=== PATIENT | female | born 1965 | race Caucasian/White ===

== ENCOUNTER 2020-04-30 01:16 | Outpatient (CLI) | payer SELFPAY ==
[2020-05-01 17:43] LABS: COVID-19 RT-PCR Result NEGATIVE (Negative)
== END 2020-04-30 01:36 ==
PROVIDERS: Visit Provider Family Medicine
DX: Z11.59 Encounter for screening for other viral diseases (principal)
CPT/HCPCS: U0003

== ENCOUNTER 2020-05-28 11:06 | Outpatient (CLI) | payer MEDICAID, SELFPAY ==
[2020-05-31 16:37] LABS: Patient Race White; SARS-CoV-2 RNA Undetected (Undetected); SARS-CoV-2 Specimen Source Nasal
== END 2020-05-28 11:26 ==
PROVIDERS: PCP Student in an Organized Health Care Education/Training Program; Visit Provider Family Medicine
DX: Z20.828 Contact with and (suspected) exposure to other viral communicable diseases (principal)
CPT/HCPCS: U0003

== ENCOUNTER 2020-10-11 16:43 | Outpatient (CLI) | payer MEDICAID, SELFPAY ==
--- NOTE | 2020-10-11 16:30 | RT.EKG_ITS ---
APPROVED REPORT Exam: Resting ECG Patient Location: O HR:65 bpm ECG Measurements Heart Rate 65 AXIS DE 176 P 61 QRSd 78 QRS 59 QT 397 T 49 QTc 397 Conclusion Sinus rhythm...normal P axis, V-rate 60- 99 Atrial premature complexes in couplets...pair SV complexes w/ short R-R
== END 2020-10-11 16:44 | disposition home or self-care (01) ==
LOC: DI.KIM 16:43
PROVIDERS: PCP Student in an Organized Health Care Education/Training Program; Visit Provider Student in an Organized Health Care Education/Training Program
DX: R00.0 Tachycardia, unspecified (principal)
CPT/HCPCS: 93010

== ENCOUNTER 2020-10-19 02:08 | Outpatient (CLI) | payer MEDICAID, SELFPAY ==
[2020-10-19 09:58] LABS: Source Nasal/Nares
[2020-10-19 14:31] LABS: COVID-19 PCR Negative (Negative)
== END 2020-10-19 02:09 | disposition home or self-care (01) ==
LOC: LBO 02:09
PROVIDERS: PCP Student in an Organized Health Care Education/Training Program; Visit Provider Family Medicine
DX: Z20.822 Contact with and (suspected) exposure to COVID-19 (principal); Z01.818 Encounter for other preprocedural examination
CPT/HCPCS: 87635

== ENCOUNTER 2020-10-22 04:43 | Outpatient (CLI) | payer MEDICAID, SELFPAY ==
[2020-10-22] MEDS: Albuterol HFA 18 GM 200 PUFF INH IH (16:41)
[2020-10-22] MEDS: Inhaler, Assist Device 1 EACH MC (16:42)
--- NOTE | 2020-10-24 08:24 | W.PFT ---
Date of service: 10/22/20 Time of Service: 03:07 Pulmonary Function Test Result Interpretation Spirometry: No evidence of obstructive airways disease, no bronchodilator response Lung Volumes: No evidence of restriction Diffusion Capacity: Normal Airway Pressure: Normal Impression Normal pulmonary function study Clinical Correlation therefore is recommended.
== END 2020-10-22 04:44 | disposition home or self-care (01) ==
PROVIDERS: PCP Student in an Organized Health Care Education/Training Program; Visit Provider Student in an Organized Health Care Education/Training Program
DX: R06.2 Wheezing (principal); Z87.891 Personal history of nicotine dependence; J44.9 Chronic obstructive pulmonary disease, unspecified; Z87.01 Personal history of pneumonia (recurrent)
CPT/HCPCS: 94060; 94726; 94729

== ENCOUNTER 2020-11-16 15:21 | Outpatient (CLI) | payer MEDICAID, SELFPAY ==
--- NOTE | 2020-11-16 15:24 | DI.RAD_ITS ---
Exam(s) XR RIBS RT W PA LAT CHEST EXAM: XR RIBS RT W PA LAT CHEST CLINICAL HISTORY: r/o fx, RIB PAIN ON RT SIDE, PLEURODYNIA, R07.81 TECHNIQUE: 2D digital imaging was performed. COMPARISON: No exams were available for comparison FINDINGS: MEDIASTINUM: Normal. HEART: Normal. PULMONARY VASCULATURE: Normal. LUNGS: Clear. PLEURAL SPACE: No pleural effusion or pneumothorax. BONE:Normal. RIGHT RIBS: Normal. OTHER FINDINGS:Normal. IMPRESSION: 1. No acute pulmonary findings. 2. Unremarkable right ribs. DATA REPOSITORY: RADIATION DOSE DELIVERED:
== END 2020-11-16 15:41 ==
PROVIDERS: PCP Student in an Organized Health Care Education/Training Program; Visit Provider Nurse Practitioner Family
DX: R07.81 Pleurodynia (principal)
CPT/HCPCS: 71046; 71100

== ENCOUNTER 2021-07-23 03:20 | Outpatient (CLI) | payer OTHER, MEDICAID, SELFPAY ==
[2021-07-23 10:09] LABS: HCT 43.2 % (36.0-46.0); HGB 13.6 g/dL (11.2-15.7); MCH 29.5 pg (27.0-33.0); MCHC 31.5 % (32.0-36.0); MCV 93.7 fL (80-95); MPV 9.5 fL (8.0-11.0); Platelet Count 303 10^3/uL (130-400); RBC 4.61 10^6/uL (3.93-5.22); RDW 12.7 % (11.7-14.6); RDW-SD 43.6 fL; WBC 7.25 10^3/uL (4.4-10.8)
[2021-07-23 11:44] LABS: ALT 28 U/L (14-59); AST 20 U/L (15-37); Albumin 3.9 g/dL (3.4-5.0); Alkaline Phosphatase 138 U/L (46-116); Anion Gap 9.3 mmol/L (3-11); BUN 12 mg/dL (7-18); Bilirubin, Total 0.3 mg/dL (0.2-1.0); CO2 27.7 mmol/L (21.0-32.0); CREATININE 1.1 mg/dL (0.55-1.02); Calcium 9.4 mg/dL (8.5-10.1); Chloride 106 mmol/L (98-107); Estimated GFR 51.38 (mL/min/1.73m2); Glucose 90 mg/dL (74-106); Sodium 143 mmol/L (136-145); TSH 1.37 uIU/mL (0.36-3.74); Total Protein 7.5 g/dL (6.4-8.2)
[2021-07-23 11:56] LABS: Calculated LDL 154 mg/dL (<100); Cholesterol 240 mg/dL (<200); HDL Cholesterol 56 mg/dL (40-60); Triglyceride 153 mg/dL (<150)
[2021-07-23 18:45] LABS: T3,Free 3.3 pg/mL (2.8-5.3)
== END 2021-07-23 03:21 | disposition home or self-care (01) ==
PROVIDERS: Visit Provider Student in an Organized Health Care Education/Training Program
DX: R53.83 Other fatigue (principal); Z13.220 Encounter for screening for lipoid disorders; E46 Unspecified protein-calorie malnutrition; Z13.1 Encounter for screening for diabetes mellitus; E03.9 Hypothyroidism, unspecified; E06.3 Autoimmune thyroiditis; G47.00 Insomnia, unspecified
CPT/HCPCS: 36415; 80053; 80061; 85027; 84439; 84443; 84481

== ENCOUNTER 2021-08-30 02:03 | Outpatient (CLI) | payer OTHER, MEDICAID, SELFPAY ==
[2021-08-30 10:20] LABS: Source Nasal/Nares
[2021-08-30 13:44] LABS: COVID-19 PCR Negative (Negative)
== END 2021-08-30 02:04 | disposition home or self-care (01) ==
LOC: LBO 02:03
PROVIDERS: PCP Student in an Organized Health Care Education/Training Program; Visit Provider Surgery
DX: Z20.822 Contact with and (suspected) exposure to COVID-19 (principal); Z01.818 Encounter for other preprocedural examination
CPT/HCPCS: 87635

== ENCOUNTER 2021-09-02 06:59 | Day surgery (SDC) | payer OTHER, MEDICAID, SELFPAY ==
--- NOTE | 2021-09-02 06:43 | ENDO_ITS ---
Date of service: 09/02/21 Time of Service: Endoscopy Report DATE OF PROCEDURE: 09/02/21 PRE-OP DIAGNOSIS: Abdominal pain and colon cancer screening POST-OP DIAGNOSIS: other (mild gastritis and duodenitis, mild diverticulosis) PROCEDURE: Colonoscopy SURGEON: Nakia Dias ANESTHESIA TYPE: General:No Airway (Deondre Zhang CRNA) COMPLICATIONS: None DISPOSITION: same day INDICATIONS: Jim is a pleasant 55 year old female who is here today to discuss a colonoscopy. This would be her first colonoscopy. She is having some epigastric pain. She was recently treated for presumptive? Diverticulitis. She has had 2 previous episodes of diverticulitis in the past, when she was in her 20's. She denies any melena or hematochezia. Her bowel habits are inconsistent. They can be normal to loose. She can have 1 to 5 BM's per day. She complains of bloating which can be severe. She denies N/V. She has a family history of colon cancer in her Grandfather and aunt. NO 1st degree relatives with Colon or rectal cancer. PREP: Miralax/Dulcolax PROCEDURE START TIME: PROCEDURE END TIME: :07 FINDINGS: Mild gastritis and duodenitis Mild diverticulosis PROCEDURE DESCRIPTION: After informed consent was obtained the patient was take to the procedure room and placed in a supine position. Monitors were applied and a time out was done. The patients name, date of , procedure type, allergies to medications and metal in their body was reviewed. A bite block was placed and the patient was sedated. Once sedated and comfortable the gastroscope was advanced through the oropharynx which was grossly normal into the esophagus. The proximal and mid- esophagus were normal. In the distal esophagus there was mild inflammation noted. The scope was advanced into the stomach and through the pylorus into the 3rd portion of the duodenum. The duodenum was noted to have some mild inflammation. Biopsies were done. The scope was retracted back into the stomach. There was mild inflammation noted in the antrum and body. Biopsies were done to rule out H. pylori. There were no ulcers. The scope was retro-flexed. The cardia and fundus were noted to be normal. There was no hiatal hernia noted. The scope was retracted back into the esophagus and biopsies were done of the GE junction to rule out Giraldo's. The Z line was regular. The GE junction was at 38 cm. While the patient was still sedated they were placed in a left decubitous position. A rectal exam was done. Internal exam revealed a decreased sphincter tone and no palpable masses. The scope was then introduced and retro-flexed. No internal hemorrhoids, masses or polyps were identified on retroflexion. The scope was then advanced to the cecum without difficulty. The ileocecal valve and appendiceal orifice were identified. The prep was good. The scope was advanced into the terminal ileum which was normal. The scope was then slowly retracted over 16 minutes back into the rectum. Polyps were removed with cold forceps in the terminal ileum. There was mild diverticulosis noted in the sigmoid colon. The scope was removed and the patient was woken up and taken back to Same day surgery in stable condition. The patient tolerated the procedure well and there were no immediate complications. Follow up: Will depend on pathology results
--- NOTE | 2021-09-02 06:45 | W.PM.DSUDISC ---
Discharge Plan Disposition Patient Disposition: HOME Condition: Good Discharge Details Reason For Visit: Colonoscopy/EGD Attending Provider: Nakia Dias Primary Care Provider: Paloma Hyman Home Meds and New Rx's Prescriptions: New omeprazole 40 mg capsule,delayed release(DR/EC) 40 mg PO DAILY Qty: 30 0RF Continued cholecalciferol (vitamin D3) 125 mcg (5,000 unit) tablet 125 mcg PO DAILY 0RF melatonin 10 mg capsule 20 mg PO HS PRN0RF Rx Instructions: sleep zolpidem [Ambien] 10 mg tablet 10 mg PO QHS PRN (Reason: sleep) Qty: 30 1RF Rx Instructions: Re-try (over unisom) phenazopyridine 95 mg tablet See Rx Instructions PO TID PRN (Reason: pain) Qty: 90 2RF Rx Instructions: 200mg PO three times a day PRN; epinephrine [EpiPen] 0.3 mg/0.3 mL auto-injector 0.3 mg IM ONCE Qty: 2 1RF Rx Instructions: as a single dose clobetasol 0.05 % ointment 1 applic topical .weekly PRN (Reason: vaginal dryness) 0RF Rx Instructions: vaginal dryness diazepam 10 mg tablet 10 mg PO QHS PRN (Reason: vaginismus) 0RF Rx Instructions: Not PO - vaginal at HS prn for pelvic pain. levothyroxine [Synthroid] 88 mcg tablet 88 mcg PO DAILY 0RF Rx Instructions: Prescribe brand-name only Premarin 0.625 mg/gram cream 0.625 mg vaginal .twice weekly 0RF Rx Instructions: twice weekly (Lichen Sclerosis). CBD drops PO/SL PRN 0RF Rx Instructions: 500mg sucralfate 1 gram tablet 1 g PO BID Qty: 30 1RF Rx Instructions: Trial for gastritis Probiotic 3 billion cell capsule 3,000 mmu cells PO DAILY 0RF Rx Instructions: administer with a meal sumatriptan succinate 50 mg tablet 50 mg PO PRN 0RF Unisom (doxylamine) 25 mg tablet 25 mg PO QHS PRN0RF ondansetron 4 mg Tablet,Disintegrating 4 mg PO Q6H PRN0RF Discontinued bisacodyl [Dulcolax (bisacodyl)] 5 mg tablet,delayed release (DR/EC) 5 mg PO ONCE Qty: 4 0RF Rx Instructions: Take according to provider's instructions for colonoscopy prep. polyethylene glycol 3350 17 gram/dose powder 17 g PO ONCE Qty: 238 0RF Rx Instructions: To be taken as directed by prescriber's office for colonoscopy prep. Discharge Instructions Instructions: Diet for Stomach Ulcers and Gastritis (ED), Gastritis (DC), Diverticulosis (DC) Additional Instructions: Findings: Mild inflammation of the stomach and small bowel (duodenum) Mild diverticulosis ? of a small polyp Follow up: will depend on the pathology results Please call if you develop: fevers >101.5 Nausea or Vomiting Abdominal pain that is not transient Rectal bleeding that is more then a tbsp A hard abdomen and inability to pass gas DAY SURGERY UNIT POST ENDOSCOPY INSTRUCTIONS Instructions for everyone who is given Anesthesia: For your safety, please do the following for the next 24 Hours: a. Do not drive or operate dangerous equipment b. Do not drink alcohol beverages or use any recreational drugs for the first 24 hours or while taking pain medications. The medications in your body may have a reaction that can be dangerous. c. Do not make any important decisions or sign any important papers 1. Generally there are no restrictions on your activity after a day or so has gone by, but you may feel a bit fatigued for a few days. 2. After you arrive home you may have a light meal and return to a normal diet as you can tolerate it without feeling sick to your stomach. 3. After surgery, you may feel pain or discomfort. This should be only transient, but if it persists please contact your doctor. 4. If there are any questions regarding the findings of your procedure, please feel free to contact your doctor. 6. If you are unable to contact your doctor with a problem, contact the hospital at [phone]. 7. Continue all your regular medications unless directed otherwise. I understand the above instructions and have no questions. Signature of Patient or Responsible Adult Escort Date/Time Name of Responsible Adult Escort Signature of Nurse Date/Time Activity:: Activity as Tolerated Diet:: high fiber Discharge Orders Discharge Orders: Discharge Order (Routine); Ordered 09/02/21 Ordered By: Nakia Dias
[2021-09-02 07:23] VITALS: BP 130/86; PULSE 80; RESP 18; TEMP 36.2; O2SAT 99
[2021-09-02] MEDS: Lactated Ringers 1,000 ML 80 ML IV (07:55)
--- NOTE | 2021-09-02 08:04 | W.ANESPRE ---
General Info Date of Service Date Performed: 09/02/21 Height: 5 ft 5.5 in Weight: 64.3 kg Body Mass Index (BMI): 23.2 Surgical Procedure: Operation Date: 09/02/21 08:20 Proposed Procedure Side Surgeon p Colonoscopy/Gastroscopy Nakia Dias MD Meds Allergies and Home Medications Allergies Allergy/AdvReac Type Severity Reaction Status Date / Time strawberry Allergy Severe mouth/tongue Verified 09/02/21 07:29 swelling venom-honey bee Allergy Severe anaphylaxis Verified 09/02/21 07:29 Sulfa (Sulfonamide Allergy Verified 09/02/21 07:29 Antibiotics) vaccine adjuvant system, AdvReac Mild localized Verified 09/02/21 07:29 AS01B liposomal rash [From Shingrix (PF)] varicella-zoster virus AdvReac Mild localized Verified 09/02/21 07:29 glycoprotein E, recombinant rash [From Shingrix (PF)] pregabalin [From Lyrica] AdvReac Suicidal Verified 09/02/21 07:29 Ideation vaccines AdvReac Mild reacts to Uncoded 09/02/21 07:29 vaccines-fever,aches/pains,malaise,fatigue Home Medication Medication Instructions Recorded doxylamine succinate 25 mg tablet 25 mg PO QHS PRN 05/09/20 (Unisom (doxylamine)) sumatriptan succinate 50 mg tablet 50 mg PO PRN tab 05/09/20 cholecalciferol (vitamin D3) 125 125 mcg PO DAILY 05/18/20 mcg (5,000 unit) tablet melatonin 10 mg capsule 20 mg PO HS PRN cap 05/18/20 epinephrine 0.3 mg/0.3 mL 0.3 mg (0.3 mL) IM ONCE #2 ea 01/04/21 injection, auto-injector (EpiPen) phenazopyridine 95 mg tablet See Rx Instructions PO TID PRN #90 01/04/21 tab zolpidem 10 mg tablet (Ambien) 10 mg PO QHS PRN #30 tab 01/04/21 CBD PO/SL PRN 06/27/21 clobetasol 0.05 % topical ointment 1 applic TOPICAL .weekly PRN g 06/27/21 conjugated estrogens 0.625 mg/gram 0.625 mg VAGINAL .twice weekly g 06/27/21 vaginal cream (Premarin) diazepam 10 mg tablet 10 mg PO QHS PRN tab 06/27/21 levothyroxine 88 mcg tablet 88 mcg PO DAILY 06/27/21 (Synthroid) sucralfate 1 gram tablet 1 g PO BID #30 tab 07/23/21 lactobacillus combination no.4 3 3,000 mmu cells PO DAILY 08/16/21 billion cell capsule (Probiotic) bisacodyl 5 mg tablet,delayed 5 mg PO ONCE #4 tab 08/27/21 release (Dulcolax (bisacodyl)) polyethylene glycol 3350 17 17 g PO ONCE #238 g 08/27/21 gram/dose oral powder ondansetron 4 mg disintegrating 4 mg PO Q6H PRN 08/30/21 tablet Current Visit Medications: Current Medications Generic Name Dose Route Start Last Admin Trade Name Freq PRN Reason Stop Dose Admin Hyoscyamine Sulfate 0.125 mg 09/02/21 06:45 Hyoscyamine 0.125 Mg Sl/Oral/Chew SL DIRECTED PRN Ringer's Solution 1,000 mls @ 80 mls/hr 09/02/21 06:00 09/02/21 07:55 IV 09/16/21 23:59 80 mls/hr INFUSION GAYLE Administration IV Miscellaneous Supplies 1 each 09/02/21 06:00 Iv Access IV 09/16/21 23:59 DIRECTED GAYLE Ondansetron HCl 4 mg 09/02/21 06:45 Ondansetron 4 Mg/2 Ml Vial IVP Q4H PRN PRN Nausea / Vomiting Sodium Chloride 0 ml 09/02/21 06:00 Normal Saline Flush 10 Ml Syr IV 09/16/21 23:59 PRN PRN Sodium Chloride 0 ml 09/02/21 06:00 Normal Saline 10 Ml Vial IJ 09/16/21 23:59 DIRECTED PRN Sterile Water 0 ml 09/02/21 06:00 Water,Injection,Sterile 10 Ml Vial IJ 09/16/21 23:59 DIRECTED PRN PFSH Active Problems Active Problems: Problem Status Onset Code History of trauma Z87.828 Hx of smoking Z87.891 Abdominal pain R10.9 History of diverticulitis Z87.19 GERD (gastroesophageal reflux disease) K21.9 Medical History Medical History Advance directive in chart Atypical and under discussion .. [place] COVID-19 2019 Cystocele, midline Female genital prolapse s/p repair .. 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 Poor tolerance Lunesta (metallic taste). Insomnia Interstitial cystitis Terrible IC flare, 12/2020. Lichen sclerosus of anus Lichen sclerosus of female genitalia Migraine Improved s/p breast reduction Pelvic and perineal pain Sees Dr. Elian Sandy ([place]) for trigger point injections ..vaginal diazepam. Pelvic floor dysfunction Pelvic floor tension Postmenopausal atrophic vaginitis Hx lichen sclerosis .. (s/p tear repair, Dr. Sandy ([place])) Rectocele Stress incontinence Vaginismus Valium (vag); Establising w/ [facility] (Dr. Mitzi Mcknight) & [facility] PT. Wheeze Lingering wheeze (upper rt) Medical History Comments:: freaked out' in the past with anesthesia. 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 Pt. reports having had 30 surgeries in the past. Surgical History Surgical History H/O cystoscopy Vaginal biopsy and Repair of vaginal tears. Dr. Noelle Sandy History of bilateral breast reduction surgery History of colonoscopy History of hysterectomy History of surgery Peer patient hx multiple cystoscopys, total pelvic rebuild, anterior/ posterior repair, surgery for endometriosis, surgical repair for vaginal tears r/t lichen sclerosus. Patient reports a total of 30 past surgical procedures. Tobacco Smoking/Tobacco Use Status: Former Tobacco Use Passive smoking exposure: No Alcohol Alcohol Intake: former Year quit: 2011 Substance Use Substance use: Never Substance use type: does not use Vital Signs and Lab Results Vital Signs Most Recent Vital Signs in EMR: Most Recent Vital Signs Temp Pulse Resp BP Pulse Ox 36.2 C L 80 18 130/86 99 09/02/21 07:23 09/02/21 07:23 09/02/21 07:23 09/02/21 07:23 09/02/21 07:23 Lab Results Blood Type / Crossmatch: No Data to Display Complete Blood Count: No Data to Display Complete Metabolic Panel: No Data to Display Liver Function Panel: No Data to Display Coagulation Panel: No Data to Display Cardiac Panel: No Data to Display Arterial Blood Gas: No Data to Display Venous Blood Gas: No Data to Display Pancreas Panel: No Data to Display Thyroid Panel: No Data to Display Infectious Disease: Coronavirus (COVID-19)(PCR) Negative (Negative) 08/30/21 08:40 08/30/21 Coronavirus 2019 Source Nasal/Nares 08/30/21 08:40 08/30/21 Blood Cultures: No Data to Display Toxicology Panel: No Data to Display Anesthesia Assessment and Plan Anesthesia History Personal History: PONV, Awareness Under Anesthesia and Other Family History: No Family History of Anesthesia Complications Exercise Tolerance Exercise Tolerance: Metabolic Equivalents>4 Pertinent Negatives Pertinent Negatives: No Symptoms of GERD Cardiac & Pulmonary Exam Cardiac Exam: Normal S1/S2 Heart Sounds Pulmonary Exam: Clear Bilateral Breath Sounds Implantable Cardiac Device Does patient have a Pacemaker or an ICD?: No Airway Exam Known Difficult Airway: No Mallampati Class: 2 Mouth Opening: Normal (> 3cm) Thyromental Distance: Greater than 3 cm Neck Range of Motion: Full ROM Neck Circumference: Normal Teeth Condition: Normal Dentition ASA Classification ASA Score: ASA 2 Emergency Case?: No NPO Status NPO Status: NPO Clears >2 hours, Solids >8 hours Anesthesia Plan Resuscitation Status: Full Code Anesthesia Technique: General Anesthesia Airway Planned: Natural Airway Monitors Used: Standard Monitors
[2021-09-02 08:06] VITALS: BMI 23.2
--- NOTE | 2021-09-02 08:35 | STOM_PTH ---
PATIENT: Isela Braun LOC: [facility] U#:[id number] AGE/SX: 55/F ROOM: RE09/02/[address]: Nakia Dias MD : 1965 BED: DIS: 09/02/2021 SPEC #: [id number] RECD: 09/02/21 12:40 STATUS: LILIA RE #: [id number] JED: 09/02/21 08:[address]: Nakia Dias DEPT: Surgical Specimen RECD BY: Janay Valle ENTERED: 09/02/21 12:43 SP TYPE: STOMACH OTHR DR: Paloma Hyman DO Tissues: 1 - BIOPSY BOWEL 2 - STOMACH BIOPSY 3 - STOMACH BIOPSY 4 - ESOPHAGUS BIOPSY 5 - BIOPSY BOWEL Procedures: GROSS AND MICRO LEVEL 4 Comments: [id number]
[2021-09-02] MEDS: Hyoscyamine 0.125 MG SL/ORAL/CHEW SL (09:21)
[2021-09-02 09:31] VITALS: BP 103/98; PULSE 97; RESP 16; TEMP 35.8; O2SAT 97
[2021-09-02 10:00] VITALS: BP 129/78; PULSE 67; RESP 16; TEMP 36.4; O2SAT 99
--- NOTE | 2021-09-02 10:38 | W.ANESPOSTOP ---
Postoperative Evaluation Date, Time and Location Date Performed: 09/02/21 Time Performed: 10:00 Patient Location: Day Surgery Unit Vital Signs Most Recent Imported Vital Signs: Most Recent Vital Signs Temp Pulse Resp BP Pulse Ox 36.4 C L 67 16 129/78 99 09/02/21 10:00 09/02/21 10:00 09/02/21 10:00 09/02/21 10:00 09/02/21 10:00 Pain Score Most Recent Pain Score: Most Recent Pain Score Pain Level 6 09/02/21 10:00 Assessment Mental Status: Awake (Alert & Oriented to Patient Baseline) Airway and Respiratory Function: Patent airway with normal (patient baseline) respiratory exam Cardiovascular Function: Hemodynamically Stable Hydration Status: Adequately Hydrated Nausea & Vomiting: No Nausea or Vomiting Pain: Pain is Moderate or Severe Postoperative Pain Management: Other (Surgeon aware and addressing) Peripheral Nerve Block: Patient did not receive a nerve block
== END 2021-09-02 10:45 | disposition home or self-care (01) ==
LOC: SUR 07:00
PROVIDERS: PCP Student in an Organized Health Care Education/Training Program; Visit Provider Surgery
PROC: (CPT 45380; principal; 2021-09-02 08:15)
DX: Z12.11 Encounter for screening for malignant neoplasm of colon (principal); K21.9 Gastro-esophageal reflux disease without esophagitis; K31.89 Other diseases of stomach and duodenum; D12.3 Benign neoplasm of transverse colon; K29.70 Gastritis, unspecified, without bleeding; K29.80 Duodenitis without bleeding; K63.89 Other specified diseases of intestine; Z80.0 Family history of malignant neoplasm of digestive organs; K57.30 Diverticulosis of large intestine without perforation or abscess without bleeding
CPT/HCPCS: 45380; 43239; 88305; J3490

== ENCOUNTER 2021-09-18 01:58 | Outpatient (CLI) | payer OTHER, MEDICAID, SELFPAY ==
[2021-09-19 20:19] LABS: Baker's Yeast, IgE <0.35 kU/L; Banana, IgE <0.35 kU/L; Barley, IgE <0.35 kU/L; Beef IgE <0.35 kU/L; Black/White Pepper IgE <0.35 kU/L; Broccoli IgE <0.35 kU/L; Cacao/Cocoa, IgE <0.35 kU/L; Cinnamon, IgE <0.35 kU/L; Corn-Food IgE <0.35 kU/L; Milk, IgE <0.35 kU/L; Onion, IgE <0.35 kU/L; Soybean IgE <0.35 kU/L; Strawberry, IgE <0.35 kU/L; White Potato, IgE <0.35 kU/L
[2021-09-19 20:31] LABS: Egg Whole IgE <0.10 kU/L
== END 2021-09-18 01:59 | disposition home or self-care (01) ==
LOC: LBO 01:58
PROVIDERS: PCP Student in an Organized Health Care Education/Training Program; Visit Provider Surgery
DX: K20.0 Eosinophilic esophagitis (principal)
CPT/HCPCS: 36415; 86003

== ENCOUNTER 2022-01-31 01:31 | Outpatient (CLI) | payer OTHER, MEDICAID, SELFPAY ==
--- OUTSIDE RECORDS SUMMARY | 2022-01-31 01:32 | XMS_ITS | Encounter Summary ---
:1965 Author Organization [facility] [place] [address] Care Team Providers Name Role Phone Paloma Hyman Primary Care Provider Reason for Visit Reason Onset Date Comments Reminder Appointment 12/31/2021 Encounter Details Date Type Department Care Team Description 12/31/2021 [place] [facility] [place] [facility] [place] [address] Social History Tobacco Use Types Packs/Day Years Used Date Former Smoker Cigarettes 0.5 10 Quit: 02/18/20 11 Smokeless Tobacco: Never Used Comments: 1 to 2 a day. Alcohol Use Standard Drinks/Week Comments No 0 (1 standard drink = 0.6 oz pure alcoho l) Sex Assigned at Date Recorded Not on file documented as of this encounter Miscellaneous Notes Telephone Encounter - Bhavna Calderon LNA - 12/31/2021 8:45 AM EDT Called patient to review medications and allergies for their upcoming gastroenterology Type of Appointment: Telehealth appointment. 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
--- OUTSIDE RECORDS SUMMARY | 2022-01-31 01:32 | XMS_ITS | Encounter Summary ---
:1965 Author Organization [facility] [place] [address] Care Team Providers Name Role Phone Paloma Hyman DO Primary Care Provider Reason for Visit Consultation (Routine) - Authorized Specialty Diagnoses / Procedures Referred By Contact Refer red To Contact Gastroenterology Diagnoses Eosinophilic esophagitis Eosinophilic esophagitis Paloma Hyman, [facility] DO [address] [phone] Fax: Referral ID Status Reason Start Expiration Visits Visits Date Date Requested Authorized [id number] Authorized Consult, 12/09/2021 12/09/2022 6 6 Test & Treat PCP Updated and/or Approved Encounter Details Date Type Department Care Team Description 12/31/2021 [place] [facility] [place], Dysphagia, unspecified type; (TeleHealth) [facility] Mariel Zhang MD Gastroesophageal reflux disease, unspeci fied whether esophagitis present; [place] [id number] [facility] Functional dyspepsia; [phone] Center Irritable bowel syndrome [place] [address] Social History Tobacco Use Types Packs/Day Years Used Date Former Smoker Cigarettes 0.5 10 Quit: 02/18/20 11 Smokeless Tobacco: Never Used Comments: 1 to 2 a day. Alcohol Use Standard Drinks/Week Comments No 0 (1 standard drink = 0.6 oz pure alcoho l) Sex Assigned at Date Recorded Not on file documented as of this encounter Patient Instructions Patient InstructionsMiller Ibarra MD - 12/31/2021 5:07 PM EDT Functional Bowel Disorders: Information Handout for Patients and Primary Care Providers Miller Ibarra MD, FRCPC + Terrell Haas MD, CALIN Jordin Monreal, SAFETY ADMIN ASSISTANT + Cecilia Molina APRN + Brina Rodriguez APRN + TOD Jones RN + WILLIAM Church, PhD [facility] What are functional bowel disorders? These are the most common type of gastrointestinal disorders in the [facility] The most common functional bowel disorder in the [facility] is irritable bowel syndrome (IBS) Irritable bowel syndrome affects the lower GI tract and can cause bloating, abdominal pain, diarrhea, and constipation Functional dyspepsia (FD) affects the upper GI tract and can cause bloating, burping, heartburn, nausea, fullness and stomach discomfort In functional disorders the gut is structurally/anatomically normal but is not functioning properly due to abnormalities in the enteric (gut) nervous system Two mechanisms cause symptoms - heightened sensitivity of the gut to normal sensations (sensory nerves) and abnormal gut motility (motor nerves) These disorders are caused by a combination of a genetic factors, changes to the gut microbiota (intestinal bacteria) and environmental triggers How common are these disorders and what is the impact? 15-20% of general [place] population has IBS or FD or both IBS is the 2nd most common cause for lost work days (after common cold) in [place] IBS is estimated to cost the [place] economy 30 billion dollars per year These disorders are typically chronic and can have a significant impact on quality of life How is the diagnosis made? The diagnosis of a functional disorder is NOT a ???diagnosis of exclusion?? (common misconception) Investigations may be necessary to look for other disorders (such as celiac disease) that may be contributing to symptoms. Sometimes investigations are required if the diagnosis is unclear Work-up may include history (description of symptoms), physical exam, bloodwork, stool studies, diagnostic imaging, motility tests and endoscopy What is the prognosis? Functional bowel disorders are unfortunately chronic disorders and often have a major impact on patient quality of life, function, and relationships Symptoms may gradually resolve in some patients (highest rate in patients with immediate onset of symptoms after infection); penitentiary symptoms are expected in most patients however Most patients experience a variable course with varying degrees of symptom severity. Intermittent exacerbations (i.e. ???flares?? ) are common and may be caused by stress, infections, antibiotic exposure, and lack of adherence to treatment plans. Often there is no clear precipitant for an exacerbationthough. When should a patient be re-evaluated? Patients with stable symptoms do NOT need episodic re-evaluation Subtle changes in symptoms and symptom flares are common Patients should be re-evaluated if they have progression or dramatic changes in symptoms, severe abdominal pain, swallowing difficulties, unexplained weight loss, anemia (low blood counts), or bleeding If you have concerns be sure to talk to your PRP or GI provider How do I use this information? Set realistic goals! Remember it is unlikely that any one measure will completely eliminate all symptoms ???Start low and go slow?? with all measures to avoid potential side effects Stay on any measure continuously for at least 4-6 weeks prior to assessing whether or not it is helping (improvements are often slow to occur) After an adequate trial ask yourself if the benefit is worth continuing the treatment Most patients will need multiple treatment measures (each giving a partial benefit) - this is calledthe ???layering strategy?? Remember that finding the right combination for you takes time and patience - there is NO ???miraclecure?? for functional disorders Remember there are limited treatment options available. We want to be absolutely sure that a measureis not effective or intolerable before stopping it and considering other options We specifically recommend all patients to do ALL general lifestyle and dietary measures. Patients that do not follow these general measures generally do not have improvement. We also specifically suggest using a fiber supplement (such as Metamucil) and probiotics together - this approach benefits mostpatients OTC (ibsr-jyx-cdvrmrk) medications can be used for ongoing bothersome symptoms as listed below Your doctor (PCP or the orthopedic specialty hospital Gastroenterology provider or Gastroenterology provider) may decide to use prescription medications if you have ongoing symptoms despite using lifestyle and dietary measuresand OTC medications Your doctor will give you advice on treatments but it is your responsibility to work on these measures to improve your symptoms. Lack of following recommendations is a common cause for ongoing symptoms. If symptoms are controlled try easing back on measures - remember the main goal is to improve quality of life (not necessarily eliminate symptoms). Goals of Therapy Complete resolution of all symptoms is not a realistic goal for most patients. Although we hope for you to have decreased symptoms we believe the most important goal is to help you find strategies to cope with and understand your disorder. Ultimately, we hope that you are able toimprove your quality of life and do the things that are important in your life! Non-Pharmacologic General Treatments Lifestyle measures Many lifestyle factors can worsen IBS symptoms However, IBS is not caused by these factors (common misconception) These lifestyle factors include the following: Inadequate sleep Weight gain Inadequate exercise Stress Depression/anxiety - this should be brought up to your Primary Care Provider (if left untreated it is unlikely the functional bowel disorder will improve) Dietary measures Trigger food avoidance - you should re-introduce foods once symptoms settle as overly restrictive diet can be unhealthy and even harmful Fatty foods, spicy foods, alcohol, and caffeine can worsen symptoms Consider a 2 week dairy-free trial for possible lactose-intolerance Your PCP or GI provider can refer you to a dietitian for formal instruction on specialized diets including the low FODMAP diet (but we don't recommend using this without dietitian involvement). Fiber Aim for a goal is 30 g fiber/day - some patients may require more or less Increase fiber by 5 g per week (remember ???start low and go slow?? ) Fiber can be from multiple dietary sources but supplementation may be helpful Fiber intake should include psyllium fiber; this is the type of fiber used in research studies for treatment of IBS Sources of psyllium include All-Bran psyllium buds, Metamucil, bulk psyllium ([employer] andRetAPPs) Specifically we recommend starting Metamucil at a low dosage such as one teaspoon a day for one weekthen gradually increasing by one teaspoon per week until no further benefit with increasing dosage is achieved. Most patients take between 2 and 6 teaspoons per day. Fluid intake goal is 8-10 glasses/day (caffeine and alcohol count as minus one in calculation) Probiotics Promising area but convincing medical evidence is still lacking Ilav-zqz-urqzomc supplements are not typically evaluated by FDA - quality/safety unclear and many products actually do not contain any probiotics at all Live-culture yogurts, kombucha and other dietary sources are an option Shanika, TuZen, and Visbiome are the three probiotics that are supported by medical research to have been shown benefit for IBS (available in most pharmacies, supermarkets or online) Florastor has been shown to benefit some post-infectious patients Psychology/Coping Skills Coping with chronic bothersome symptoms from functional disorders can be very challenging. Additionally it is not uncommon for functional disorders to contribute to feelings of stress, anxiety, and depression, which can actually worsen functional disorders. This can be a vicious cycle! Smartphone apps can be helpful for coping with IBS symptoms, and lessening the impact of stressors on IBS Headspace (anxiety/stress/mindfulness) Calm (anxiety/stress/mindfulness) CBT-I onsite health coach (insomnia/sleep problems) Curable (chronic pain) There is evidence for Cognitive Behavioral Therapy (CBT) for IBS - you can try this at home using a workbook (Controlling IBS the Drug-Free Way: A 10-Step Plan for Symptom Relief by Julian Landaverde, Ph.D.) or work with a GI psychologist A local therapist may also be helpful for managing the impact of IBS and decreasing the likelihood that stressors will cause flares psychologytoday.[employer] ABCT.org ContextualScience.org Gut-directed hypnotherapy for IBS is also supported by research - you may find a provider at [facility] OT Medications for Functional Gut Disorders Diarrhea Loperamide (Imodium) should be considered first for mild and intermittent symptoms - start with small doses and take several hours before needed (or even before bed) (it is generally considered safe for long-term use) Constipation Patients with mild constipation can use laxatives ???as needed?? (in other words, if you feel constipated or haven't had a regular bowel movement). However, patients with more severe constipation generally will need laxatives on a regular schedule (every day or every second day for example). This is called ???maintenance therapy?? . PEG 3350 (Miralax) is a stool softener that is safe for penitentiary usage (no risk of dependency) and the dosage can be adjusted to achieve 1-2 soft bowel movements per day; you can take 17g twice daily if needed Milk of magnesia, magnesium supplements and lactulose are alternate stool softeners that are generally safe for regular use in most patients (you should ask your doctor though) Bisacodyl (Dulcolax) and senna (Senokot) are stimulant laxatives for occasional use only (they may lead to dependency with regular long-term use) Enemas and bowel preparations (e.g. Golytely) can be used to treat severe stool impaction ---- this is called ???rescue therapy?? . Drink 2 litres in 4 hours in the evening then take another 2 litres over 4 hours the next morning. Alternately, you can mix 14 capfuls of Miralax with 64 oz (2 litres) of Gatorade. Drink half over 2 hours in the evening then take the rest over 2 hours the next morning. After rescue therapy immediately begin aggressive ???maintenance therapy?? with the therapies above. Bloating/Pain Ensure constipation is completely treated - ongoing constipation is one of the most common causes for refractory pain and bloating in patients with a history of constipation Heating pad or hot-water bottle, exercise, , warm bath or shower, and warm beverages are all good treatments for painful bloating episodes Simethicone (Gas-X) can be helpful for occasional usage for painful bloating Peppermint oil may also be useful; a capsule form exists (IBgard) Tumeric may help with pain and bloating in some patients Acetominophen (Tylenol) is safest analgesic (pain reliever) on the GI tract NSAIDs (e.g. ibuprofen) can cause gut irritation/inflammation - it's best to use this type of pain reliever in low doses and frequency only While medical cannabis has been used to treat a variety of chronic pain disorders it has not been rigorously studied in functional disorders and may actually worsen symptoms in some patients. At this point we do NOT recommend using medical cannabis to treat functional disorders AVOID narcotics/opioids as they typically make symptoms much worse and there is a risk of addiction and/or dependence Heartburn/Nausea/Vomiting/Dyspepsia Weight loss, elevation of the head of the bed frame, cutting back on nicotine/alcohol/caffeine/fattyfoods, and avoiding eating or drinking prior to bed may help with reflux symptoms OTC antacids can be used for mild and/or infrequent reflux symptoms Acid reducing medications such as proton-pump inhibitors (PPIs) and H2 blockers are effective at relieving reflux if persistent and bothersome symptoms despite dietary and lifestyle measures Yina and vitamin B6 may help with nausea L-carnitine, riboflavin, and coenzyme Q10 supplements have been reported to help some patients with chronic nausea and vomiting Capsaicin, turmeric, and FDgard (combination of peppermint and crow) may help with after-meal bloating, fullness and discomfort If using cannabis (recreational or medical) consider stopping for at least a full month. While cannabis has been reported to help some patients with nausea, it may actually contribute to symptoms in some patients. Disclaimer This information is intended for educational purposes only It is not meant to replace direct patient-doctor care All medications should be used under the supervision of a Gastroenterology provider (the orthopedic specialty hospital or ) [facility] Authors are not liable for misuse/misinterpretation of this information Patient Resources [place] [employer] https://www.gastro.org/practice-guidance/zk-kakhytl-kazkaa/t opic/nlhjftfix-vgizc-eyjvjkhp-ibs Badgut.org https://badgut.org/information-centre/h-w-nvnirropk-topics/ibs/ AboutIBS.org https://www.aboutibs.org/ Uptodate.com https://www.uptodate.com/contents/nkdulafsz-oabrq-ensnluqw-roplwq-pop-bxgfev documented in this encounter Progress Notes Miller Ibarra MD - 12/31/2021 4:00 PM EDT [facility] TELEMEDICINE PROGRAM Chief Complaint: Isela Braun is a 56 y.o. patient referred for consultation by Dr. Hyman forpossible eosinophilic esophagitis (EoE). Referred for second opinion followed at [facility]. History of Present Illness: 56 y.o. female with past medical history of hypothyroidism, Hakeem's,interstitial cystitis, insomnia, lichen sclerosis, migraines, pelvic floor reconstruction, diverticulitis. New onset of dyspepsia over the winter. Symptoms include early satiety, post- prandial fullness, bloating,and upper abdominal discomfort. Prominent bloating is most bothersome symptom. Occasional nauseawith migraines but no vomiting. Increased stress noted recently. History of chronic heartburn - increased symptoms over the winter - Currently controlled with current PPI. History of chronic globus sensation - also started over the winter. No dysphagia. Resolved with PPI therapy. Chronically altered bowel movements -historically predominantly constipation. Variable course over time with no recent dramatic worsening. Overall doing well currently with 2-3 bowel movements per day.Occasional loose BM. Bowel pattern has associated generalized lower abdominal discomfort and bloating. Worse with certain foods and stress. No blood in stools or melena. Appetite reduced but weight stable. Rare NSAIDs. She underwent upper and lower endoscopy September 02, 2021 which showed mild gastritis and duodenitisand diverticulosis. A polyp was removed as well. Biopsies of the duodenum were normal. Biopsies of the stomach showed reactive gastropathy. Biopsies of the GE junction showed an increased number of eosi nophils at 60 eosinophils per high-power field. Current Regimen: Omeprazole 40 mg once a day Zofran prn Past Therapies: Carafate-fatigue and diarrhea Empiric antibiotics for possible H.pylori Review of systems: 14-point review of systems reviewed and negative except as above. Medications: Outpatient Medications Prior to Visit Medication Sig Dispense Refill ??? diazePAM (Valium) 10 mg Tablet TAKE 1 TABLET VAGINAL AT BEDTIME NEEDED FOR VAGINISMUS NOT BY MOUTH - VAGINAL FOR PELVIC PAIN. ??? omeprazole (PriLOSEC) 40 mg Capsule, Delayed Release(E.C.) Take 40 mg by mouth daily. ??? cholecalciferol (Vitamin D3) 1,000 unit Tablet Take 1,000 Units by mouth Daily. ??? ondansetron ODT (Zofran-ODT) 4 mg Tablet, Rapid Dissolve Take 4 mg by mouth Every 8 hours as needed. ??? SUMAtriptan (Imitrex) 50 mg Tablet Take 50 mg by mouth. ??? levothyroxine (SYNTHROID) 100 mcg tablet Take 1 tablet by mouth daily. (Patient taking differently: Take 88 mcg by mouth daily.) 180 tablet 1 ??? zolpidem (AMBIEN) 10 mg tablet TAKE 1 TABLET BY MOUTH AT BEDTIME NEEDED FOR SLEEP (Patient not taking: Reported on 12/31/2021) 90 tablet 1 ??? OXYcodone (ROXICODONE) 5 mg immediate release tablet Take 1 tablet by mouth every 4 hours as needed for Pain. (Patient not taking: Reported on 12/31/2021) 30 tablet 0 ??? pregabalin (LYRICA) 25 mg capsule Take 1 tab po qhs, take with 75 mg cap (Patient not taking: [place] reported) 30 capsule 2 ??? albuterol (PROVENTIL HFA;VENTOLIN HFA) 90 mcg/Actuation inhaler Inhale 2 puffs into the lungs every 4 hours as needed. Use with spacer (Patient not taking: Reported on 12/31/2021) 1 Inhaler 12 ??? DOXYLAMINE SUCCINATE (UNISOM ORAL) Take by mouth nightly as needed. sleep ??? ibuprofen (MOTRIN) 400 mg tablet ??? acetaminophen (TYLENOL) 325 mg tablet No facility-administered medications prior to visit. Allergies: is allergic to hornet sting [hymenoptera allergenic extract], pregabalin, sulfa (sulfonamide antibiotics), and unknown [unclassified drug]. Past Medical History: has a past medical history of Allergy (07/20/1984), Bladder disorder (07/20/1994), Bone disease (1994), Breast disease (07/20/2001), Breathing problem (07/20/2004), Cancer (1991,1994), Chronic pain (1994, 2008), Digestive problems (07/20/1994), Genital disease, female (07/1987), Headache(784.0) (07/20/2009), Hormone disorder (07/20/1994), Interstitial cystitis, Lichen sclerosus, Migraines, and Other ill-defined conditions(799.89) (07/20/1999). Past Surgical History: has a past surgical history that includes joint replacement (07/20/1993); Bladder surgery (1994- 2009); and Breast reduction surgery. Family History: family history includes Alcohol Use Disorder in her father and paternal grandfather;Colorectal Cancer in her maternal aunt and maternal grandmother; Coronary Artery Disease in her father, paternal grandfather, and paternal grandmother; Depression in her mother and paternal grandmother; Osteoporosis in her maternal aunt. denies family history of IBD, or celiac disease in mother father or other family members Social History: reports that she quit smoking about 10 years ago. Her smoking use included cigarettes. She has a 5.00 pack-year smoking history. She has never used smokeless tobacco. She reports that she does not drink alcohol and does not use drugs. 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 Physical exam: Constitutional: well appearing, no apparent distress Eyes: conjunctiva clear without icterus, pallor, or injection ENT: Nose without external redness or drainage. Mouth with normal dentition; moist mucous membranes CV: No lower extremity peripheral edema or signs of cyanosis Respiratory: Breathing comfortably and speaking in full sentences without evident tachypnea or signsof respiratory distress GI: Abdomen non-distended and non-tender to self-palpation Skin: No visible rashes Psych: Appropriate affect. Intact thought and speech Neuro: Alert and oriented. Moving upper extremities appropriately Questionnaire: Q-GI MOTILITY CLINIC BATTERY 12/31/2021 [facility] Healthy Day Score 30 Work Absenteeism Error Work Presenteeism 0.11 Laboratory studies, imaging, and procedures (in summary of my review of prior records): See above Assessment/Plan: Ms. Braun is a 56 y.o. patient with the following issues: 1. History of globus (but no dysphagia) with recent EGD showing esophageal eosinophilia with 60 eosinophils per high-power field at the GE junction. The endoscopy report reports a normal-appearing esophagus with no visual evidence to suggest eosinophilic esophagitis (EoE). Typically biopsies are taken5 cm above the GE junction as well as the mid and proximal esophagus for diagnostic and surveillancepurposes and EoE. The significance of esophageal eosinophilia on GE junction biopsies is unclear butthis is unlikely to represent EoE. The more likely explanation her situation is reflux effect. 2. Chronic heartburn consistent with GERD. Controlled with current therapies. 3. 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 Transient improvement with antibiotics but symptoms worsened again after COVID. Prominent bloating is most bothersome symptom. Possible element of delayed gastric emptying. Increased stress recently may be contributing. 4. Chronic altered bowel pattern with associated abdominal discomfort and bloating consistent with IBS -constipation predominant (IBS-C). Possible element of dyssynergic defecation (DD). Currently stable. 5. Colonic adenoma Recommendations: We discussed GI functional/motility disorders in depth today including pathophysiology, expected course, impact and treatment categories We also discussed realistic goals (with emphasis on improved quality of life) and patient responsibilities. Please see the patient handout for recommendations on general treatment measures including lifestyle, dietary, and non-prescription pharmacologic options. I will arrange a comprehensive evaluation of the structure and function of the patient's GI tract including the following investigations +/- referrals: EGD off PPI for 2-3 weeks with biopsies of esophagus (PPI's can improve eosinophilia due to EoE or GERD); also planing to do biopsies of stomach and duodenum. Will do with MAC given chronic benzo usage. RUQ U/S to rule out gallstones - can be done locally via PCP as per her request. Consider Gastric emptying study Consider hydrogen breath test Can have surveillance colonoscopies locally - recommended repeat in 3 years as per patient I will arrange a follow-up appointment after the above investigations to review the results and consolidate the diagnosis. Please note that generally specific treatment recommendations will not be discussed at that time. An additional follow-up appointment with a motility [employer] MANAGER will be scheduled after this appointment to discuss specific recommendations for management. Patients should continue to work on general measures provided in our handout while awaiting this appointment. We also discussed the consultative nature of the [facility] GI motility program. The patient should continue to work with their PCP +/- local GI as the primary point(s) of contact for urgent issues, medication refills and adjustments as needed for continuity of care purposes in between visits to our center based on the recommendations above. Recommend PCP to refer to local GI if patient does not have a local GI currently. Yearly or bi-yearly visits with a member of the motility team may be available for co-management purposes depending upon the specific circumstances of the patient's medical condition. RTC with me in after testing completed The patient was located in [place] at the time of their visit. Miller Ibarra MD [facility] [place] [address] documented in this encounter Plan of Treatment Scheduled Orders Name Type Priority Associated Diagnoses Order S chedule ENDOSCOPY CASE Procedures Routine Dysphagia, unspecified Ord ered: 12/31/2021 REQUEST: EGD, UPPER type GI ENDOSCOPY Gastroesophageal reflux disease, unspecified whether esophagitis present Functional dyspe psia Irritable bowel syndrome with both constipation and diarrhea Scheduled Procedures Name Priority Associated Diagnoses Date/Time EGD, UPPER GI ENDOSCOPY Dysphagia, unspe cified type Gastroesophageal reflux disease, unspecified whether esophagitis present Functional dyspepsia Irritable bowel syndrome with casey th constipation and diarrhea documented as of this encounter Visit Diagnoses Diagnosis Dysphagia, unspecified type Gastroesophageal reflux disease, unspeci fied whether esophagitis present Functional dyspepsia Dyspepsia and other specified disorders of function of stomach Irritable bowel syndrome with both const ipation and diarrhea documented in this encounter Care Teams Mechanical Designer Relationship Specialty Start Date End Date Paloma Hyman DO PCP - General Family Medicine 12/09/[address] [place] [address] documented as of this encounter
--- OUTSIDE RECORDS SUMMARY | 2022-01-31 01:32 | XMS_ITS | Clinical Summary ---
:1965 Author Organization [facility] [place] [address] Care Team Providers Name Role Phone Paloma Hyman Primary Care Provider Allergies Active Allergy Reactions Severity Noted Date Comments Hymenoptera Allergenic High 06/18/2012 Breat adarsh trouble Extract Pregabalin High 05/09/2013 Other reaction( s): Other (See Comm ents) SUICIDAL THINKI NG Sulfa (Sulfonamide Diarrhea Antibiotics) Unclassified Drug Other (See Comments) Re laxants-reverse affects Medications Medication Sig Dispensed Refills Start Date End Date Status ibuprofen (MOTRIN) 400 0 07/10/2004 Active mg tablet acetaminophen (TYLENOL) 0 07/10/2004 Active 325 mg tablet DOXYLAMINE SUCCINATE Take by mouth 0 Active (UNISOM ORAL) nightly as needed. sleep albuterol (PROVENTIL Inhale 2 puffs 1 Inhaler 12 06/04/2011 Active HFA;VENTOLIN HFA) 90 into the lungs mcg/Actuation every 4 hours as inhalerIndications: needed. Use with Exercise induced spacer bronchospasm Additional Information Patient not taking. Reported on 12/31/2021 levothyroxine (SYNTHROID) 100 Take 1 tablet by 180 tablet 1 Active mcg tabletIndications: mouth daily. Hypothyroidism Additional Information Patient taking differently: 88 mcg Oral DAILY, Reported on 12/31/2021 zolpidem (AMBIEN) 10 mg TAKE 1 TABLET BY MOUTH AT 90 tablet 1 12/27/2012 Active tablet BEDTIME NEEDED FOR SLEEP Additional Information Patient not taking. Reported on 12/31/2021 diazePAM (Valium) 10 mg Tablet TAKE 1 TABLET VAGINAL AT 0 12/24/2021 Active BEDTIME NEEDED FOR VAGINISMUS NOT BY MOUTH - VAGINAL FOR PELVIC PAIN. omeprazole (PriLOSEC) 40 mg Take 40 mg by mouth daily. 0 09/02/2021 Active Capsule, Delayed Release(E.C.) cholecalciferol (Vitamin D3) Take 1,000 Units by mouth 0 Active 1,000 unit Tablet Daily. ondansetron ODT (Zofran-ODT) 4 mg Take 4 mg by mouth Every 8 0 Active Tablet, Rapid Dissolve hours as needed. SUMAtriptan (Imitrex) 50 mg Take 50 mg by mouth. 0 Active Tablet Active Problems Problem Noted Date Fibromyalgia 01/29/2012 Ischial bursitis 09/24/2011 Trochanteric bursitis 09/24/2011 Bilateral hip pain 09/24/2011 Depression 03/05/2011 Anxiety 03/05/2011 Insomnia 03/05/2011 Hypothyroidism 03/04/2011 Interstitial cystitis 03/04/2011 Preventative health care 03/04/2011 Overview: S/p vag hysterectomy- cervical ca Tdap: 05/08/11 Pneumovax: 05/31/09 Mammograms: due Lipids: 05/31 Tsh : on synthroid HA1C: nl Resolved Problems Problem Noted Date Resolved Date Pancreatitis, chronic 03/04/2011 03/05/2011 Irritable bowel syndrome (IBS) 03/04/2011 1 Encounters Date Type Specialty Care Team Description 01/30/2022 Telephone Gastroenterology Edna Lee 12/31/2021 TH Visit Gastroenterology Miller Ibarra Dysphalla a, unspecified type; (TeleHealth) MD Leatha Gastronancy mcclain reflux disease, unspecified whether esophagitis present; Functional dysp epsia; Irritable bowel syndrome with both constipation and diarrhea 12/31/2021 Telephone Gastroenterology Kyle Calderon LNA 12/09/2021 Transcribe Orders Primary Care Rhoda Hyman, DO esophagitis from Last 3 Months Immunizations Name Administration Dates Next Due Hep A/Hep B 01/29/2012 Hepatitis A Vaccine, unspecified formulation 05/08/2011 Hepatitis B Vaccine, unspecified formulation 11/20/2011 Influenza Vaccine w/Preservative, Split 05/08/2011 MMR Vaccine, Live 12/19/2011, 11/20/2011 Meningococcal Conjugate 05/08/2011 Tdap Vaccine 05/08/2011 Family History Medical History Relation Comments Alcohol Use Disorder Father Coronary Artery Disease Father Colorectal Cancer Maternal Aunt Osteoporosis Maternal Aunt Colorectal Cancer Maternal Grandmother Depression Mother Alcohol Use Disorder Paternal Grandfather Coronary Artery Disease Paternal Grandfather Coronary Artery Disease Paternal Grandmother Depression Paternal Grandmother Relation Status Comments Father Maternal Aunt Maternal Grandmother Mother Paternal Grandfather Paternal Grandmother Social History Tobacco Use Types Packs/Day Years Used Date Former Smoker Cigarettes 0.5 10 Quit: 02/18/20 11 Smokeless Tobacco: Never Used Comments: 1 to 2 a day. Alcohol Use Standard Drinks/Week Comments No 0 (1 standard drink = 0.6 oz pure alcoho l) Sex Assigned at Date Recorded Not on file Last Filed Vital Signs Vital Sign Reading Time Taken Comments Blood Pressure 116/64 06/18/2012 2:21 PM EST Pulse 70 06/18/2012 2:21 PM EST Temperature 36.3 ??C (97.3 ??F) 06/18/2012 2:21 PM EST Respiratory Rate 18 06/18/2012 2:21 PM EST Oxygen Saturation 95% 01/29/2012 8:49 AM EDT Inhaled Oxygen Concentration - - Weight 65.3 kg (144 lb) 06/18/2012 2:21 PM EST Height 166.4 cm (5' 5.5) 06/18/2012 2:21 PM EST Body Mass Index 23.6 06/18/2012 2:21 PM EST Plan of Treatment Scheduled Procedures Name Priority Associated Diagnoses Date/Time EGD, UPPER GI ENDOSCOPY Dysphagia, unspe cified type Gastroesophageal reflux disease, unspecified whether esophagitis present Functional dyspepsia Irritable bowel syndrome with casey th constipation and diarrhea Health Maintenance Due Date Last Done Comments Covid-19 Vaccine (#1) 1969 HIV screen 1982 Hepatitis C Screening 1982 HPV test 1994 PAP Smear 1994 Breast Cancer Share Decision Needed 2004 Colonoscopy 2009 Breast Cancer screening 2014 Zoster vaccine (1 of 2) 2014 Advance Directive 09/19/2019 Tetanus vaccine 05/08/2021 05/08/2011 Influenza (Flu) vaccine ( of - Influenza standard 03/20/2022 05/08/2011 series) Tdap adult Completed 05/08/2011 Insurance Payer Benefit Plan / Subscriber ID Effective Dates Phone Addre ss Type Group [employer] [place] [id number] 2020-Presen [phone] [address] [facility] [address] [place] [address] [place] [id number] 2021-Presen [phone] [address] [facility] [address] [facility] [address] Care Teams Choirmaster Relationship Specialty Start Date End Date Paloma Hyman, DO PCP - General Family Medicine 12/09/[address] [place] [address]
--- OUTSIDE RECORDS SUMMARY | 2022-01-31 01:33 | XMS_ITS | Encounter Summary ---
:1965 [place] [address] Care Team Providers Name Role Phone Holli Reyna MD Primary Care Provider Reason for Visit Reason Onset Date Comments Medication Refill 11/25/2011 Encounter Details Date Type Department Care Team Description 11/25/2011 Refill Internal Medicine at Arist[facility] Reyna MD Insomnia (Primary Dx) [address] [place] [address] [place] [address] [phone] (Wo rk) Social History Tobacco Use Types Packs/Day Years Used Date Former Smoker Cigarettes 0.5 10 Quit: 02/18/20 11 Smokeless Tobacco: Never Used Comments: 1 to 2 a day. Alcohol Use Standard Drinks/Week Comments No 0 (1 standard drink = 0.6 oz pure alcoho l) Sex Assigned at Date Recorded Not on file documented as of this encounter Plan of Treatment Scheduled Procedures Name Priority Associated Diagnoses Date/Time EGD, UPPER GI ENDOSCOPY Dysphagia, unspe cified type Gastroesophageal reflux disease, unspecified whether esophagitis present Functional dyspepsia Irritable bowel syndrome with casey constipation and diarrhea documented as of this encounter Visit Diagnoses Diagnosis Insomnia - Primary Insomnia, unspecified documented in this encounter Care Teams Duct Installer Relationship Specialty Start Date End Date Holli Reyna MD PCP - General 03/05/11 03/01/15 documented as of this encounter
--- OUTSIDE RECORDS SUMMARY | 2022-01-31 01:33 | XMS_ITS | Encounter Summary ---
:1965 [place] [address] Care Team Providers Name Role Phone Holli Reyna MD Primary Care Provider Reason for Visit Reason Onset Date Comments Medication Refill 09/29/2011 Encounter Details Date Type Department Care Team Description 09/29/2011 Refill Internal Medicine at Aristides Reyna MD Insomnia (Primary Dx) [address] [place] [address] [place] [address] [phone] (Wo rk) Social History Tobacco Use Types [...] unspecified documented in this encounter Care Teams Franchise Specialist Relationship Specialty Start Date End Date Holli Reyna MD PCP - General 03/05/11 03/01/15 documented as of this encounter
--- OUTSIDE RECORDS SUMMARY | 2022-01-31 01:33 | XMS_ITS | Encounter Summary ---
:1965 [place] [address] Care Team Providers Name Role Phone Holli Reyna MD Primary Care Provider Reason for Visit Reason Onset Date Comments Medication Refill 02/02/2012 Encounter Details Date Type Department Care Team Description 02/02/2012 Refill Internal Medicine at [facility] Holli Reyna MD [address] [address] PSYCHIATRY [phone] [place] [address] (Wo rk) Social History Tobacco Use Types [...] of this encounter Visit Diagnoses Diagnosis Insomnia Insomnia, unspecified documented in this encounter Care Teams Manager Business Information Relationship Specialty Start Date End Date Holli Reyna MD PCP - General 03/05/11 03/01/15 documented as of this encounter
--- OUTSIDE RECORDS SUMMARY | 2022-01-31 01:33 | XMS_ITS | Encounter Summary ---
:1965 [place] [address] Care Team Providers Name Role Phone Holli Reyna MD Primary Care Provider Reason for Visit Reason Onset Date Comments Medication Refill 06/18/2012 Encounter Details Date Type Department Care Team Description 06/18/2012 Refill Internal Medicine at [facility] Shaunna Jennings MD [facility] [address] [facility] [place] [address] [place], [place] [id number] [phone] (Wo rk) Social History Tobacco Use Types [...] on filedocumented in this encounter Care Teams Biomedical Engineering Internship Relationship Specialty Start Date End Date Holli Reyna MD PCP - General 03/05/11 03/01/15 documented as of this encounter
--- OUTSIDE RECORDS SUMMARY | 2022-01-31 01:33 | XMS_ITS | Encounter Summary ---
:1965 Author Organization [place] [address] Care Team Providers Name Role Phone Holli Reyna MD Primary Care Provider Reason for Visit Reason Onset Date Comments Medication Refill 06/22/2012 Encounter Details Date Type Department Care Team Description 06/22/2012 Refill Internal Medicine at [facility] othyroidism (Primary [facility], [employer] OPERATOR [place]x) [place] [address] Social History Tobacco Use Types Packs/Day Years [...] as of this encounter Visit Diagnoses Diagnosis Hypothyroidism - Primary Unspecified hypothyroidism documented in this encounter Care Teams Alumina Refinery Operator Relationship Specialty Start Date End Date Holli Reyna MD PCP - General 03/05/11 03/01/15 documented as of this encounter
--- OUTSIDE RECORDS SUMMARY | 2022-01-31 01:33 | XMS_ITS | Encounter Summary ---
:1965 Author Organization [facility] [place] [address] Care Team Providers Name Role Phone Holli Reyna MD Primary Care Provider Reason for Referral Physical Therapy (Routine) - Complete - Patient Will Schedule External Appt Specialty Diagnoses / Procedures Referred By Contact Refer red To Contact Physical Therapy Diagnoses Bursitis of right shoulder Leonila Redd APRN [facility] [place] [address] Referral ID Status Reason Start Expiration Visits Visits Date Date Requested Authorized [id number] Complete - Evaluate and 12/19/2011 06/16/2012 1 1 Patient Will Treat Schedule External Appt Reason for Visit Reason Comments Shoulder Pain Encounter Details Date Type Department Care Team Description 12/19/2011 Office Visit Internal Medicine at [facility] DR JACI Portillo itis of right shoulder (Primary Dx); [facility] Leonila Redd APRN [facility] [place] [address] Healthcare maintenance; [place] [address] Social History Tobacco Use Types Packs/Day Years Used Date Former Smoker Cigarettes 0.5 10 Quit: 02/18/20 11 Smokeless Tobacco: Never Used Comments: 1 to 2 a day. Alcohol Use Standard Drinks/Week Comments No 0 (1 standard drink = 0.6 oz pure alcoho l) Sex Assigned at Date Recorded Not on file documented as of this encounter Last Filed Vital Signs Vital Sign Reading Time Taken Comments Blood Pressure 121/64 12/19/2011 10:44 AM EDT Pulse 56 12/19/2011 10:44 AM EDT Temperature - - Respiratory Rate - - Oxygen Saturation - - Inhaled Oxygen Concentration - - Weight 64.9 kg (143 lb) 12/19/2011 10:44 AM EDT Height - - Body Mass Index 23.08 11/20/2011 1:25 PM EDT documented in this encounter Patient Instructions Patient InstructionsHeLeonila castro APRN - 12/19/2011 11:08 AM EDT [facility] Shoulder Bursitis: After Your Visit Your Care Instructions Bursitis is inflammation of the bursa. A bursa is a small sac of fluid that cushions a joint and helps it move easily. A bursa sits under the highest point of your shoulder. You can get bursitis by overusing your shoulder, which can happen with activities such as lifting, pitching a ball, or painting. Symptoms of bursitis include pain when you move your arm. Your arm may hurt when you try to lift it, and the pain can reach down the side of your arm. You may have trouble sleeping because of the pain. Bursitis usually gets better if you avoid the activity that caused it. If pain lasts or gets worse despite home treatment, your doctor may draw fluid from the bursa through a needle. This may relieve your pain and help your doctor know if you have an infection. If so, your doctor will prescribe antibiotics. If you have inflammation only, you may get a corticosteroid shot to reduce swelling and pain. Sometimes surgery is needed to drain or remove the bursa. Follow-up care is a bacon part of your treatment and safety. Be sure to make and go to all appointments, and call your doctor if you are having problems. It???s also a good idea to know your test resultsand keep a list of the medicines you take. How can you care for yourself at home? ?? Put ice or a cold pack on your shoulder for 10 to 20 minutes at a time. Put a thin cloth between the ice and your skin. ?? After 3 days of using ice, use heat on your shoulder. You can use a hot water bottle, a heating pad set on low, or a warm, moist towel. Some doctors suggest alternating between hot and cold. ?? Rest your shoulder. Stop any activities that cause pain. Switch to activities that do not stress your shoulder. ?? Take your medicines exactly as prescribed. Call your doctor if you think you are having a problemwith your medicine. ?? If your doctor recommends it, take anti-inflammatory medicines to reduce pain. These include ibuprofen (Advil, Motrin) and naproxen (Aleve). Read and follow all instructions on the label. ?? To prevent stiffness, gently move the shoulder joint through its full range of motion. As the pain gets better, keep doing [id number] exercises. Ask your doctor for exercises that will make themuscles around the shoulder joint stronger. Do these as directed. ?? You can slowly return to the activity that caused the pain, but do it with less effort until you can do it without pain or swelling. Be sure to warm up before and stretch after you do the activity. When should you call for help? Call your doctor now or seek immediate medical care if: ?? You have a fever. ?? You have increased swelling or redness in your shoulder. ?? You cannot use your shoulder, or the pain in your shoulder gets worse. Watch closely for changes in your health, and be sure to contact your doctor if: ?? You have pain for 2 weeks or longer despite home treatment. Where can you learn more? Visit our health information library at [email or web address]. You can also view health information on [employer], your personal patient account. Log in or sign up today. Enter M955 in the search box to learn more about Shoulder Bursitis: After Your Visit. ?? [id number] [employer]. Care instructions adapted under license by [employer]. This care instruction is for use with your licensed healthcare professional. If you have questionsabout a medical condition or this instruction, always ask your healthcare professional. [employer] disclaims any warranty or liability for your use of this information. Content Version: 9.1.930233; Last Revised: August 21, 2010 documented in this encounter Progress Notes Leonila Redd APRN - 12/19/2011 11:17 AM EDT Subjective: Patient ID: Isela Braun is a 46 y.o. female. HPI [place] is here with right shoulder pain for over 3 months. Originally was in October with golfing and felt tenderness that had resolved but the last week was moving boxes, vaccumed and then pulled a kayak out and felt the pain return. Worse with overhead motions or overuse. Has tried Voltaren with some relief. She does feel pain that radiates to the forearm and at times numbness in the last 2 fingers. Pain is 8 of 10 and achy in nature. Review of Systems Musculoskeletal: Positive for arthralgias (right shoulder, posterior with motions and over head). Neurological: Positive for numbness. Negative for weakness. Light-headedness: right hand last 2 fingers. Objective: Physical Exam Vitals reviewed. Constitutional: She appears well-developed and well-nourished. Cardiovascular: Intact distal pulses. Musculoskeletal: Right shoulder: She exhibits tenderness (supraspinatous area) and crepitus. She exhibits no bony tenderness, no swelling, no effusion, normal pulse and normal strength. Decreased range of motion: cannot push off in back or 180 without manual. Empty can is negative. Assessment and Plan: Isela was seen today for shoulder pain. See patient instructions, probably some impingement as well. Would like as conservative management as possible. Diagnoses and associated orders for this visit: Bursitis of right shoulder - *XR generic shoulder; Future - REFERRAL TO PHYSICAL THERAPY documented in this encounter Plan of Treatment Scheduled Procedures Name Priority Associated Diagnoses Date/Time EGD, UPPER GI ENDOSCOPY Dysphagia, unspe cified type Gastroesophageal reflux disease, unspecified whether esophagitis present Functional dyspepsia Irritable bowel syndrome with casey th constipation and diarrhea Scheduled Referrals Name Type Priority Associated Diagnoses Order S chedule REFERRAL TO Outpatient Referral Routine Bursitis of right Ord ered: PHYSICAL THERAPY shoulder 12/19/2011 documented as of this encounter Visit Diagnoses Diagnosis Bursitis of right shoulder - Primary Disorders of bursae and tendons in shoul chandu region, unspecified Healthcare maintenance Routine general medical examination at a health care facility Preventative health care Routine general medical examination at a health care facility documented in this encounter Care Teams Casting Trucker Relationship Specialty Start Date End Date Holli Reyna MD PCP - General 03/05/11 03/01/15 documented as of this encounter
--- OUTSIDE RECORDS SUMMARY | 2022-01-31 01:33 | XMS_ITS | Encounter Summary ---
:1965 Author Organization [facility] Address [facility] [place] [address] Care Team Providers Name Role Phone Holli Reyna MD Primary Care Provider Reason for Visit Reason Comments Follow-up 3 wk follow up for travel Encounter Details Date Type Department Care Team Description 05/08/2011 Follow-Up Internal Medicine at [facility] Reyna MD Preventative health care (Primary Dx); [address]; [facility] PSYCHIATRY Depression [id number] [place] [address] [phone] Social History Tobacco Use Types Packs/Day Years Used Date Passive Smoke Exposure - Never Smoker Cigarettes Comments: 1 to 2 a day. Alcohol Use Standard Drinks/Week Comments Not Asked 0 (1 standard drink = 0.6 oz pure alcoho l) Sex Assigned at Date Recorded Not on file documented as of this encounter Last Filed Vital Signs Vital Sign Reading Time Taken Comments Blood Pressure 125/71 05/08/2011 4:09 PM left arm/sit ting EDT Pulse 65 05/08/2011 4:09 PM EDT Temperature - - Respiratory Rate 15 05/08/2011 4:09 PM EDT Oxygen Saturation - - Inhaled Oxygen Concentration - - Weight 62.4 kg (137 lb 8 oz) 05/08/2011 4:09 PM EDT Height 167.6 cm (5' 6) 05/08/2011 4:09 PM EDT Body Mass Index 22.19 05/08/2011 4:09 PM EDT documented in this encounter Progress Notes Holli Reyna MD - 05/08/2011 4:39 PM EDT Subjective: Patient ID: Isela Braun is a 45 y.o. female here to review vaccine requirements for an upcoming trip to [facility]. LION Fernandez plans to travel to [facility] in the spring to stay with friends. She has numerous medical conditions and it is imperative that she have certain vaccinations and medications, such as an antimalarial medication and an antibiotic for traveler's diarrhea, in order to ensure that she does not become severely ill. We reviewed the recommended vaccines on the [employer] website. It would be romero for her to have a yellow fever vaccine, a polio booster, typhoid vaccine, hepatitis A vaccine, Tdap, and Menactra. She wouldalso benefit from an influenza vaccine. We reviewed the VIS forms and there are no contraindicationsto these vaccines. She will have a typhoid vaccine I a month or so. At that time she will also have the polio booster and the yellow fever vaccine. The other four vaccines will be given today. Malarone is the appropriate selection for an antimalarial in her case since she has a history of mental health problems which eliminates mefloquine as an option. Sun exposure is going to be unavoidableand therefore doxycycline is not a good choice. We will meet again in late winter to determine the number of pills she will need for this trip. We discussed traveler's diarrhea and she will take a prescription for ciprofloxacin with her on this trip should it be necessary. I also mentioned trip evacuation insurance and she will check to see if she needs this since she is staying with the ambassador at the [facility]. Other travel related topics will be discussed at future visits, including food and water safety and insect precautions. Today she also points out redness beneath each eye she has a dry area of skin that is reddish under each lower lash region. She has never had this before and she wonders if it is related to her antidepressant medication since she feels they occurred at the same time. I did not notice the rash at her last visit. . Jim's mood is much better than when she first presented in clinic this summer. She has become well established in her new home and has numerous friends. We will meet again this winter to go over otheraspects of preventative health care and to do a complete physical exam as this has not been done yet. Her eyes have not had discharge tearing or dryness. The skin is not itchy and she has not used any new med any new cosmetics or skin creams. She is tapering off of her Zoloft and is currently at 25 mg per day and hopes to be off of it in the next week or 2. She has rarely used lorazepam and hopes to also be off it in the next few weeks. He is having a few pills on hand should she have a panicky episode. She has not been drinking alcohol or smoking Review of Systems Negative except as described in the HPI Objective: Physical Exam BP 125/71 Pulse 65 Resp 15 Ht 167.6 cm (5' 6) Wt 62.37 kg (137 lb 8 oz) BMI 22.19 kg/m2 Gen: Upbeat, happy, well appearing, in no apparent distress. Eyes: Normal conjunctiva, no tearing, pupils are reactive to light and accommodation, fundi normal, extra ocular movements intact Skin under the eyes is dry and erythematous. Facial muscles : intact and move normally. Neck: Soft normal thyroid, no masses, supple Assessment and Plan: Isela was seen today for follow-up . Preventative health care - Tdap vaccine greater than or equal to 7yo IM -today - Flu vaccine greater than or equal to 3yo split IM -today - Meningococcal conjugate vaccine 4-valent IM -today - Hepatitis A vaccine adult IM - today - Yellow fever vaccine subcutaneous; - in clinic 5 C , in 1-2 months - Poliovirus vaccine IPV subcutaneous/IM; in 5C, in 1-2 months - Typhoid VICPS vaccine im; In 5C, in 1-2 months Rash under the eyes: This looks like atopic dermatitis vs eczema, but she denies any history of this and thinks it is medication related Wean off Sertraline and lorazepam. Hopefully the rash will clear. Will pursue further if it persists. Depression: Wean off sertraline and lorazepam. Doing well. 20 minutes of this 30 minute visit was spent in counseling. Follow up in June. documented in this encounter Plan of Treatment Scheduled Procedures Name Priority Associated Diagnoses Date/Time EGD, UPPER GI ENDOSCOPY Dysphagia, unspe cified type Gastroesophageal reflux disease, unspecified whether esophagitis present Functional dyspepsia Irritable bowel syndrome with casey th constipation and diarrhea documented as of this encounter Visit Diagnoses Diagnosis Preventative health care - Primary Routine general medical examination at a health care facility Rash Rash and other nonspecific skin eruption Depression Depressive disorder, not elsewhere class ified documented in this encounter Care Teams [employer] Consultant Relationship Specialty Start Date End Date Holli Reyna MD PCP - General 03/05/11 03/01/15 documented as of this encounter
--- OUTSIDE RECORDS SUMMARY | 2022-01-31 01:33 | XMS_ITS | Encounter Summary ---
:1965 Author Organization [facility] Address [facility] [place] [address] Care Team Providers Name Role Phone Holli Reyna MD Primary Care Provider Reason for Visit Reason Comments Depression Encounter Details Date Type Department Care Team Description 04/28/2011 Office Visit Internal Medicine at Aristides Reyna MD Anxiety (Primary Dx); [facility] [address] [facility] Depression; [facility] [place] [address] [place], [place] [phone] (Wo rk) [phone] Social History Tobacco Use Types Packs/Day Years [...] Sign Reading Time Taken Comments Blood Pressure 137/77 04/28/2011 4:04 PM EDT left arm/ sitting Pulse 73 04/28/2011 4:04 PM EDT Temperature - - Respiratory Rate 15 04/28/2011 4:04 PM EDT Oxygen Saturation - - Inhaled Oxygen Concentration - - Weight 64 kg (141 lb) 04/28/2011 4:04 PM EDT Height 167.6 cm (5' 6) 04/28/2011 4:04 PM EDT Body Mass Index 22.76 04/28/2011 4:04 PM EDT documented in this encounter Progress Notes Holli Reyna MD - 04/28/2011 4:35 PM EDT Subjective: Patient ID: Isela Braun is a 45 y.o. female. HPI Jim is here to followup on anxiety and depression. She had a prescription for lorazepam but ran out recently and called in for a holdover prescription. The nurses informed her that she needed to be seen before additional medication will be prescribed. In February she was seen in the emergency room forpersistent nausea and vomiting, the day after drinking alcohol to the point of intoxication. The nurses did confirm that she is not mixing alcohol with her lorazepam or her Unisom. Jim has a history of lupus, which flares during stress. She is very sensitive to her body and has numerous concerns today regarding recent fluctuating symptoms. They are listed as follows: Wonders about fluctuating blood glucose C/o night hot flashes and sweats for past week. Typically these last for a week and go away. Headaches x 4 days. Gone now. Awakens with them, associated with hot flashes. Denies recent fever but did have head congestion and myalgias Has had synthroid dose fluctuations and self doses between 75 and 100 mcg qd. Dose has been 100 mcg for last 3 months. She says that she tends to talk and express herself socially when she is doing all right, and that Ishould be concerned if she comes to the office, and has nothing to say. Review of Systems She denies suicidal thoughts or plans, she denies chest pain, shortness of breath, abdominal pain, nausea, vomiting, diarrhea. Denies urinary symptoms. Objective: Physical Exam BP 137/77 Pulse 73 Resp 15 Ht 167.6 cm (5' 6) Wt 63.957 kg (141 lb) BMI 22.76 kg/m2 Well appearing, well dressed, talkative, appropriate, expressive, and articulate. Mood appears stable. No signs of agitation. Assessment and Plan: Jim was seen today for depression and anxiety. She seems to be doing fairly well on Zoloft and plans to stay at 50 mg daily. I will refill her lorazepam today as written below. The hope is that the Zoloft will kick in soon and she will no longer require the lorazepam. She is aware that she should not drink alcohol while taking lorazepam. She is not interested in counseling at this point in time. We reviewed all of the symptoms that she described and I do not feel that any lab testing would be useful. The fluctuations are so brief that I think they are variations due to stress and anxiety, or her immune system reacting, rather than due to thyroid or glucose changes. She will have labs before she has her annual exam, in the winter. She does plan to follow up soon for a pretravel consult to prepare for her trip to [facility]. Anxiety - LORazepam (ATIVAN) 0.5 mg tablet; Take by mouth daily as needed for Anxiety. 1-2 tabs qd as neededfor anxiety documented in this encounter Plan of Treatment Scheduled Procedures Name Priority Associated Diagnoses Date/Time EGD, UPPER GI ENDOSCOPY Dysphagia, unspe cified type Gastroesophageal reflux disease, unspecified whether esophagitis present Functional dyspepsia Irritable bowel syndrome with casey th constipation and diarrhea documented as of this encounter Visit Diagnoses Diagnosis Anxiety - Primary Anxiety state, unspecified Depression Depressive disorder, not elsewhere class ified Insomnia Insomnia, unspecified documented in this encounter Care Teams [employer] Salesperson Relationship Specialty Start Date End Date Holli Reyna MD PCP - General 03/05/11 03/01/15 documented as of this encounter
--- OUTSIDE RECORDS SUMMARY | 2022-01-31 01:33 | XMS_ITS | Encounter Summary ---
:1965 Author Organization [facility] [place] [address] Care Team Providers Name Role Phone Babak Loza MD Primary Care Provider Reason for Referral Physical Therapy (Routine) - Closed Specialty Diagnoses / Procedures Referred By Contact Refer red To Contact Physical Therapy Diagnoses Ischial bursitis Trochanteric bursitis Pollo Waller MD [facility] [place] [address] [place] [address] Phone: Fax: Referral ID Status Reason Start Date Expiration Date Visits V isits Requested Authorized [id number] Closed Evaluate and 09/24/2011 03/22/2012 1 1 Treat Reason for Visit Reason Comments Advice Only Encounter Details Date Type Department Care Team Description 09/24/2011 Office Visit Rheumatology at [facility] Pollo Waller Interstitial cystitis; [facility] MD Cori Ischial bursitis; [facility] Trochanteric bursitis; [place], [place] Connective tissue disease, undifferentia kurt; [id number] RHEUMATOLOG[address] DEPT. Fibromyalgia; [phone] [place], [place] [address] Fatigue; [phone] (Wo rk) Joint pain; Pancreati tis Social History Tobacco Use Types Packs/Day Years [...] Sign Reading Time Taken Comments Blood Pressure 143/97 09/24/2011 10:24 AM EST Pulse 63 09/24/2011 10:24 AM EST Temperature - - Respiratory Rate 18 09/24/2011 10:24 AM EST Oxygen Saturation 97% 09/24/2011 10:24 AM EST Inhaled Oxygen Concentration - - Weight 65.3 kg (144 lb) 09/24/2011 10:24 AM EST Height 166.4 cm (5' 5.5) 09/24/2011 10:24 AM EST Body Mass Index 23.6 09/24/2011 10:24 AM EST documented in this encounter Patient Instructions Patient InstructionsBurnPollo song MD - 09/24/2011 11:35 AM EST Get labs today. Call next week for results. Go to PT. Follow up in 4 months. documented in this encounter Progress Notes Pollo Waller MD - 09/24/2011 7:35 PM EST Rheumatology Clinic: Dr. Waller 09/24/2011 [id number] Juan Miguel Mckeon is a 46 y.o. female patient whom we see in consultation for BABAK LOZA MD in evaluation of the possibility of a connective tissue disease such as lupus. She moved to this area from [facility] in 12/2010. [address] Dr. Loza heard her story, she wanted another opinion about an underlying autoimmune disease. Most of the story comes from her and it is difficult to get the exact sequence of events. The patient has been consistently ELBA negative. Her problems started back in , when she had pain in her pelvic area and hips. This was after the of her second child. She ultimately had a laparoscopy to look for a cause of the pelvic pain and to have her tubes tied. She wasunexpectedly found to be , and that was terminated. She says that the procedure was complicated by a serious infection. She continued to have problems, but eventually was diagnosed with interstitial cystitis at the [facility]. There she also underwent a hysterectomy and she was found to have an early stage of cervical cancer. She was also diagnosed with Hakeem's thyroiditis in 1997. She was also diagnosed with fibromyalgia and chronic fatigue in this time frame. She went on disability in around . Due to ongoing problems with abdominal pain, diarrhea, and weight loss, [id number] her primary at the time put her on pancreatic supplements. That helped a great deal. To make a very long story short, she was able to gradually get back to work, first part-time in 2000and ultimately back to full-time. She has actually has done pretty well since. Of note, she was seenby Dr. Lazar in our clinic here in 2000 and he also felt she had fibromyalgia. However, she is still plagued by what she describes as flareups. These occur about twice a year and last anywhere from just hours up to 2 weeks. The flareups consist of a hoarse voice, difficulty thinking of the right word, joint pain in her hips, knees, and elsewhere, a sensation of squeezing in her chest, as if someone is squeezing her heart,. She also gets what she calls gimpy and tends to drop things. An important feature of this is that she is profoundly fatigued during a flare. Even simple daily tasks like making a bed will be exhausting. She also complains of dry, irritated eyes. She also has chronic Raynaud's. She is generally someone who does not like to take medication. She says she's never been on steroids. What does help with these problems is rest. Getting a good night sleep is very important. She also practices good nutrition. Removing stress as much as possible is helpful. She finds she does better with a high protein diet. She tends to avoid vegetables which aggravate her GI symptoms. She describesirritable bowel-like problems and actually saw Dr. Josias Fox here in the in 2001, who felt she had that condition. He did not find evidence of chronic pancreatitis at the time. She also has to be careful about what she because of her interstitial cystitis. Spicy foods and citrus seem to aggravate that. She says she just had a large flare up last weekend. This consisted of a low- grade fever, weepiness,fatigue, the chest pain. She also had brain fog and trouble recognizing who was on the other end on phone calls. On connective tissue disease review of systems, she does have intermittent oral ulcers, R aynaud's, and dry eyes. Dr. Almaraz recently did a laboratory screen that was negative, including a negative ELBA and Ro and [place] antibodies. The areas that bother her include her hands, and she gestures to the areas of the MCPs and PIPs, thetrapezii, the anterior chest, the low back, the lateral hips and the buttocks, the knees, and the left lateral foot. Probably at the moment, the hip area pain is the worst. It is particularly bad when she is in the car for extended periods, which she has to do for her job. Then she also experiences pain when she has to sit down and write up her reports for work. She describes the pain as localizing to the bottom of her buttocks, in the area of ischial tuberosity. In general heat makes things worse, and cruz at bedtime for, particularly when the temperature gets about 82??. A diuretic will help the situation. A hot tub actually makes her feel much better, but afterwards she's completely washed out. Her sleep is also disturbed. She likes to take a bath at 7:30 p.m. She then takes a Unisom and some chamomile. There are no lights in her bedroom. She has an expensive mattress. She also takes Ambien, and lately has been taking that regularly. She falls asleep about 9:30 or 10. On a good night she sleeps right through until 5:30 or 6 a.m. She has very vivid dreams. If she wakes up in the middle of the night, she has difficulty getting back to sleep and she knows she'll have a bad day the next day. She snores only mildly, what she calls a snuffle. Past Medical History Patient Active Problem List Diagnoses Code ??? Hypothyroidism 244.9AP ??? Interstitial cystitis 595.1T ??? Preventative health care V70.0C ??? Lupus 710.0AL ??? Depression 311L ??? Anxiety 300.00E ??? Insomnia 780.52A ??? Hip pain 719.45F History of intussusception in 04/2011. Bladder hydrodistention and biopsy for interstitial cystitis in 2009. Pelvic sling procedure at the same setting. Status post hysterectomy as described in history of present illness. History of fractured wrist. Medications Current outpatient prescriptions ordered prior to encounter Medication Sig Dispense Refill ??? zolpidem (AMBIEN) 10 mg tablet Take 1 tablet by mouth nightly as needed for Sleep. Fax to Saniya Gonzales 30 tablet 1 ??? ZINC ACETATE, ORAL, ORAL Take by mouth. Takes only when feeling cold coming on ??? Biotin 5 mg Cap Take by mouth. ??? Artificial Tear, Hypromellose, 1 % Drop Place 1 drop into both eyes 3 times daily. ??? albuterol (PROVENTIL HFA;VENTOLIN HFA) 90 mcg/Actuation inhaler Inhale 2 puffs into the lungs every 4 hours as needed. Use with spacer 1 Inhaler 12 ??? levothyroxine (SYNTHROID) 100 mcg tablet Take 100 mcg by mouth daily. ??? DOXYLAMINE SUCCINATE (UNISOM ORAL) Take by mouth nightly as needed. sleep ??? ibuprofen (MOTRIN) 400 mg tablet ??? acetaminophen (TYLENOL) 325 mg tablet ??? ERGOCALCIFEROL, VITAMIN D2, (VITAMIN D ORAL) Take by mouth. Only takes when she feels cold coming on Social History She is . She left her second after his second suicide attempt. 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 This involves traveling in the car a lot and that aggravates her hip area pain. She drinks 3-4 cups of tea a day. She used to smoke. In fact, she hassmoked off and on for the past 20 years, but not recently. She does not drink. She denies a problem with alcohol or drugs. She exercises regularly. She gets 6-7 hours of sleep a night but does not feelrested as noted above. Family History Her father at age 32 from a heart attack. He was also an alcoholic. Her mother is alive at age 72 in excellent health. She has one sibling. She has 2 children, daughters ages 19 and 21, who are inexcellent health. Review of Systems Positive for a mild weight gain in the past 6 months of about 5 pounds, generalized fatigue and weakness, dry eyes and a sensation that something is in her eye, ringing in her ears, sore tongue, sores in her mouth, hoarseness, chest pain, swelling in her feet, nausea, vaginal dryness, easy bruising, tight skin, color changes in her hands and feet and the cold that are painful, memory loss or brain fog, and difficulty staying asleep. Otherwise, the rheumatology, cardiology, pulmonary, GI, , neurology, dermatology, and hematology review of systems is negative or non-contributory. Physical Exam: She actually looks well and healthy. She is quite talkative Blood pressure 143/97, pulse 63, resp. rate 18, height 166.4 cm (5' 5.5), weight 65.318 kg (144 lb), SpO2 97.00%. Skin: Clear. No malar rash. No psoriasis. HEENT: PERRL, EOM+, mild conjunctival inflammation, R>L. No oral ulcers at this time. Good moisture. Neck: Supple. No lymphadenopathy or thyromegaly. Lungs: Clear. Heart: Regular rhythm and rate without murmur, gallop, or rub. Abdomen: Benign. No masses, tenderness, or organomegaly. Extremities: No edema. Good distal pulses. Musculoskeletal: She has no synovitis in her hands. Her wrists, elbows, and shoulders move well. Herhips move well, but she has exquisite trochanteric bursitis and more pertinently, ischial bursitis bilaterally. Her knees move well without swelling or pain. She has some mild crepitance. Ankles are fine. Distal feet show mild DJD without synovitis. She has some mild trigger points of myofascial pain.She does not have costochondritis, and in fact, one cannot reproduce the chest pain that she experiences by palpating the upper chest. Neuro: 5/5 proximal muscle strength in the upper and lower extremities. DTRs 2+ and symmetrical. Toes downgoing. Negative Romberg. Assessment & Plan: I told her that I can't completely exclude lupus, although I think it's extremely unlikely. Seronegative lupus is very rare. She's had her ELBA tested on multiple occasions. We will do some further testing in that regard. But I did tell her the more important question is if she did have lupus, would we treat her any differently. The answer there is easier and it is no. That's especially true in light of her general reluctance to take traditional medications. She does have some fairly well-defined problems at the moment that are causing a lot of her symptoms, and these include trochanteric bursitis and ischial bursitis. I also believe she does have an element of fibromyalgia. She has a lot of risk factors for that, including her sleep disturbance. In fact,she notices that when she sleeps well and exercises that she tends to feel a lot better. Also she has what sounds like irritable bowel syndrome and interstitial cystitis, which can frequently accompanyfibromyalgia. In addition, she describes brain fog, often cited by patients with fibromyalgia. Having said that, the fibromyalgia may be relatively minor component of her problems. She seems to have found a regimen to help deal with these issues. They are particularly bothersome when she has these flares, but she knows that if she rests, she'll get better more quickly. As I notedabove, she's reluctant to go on any traditional medicine to try and prophylax these episodes or treat them when they pop up. She certainly against going on prednisone. We'll send her to physical therapy to work on her trochanteric and ischial bursitis. I asked her to call in a week or two to go over results of today's lab testing. I'll see her in followup in 4 months. 1. Interstitial cystitis (595.1T) 2. Ischial bursitis (726.5X) REFERRAL TO PHYSICAL THERAPY 3. Trochanteric bursitis (726.5S) REFERRAL TO PHYSICAL THERAPY 4. 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 Fibromyalgia (729.1AV) VIT D Total 25 Hydroxy, PTH, Vitamin B12, VIT D Total 25 Hydroxy, PTH, Vitamin B12 6. Fatigue (780.79B) Iron and TIBC, Amylase, High Sensitivity CRP, Sedimentation rate, Iron and TIBC, Amylase, High Sensitivity CRP, Sedimentation rate 7. Joint pain (719.40A) High Sensitivity CRP, Sedimentation rate, High Sensitivity CRP, Sedimentation rate 8. Pancreatitis (577.0T) Amylase, Amylase Results for JUAN MIGUEL MCKEON ( ) as of 09/28/2011 09:45 Ref. Range 09/24/2011 12:21 Sed Rate Latest Range: 0-20 mm/hr 9 Iron Latest Range: 30-150 mcg/dL 86 TIBC Latest Range: 250-450 mcg/dL 371 Iron Saturation Latest Range: 20-50 % 23 Vitamin B-12 Latest Range: 207-974 pg/mL 663 Amylase Latest Range: 28-100 unit/L 35 25-OH Vit D Total Latest Range: 30-100 ng/mL 19 (L) CRP High Sens No range found 0.7 C3 Complement Latest Range: 90-180 mg/dL 128 C4 Complement Latest Range: 10-40 mg/dL 31 Complement Total-[place] Latest Range: 30 - 75 unit/mL 42 LEYDA Ab-[place] No range found Negative PTH Latest Range: 15-65 pg/mL 59 documented in this encounter Plan of Treatment Scheduled Procedures Name Priority Associated Diagnoses Date/Time EGD, UPPER GI ENDOSCOPY Dysphagia, unspe cified type Gastroesophageal reflux disease, unspecified whether esophagitis present Functional dyspepsia Irritable bowel syndrome with casey th constipation and diarrhea Scheduled Referrals Name Type Priority Associated Diagnoses Order S chedule REFERRAL TO Outpatient Referral Routine Ischial burs itis Ordered: PHYSICAL THERAPY Trochanteric 09/24/2011 bursitis documented as of this encounter Procedures Procedure Name Priority Date/Time Associated Diagnosis Comme nts PTH Routine 09/24/2011 12:21 Connective tissue Result s for this PM EST disease, procedure are i n undifferentiated the results Fibromyalgia section. EXTRACTABLE NUCLEAR Routine 09/24/2011 12:21 Connective tissue Results for this ANTIGEN (LEYDA) AB PM EST disease, procedure a re in undifferentiated the results section. IRON AND TIBC Routine 09/24/2011 12:21 Fatigue Results fo r this PM EST procedure are i n the results section. VITAMIN D, 25-HYDROXY Routine 09/24/2011 12:21 Connective tiss ue Results for this PM EST disease, procedure are i n undifferentiated the results Fibromyalgia section. CARDIOLIPIN ANTIBODY Routine 09/24/2011 12:21 Connective tissu e Results for this SCREEN PM EST disease, procedure are i n undifferentiated the results section. SEDIMENTATION RATE Routine 09/24/2011 12:21 Fatigue Results for this PM EST Joint pain procedure are i n the results section. COMPLEMENT, TOTAL Routine 09/24/2011 12:21 Connective tissue R esults for this PM EST disease, procedure are i n undifferentiated the results section. C3 COMPLEMENT Routine 09/24/2011 12:21 Connective tissue Resul ts for this PM EST disease, procedure are i n undifferentiated the results section. C4 COMPLEMENT Routine 09/24/2011 12:21 Connective tissue Resul ts for this PM EST disease, procedure are i n undifferentiated the results section. CRP, CARDIAC RISK (HS Routine 09/24/2011 12:21 Fatigue Results for this CRP) PM EST Joint pain procedure are i n the results section. VITAMIN B12 Routine 09/24/2011 12:21 Connective tissue Result s for this PM EST disease, procedure are i n undifferentiated the results Fibromyalgia section. AMYLASE Routine 09/24/2011 12:21 Fatigue Results for this PM EST Pancreatitis procedure are i n the results section. documented in this encounter Results Sedimentation rate (09/24/2011 12:21 PM EST) P athologist Signature Sed Rate 9 0 - 20 CERNER mm/hr MILLENNIUM Specimen Anatomical Collection Method Collection Time Receive d Time (Source) Location / / Volume Laterality Blood specimen 09/24/2011 12:21 2 (specimen) PM EST 12:27 PM EST Resulting Agency Comment Spec In Lab Pollo Waller MD HEMATOLOGY ORDERABLES Performing Organization Address City/State/[place] [address] CERNER MILLENNIUM High Sensitivity CRP (09/24/2011 12:21 PM EST) P athologist Signature CRP High Sens 0.7 mg/L CERNER MILLENNIUM Comment: Interpretations: 1) For cardiac risk assessment, two valu es (fasting or nonfasting sample acceptable) taken at least 2 weeks apart , should be averaged to provide a more reliable estimate of marker level. ??Thi s laboratory uses the recommendations from the AHA/CDC Scientific Statement fo r interpretations of future risks of cardiovascular events: ? <1.0 mg/L: low risk 1.0 - 3.0 mg/L: moderate risk >3.0 mg/L: high risk groups for future c ardiovascular events 2) The general reference range of appare ntly healthy individuals using this test is <5.0 mg/L (derived from the test package insert) A few words of caution: For cardiac asse ssment, when a value >10 mg/L is encountered, there should be a search fo r an acute inflammatory condition or infection (in patients with acute inflam mation, the concentration can increase to >500 mg/L). ??The >10 mg/L should be discarded if such a situation exists, since the risk for coronary heart diseas e cannot be provided, and a repeat specimen, taken at least two weeks after resolution of the acute inflammatory condition, may allow for appraisal of co ronary risk information. Please note that significantly decreased CRP values may be obtained from samples taken from patients who have bee n treated with carboxypenicillins. References: 1. Jonathan LLAMAS et. al. ??AHA/CDC Scientif ic Statement: Markers of Inflammation and Cardiovascular Disease. ??Circulatio n 2003; 107:499-511 2. Ridker PM. ??Clinical applications of C-reactive protein for cardiovascular disease detection and prevention. ??Circ ulation 2003; 107:363-369 Specimen Anatomical Collection Method Collection Time Receive d Time (Source) Location / / Volume Laterality Blood specimen 09/24/2011 12:21 2 (specimen) PM EST 12:27 PM EST Resulting Agency Comment Spec In Lab Pollo Waller MD CHEMISTRY ORDERABLES Performing Organization Address City/State/[place] [address] CERNER MILLENNIUM Amylase (09/24/2011 12:21 PM EST) P athologist Signature Amylase 35 28 - 100 CERNER unit/L MILLENNIUM Specimen Anatomical Collection Method Collection Time Receive d Time (Source) Location / / Volume Laterality Blood specimen 09/24/2011 12:21 2 (specimen) PM EST 12:27 PM EST Resulting Agency Comment Spec In Lab Pollo Waller MD CHEMISTRY ORDERABLES Performing Organization Address City/State/[place] [address] CERNER MILLENNIUM Iron and TIBC (09/24/2011 12:21 PM EST) athologist Signature Iron 86 30 - 150 CERNER mcg/dL MILLENNIUM TIBC 371 250 - 450 CERNER mcg/dL MILLENNIUM Iron Saturation 23 20 - 50 % CERNER MILLENNIUM Specimen Anatomical Collection Method Collection Time Receive d Time (Source) Location / / Volume Laterality Blood specimen 09/24/2011 12:21 2 (specimen) PM EST 12:27 PM EST Resulting Agency Comment Spec In Lab Pollo Waller MD CHEMISTRY ORDERABLES Performing Organization Address City/[facility]/[place] [address] CERNER MILLENNIUM C4 Complement (09/24/2011 12:21 PM EST) athologist Signature C4 Complement 31 10 - 40 CERNER mg/dL MILLENNIUM Specimen Anatomical Collection Method Collection Time Receive d Time (Source) Location / / Volume Laterality Blood specimen 09/24/2011 12:21 2 (specimen) PM EST 12:27 PM EST Resulting Agency Comment Spec In Lab Pollo Waller MD CHEMISTRY ORDERABLES Performing Organization Address City/[facility]/[place] [address] CERNER MILLENNIUM Vitamin B12 (09/24/2011 12:21 PM EST) athologist Signature Vitamin B-12 603 207 - 974 CERNER pg/mL MILLENNIUM Specimen Anatomical Collection Method Collection Time Receive d Time (Source) Location / / Volume Laterality Blood specimen 09/24/2011 12:21 2 (specimen) PM EST 12:27 PM EST Resulting Agency Comment Spec In Lab Pollo Waller MD CHEMISTRY ORDERABLES Performing Organization Address City/[facility]/[place] [address] CERNER MILLENNIUM PTH (09/24/2011 12:21 PM EST) athologist Signature PTH 59 15 - 65 CERNER pg/mL [facility] Specimen Anatomical Collection Method Collection Time Receive d Time (Source) Location / / Volume Laterality Blood specimen 09/24/2011 12:21 2 (specimen) PM EST 12:27 PM EST Resulting Agency Comment Spec In Lab Pollo Waller MD CHEMISTRY ORDERABLES Performing Organization Address City/[facility]/[place] [address] CERNER MILLENNIUM (ABNORMAL) VIT D Total 25 Hydroxy (09/24/2011 12:21 PM EST) athologist Signature 25-OH Vit D 19 (L) 30 - 100 CERNER Total ng/mL [facility] Comment: Deficient <10 ng/mL Insufficient 10 to 29 ng/mL Sufficient 30 to 100 ng/mL Potential Intoxication >100 ng/mL According to the [place] National Osteoporosi s Foundation, Vitamin D concentrations >30 ng/mL are sufficient to protect bone health. ??The National Kidney Foundation has similarly stated that pat ients with Vitamin D concentrations <30ng/mL should be considered to be insu fficient or deficient. http://www.kidney.org/professionals/KDOQ I/guidelines_bone/Guide7.htm http://www.nof.org/professionals/clinica l-guidelines The [employer] Vitamin D Immunoassay detec ts both 25-OH Vitamin D2 and 25-OH Vitamin D3, but only a total Vitamin D c oncentration is reported. Please note, the performing location for this test has changed. ??As of 08/26/2011 the Vitamin D Total, 25 [place] xy assays are being analyzed by the [facility] Chemistry Laboratory. ??There is NO CHANGE in units. ??Please contact the chemistry laboratory at [phone] with saleem reinoso. Specimen Anatomical Collection Method Collection Time Receive d Time (Source) Location / / Volume Laterality Blood specimen 09/24/2011 12:21 2 (specimen) PM EST 12:27 PM EST Resulting Agency Comment Spec In Lab Pollo Waller MD CHEMISTRY ORDERABLES Performing Organization Address City/[facility]/ZIP Code Phon e Number [place] [id number] BANNERNER [facility] Cardiolipin Antibody Screen (09/24/2011 12:21 PM EST) athologist Signature Cardiolipin IgG <23 <=22 GPL CERNER unit(s) MILLENNIUM Comment: Ranges ? GPL ------- ? ------ Normal ?<23 Low Positive ? 23-35 Moderate Positive ?36 -50 High Positive ? >5 0 Cardiolipin IgM <11 <=10 MPL unit(s) CERNER [facility] Comment: Ranges ?MPL ----- ?----- Normal ?<11 Low Positive ? 11-20 Moderate Positive ?21 -30 High Positive ? >3 0 Specimen Anatomical Collection Method Collection Time Receive d Time (Source) Location / / Volume Laterality Blood specimen 09/24/2011 12:21 2 2:36 (specimen) PM EST PM EST Resulting Agency Comment Spec In Lab Pollo Waller MD IMMUNOLOGY ORDERABLES Performing Organization Address City/State/ZIP Code Phon e Number DM [id number] Short [address] [facility] Complement, Total (09/24/2011 12:21 PM EST) P athologist Signature Complement 42 30 - 75 CERNER Total unit/mL MILLENNIUM Comment: Test Performed by: [facility] [place] [address] Bending Press Operator: Janay Mercedes, Ph. D. Specimen Anatomical Collection Method Collection Time Receive d Time (Source) Location / / Volume Laterality Blood specimen 09/24/2011 12:21 2 2:05 (specimen) PM EST PM EST Resulting Agency Comment Spec In Lab Pollo Waller MD CHEMISTRY ORDERABLES Performing Organization Address [facility]/ZIP [facility] Phon [place] Number [address] CERNER MILLENNIUM C3 Complement (09/24/2011 12:21 PM EST) P athologist Signature C3 Complement 128 90 - 180 CERNER mg/dL MILLENNIUM Specimen Anatomical Collection Method Collection Time Receive d Time (Source) Location / / Volume Laterality Blood specimen 09/24/2011 12:21 2 (specimen) PM EST 12:27 PM EST Resulting Agency Comment Spec In Lab Pollo Waller MD CHEMISTRY ORDERABLES Performing Organization Address City/[facility] Code Phon e Number [address] CERNER MILLENNIUM Extractable Nuclear Antigen (LEYDA) Ab (09/24/2011 12:21 PM EST) [facility] gist Method Time Signature LEYDA Ab CERNER ? HI ? Expected MILLENNIUM Test ? Result ?LO ??Units ??Values Ab to Extractable Nuclear Ag Eval,S ??SS-A/Ro Ab, IgG, S ? <0.2 ?U -- EXPECTED VALUES -- <1.0 (Negative) ??SS-B/La Ab, IgG, S ? <0.2 ?U -- EXPECTED VALUES -- <1.0 (Negative) ??Sm Ab, IgG, S ?<0.2 ?U -- EXPECTED VALUES -- <1.0 (Negative) ??HAND PLATE STACKER Ab, IgG, S ? <0.2 ?U -- EXPECTED VALUES -- <1.0 (Negative) ??Scl 70 Ab, IgG, S ?<0.2 ?U -- EXPECTED VALUES -- <1.0 (Negative) ??[place] 1 Ab, IgG, S ?<0.2 ?U -- EXPECTED VALUES -- <1.0 (Negative) Test Performed by: [place] [address] Bending Press Operator: Janay Mercedes, Ph.D. Specimen Anatomical Collection Method Collection Time Receive d Time (Source) Location / / Volume Laterality Blood specimen 09/24/2011 12:21 2 1:47 (specimen) PM EST PM EST Resulting Agency Comment Spec In Lab Pollo Waller MD IMMUNOLOGY ORDERABLES Performing Organization Address City/State/[place] [address] [facility] documented in this encounter Visit Diagnoses Diagnosis Interstitial cystitis Chronic interstitial cystitis Ischial bursitis Enthesopathy of hip region Trochanteric bursitis Enthesopathy of hip region Connective tissue disease, undifferentia kurt Unspecified diffuse connective tissue di sease Fibromyalgia Mylagia and myositis, unspecified Fatigue Other malaise and fatigue Joint pain Pain in joint, site unspecified Pancreatitis Acute pancreatitis documented in this encounter Care Teams Surgical Supplies Sterilizer Relationship Specialty Start Date End Date Babak Loza MD PCP - General 03/05/11 03/01/15 documented as of this encounter
--- OUTSIDE RECORDS SUMMARY | 2022-01-31 01:33 | XMS_ITS | Encounter Summary ---
:1965 Author Organization [facility] Address [facility] [place] [address] Care Team Providers Name Role Phone Holli Reyna MD Primary Care Provider Reason for Visit Reason Comments Follow-up Encounter Details Date Type Department Care Team Description 11/20/2011 Follow-Up Internal Medicine at Aristides Reyna MD Preventative health [address] (Primary Dx) [facility] [place] [address] [place] [address] [phone] Social History Tobacco Use Types Packs/Day Years [...] Sign Reading Time Taken Comments Blood Pressure 123/65 11/20/2011 1:25 PM right arm/sit ting EDT Pulse 59 11/20/2011 1:25 PM EDT Temperature - - Respiratory Rate 15 11/20/2011 1:25 PM EDT Oxygen Saturation - - Inhaled Oxygen Concentration - - Weight 66.7 kg (147 lb) 11/20/2011 1:25 PM EDT Height 167.6 cm (5' 6) 11/20/2011 1:25 PM EDT Body Mass Index 23.73 11/20/2011 1:25 PM EDT documented in this encounter Progress Notes Holli Reyna MD - 11/20/2011 1:46 PM EDT Subjective: Patient ID: Isela Braun is a 46 y.o. female.- here for pre- college immunization requirements. HPI Plans to go to [employer] and needs Immunization forms. Has no record of MMR and Hep B vaccines. Had Tdap and Meningococcal vaccines. Feels well, happy, motivated. Plans to move to [facility] this summer, live with her mother and help her aging aunt while attending [employer] in [place], [place] (obtaining a Masters degree in [employer]). She will have a 6 month Cobra and plans to see me for Primary Care until that ends. Still needs Travel vax and scripts for planned [facility] trip in Fall. No flairs, since quitting her job. Review of Systems As above Patient Active Problem List Diagnoses Code ??? Hypothyroidism 244.9AP ??? Interstitial cystitis 595.1T ??? Preventative health care V70.0C ??? Lupus 710.0AL ??? Depression 311L ??? Anxiety 300.00E ??? Insomnia 780.52A ??? Hip pain 719.45F ??? Ischial bursitis 726.5X ??? Trochanteric bursitis 726.5S ??? Bilateral hip pain 719.45P Medications and Allergies reviewed in e-DH Objective: Physical Exam BP 123/65 Pulse 59 Resp 15 Ht 167.6 cm (5' 6) Wt 66.679 kg (147 lb) BMI 23.73 kg/m2 Well appearing, no distress MS: Mood positive, good eye contact, articulate Neuro: Normal facial expressions, grossly normal strength, coordination, balance, and gait Assessment and Plan: Isela was seen today for immunization review.. Diagnoses and associated orders for this visit: Preventative health care - MMR vaccine subcutaneous; Standing, now and in a month - Hepatitis B vaccine adult IM; Standing, now, in a month and in 6 months. Had Tdap and meningococcal vaccine this past winter. Follow up in 1 month. documented in this encounter Plan of Treatment [...] facility documented in this encounter Care Teams Caretaker Resort Relationship Specialty Start Date End Date Holli Reyna MD PCP - General 03/05/11 03/01/15 documented as of this encounter
--- OUTSIDE RECORDS SUMMARY | 2022-01-31 01:33 | XMS_ITS | Encounter Summary ---
:1965 Author Organization [facility] [place] [address] Care Team Providers Name Role Phone Holli Loza MD Primary Care Provider Reason for Visit Reason Comments Follow-up 1 month follow up Encounter Details Date Type Department Care Team Description 04/17/2011 Follow-Up Internal Medicine at Aristides Loza MD Insomnia (Primary Dx); [address] PSYCHIATRY [place] [id number] [place] [address] [phone] Social History Tobacco Use Types Packs/Day Years [...] Sign Reading Time Taken Comments Blood Pressure 123/70 04/17/2011 1:07 PM left arm/sitt ing EDT Pulse 67 04/17/2011 1:07 PM EDT Temperature - - Respiratory Rate 16 04/17/2011 1:07 PM EDT Oxygen Saturation - - Inhaled Oxygen Concentration - - Weight 64.2 kg (141 lb 8 oz) 04/17/2011 1:07 PM EDT Height 167.6 cm (5' 6) 04/17/2011 1:07 PM EDT Body Mass Index 22.84 04/17/2011 1:07 PM EDT documented in this encounter Progress Notes Holli Loza MD - 04/17/2011 1:11 PM EDT Subjective: Patient ID: Isela Braun is a 45 y.o. female. LION Fernandez is here to follow up on treatment of depression. After starting zoloft this summer she sent me a note through [facility], explaining that her condo was contaminated due to a gas leak. She felt significantly better after the leak was repaired. She started zoloft at 25 mg daily , starting 03/12/01. She increased the dose on Mar 30 when she felt her mood drop. She feels fabulous , her lupus flair has passed and she is exercising again. Her left hip is a little tender but she is running and swimming. She says she has no complaints. She has a long hx of sleep disturbance and has benefitted from ambien at bedtime. She always awakenswhen she starts to enter deep sleep and this results in fatigue which triggers her lupus. Her insurance company has refused refills recently. Records show she has taken ambien for 11 years for treatment of insomnia. Has tried lunesta but had a metal taste. No relief from Ambien CR. Doesn't use lights or have a TV in her room. Awakens easily from hip and joint pain. Has top of the line mattress. Bathes early in the evening. No caffeine after 4 pm. Improved stress levels. Records at [facility] show sleep disturbance as an issue as far back as 1998. Stress is down to a level of 6 now and she rates her mental health as excellent. No longer lonely. Has not smoked or consumed etoh in over a month and has no urges. Possibly plans to go to [facility] next Spring. Plans to see me in the near future for travel consult and vaccines. She plans to request referral to Urology soon and will arrange to have her former urologist transferrecords. Review of Systems Denies headaches, has mild joint pains. Patient Active Problem List Diagnoses Code ??? Hypothyroidism 244.9AP ??? Interstitial cystitis 595.1T ??? Preventative health care V70.0C ??? Lupus 710.0AL ??? Depression 311L ??? Anxiety 300.00E ??? Insomnia 780.52A Outpatient prescriptions marked as taking for the 04/17/11 encounter (Follow-Up) with HOLLI LOZA Medication Sig Dispense Refill ??? albuterol (PROVENTIL HFA;VENTOLIN HFA) 90 mcg/Actuation inhaler Inhale 2 puffs into the lungs every 4 hours as needed. Use with spacer ??? levothyroxine (SYNTHROID) 100 mcg tablet Take 100 mcg by mouth daily. ??? DOXYLAMINE SUCCINATE (UNISOM ORAL) Take by mouth nightly as needed. sleep ??? zolpidem (AMBIEN) 10 mg tablet Take 1 tablet by mouth nightly as needed for Sleep. 30 tablet 1 ??? LORazepam (ATIVAN) 0.5 mg tablet Take by mouth daily as needed for Anxiety. 1-2 tabs qd as needed for anxiety 12 tablet 0 ??? sertraline (ZOLOFT) 50 mg tablet Take 1 tablet by mouth. Daily X 1 week, then 2 tabs po daily 50tablet 0 ??? ibuprofen (MOTRIN) 400 mg tablet ??? acetaminophen (TYLENOL) 325 mg tablet Allergies Allergen Reactions ??? [place] Nausea And Vomiting Puffy, swelling. ??? Cis Free Text Allergy relaxants. CIS - Reverse Effects ??? Hyoscyamine Fear And Anxiety ??? Sulfa (Sulfonamide Antibiotics) Hives Objective: Physical Exam BP 123/70 Pulse 67 Resp 16 Ht 167.6 cm (5' 6) Wt 64.184 kg (141 lb 8 oz) BMI 22.84 kg/m2 Gen: well dressed, bright affect, well appearing Assessment and Plan: Jim is doing well on Sertraline for depression, which might have been triggered by poor air qualityin her condo. It is impossible to know and I have recommended she stick with the plan to stay on sertraline for a minimum of 6 months, to reduce risk for relapse. We discussed sleep hygiene and she practices all aspects to the best of her ability. I do feel that zolpidem is a beneficial treatment in her case. She has shown no sign of tolerance and no negative side effects. I do not think a sleep study referral would add anything at this point in time. Refills will be written for Zolpidem 10 mg daily. Greater than 15 minutes of this 20 minute visit was spent in counseling, education, medication management, and coordination of care Follow up for Travel Consult with me in 3 weeks, Plan to do AE with me in Spring. documented in this encounter Plan of Treatment Scheduled Procedures Name Priority Associated Diagnoses Date/Time EGD, UPPER GI ENDOSCOPY Dysphagia, unspe cified type Gastroesophageal reflux disease, unspecified whether esophagitis present Functional dyspepsia Irritable bowel syndrome with casey constipation and diarrhea documented as of this encounter Visit Diagnoses Diagnosis Insomnia - Primary Insomnia, unspecified Depression Depressive disorder, not elsewhere class ified documented in this encounter Care Teams Match Up Person Relationship Specialty Start Date End Date Holli Loza MD PCP - General 03/05/11 03/01/15 documented as of this encounter
--- OUTSIDE RECORDS SUMMARY | 2022-01-31 01:33 | XMS_ITS | Encounter Summary ---
:1965 Author Organization [facility] [place] [address] Care Team Providers Name Role Phone Holli Reyna MD Primary Care Provider Reason for Visit Reason Onset Date Comments Medication Refill 08/24/2012 Encounter Details Date Type Department Care Team Description 08/24/2012 [facility] Fib[place] (Primary [facility] [place] [address] Social History Tobacco Use Types Packs/Day [...] as of this encounter Visit Diagnoses Diagnosis Fibromyalgia - Primary Mylagia and myositis, unspecified documented in this encounter Care Teams Bartenders Relationship Specialty Start Date End Date Holli Reyna MD PCP - General 03/05/11 03/01/15 documented as of this encounter
--- OUTSIDE RECORDS SUMMARY | 2022-01-31 01:33 | XMS_ITS | Encounter Summary ---
:1965 Author Organization [facility] [place] [address] Care Team Providers Name Role Phone Paloma Hyman DO Primary Care Provider Reason for Visit Reason Onset Date Comments Medication Refill 09/28/2011 Encounter Details Date Type Department Care Team Description 09/28/2011 Refill Internal Medicine at [facility] Holli Loza MD [address] [address] PSYCHIATRY [phone] [place] [address] (Wo rk) Social History Tobacco Use Types Packs/Day Years Used Date Former Smoker Cigarettes 0.5 10 Quit: 02/18/20 11 Smokeless Tobacco: Never Used Comments: 1 to 2 a day. Alcohol Use Standard Drinks/Week Comments No 0 (1 standard drink = 0.6 oz pure alcoho l) Sex Assigned at Date Recorded Not on file documented as of this encounter Miscellaneous Notes Telephone Encounter - Mecca Omer RN - 09/29/2011 11:25 AM EDT From: MIKEJUAN MIGUEL To: Holli Loza MD Sent: Tina Sep 28, 2011 12:28 PM Subject: Medication Renewal Request Original authorizing provider: MD Juan Miguel STREET would like a refill of the following medications: zolpidem (AMBIEN) 10 mg tablet [HOLLI LOZA MD] Preferred pharmacy: [id number] - [place], [place] - [address] Comment: Hey there, would like a renewal on this script please. thanks Juan Miguel documented in this encounter Plan of Treatment Scheduled Procedures Name Priority Associated Diagnoses Date/Time EGD, UPPER GI ENDOSCOPY Dysphagia, unspe cified type Gastroesophageal reflux disease, unspecified whether esophagitis present Functional dyspepsia Irritable bowel syndrome with casey constipation and diarrhea documented as of this encounter Visit Diagnoses Diagnosis Insomnia Insomnia, unspecified documented in this encounter Care Teams Fiber Picker Relationship Specialty Start Date End Date Paloma Hyman DO PCP - General Family Medicine 12/09/[address] [facility] [place] [address] documented as of this encounter
--- OUTSIDE RECORDS SUMMARY | 2022-01-31 01:33 | XMS_ITS | Encounter Summary ---
:1965 Author Organization [facility] [place] [address] Care Team Providers Name Role Phone Holli Reyna MD Primary Care Provider Encounter Details Date Type Department Care Team Description 09/29/2011 Orders Only Rheumatology at [facility] Lauren Munoz, [facility] [place] [address] Social History Tobacco Use Types Packs/Day [...] on filedocumented in this encounter Care Teams Instructional Systems Design Consultant Relationship Specialty Start Date End Date Holli Reyna MD PCP - General 03/05/11 03/01/15 documented as of this encounter
--- OUTSIDE RECORDS SUMMARY | 2022-01-31 01:33 | XMS_ITS | Encounter Summary ---
:1965 Author Organization [place] [address] Care Team Providers Name Role Phone Holli Reyna MD Primary Care Provider Reason for Visit Reason Onset Date Comments Medication Refill 04/03/2011 Encounter Details Date Type Department Care Team Description 04/03/2011 Refill [place] Medicine [place] [facility] Holli Reyna MD [address] [address] PSYCHIATRY [phone] [place] [address] (Wo rk) Social History Tobacco Use Types [...] on filedocumented in this encounter Care Teams Education Site Manager Relationship Specialty Start Date End Date Holli Reyna MD PCP - General 03/05/11 03/01/15 documented as of this encounter
--- OUTSIDE RECORDS SUMMARY | 2022-01-31 01:33 | XMS_ITS | Encounter Summary ---
:1965 Author Organization [facility] [place] [address] Care Team Providers Name Role Phone Holli Reyna MD Primary Care Provider Encounter Details Date Type Department Care Team Description 07/01/2012 Orders Only Internal Medicine at Aristides Reyna MD Fibromyalgia (Primary [facility] [address] Dx) [place] [address] [place], [place] [phone] (Wo rk) [address] [phone] Social History Tobacco Use Types Packs/Day Years [...] unspecified documented in this encounter Care Teams Galley Stripper Relationship Specialty Start Date End Date Holli Reyna MD PCP - General 03/05/11 03/01/15 documented as of this encounter
--- OUTSIDE RECORDS SUMMARY | 2022-01-31 01:33 | XMS_ITS | Encounter Summary ---
:1965 Author Organization [facility] [place] [address] Care Team Providers Name Role Phone Holli Reyna MD Primary Care Provider Reason for Visit Reason Comments Medication Refill Encounter Details Date Type Department Care Team Description 12/27/2012 Refill Internal Medicine at [facility] Holli Reyna MD [address] [address] PSYCHIATRY [phone] [place] [address] (Wo rk) Social History Tobacco Use Types [...] on filedocumented in this encounter Care Teams Quality Review Trainer Relationship Specialty Start Date End Date Holli Reyna MD PCP - General 03/05/11 03/01/15 documented as of this encounter
--- OUTSIDE RECORDS SUMMARY | 2022-01-31 01:33 | XMS_ITS | Encounter Summary ---
:1965 Author Organization [facility] [place] [address] Care Team Providers Name Role Phone Holli Reyna MD Primary Care Provider Reason for Visit Reason Onset Date Comments Medication Refill 06/18/2012 Encounter Details Date Type Department Care Team Description 06/18/2012 Refill Internal Medicine at [facility] Holli Reyna MD [address] [address] PSYCHIATRY [phone] [place] [address] (Wo rk) Social History Tobacco Use Types [...] on filedocumented in this encounter Care Teams Family Dentist Relationship Specialty Start Date End Date Holli Reyna MD PCP - General 03/05/11 03/01/15 documented as of this encounter
--- OUTSIDE RECORDS SUMMARY | 2022-01-31 01:33 | XMS_ITS | Encounter Summary ---
:1965 Author Organization [facility] [place] [address] Care Team Providers Name Role Phone Holli Reyna MD Primary Care Provider Reason for Visit Reason Onset Date Comments Results 09/29/2011 lab results and med request clarification Encounter Details Date Type Department Care Team Description 09/29/2011 Telephone Rheumatology at [facility] Lauren Munoz Results (lab results [facility] Mariel Haywood [place] [address] clarification) [phone] Social History Tobacco Use Types Packs/Day Years Used Date Former Smoker Cigarettes 0.5 10 Quit: 02/18/20 11 Smokeless Tobacco: Never Used Comments: 1 to 2 a day. Alcohol Use Standard Drinks/Week Comments No 0 (1 standard drink = 0.6 oz pure alcoho l) Sex Assigned at Date Recorded Not on file documented as of this encounter Miscellaneous Notes Telephone Encounter - Lauren Munoz LPN - 09/29/2011 10:56 AM EDT Isela called back with her work # ([phone]) and reqeusted call back. Called Jim back, relayed the info from Dr. Waller. Asked about the Rx request for topical pain relief from Jim Gonzales stated at last visit Dr. Waller mentioned a cream that could be prescribed and that he's call it in, but nothing has been received and no record in patient's file. Sent Dr. Waller a message for him to call usso we can get that straightened out. Telephone Encounter - Lauren Munoz LPN - 09/29/2011 8:53 AM EDT Called Isela (per Dr. Waller) left brief message for her to call. The following is the information Dr. Waller wanted relayed to the patient: Please call. Her labs look okay ,except her Vit D is low. She should go on a 2000 IU [id number] supplement once a day. The other lupus tests were negative. Her iron and B12 are normal. Her amylase (pancreas) is normal. Also received a Rx request from Janet that needs clarification for a topical pain relief cream (no mention in her MAR or last office visit note). documented in this encounter Plan of Treatment Scheduled Procedures Name Priority Associated Diagnoses Date/Time EGD, UPPER GI ENDOSCOPY Dysphagia, unspe cified type Gastroesophageal reflux disease, unspecified whether esophagitis present Functional dyspepsia Irritable bowel syndrome with casey th constipation and diarrhea documented as of this encounter Visit Diagnoses Not on filedocumented in this encounter Care Teams Housekeeper Manager Relationship Specialty Start Date End Date Holli Reyna MD PCP - General 03/05/11 03/01/15 documented as of this encounter
--- OUTSIDE RECORDS SUMMARY | 2022-01-31 01:33 | XMS_ITS | Encounter Summary ---
:1965 Author Organization [facility] Address [facility] [place] [address] Care Team Providers Name Role Phone Holli Reyna MD Primary Care Provider Reason for Visit Reason Onset Date Comments Other 10/02/2012 Suicidal thoughts Encounter Details Date Type Department Care Team Description 10/02/2012 Telephone Internal Medicine at Aristides Reyna MD Other ( Suicidal [facility] [address] thoughts) [facility] [place] [address] [place] [address] [phone] Social History Tobacco Use Types Packs/Day Years Used Date Former Smoker Cigarettes 0.5 10 Quit: 02/18/20 11 Smokeless Tobacco: Never Used Comments: 1 to 2 a day. Alcohol Use Standard Drinks/Week Comments No 0 (1 standard drink = 0.6 oz pure alcoho l) Sex Assigned at Date Recorded Not on file documented as of this encounter Miscellaneous Notes Telephone Encounter - Susan Lynne LPN - 10/02/2012 11:46 AM EDT Pt currently in [place] and feeling down and Suicidal thoughts on lyrica, states I am not currently thinking of doing harm. however the thought enters her mind on and off. Consult with TOD Chu and Dilan Dillard here in clinic today. Pt need to go to the emergency room for emergency treatment. Pt agreed not to do harm and go to closest emergency and not to drive herself. Pt requested a note sent to her PCP ann-marie. documented in this encounter Plan of Treatment Scheduled Procedures Name Priority Associated Diagnoses Date/Time EGD, UPPER GI ENDOSCOPY Dysphagia, unspe cified type Gastroesophageal reflux disease, unspecified whether esophagitis present Functional dyspepsia Irritable bowel syndrome with casey th constipation and diarrhea documented as of this encounter Visit Diagnoses Not on filedocumented in this encounter Care Teams Tractor Technician Relationship Specialty Start Date End Date Holli Reyna MD PCP - General 03/05/11 03/01/15 documented as of this encounter
--- OUTSIDE RECORDS SUMMARY | 2022-01-31 01:33 | XMS_ITS | Encounter Summary ---
:1965 Author Organization [facility] [place] [address] Care Team Providers Name Role Phone Holli Reyna MD Primary Care Provider Reason for Referral Physical Therapy (Routine) - Complete - Patient Will Schedule External Appt Specialty Diagnoses / Procedures Referred By Contact Refer red To Contact Physical Therapy Diagnoses Hip pain Pollo Purvis PA [facility] D R [place] [address] Referral ID Status Reason Start Expiration Visits Visits Date Date Requested Authorized [id number] Complete - Evaluate and 12/07/2011 1 1 Patient Will Treat 1 Schedule External Appt Reason for Visit Reason Comments Bilateral Hip Pain L>R Encounter Details Date Type Department Care Team Description 06/10/2011 Office Visit Orthopaedics at [facility] Pollo Purvis Hip pain (Primary [facility] D[facility]) [place] [address] ORTHOPAEDIC SURGERY [phone] [place], [place] [address] (Wo rk) Social History Tobacco Use Types [...] Sign Reading Time Taken Comments Blood Pressure - - Pulse - - Temperature - - Respiratory Rate - - Oxygen Saturation - - Inhaled Oxygen Concentration - - Weight 63 kg (139 lb) 06/10/2011 1:14 PM EST Height 167.6 cm (5' 6) 06/10/2011 1:14 PM EST Body Mass Index 22.44 06/10/2011 1:14 PM EST documented in this encounter Progress Notes Pollo Purvis PA - 06/10/2011 2:09 PM EST CHIEF COMPLAINT: Left hip pain. HISTORY OF PRESENT ILLNESS: This is a 45-year-old female who presents today for evaluation of her left hip pain. She notes that she has had a long history of discomfort around her hips in the posterior and lateral aspect. However, the last three months she has had increasing pain more toward the upper anterior aspect of her left thigh. There is no injury or change in activities to perceive the pain. The pain is worse with sitting. In addition, there is a sort of catching to the hip joints. On the left side, she has no increased tenderness around the hip. She has been using anti-inflammatories and yoga. She enjoys running which typically is well tolerated, but prolonged sitting is problematic. Aside from the hip her health has been stable. She denies fevers, chills, or signs of infections and no shortness of breath or chest pain. Aside from the right hip, there are no other joint pains. PHYSICAL EXAMINATION: A 45-year-old female ambulatory without antalgia or assistive devices. Standing alignment shows pes planus on the left side only. Squatting is well tolerated causing no increase in discomfort. Heel and toe walk is well tolerated. In the supine position, leg lengths are equal. Calves are soft and nontender without edema. Pedal pulses are intact and equal bilaterally. Sensation is intact throughout the lower extremities to light touch with the exception of the first webspace on the left side where there is decreased sensation compared to the right side. Mild trochanteric tenderness on both sides. Hip range of motion is well tolerated. Flexion to 120 degrees, internal rotation is 40 degrees, and external rotation 50 degrees. There is mild discomfort on the left side only with impingement. No pain with abduction. There is mild tenderness over the lumbar spine, sacroiliac joints on both sides. Deep tendon reflexes are symmetric in the knees and ankles bilaterally. Strength is symmetric throughout the lower extremities. X-RAYS: X-rays taken today reviewed with the patient in the office, AP pelvis as well as two views of both hips showing well-maintained joint space. There is mild femoral head and neck osteophyte on both sides. No evidence of avascular necrosis or dysplasia. Joint space is well maintained. No fracture or dislocation is seen. ASSESSMENT: 1. Left hip pain, acute on chronic. PLAN: We discussed her x-rays as well as her symptoms. My sense is that likely this is soft tissue related to the abductor tendons. Additionally, there may well be some internal derangement in the form of labral tear. We discussed treatment options. I gave her a physical therapy prescription to begin lumbar stabilization as well as core strengthening exercises. We will plan to see her back in four to six weeks to see she has little improvement. documented in this encounter Plan of Treatment Scheduled Procedures Name Priority Associated Diagnoses Date/Time EGD, UPPER GI ENDOSCOPY Dysphagia, unspe cified type Gastroesophageal reflux disease, unspecified whether esophagitis present Functional dyspepsia Irritable bowel syndrome with casey th constipation and diarrhea Scheduled Referrals Name Type Priority Associated Diagnoses Order S chedule REFERRAL TO Outpatient Referral Routine Hip pain Ordered: PHYSICAL THERAPY 06/10/2011 documented as of this encounter Visit Diagnoses Diagnosis Hip pain - Primary Pain in joint, pelvic region and thigh documented in this encounter Care Teams Finish Carpenter Relationship Specialty Start Date End Date Holli Reyna MD PCP - General 03/05/11 03/01/15 documented as of this encounter
--- OUTSIDE RECORDS SUMMARY | 2022-01-31 01:33 | XMS_ITS | Encounter Summary ---
:1965 [place] [address] Care Team Providers Name Role Phone Babak Loza MD Primary Care Provider Reason for Referral Surgical (Routine) - Closed Specialty Diagnoses / Referred By Contact Referred To Contact Procedures Orthopaedic Surgery / Diagnoses Hip pain Babak Loza MD [facility] Orthopaedics 3a Orthopaedics [address] [place] [address] [phone] Fax: Referral ID Status Reason Start Date Expiration Date Visits V isits Requested Authorized [id number] Closed Consult Only 06/04/2011 12/01/2011 1 1 onsultation (Routine) - Closed Specialty Diagnoses / Procedures Referred By Contact Refer red To Contact Rheumatology Diagnoses Arthralgia Babak Loza MD Burns, Christopher M, MD Procedures consult [address] [place] [address] DR PSYCHIATRY [place] [address] Fax: Referral ID Status Reason Start Date Expiration Date Visits V isits Requested Authorized [id number] Closed Consult Only 06/04/2011 12/01/2011 1 1 Reason for Visit Reason Comments Lupus red eyes, Left hip pain, marbella nt pain Chest Pain upon taking a deep breath Encounter Details Date Type Department Care Team Description 06/04/2011 Office Visit Internal Medicine at [facility], Aristides Morton MD Arthralgia; [facility] [address] Exercise induced bronchospasm; [facility] PSYCHIATRY [place] [address] [place], [place] [phone] (Wo rk) [phone] Social History Tobacco Use Types Packs/Day Years [...] Sign Reading Time Taken Comments Blood Pressure 117/68 06/04/2011 2:52 PM EST Pulse 77 06/04/2011 2:52 PM EST Temperature - - Respiratory Rate - - Oxygen Saturation - - Inhaled Oxygen Concentration - - Weight 63.3 kg (139 lb 8 oz) 06/04/2011 2:52 PM EST Height 167.6 cm (5' 6) 06/04/2011 2:52 PM EST Body Mass Index 22.52 06/04/2011 2:52 PM EST documented in this encounter Progress Notes Babak Loza MD - 06/04/2011 3:59 PM EST Subjective: Patient ID: Isela Braun is a 45 y.o. female, here for an acute visit. LION Fernandez has a long history of a lupus like condition where she has flares that she recognizes quite well. Her labs are never been conclusive. She has had red puffiness under each I for the past month or 2and I witnessed this at her last visit. Since then he says that her eyes feel quite gritty and she is worried that she might have Sjogren's syndrome. 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 At base of left buttock, deep. Joints ache, 7/10 intensity, generalized. Hoarseness Oral sores Mild nausea -- Eating non IBS foods. Pain in mid chest with deep inspiration. Feels like the sternum. ( No cp with running, no indigestion. ) Review of Systems No unusual headaches, no dysphagia. No prolonged cough. No dyspnea or chest pain on exertion. No abdominal pain, change in bowel habits, black or bloody stools. No urinary tract symptoms. Hip pain. No fevers, Her feet feel cold, Raynauds is worse. No edema. No diarrhea Outpatient prescriptions marked as taking for the 06/04/11 encounter (Office Visit) with BABAK LOZA Medication Sig Dispense Refill ??? Biotin 5 mg Cap Take by [...] by mouth nightly as needed. sleep ??? DISCONTD: albuterol (PROVENTIL HFA;VENTOLIN HFA) 90 mcg/Actuation inhaler Inhale 2 puffs into the lungs every 4 hours as needed. Use with spacer ??? zolpidem (AMBIEN) 10 mg tablet Take 1 tablet by mouth nightly as needed for Sleep. 30 tablet 1 ??? ibuprofen (MOTRIN) 400 mg tablet ??? acetaminophen (TYLENOL) 325 mg tablet Allergies Allergen Reactions ??? [place] Nausea And Vomiting Puffy, swelling. ??? Hyoscyamine Fear And Anxiety ??? Sulfa (Sulfonamide Antibiotics) Hives ??? Unknown (Unclassified Drug) Other (See Comments) Relaxants-reverse affects Patient Active Problem List Diagnoses ??? Lupus Non specific, ELBA negative, has flairs that involve pain, weakness and foggy thinking ??? Depression ??? Anxiety ??? Insomnia ??? Hypothyroidism ??? Interstitial cystitis ??? Preventative health care S/p vag hysterectomy Tdap: 05/08/11 Pneumovax: 05/31/09 Mammograms: Lipids:total 229, 04/24/10 Tsh : 1.72, jun 2010- on 75 mcg synthroid HA1C: 5.4 (11/07/09) ELBA < 40 (08/09/08) Objective: Physical Exam BP 117/68 Pulse 77 Ht 167.6 cm (5' 6) Wt 63.277 kg (139 lb 8 oz) BMI 22.52 kg/m2 Gen: tired, well developed Mood: positive, engaging Eyes: erythema and puffiness beneath each eye. Anicteric. No conjunctival injection. EOMI. Normal facial expressions. Mouth: moist mucosa. Neck: supple Chest: tender on palpation of the sternum. Lungs expand well. Hips: Full ROM without pain. Pain is at base of left lateral buttock, deep. Ankles: no edema Assessment and Plan: Isela was seen today for concerns about a lupus flair, and hip/ buttock pain. Diagnoses and associated orders for this visit: Arthralgias/ Dry eyes/ skin changes under eyes She has never had convincing labs to back up the dx if Lupus. Will check labs today, to look for autoimmune disease, inflammatory markers, and to check lipids. Check CMP and CBC just in case somethingelse is going on to explain her symptoms. - -CBC (with Diff); Future - ELBA; Future - Cyclic Citrullinated Peptide; Future - Rheumatoid factor, quant; Future - TSH; Future - High Sensitivity CRP; Future - SS-A/Ro Antibody-[place]; Future - SS-B/La Antibody-[place]; Future - REFERRAL TO RHEUMATOLOGY - Exercise induced bronchospasm - albuterol (PROVENTIL HFA;VENTOLIN HFA) 90 mcg/Actuation inhaler; Inhale 2 puffs into the lungs every 4 hours as needed. Use with spacer Hip pain Not particularly convincing for joint disease. Possibly a deep muscle strain. - REFERRAL TO ORTHOPAEDICS - XR pelvis AP and 2 views both hips; Future Preventative Care - HDL/Cholesterol Profile - Comprehensive metabolic panel (non-fasting) Follow up in Jun for Travel Consult if she is well enough. documented in this encounter Plan of Treatment Scheduled Procedures Name Priority Associated Diagnoses Date/Time EGD, UPPER GI ENDOSCOPY Dysphagia, unspe cified type Gastroesophageal reflux disease, unspecified whether esophagitis present Functional dyspepsia Irritable bowel syndrome with casey th constipation and diarrhea Scheduled Referrals Name Type Priority Associated Order Schedule Diagnoses REFERRAL TO Outpatient Referral Routine Arthralgia Ordered: RHEUMATOLOGY 06/04/2011 REFERRAL TO Outpatient Referral Routine Hip pain Ordered: ORTHOPAEDICS 06/04/2011 documented as of this encounter Procedures Procedure Name Priority Date/Time Associated Comments Diagnosis SS-B/LA ANTIBODY Routine 06/04/2011 5:24 PM Arthralgia Resul ts for this EST procedure are i n the results section. SS-A/RO ANTIBODY Routine 06/04/2011 5:24 PM Arthralgia Resul ts for this EST procedure are i n the results section. ANTI-CYCLIC Routine 06/04/2011 5:24 PM Arthralgia Results f or this CITRULLINATED PEPTIDE EST proced ure are in AB the results section. DIFFERENTIAL, Routine 06/04/2011 5:24 PM Results for this AUTOMATED EST procedure are i n the results section. CBC (WITH DIFF) Routine 06/04/2011 5:24 PM Arthralgia Result s for this EST procedure are i n the results section. RHEUMATOID FACTOR, Routine 06/04/2011 5:24 PM Arthralgia Res ults for this QUANT EST procedure are i n the results section. CRP, CARDIAC RISK (HS Routine 06/04/2011 5:24 PM Arthralgia Results for this CRP) EST procedure are i n the results section. ELBA Routine 06/04/2011 5:24 PM Arthralgia Results f or this EST procedure are i n the results section. TSH Routine 06/04/2011 5:24 PM Arthralgia Results f or this EST procedure are i n the results section. HDL/CHOL PROFILE Routine 06/04/2011 5:24 PM Arthralgia Resul ts for this EST procedure are i n the results section. COMPREHENSIVE Routine 06/04/2011 5:24 PM Arthralgia Results for this METABOLIC PANEL EST procedure ar e in (NON-FASTING) the results section. documented in this encounter Results (ABNORMAL) DIFFERENTIAL, AUTOMATED (06/04/2011 5:24 PM EST) [facility] Method Time Signature Neutrophils % 65.6 34.0 - CERNER 71.0 % MILLENNIUM Neutr Abs (ANC) 6.70 (H) 1.50 - CERNER 6.30 MILLENNIUM x10(3)/mc L Lymphocytes % 26.6 19.0 - CERNER 53.0 % MILLENNIUM Lymphocytes Abs 2.7 1.0 - 3.6 CERNER x10(3)/mc MILLENNIUM L Monocytes % 5.1 4.0 - CERNER 13.0 % MILLENNIUM Monocyte Abs 0.5 0.2 - 1.0 CERNER x10(3)/mc MILLENNIUM L Eosinophils % 1.9 0.0 - 7.0 CERNER % MILLENNIUM Eosinophils Abs 0.2 0.0 - 0.5 CERNER x10(3)/mc MILLENNIUM L Basophils % 0.6 0.0 - 2.0 CERNER % MILLENNIUM Basophils Abs 0.1 0.0 - 0.2 CERNER x10(3)/mc MILLENNIUM L Immature Gran % 0.20 0.00 - CERNER 0.66 % MILLENNIUM Comment: Immature granulocytes(IG's)percentage an d absolute count will include metamyelocytes, myelocytes, and promyelo cytes. Blood smears from CBCs yielding IG's will be scanned manually for concor dance. If this scan disagrees with the automated IG or if promyelocytes are not ed, a manual differential will be performed. Roya Gran Abs 0.02 0.00 - 0.05 x10(3)/mcL CER NER MILLENNIUM Specimen Anatomical Collection Method Collection Time Receive d Time (Source) Location / / Volume Laterality Blood specimen 06/04/2011 5:24 PM 011 6:06 (specimen) EST PM EST Babak Loza MD HEMATOLOGY ORDERABLES Performing Organization Address City/State/ZIP Code Phon e Number [place] [phone] CERNER MILLENNIUM SS-B/La Antibody-[place] (06/04/2011 5:24 PM EST) athologist Signature SS-B/La Ab <0.2 <1.0 CERNER (Negative) MILLENNIUM U Comment: Test Performed by: [facility] [address] [address] Vehicle Monitor Technician: Janay Mercedes, Ph. D. Specimen Anatomical Collection Method Collection Time Receive d Time (Source) Location / / Volume Laterality Blood specimen 06/04/2011 5:24 PM 011 8:37 (specimen) EST AM EST Babak Loza MD IMMUNOLOGY ORDERABLES Performing Organization Address City/[facility]/ZIP Code Phon e Number [address] [facility] SS-A/Ro Antibody-[place] (06/04/2011 5:24 PM EST) athologist Signature SS-A/Ro Ab <0.2 <1.0 [facility] (Negative) [facility] U Comment: Test Performed by: [place] [address] Vehicle Monitor Technician: Janay Mercedes, Ph. D. Specimen Anatomical Collection Method Collection Time Receive d Time (Source) Location / / Volume Laterality Blood specimen 06/04/2011 5:24 PM 011 8:37 (specimen) EST AM EST Babak Loza MD IMMUNOLOGY ORDERABLES Performing Organization Address City/[facility] Phon e Number [address] [facility] High Sensitivity CRP (06/04/2011 5:24 PM EST) athologist Signature CRP High Sens 0.6 mg/L [facility] Comment: Interpretations: 1) For cardiac risk assessment, [...] for appraisal of co ronary risk information. References: 1. Jonathan LLAMAS et. al. ??AHA/CDC Scientif ic Statement: Markers of Inflammation and Cardiovascular Disease. ??Circulatio n 2003; 107:499-511 2. Ridker PM. ??Clinical applications of C-reactive protein for cardiovascular disease detection and prevention. ??Circ ulation 2003; 107:363-369 Specimen Anatomical Collection Method Collection Time Receive d Time (Source) Location / / Volume Laterality Blood specimen 06/04/2011 5:24 PM 011 5:31 (specimen) EST PM EST Babak Loza MD CHEMISTRY ORDERABLES Performing Organization Address City/[facility]/[place] [address] CERNER MILLENNIUM (ABNORMAL) TSH (06/04/2011 5:24 PM EST) P athologist Signature TSH 0.26 (L) 0.27 - 4.20 CERNER mcIU/mL MILLENNIUM Specimen Anatomical Collection Method Collection Time Receive d Time (Source) Location / / Volume Laterality Blood specimen 06/04/2011 5:24 PM 011 5:31 (specimen) EST PM EST Babak Loza MD CHEMISTRY ORDERABLES Performing Organization Address City/[facility]/[place] [address] CERNER MILLENNIUM Rheumatoid factor, quant (06/04/2011 5:24 PM EST) P athologist Signature RF 10 <=14 IU/mL CERNER MILLENNIUM Specimen Anatomical Collection Method Collection Time Receive d Time (Source) Location / / Volume Laterality Blood specimen 06/04/2011 5:24 PM 011 6:04 (specimen) EST PM EST Babak Loza MD IMMUNOLOGY ORDERABLES Performing Organization Address City/[facility]/ZIP Code Phon e Number [place] [phone] CERNER MILLENNIUM Cyclic Citrullinated Peptide (06/04/2011 5:24 PM EST) athologist Signature Anti-Cyc Cit <2.0 <=5.0 u/ml CERNER Peptide MILLENNIUM Specimen Anatomical Collection Method Collection Time Receive d Time (Source) Location / / Volume Laterality Blood specimen 06/04/2011 5:24 PM 011 8:07 (specimen) EST AM EST Babak Loza MD CHEMISTRY ORDERABLES Performing Organization Address City/[facility]/ZIP [facility] Phon e Number [address] CERNER MILLENNIUM ELBA (06/04/2011 5:24 PM EST) athologist Signature ELBA Neg Neg [facility] Specimen Anatomical Collection Method Collection Time Receive d Time (Source) Location / / Volume Laterality Blood specimen 06/04/2011 5:24 PM 011 8:13 (specimen) EST AM EST Babak Loza MD IMMUNOLOGY ORDERABLES Performing Organization Address City/[facility] Phon e Number [address] CERNER MILLENNIUM (ABNORMAL) CBC (with Diff) (06/04/2011 5:24 PM EST) athologist [facility] WBC 10.2 (H) 4.0 - 10.0 CERNER x10(3)/mcL MILLENNIUM RBC 4.45 3.93 - CERNER 5.22 MILLENNIUM x10(6)/mcL Hemoglobin 14.0 11.2 - CERNER 15.7 gm/dL MILLENNIUM Hematocrit 41.5 34.0 - CERNER 45.0 % MILLENNIUM MCV 93.3 79.0 - CERNER 94.0 fL MILLENNIUM MCH 31.5 26.6 - CERNER 32.2 pg MILLENNIUM MCHC 33.7 32.0 - CERNER 36.5 gm/dL MILLENNIUM Platelets 319 145 - 370 CERNER x10(3)/mcL MILLENNIUM RDWSD 41.1 35.0 - CERNER 46.0 fL MILLENNIUM RDWCV 12.2 10.9 - CERNER 14.4 % MILLENNIUM MPV 10.0 9.0 - 12.0 CERNER fL MILLENNIUM Specimen Anatomical Collection Method Collection Time Receive d Time (Source) Location / / Volume Laterality Blood specimen 06/04/2011 5:24 PM 011 6:06 (specimen) EST PM EST Babak Loza MD HEMATOLOGY ORDERABLES Performing Organization Address City/State/[place] [address] CERNER MILLENNIUM (ABNORMAL) Comprehensive metabolic panel (non-fasting) (06/04/2011 5:24 PM EST) P athologist Signature Glucose Lvl 96 60 - 199 CERNER mg/dL MILLENNIUM Comment: Diabetes: >=200 mg/dL plus symp toms BUN 19 (H) 8 - 18 mg/dL CERNER MILLENNIUM Creatinine 1.09 0.70 - 1.20 mg/dL CERNER MILL ENNIUM Sodium 142 135 - 145 mmol/L CERNER LUCERO NIUM Potassium 3.4 (L) 3.5 - 5.0 mmol/L CERNER LUCERO NIUM Comment: Please note: ??Patients with WBC >100,00 0 may have falsely elevated Potassium levels. ??For accurate Potassium quantif ication in these patients send serum separator tube (gold top) for subsequent determinations. ??Contact the Clinical Chemistry Laboratory if there are any qu estions. Chloride 105 98 - 107 mmol/L CERNER MILLENN IUM CO2 26 22 - 31 mmol/L CERNER MILLENNI UM Anion Gap 11 5 - 15 mmol/L CERNER MILLENNIU M Calcium 9.8 8.5 - 10.5 mg/dL CERNER LUCERO NIUM Total Protein 7.8 6.4 - 8.3 gm/dL CERNER MIL LENNIUM Albumin 4.4 3.2 - 5.2 gm/dL CERNER MILLENN IUM AST 22 0 - 30 unit/L CERNER MILLENNIU M ALT 24 0 - 30 unit/L CERNER MILLENNIU M Alk Phos 95 40 - 104 unit/L CERNER MILLENN IUM Total Bilirubin 0.2 0.2 - 1.3 mg/dL [facility] M ILLENNIUM Bili, Direct <0.1 0.0 - 0.3 mg/dL CERNER MILL ENNIUM Estimated GFR 54 (L) >=60 CERNER PAUL Persaud Comment: The National Kidney Disease Education Pr ogram (NKDEP) has recommended all laboratories report estimated GFR (eGFR) along with plasma creatinine measurements to assist you with recognit ion of early kidney disease. Caveats: ??Plasma creatinine should be a t steady-state (unchanged within the past week). For patient s multiply eGFR by 1.2.MDRD equation has not been validated for pediatric pat ients and is only valid for patients with age >= 18 years. At present, NKDEP does NOT recommend usi ng the MDRD equation for drug dosing purposes and pharmacists should continue to use their current dosing methods. In addition, numerical eGFR values great er than 60 ml/min/1.73 square meters should be treated as > 60, and not an ex act number due to greater inaccuracies at these higher values. Per NKDEP, they classify normal renal function as any GFR >60ml/min/1.73 square meters; chronic kidney disease wh en GFR <60, and renal failure when GFR <15. ??This calculation may not be valid for patients with atypical muscle mass (very lean or obese), acute renal failur e, and in patients with diabetic kidney disease. References: http://nkdep.nih.gov/resources/NKDEP_Sug gestn4Labs_0606_508.pdf http://www.kidney.org/professionals/kls/ pdf/faq_gfr.pdf Specimen Anatomical Collection Method Collection Time Receive d Time (Source) Location / / Volume Laterality Blood specimen 06/04/2011 5:24 PM 011 5:31 (specimen) EST PM EST Babak Loza MD CHEMISTRY ORDERABLES Performing Organization Address City/State/[place] [address] CERSHAHID RIVERSENNIUM (ABNORMAL) HDL/Cholesterol Profile (06/04/2011 5:24 PM EST) P athologist Signature Chol, Total 250 (H) <=199 CERNER mg/dL [facility] Comment: Recommendations of the NCEP Adult Treatm ent Panel for the following risk cutoff thresholds for the [place] popul[place] n: Desirable: <200 mg/dL Borderline High: 200-239 mg/dL High: > or = 240 mg/dL HDL 61 >=40 mg/dL [facility] Comment: Reference range: ??Low HDL: ?? < 40 mg/dL ??Normal: ?40-60 mg/dL ??Desirable: > 60 mg/dL JW 2001; 285(19):4442-2653 Chol/HDL Ratio 4.1 ratio VIRINER SELENEI UM Comment: A Cholesterol to HDL ratio below 4:1 is desirable. ??Studies suggest that increased CAD risk occurs at ratios abov e 5 for females and above 6 for men. ? [place] [employer] ??(htt p://www.americanheart.org) ? Susan Int Med, 1994; 121:641 ? AM J Med, 1998; 105(1A):48S Specimen Anatomical Collection Method Collection Time Receive d Time (Source) Location / / Volume Laterality Blood specimen 06/04/2011 5:24 PM 011 5:31 (specimen) EST PM EST Babak Loza MD CHEMISTRY ORDERABLES Performing Organization Address City/State/[place] [address] PAWEL [facility] XR pelvis AP and 2 views both hips (06/04/2011 5:11 PM EST) Anatomical Region Laterality Modality Pelvis, Hip N/A Radiographic Imaging Specimen (Source) Anatomical Collection Method Collection Time Re ceived Time Location / / Volume Laterality 06/04/2011 5:11 PM EST Narrative 06/05/2011 2:11 PM EST EXAMINATION: AP PELVIS AND TWO VIEWS OF BOTH HIPS. DATE OF EXAM: 06/04/11. HISTORY: Bilateral hip pain left greater than right; pain at the base of the buttocks. FINDINGS: An AP view of the lower pelvis and AP and lateral views of both hips with no prior exam for comparison. Minimal degenerative change is noted. Th ere is no evidence of fracture or dislocation. Procedure Note Lauren Vargas MD - 06/05/2011Form atting of this note might be different from the original. EXAMINATION: AP PELVIS AND TWO VIEWS OF BOTH HIPS. DATE OF EXAM: 06/04/11. HISTORY: Bilateral hip pain left greater than right; pain at the base of the buttocks. FINDINGS: An AP view of the lower pelvis and AP and lateral views of both hips with no prior exam for comparison. Minimal degenerative change is noted. Th ere is no evidence of fracture or dislocation. Babak Loza MD IMG DX ORDERABLES documented in this encounter Visit Diagnoses Diagnosis Arthralgia Pain in joint, site unspecified Exercise induced bronchospasm Hip pain Pain in joint, pelvic region and thigh Hip pain Pain in joint, pelvic region and thigh documented in this encounter Care Teams Water Reuse Program Manager Relationship Specialty Start Date End Date Babak Loza MD PCP - General 03/05/11 03/01/15 documented as of this encounter
--- OUTSIDE RECORDS SUMMARY | 2022-01-31 01:33 | XMS_ITS | Encounter Summary ---
:1965 Author Organization [facility] [place] [address] Care Team Providers Name Role Phone Holli Reyna MD Primary Care Provider Reason for Visit Reason Comments Lupus Encounter Details Date Type Department Care Team Description 01/29/2012 Follow-Up Rheumatology at [facility] Pollo Waller, Ischial bursitis; [facility] Trochanteric bursitis; [facility] [place] [address] RHEUMATOLOGY DEPT. [phone] [place] [id number] (Wo rk) Social History Tobacco Use Types [...] Sign Reading Time Taken Comments Blood Pressure 126/63 01/29/2012 8:49 AM EDT Pulse 67 01/29/2012 8:49 AM EDT Temperature 36.4 ??C (97.6 ??F) 01/29/2012 8:49 AM EDT Respiratory Rate - - Oxygen Saturation 95% 01/29/2012 8:49 AM EDT Inhaled Oxygen - - Concentration Weight 66.7 kg (147 lb) 01/29/2012 8:49 AM pt reported; didn't EDT want to be weigh ed Height 167.6 cm (5' 6) 01/29/2012 8:49 AM EDT Body Mass Index 23.73 01/29/2012 8:49 AM EDT documented in this encounter Progress Notes Pollo Waller MD - 01/29/2012 9:37 AM EDT Rheumatology Clinic: Dr. Waller 01/29/2012 [id number] Isela Braun is seen in follow-up of her widespread aches and pains, sleep disturbance, and fatigue, with occasional flareups consisting of low-grade fever, mood instability, worsening fatigue, and brain fog. Please see our notes from her first visit on 09/24/2011. She has been ELBA negative on multiple occasions and we do not believe she has a connective tissue disease. We checked a few other studies, including her inflammatory markers, complement levels, and LEYDA on that visit, and they were all negative/normal. She was mildly vitamin D deficient and she's now on regular replacement. We also senther to physical therapy to work on some local soft tissue problems around the hips and that was beneficial. She has since developed some pain in her right shoulder and is going through physical therapyfor that. She tells me that she's had a major change in her life strategy. She gave up her job at the [employer] and is going to begin [employer]ological [employer] at [employer]. She is very excited about this.She has also moved and actually that is how she injured her shoulder. She is requesting a letter regarding some minor accommodations for her school and we will do that for her. She continues on Ambien for her sleep and ibuprofen when necessary for her pain. In general, she's doing well. As we noted onher last visit, she has found a strategy/regimen to deal with her day-to-day issues and also with her occasional flares. She's aware that her flares are often generated by stress and disruption of her sleep cycle. Patient Active Problem List Diagnoses Code ??? Hypothyroidism 244.9AP ??? Interstitial cystitis 595.1T ??? Preventative health care V70.0C ??? Depression 311L ??? Anxiety 300.00E ??? Insomnia 780.52A ??? Hip pain 719.45F ??? Ischial bursitis 726.5X ??? Trochanteric bursitis 726.5S ??? Bilateral hip pain 719.45P Current outpatient prescriptions ordered prior to encounter Medication Sig Dispense Refill ??? zolpidem (AMBIEN) 10 mg tablet Take 1 tablet by mouth nightly as needed for Sleep. Do not dispense prior to 11/28/11 Fax to Saniya Gonzales 30 tablet 1 ??? ERGOCALCIFEROL, VITAMIN D2, (VITAMIN D ORAL) Take by mouth. Only takes when she feels cold coming on ??? albuterol (PROVENTIL HFA;VENTOLIN HFA) 90 mcg/Actuation inhaler Inhale 2 puffs into the lungs every 4 hours as needed. Use with spacer 1 Inhaler 12 ??? levothyroxine (SYNTHROID) 100 mcg tablet Take 100 mcg by mouth daily. ??? DOXYLAMINE SUCCINATE (UNISOM ORAL) Take by mouth nightly as needed. sleep ??? ibuprofen (MOTRIN) 400 mg tablet ??? acetaminophen (TYLENOL) 325 mg tablet ??? DISCONTD: diclofenac (VOLTAREN) 1 % Gel topical gel Apply 2 g topically 4 times daily. 1 Tube 0 ??? ZINC ACETATE, ORAL, ORAL Take by mouth. Takes only when feeling cold coming on ??? DISCONTD: Biotin 5 mg Cap Take by mouth. ??? DISCONTD: Artificial Tear, Hypromellose, 1 % Drop Place 1 drop into both eyes 3 times daily. Physical Exam: She looks well. She is in good spirits. Blood pressure 126/63, pulse 67, temperature 36.4 ??C (97.6 ??F), temperature source Oral, height 167.6 cm (5' 6), weight 66.679 kg (147 lb), SpO2 95.00%. The rest of her exam was deferred today. Assessment: She seems to be doing well. We'll go ahead and write her a letter for Theological Schoolaccommodations. We also agreed to make followup on an as- needed basis. I wished her well. I told herif anything changes in a major way, she should contact us. We also promised to let her know if a new, effective treatment is developed for fibromyalgia. Over 20 minutes of the 25 minute follow-up were spent discussing these problems and their treatment options in [id number] counseling. Visit Diagnoses: 1. Ischial bursitis (726.5X) 2. Trochanteric bursitis (726.5S) 3. Fibromyalgia (729.1AV) documented in this encounter Plan of Treatment Scheduled Procedures Name Priority Associated Diagnoses Date/Time EGD, UPPER GI ENDOSCOPY Dysphagia, unspe cified type Gastroesophageal reflux disease, unspecified whether esophagitis present Functional dyspepsia Irritable bowel syndrome with casey th constipation and diarrhea documented as of this encounter Visit Diagnoses Diagnosis Ischial bursitis Enthesopathy of hip region Trochanteric bursitis Enthesopathy of hip region Fibromyalgia Mylagia and myositis, unspecified documented in this encounter Care Teams Laborer Cutting Tool Relationship Specialty Start Date End Date Holli Reyna MD PCP - General 03/05/11 03/01/15 documented as of this encounter
--- OUTSIDE RECORDS SUMMARY | 2022-01-31 01:33 | XMS_ITS | Encounter Summary ---
:1965 Author Organization [facility] [place] [address] Care Team Providers Name Role Phone Holli Reyna MD Primary Care Provider Reason for Visit Reason Comments Follow-up Encounter Details Date Type Department Care Team Description 01/29/2012 Follow-Up Internal Medicine at Aristides Reyna MD Fibromyalgia (Primary Dx); [address]; [facility] PSYCHIATRY Insomnia; [place] [address] [place], [place] [phone] (Wo rk) [phone] Social History Tobacco Use Types Packs/Day Years [...] Sign Reading Time Taken Comments Blood Pressure 117/66 01/29/2012 10:24 AM EDT Pulse 56 01/29/2012 10:24 AM EDT Temperature 36.9 ??C (98.4 ??F) 01/29/2012 10:24 AM EDT Respiratory Rate - - Oxygen Saturation - - Inhaled Oxygen Concentration - - Weight 66.7 kg (147 lb) 01/29/2012 10:24 AM EDT per pat ient Height - - Body Mass Index 23.73 01/29/2012 8:49 AM EDT documented in this encounter Progress Notes Holli Reyna MD - 01/29/2012 10:49 AM EDT Subjective: Patient ID: Isela Braun is a 46 y.o. female.- follow up for fibromyalgia. HPI Saw Dr Waller this am and accepts her Dx as that of fibromyalgia, rather than Lupus. Wants to move onand deal with it as it is. Gets brain fog at times. Has occasional 6/10 muscular pain. Has occasional sternal aching, lasts 3 days. Not exertional. Denies dyspnea, dizziness or diaphoresis. Jim wants me to provide medical documentation to her program ([employer]) to have special accommodations due to her interstitial cystitis and Fibromyalgia IC affects her abilty to sit for prolonged periods. She has not seen her Urologist in [place] for at least a year. Not on prescription meds for this. Fibromyalgia causes flairs that affect her ability to concentrate. Requesting front row seats in class, extended time for assignments, note takers, seating accommodations. Has seen Mitzi Judd, PT for rt shoulder arthritis. Now also has left shoulder pain, due to compensating for the rt. Swims daily. Taking ibuprofen. Icing it. Takes an over the counter diurectic with effect. Needs Hep A #2 and B. Going to [facility] in winter. Review of Systems As above Patient Active Problem List Diagnoses Code ??? Hypothyroidism 244.9AP ??? Interstitial cystitis 595.1T ??? Preventative health care V70.0C ??? Depression 311L ??? Anxiety 300.00E ??? Insomnia 780.52A ??? Hip pain 719.45F ??? Ischial bursitis 726.5X ??? Trochanteric bursitis 726.5S ??? Bilateral hip pain 719.45P ??? Fibromyalgia 729.1AV Objective: Physical Exam BP 117/66 Pulse 56 Temp(Src) 36.9 ??C (98.4 ??F) (Oral) Wt 66.679 kg (147 lb) Gen: Well appearing, well developed, no distress CV: RRR, no m/r/g; no sternal pain Lungs: CTA Neuro: Normal facial expressions and normal gait MS: positive mood and normal affect, appropriate Assessment and Plan: Jim is doing very well, despite ongoing issues with fibromyalgia and interstitial cystitis. 1) Follow up for AE in a month , before she leaves for school. 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 2) Needs Hep A#2 and B#2 today 3) Shoulder pain: continue care as described above. Improved. documented in this encounter Plan of Treatment Scheduled Procedures Name Priority Associated Diagnoses Date/Time EGD, UPPER GI ENDOSCOPY Dysphagia, unspe cified type Gastroesophageal reflux disease, unspecified whether esophagitis present Functional dyspepsia Irritable bowel syndrome with casey th constipation and diarrhea documented as of this encounter Visit Diagnoses Diagnosis Fibromyalgia - Primary Mylagia and myositis, unspecified Healthcare maintenance Routine general medical examination at a health care facility Insomnia Insomnia, unspecified Hypothyroidism Unspecified hypothyroidism documented in this encounter Care Teams Bin Piler Relationship Specialty Start Date End Date Holli Reyna MD PCP - General 03/05/11 03/01/15 documented as of this encounter
--- OUTSIDE RECORDS SUMMARY | 2022-01-31 01:33 | XMS_ITS | Encounter Summary ---
:1965 Author Organization [facility] [facility] [place] [address] Care Team Providers Name Role Phone Holli Reyna MD Primary Care Provider Reason for Visit Reason Onset Date Comments Medication Refill 03/26/2011 Encounter Details Date Type Department Care Team Description 03/26/2011 Refill Internal Medicine at [facility] Holli Reyna MD [address] [phone] PSYCHIATRY [phone] [place] [address] (Wo rk) Social History Tobacco Use Types [...] on filedocumented in this encounter Care Teams Supervisor Wood Room Relationship Specialty Start Date End Date Holli Reyna MD PCP - General 03/05/11 03/01/15 documented as of this encounter
--- OUTSIDE RECORDS SUMMARY | 2022-01-31 01:33 | XMS_ITS | Encounter Summary ---
:1965 Author Organization [facility] [place] [address] Care Team Providers Name Role Phone Holli Reyna MD Primary Care Provider Encounter Details Date Type Department Care Team Description 09/24/2011 Office Visit Physical Therapy at Alex Fitzgerald, PT Bilateral hip pain [facility] Pollo Waller MD [facility] [place] [address] (Primary Dx) [place] [phone] Social History Tobacco Use Types Packs/Day Years Used Date Former Smoker Cigarettes 0.5 10 Quit: 02/18/20 11 Smokeless Tobacco: Never Used Comments: 1 to 2 a day. Alcohol Use Standard Drinks/Week Comments No 0 (1 standard drink = 0.6 oz pure alcoho l) Sex Assigned at Date Recorded Not on file documented as of this encounter Progress Notes Alex Fitzgerald PT - 09/24/2011 1:17 PM EST PHYSICAL THERAPY INITIAL EXAMINATION Date of Exam/First treatment: 09/24/2011 Date of onset: April 2011 Referring Physician: Pollo Waller Diagnosis: B hip pain, low back pain CURRENT HISTORY: Isela Braun is a 46 y.o. female referred to physical therapy for treatment of bilateral hip pain.She has had pain on/off for the past 12 yrs. In the past she has had a flare up with significant pain in her hips, back, and knees which gradually goes away. She states that if she generally exercises a lot, she has less pain. She states that she has pain every day somewhere. She knows that she will have more pain when her feet hit the ground in the morning, the sensitivity of her feet is a gauge on how much pain she will have that day. She has been worked up for lupus and fibromyalgia. She states that her pain/fatigue regulates her personal schedule. She states that her pain began this past fall. She was running at the time and has not stopped due to hip pain. She runs about 2-3 days/week for about 40 min. She walks on alternate days about 2.5 mi/day. She also swims for ex, which does not cause sx. She does not have a regular ex plan, but states that she needs to get build up her fitness before an event. 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); involves riding in the car, walking stairs and walking on all types of terrain Activities: read, spin wool, movies Prior level of function: less pain with ADLs Functional Limitations: difficulty with extended sitting (in car) and lying on either side CLINICAL FINDINGS: Posture: pes planus B, slight genu valgum Gait: Sharp lateral movement of hips with each step Range of motion and strength: Right Range of motion (deg) Left Strength ( /5) hip flexion WNL WNL abduction WNL WNL adduction WNL WNL ER WNL WNL IR WNL WNL extension 5 5 Strength: Gluteus medius: 4-/5 B Gluteus maxiums: 4-/5 B Neurological: Dermatomes: LE intact Myotomes: LE intact Neural tension: slight (+) slump B (R > L) Reflexes: achilles and quad intact Palpation: Focal tenderness on B trochanteric bursa, focal tenderness on L piriformis, bony prominence on B ischium, generalized tenderness L4-S1 Flexibility: Decreased hip flexors Outcome Measure: Lower Extremity Functional Scale: will assess next visit CLINICAL EVALUATION AND DIAGNOSIS: These findings are consistent with bilateral hip pain. She has weakness in her hip extensors and abductors that contribute to poor hip stability in gait. I suspect that this pattern is exaggerated in her running gait which will be assessed next visit. Expect with skilled physical therapy interventionspatient will be able to return to prior level of function. GOALS: Therapy Short Term Goals (2 wk) Patient will... 1. be indep with home exercise program to begin self management of symptoms. Therapy Longterm Goals ( 6 wk) Patient will... 1. Pt will score > 10 point improvement in her LEFS score to demonstrate improved function 2. Pt will have 4+/5 strength throughout her hips to improve the quality of her gait 3. Pt will have 0-3/10 pain in her hips with ADLs INITIAL TREATMENT INCLUDED: Examination, pt education on pathology, and instruction in a home exercise program , - pt advised to stop hamstring stretch - standing rectus stretch (on HEP) - pt ed PLAN: Frequency and duration: 1-2 x per week x 6 weeks Treatment: Manual Techniques, Soft tissue mobilization, Stretching, Joint mobilization, Therapeutic exercise, Patient/Family education, Body Mechanics, Posture and Home Exercise Program Total Treatment time: 50 minutes Total Timed Code Treatment: 0 minutes The plan has been discussed with the patient and Isela Braun has agreed with the planned treatment. ALEX FITZGERALD PT, DPT documented in this encounter Miscellaneous Notes Miscellaneous - Richard, Enologist - 09/30/2011 10:31 AM EDT documented in this encounter Plan of Treatment Scheduled Procedures Name Priority Associated Diagnoses Date/Time EGD, UPPER GI ENDOSCOPY Dysphagia, unspe cified type Gastroesophageal reflux disease, unspecified whether esophagitis present Functional dyspepsia Irritable bowel syndrome with casey th constipation and diarrhea documented as of this encounter Visit Diagnoses Diagnosis Bilateral hip pain - Primary Pain in joint, pelvic region and thigh documented in this encounter Care Teams Eligibility Analyst Relationship Specialty Start Date End Date Holli Reyna MD PCP - General 03/05/11 03/01/15 documented as of this encounter
--- OUTSIDE RECORDS SUMMARY | 2022-01-31 01:33 | XMS_ITS | Encounter Summary ---
:1965 Author Organization [facility] [address] Care Team Providers Name Role Phone Holli Reyna MD Primary Care Provider Reason for Visit Reason Onset Date Comments Medication Refill 09/23/2012 Encounter Details Date Type Department Care Team Description 09/23/2012 Refill Internal Medicine at [facility] Holli Reyna MD [address] [phone] PSYCHIATRY [phone] [place] [address] (Wo rk) Social History Tobacco Use Types Packs/Day Years Used Date Former Smoker Cigarettes 0.5 10 Quit: 02/18/20 11 Smokeless Tobacco: Never Used Comments: 1 to 2 a day. Alcohol Use Standard Drinks/Week Comments No 0 (1 standard drink = 0.6 oz pure alcoho l) Sex Assigned at Date Recorded Not on file documented as of this encounter Miscellaneous Notes Telephone Encounter - Veronica Chandler RN - 09/23/2012 10:48 AM EST Isela called saying she look a double dose of Lyrica and after has suicidal ideation. She says that the impulses are 5-10- min in duration. She says she does not have a plan to carry out suicide but that the ideation is real. She also reports a metalic tast in her mouth. This was after a double diose of the 75mg she takes in the morning. She is also prescribed 100mg in th pm. She feels the Fibromyalgia is being well managed and she reports she is going well in school in [place]. After speaking toDawHolli smallwood relayed to me that she will call Isela by the end of the day. I called Isela to let her know. documented in this encounter Plan of Treatment Scheduled Procedures Name Priority Associated Diagnoses Date/Time EGD, UPPER GI ENDOSCOPY Dysphagia, unspe cified type Gastroesophageal reflux disease, unspecified whether esophagitis present Functional dyspepsia Irritable bowel syndrome with casey th constipation and diarrhea documented as of this encounter Visit Diagnoses Not on filedocumented in this encounter Care Teams Transfer Driver Relationship Specialty Start Date End Date Holli Reyna MD PCP - General 03/05/11 03/01/15 documented as of this encounter
--- OUTSIDE RECORDS SUMMARY | 2022-01-31 01:33 | XMS_ITS | Encounter Summary ---
:1965 [place] [address] Care Team Providers Name Role Phone Holli Reyna MD Primary Care Provider Encounter Details Date Type Department Care Team Description 03/28/2011 Orders Only Internal Medicine at Aristides Reyna MD Insomnia (Primary Dx) [address] [place] [address] [place], [place] [phone] (Wo rk) [phone] Social History Tobacco Use Types Packs/Day Years Used Date Passive Smoke Exposure - Never Smoker Cigarettes Comments: 1 to 2 a day. Alcohol Use Standard Drinks/Week Comments Not Asked 0 (1 standard drink = 0.6 oz pure alcoho l) Sex Assigned at Date Recorded Not on file documented as of this encounter Progress Notes Holli Reyna MD - 03/28/2011 3:12 PM EDT Script changed in order to fax . documented in this encounter Plan of Treatment Scheduled Procedures Name Priority Associated Diagnoses Date/Time EGD, UPPER GI ENDOSCOPY Dysphagia, unspe cified type Gastroesophageal reflux disease, unspecified whether esophagitis present Functional dyspepsia Irritable bowel syndrome with casey th constipation and diarrhea documented as of this encounter Visit Diagnoses Diagnosis Insomnia - Primary Insomnia, unspecified documented in this encounter Care Teams Water Use Inspector Relationship Specialty Start Date End Date Holli Reyna MD PCP - General 03/05/11 03/01/15 documented as of this encounter
--- OUTSIDE RECORDS SUMMARY | 2022-01-31 01:33 | XMS_ITS | Encounter Summary ---
:1965 Author Organization [place] [address] Care Team Providers Name Role Phone Holli Reyna MD Primary Care Provider Encounter Details Date Type Department Care Team Description 10/17/2011 Follow-Up Physical Therapy at Alex Fitzgerald, Bi lateral hip pain [facility] PT (Primary Dx) [place] [phone] Social History Tobacco Use Types Packs/Day Years Used Date Former Smoker Cigarettes 0.5 10 Quit: 02/18/20 11 Smokeless Tobacco: Never Used Comments: 1 to 2 a day. Alcohol Use Standard Drinks/Week Comments No 0 (1 standard drink = 0.6 oz pure alcoho l) Sex Assigned at Date Recorded Not on file documented as of this encounter Progress Notes Alex Fitzgerald, PT - 10/17/2011 8:48 AM EDT Date of Exam/First treatment: 09/24/2011 Date of onset: April 2011 Referring Physician: Pollo Waller Diagnosis: B hip pain, low back pain Subjective: Pt states that she has been running and completing her HEP. She expresses a strong desire to begin running in a more 'minimalist' fashion and use her 5- fingered shoes. She was encouraged to ease into this slowly and it was recommended that she use a transitional minimalist shoe before using her 5-finge rs. Objective: Running gait:heavy heels strike, slight toe-in on L with hip IR (pt reports slight pain on posteriorhip); increased forward lean - when running with mid-foot/forefoot strike, pt was slightly bent forward at hips and foot strike under trunk Therex: 40 min - discuss progression of HEP - discuss the importance of consistency and slow progression/changes to ex plan - run outside with cuing on engaging trunk musculature more to decreased hip rotation - discuss progression of minimalist running style and shoe recommendation (cushioned minimalist shoes) Assessment: Isela reports continued progress with her ex and reports less pain than at the initial evaluation. She verbalizes a strong desire to increase her level of exercise particularly running. We discussed extensively principles associated with building running and general fitness to minimize risk of injury. GOALS: Therapy Short Term Goals (2 wk) Patient will... 1. be indep with home exercise program to begin self management of symptoms. Therapy Mechanical Planner Goals ( 6 wk) Patient will... 1. Pt will score > 10 point improvement in her LEFS score to demonstrate improved function 2. Pt will have 4+/5 strength throughout her hips to improve the quality of her gait 3. Pt will have 0-3/10 pain in her hips with ADLs PLAN: Pt will follow up with PT in 3-4 weeks. Total Treatment time: 40 minutes Total Timed Code Treatment: 40 minutes ALEX FITZGERALD PT, DPT documented in this encounter Plan of Treatment [...] thigh documented in this encounter Care Teams Pharmacist Relationship Specialty Start Date End Date Holli Reyna MD PCP - General 03/05/11 03/01/15 documented as of this encounter
--- OUTSIDE RECORDS SUMMARY | 2022-01-31 01:33 | XMS_ITS | Encounter Summary ---
:1965 Author Organization [facility] [place] [address] Care Team Providers Name Role Phone Holli Reyna MD Primary Care Provider Reason for Visit Reason Comments Fatigue Confusion, body aches,pain i s worse in the morning, Encounter Details Date Type Department Care Team Description 11/07/2011 Follow-Up Internal Medicine at Taina Okeefe MD Work-related stress [facility] (Primary Dx) [facility] [place] [address] MEDICINE [phone] [place] [id number] (Wo rk) Social History Tobacco Use Types [...] Sign Reading Time Taken Comments Blood Pressure 129/90 11/07/2011 10:38 AM EDT right ar m Pulse 58 11/07/2011 10:38 AM EDT Temperature 36.4 ??C (97.6 ??F) 11/07/2011 10:38 AM EDT Respiratory Rate 16 11/07/2011 10:38 AM EDT Oxygen Saturation - - Inhaled Oxygen Concentration - - Weight 66.7 kg (147 lb) 11/07/2011 10:38 AM EDT Height 167.6 cm (5' 6) 11/07/2011 10:38 AM EDT Body Mass Index 23.73 11/07/2011 10:38 AM EDT documented in this encounter Progress Notes Tra Okeefe MD - 11/07/2011 11:24 AM EDT Subjective: Patient ID: Isela Braun is a 46 y.o. of age female Chief Complaint Patient presents with ??? Fatigue Confusion, body aches,pain is worse in the morning, HPI Stress at job: night pride trouble sleeping, ringing in the ear, stiffness in necks difficulty concentrating, getting harassed at work impacted her significantly to do her job, does not want to get sick. Does deep breathing and meditation, tense at work. Listens to dewayne aponte while driving. Went flying with friend. 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 Has good friend [place]. Toxic work environment. Body reacting. Started cancelling PT appointments for hip and dental appointments, agency going through transition. Expectation to increase the amount of inspections and paper work reporting within a week. Total meltdown yesterday. Started work in December of last year, recruited to company, worked at [employer], current supervisorwanted him to work with [employer]. 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 First month of work was in training a lot. Wanted to set some boundaries wanted to live at home while training was at different places. In Fall scheduling issues, schedular was making travel arrangements early AM driving 7-8 hours, was getting exhausted, tried to bring it forth, was shut down in staff meeting and by coffee supervisor. Disparaged by name calling by them, things calmed down for few months, feels the coffee supervisor would bully wax and wan, isolation form other team members. Decided to leave job, applying for grad school. Work does not know. 2-3 weeks ago expense form issuewith boss, e-mailed back for HR meeting. Day before yesterday, an hour long phone conversation with nit picking at work. HR communications happened, meeting scheduled 17 November 2011. 05/[address] Reyna. Jim has a long history of a lupus [...] No cp with running, no indigestion. ) Patient Active Problem List Diagnoses Code ??? Hypothyroidism 244.9AP ??? Interstitial cystitis 595.1T ??? Preventative health care V70.0C ??? Lupus 710.0AL ??? Depression 311L ??? Anxiety 300.00E ??? Insomnia 780.52A ??? Hip pain 719.45F ??? Ischial bursitis 726.5X ??? Trochanteric bursitis 726.5S ??? Bilateral hip pain 719.45P Past Medical History Diagnosis Date ??? Allergy 1985 bees, strawberries, sulfa ??? Bone disease 1979's 1994 broken bones, lupus ??? Breast disease 2001 fybercycstic breasts ??? Breathing problem 2004 exercise endused asthma ??? 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 Chronic pain 1994, 2009 hips, neck and chest ??? Digestive problems 1994 IBS ??? Genital disease, female 1988 other ??? Headache 2009 frequent headaches that last for several days ??? Bladder disorder 1994 IC ??? Hormone disorder 1994 hashimotos thyroiditus ??? Other ill-defined conditions 1999 insuficient pancrease syndrome? Past Surgical History Procedure Date ??? Joint replacement 1993 ganglion cycst rt ??? Bladder surgery 1994- 2009 hydrodistentions, biopsy unknown History Social History ??? Marital Status: Single Spouse Name: N/A Number of Children: N/A ??? Years of Education: N/A Occupational History ??? Not on file. Social History Main Topics ??? Smoking status: Former Smoker -- 0.5 packs/day for 10 years Types: Cigarettes Quit date: 02/17/2011 ??? Smokeless tobacco: Never Used Comment: 1 to 2 a day. ??? Alcohol Use: No ??? Drug Use: No ??? Sexually Active: Not on file Other Topics Concern ??? Regular Exercise Is At Least 30 Minutes Of Moderate Physical Activity 5 Days A Week. This Would Be Walking Fast, Playing Tennis, Mowing The Lawn. Regular Exercise Is Also At Least 20 Minutes Of Vigorous Physical Activity 3 Days A Week. This Would Be Jogging, Swimming, Playing Basketball. Do You Get Regular Exercise? Yes as often as I can ??? Are You Or Have You Been Threatened Or Hurt Physically, Emotionally, Or Sexually By A Partner/spouse/family Member? No Social History Narrative ??? No narrative on file Family History Problem Relation Age of Onset ??? Alcohol Abuse Father ??? Alcohol Abuse Paternal Grandfather ??? Coronary Art Dis Father ??? Coronary Art Dis Paternal Grandmother ??? Coronary Art Dis Paternal Grandfather ??? Depression Paternal Grandmother ??? Depression Mother ??? Osteoporosis Maternal Aunt Immunization History Administered Date(s) Administered ??? Hepatitis A 05/08/2011 ??? Influenza Split 05/08/2011 ??? Meningococcal Conjugate 05/08/2011 ??? Tdap 05/08/2011 Current outpatient prescriptions ordered prior to encounter Medication Sig Dispense Refill ??? zolpidem (AMBIEN) 10 mg tablet Take 1 tablet by mouth nightly as needed for Sleep. Fax to [facility] Gonzales 30 tablet 1 ??? ERGOCALCIFEROL, VITAMIN D2, (VITAMIN D ORAL) Take by mouth. Only takes when she feels cold coming on ??? ZINC ACETATE, ORAL, ORAL Take by mouth. Takes only when feeling cold coming on ??? albuterol (PROVENTIL HFA;VENTOLIN [...] ??? acetaminophen (TYLENOL) 325 mg tablet ??? diclofenac (VOLTAREN) 1 % Gel topical gel Apply 2 g topically 4 times daily. 1 Tube 0 ??? Biotin 5 mg Cap Take by mouth. ??? Artificial Tear, Hypromellose, 1 % Drop Place 1 drop into both eyes 3 times daily. Objective: Physical Exam: BP 129/90 Pulse 58 Temp(Src) 36.4 ??C (97.6 ??F) (Oral) Resp 16 Ht 167.6 cm (5' 6) Wt 66.679 kg (147 lb) BMI 23.73 kg/m2 Physical Exam Psychiatric: Her mood appears anxious. Her affect is not labile and not inappropriate. She is not agitated. She does not express impulsivity. She does not exhibit a depressed mood. She expresses no homicidal plans. She exhibits ordered thought content and normal new learning ability. Stressed about work environment and the social isolation at work. Worried about getting fired. anxious LABS: Revieiwed Assessment and Plan: Isela was seen today for fatigue. Diagnoses and associated orders for this visit: Work-related stress Toxic work environment, patient suffering social isolation at work due to patient reported harassment by the boss and the schedular. Has flare in her symptoms of fatigue, fibromyalgia. Will give her a week off to gather herself and re engage with her current support system, will find out about EAP at work (in [place], so also given list of Community resources for CBT to handle the anxiety and stress at work) and follow up with Dr Reyna in 2 weeks for 40 min. Spent 25 min >50% discussing the diagnosis and DD, medications and plan for follow up documented in this encounter Plan of Treatment Scheduled Procedures Name Priority Associated Diagnoses Date/Time EGD, UPPER GI ENDOSCOPY Dysphagia, unspe cified type Gastroesophageal reflux disease, unspecified whether esophagitis present Functional dyspepsia Irritable bowel syndrome with casey th constipation and diarrhea documented as of this encounter Visit Diagnoses Diagnosis Work-related stress - Primary Adverse effects of work environment documented in this encounter Care Teams Manpower Development Specialist Relationship Specialty Start Date End Date Holli Reyna MD PCP - General 03/05/11 03/01/15 documented as of this encounter
--- OUTSIDE RECORDS SUMMARY | 2022-01-31 01:33 | XMS_ITS | Encounter Summary ---
:1965 Author Organization [facility] [place] [address] Care Team Providers Name Role Phone Holli Reyna MD Primary Care Provider Encounter Details Date Type Department Care Team Description 07/10/2012 Orders Only Internal Medicine at Aristides Reyna MD Fibromyalgia (Primary [facility] [address] Dx) [facility] [place] [address] [place], [place] [phone] (Wo rk) [phone] Social History Tobacco Use Types Packs/Day Years Used Date Former Smoker Cigarettes 0.5 10 Quit: 02/18/20 11 Smokeless Tobacco: Never Used Comments: 1 to 2 a day. Alcohol Use Standard Drinks/Week Comments No 0 (1 standard drink = 0.6 oz pure alcoho l) Sex Assigned at Date Recorded Not on file documented as of this encounter Progress Notes Holli Reyna MD - 07/10/2012 9:34 AM EST I phoned pharmacy and Jim will need a prior auth after 07/13 in order to get refills at this new dose. She did not tolerate 150 mg BID and requested this particular dose reduction. (see phone call notes with Argentina Concepcion RN) She is going to try 75 mg q am and 100 mg qhs (75 mg BID with added 25 at hs) documented in this encounter Plan of Treatment Scheduled Procedures Name Priority Associated Diagnoses Date/Time EGD, UPPER GI ENDOSCOPY Dysphagia, unspe cified type Gastroesophageal reflux disease, unspecified whether esophagitis present Functional dyspepsia Irritable bowel syndrome with casey th constipation and diarrhea documented as of this encounter Visit Diagnoses Diagnosis Fibromyalgia - Primary Mylagia and myositis, unspecified documented in this encounter Care Teams Meeting/Event Planner Relationship Specialty Start Date End Date Holli Reyna MD PCP - General 03/05/11 03/01/15 documented as of this encounter
--- OUTSIDE RECORDS SUMMARY | 2022-01-31 01:33 | XMS_ITS | Encounter Summary ---
:1965 Author Organization [facility] [place] [address] Care Team Providers Name Role Phone Holli Reyna MD Primary Care Provider Reason for Visit Reason Onset Date Comments Medication Refill 07/09/2012 Encounter Details Date Type Department Care Team Description 07/09/2012 Refill Internal Medicine at Aristides Reyna MD Fibromyalgia (Primary [facility] [address] Dx) [facility] [place] [address] [place] [address] [phone] Social History Tobacco Use Types Packs/Day Years [...] unspecified documented in this encounter Care Teams Senior Clinical Study Manager Relationship Specialty Start Date End Date Holli Reyna MD PCP - General 03/05/11 03/01/15 documented as of this encounter
--- OUTSIDE RECORDS SUMMARY | 2022-01-31 01:33 | XMS_ITS | Encounter Summary ---
:1965 Author Organization [facility] [place] [address] Care Team Providers Name Role Phone Holli Reyna MD Primary Care Provider Encounter Details Date Type Department Care Team Description 06/16/2012 Orders Only [place] Medicine [place] [facility] [place] Holli Reyna MD [address] [phone] PSYCHIATRY [phone] [place] [address] (Wo rk) Social History Tobacco Use Types [...] on filedocumented in this encounter Care Teams Chisel Trimmer Relationship Specialty Start Date End Date Holli Reyna MD PCP - General 03/05/11 03/01/15 documented as of this encounter
--- OUTSIDE RECORDS SUMMARY | 2022-01-31 01:33 | XMS_ITS | Encounter Summary ---
:1965 Author Organization [facility] [place] [address] Care Team Providers Name Role Phone Holli Reyna MD Primary Care Provider Encounter Details Date Type Department Care Team Description 10/10/2011 Follow-Up Physical Therapy at Alex Fitzgerald, Bi lateral hip pain [facility] (Primary Dx) [place] [address] Social History Tobacco Use Types Packs/Day Years Used Date Former Smoker Cigarettes 0.5 10 Quit: 02/18/20 11 Smokeless Tobacco: Never Used Comments: 1 to 2 a day. Alcohol Use Standard Drinks/Week Comments No 0 (1 standard drink = 0.6 oz pure alcoho l) Sex Assigned at Date Recorded Not on file documented as of this encounter Progress Notes Alex Fitzgerald, PT - 10/10/2011 1:31 PM EDT Date of Exam/First treatment: 09/24/2011 Date of onset: April 2011 Referring Physician: Pollo Waller Diagnosis: B hip pain, low back pain Subjective: Pt states that she is hips are feeling better. She states that her energy level is also better. However, she did not get a chance to do her HEP since she was in a conference all day yesterday. She states that she ordered a tush cush for her car and office. Pt states that she has 5-fingered shoes for running (minimalist) and is wondering if she should use them. Pain level: 2/10 yesterday Objective: Running gait:heavy heels strike, slight toe-in on L with hip IR (pt reports slight pain on posteriorhip); increased forward lean Therex: 40 min - piriformis stretch, on L LE (on HEP) - discuss running form and building mileage with and without minimalist footwear - bridge with hip abd, yellow, hold 3 sec, 2 x 10 (on HEP) - single leg stance (unsteady, on HEP) - bird dogs, 2 x 10 (on HEP) - HEP update Assessment: Pt reports a significant reduction in pain over the past week. She verbalizes a strong desire to increase her level of exercise particularly running. We discussed extensively principles associated withbuilding running and general fitness to minimize risk of injury. GOALS: Therapy Short Term Goals (2 wk) Patient will... 1. be indep with home exercise program to begin self management of symptoms. Therapy Assistant Facility Manager Goals ( 6 wk) Patient will... 1. Pt will score > 10 point improvement in her LEFS score to demonstrate improved function 2. Pt will have 4+/5 strength throughout her hips to improve the quality of her gait 3. Pt will have 0-3/10 pain in her hips with ADLs PLAN: Continue with PT as indicated. Total Treatment time: 40 minutes Total Timed [...] thigh documented in this encounter Care Teams Pool Table Operator Relationship Specialty Start Date End Date Holli Reyna MD PCP - General 03/05/11 03/01/15 documented as of this encounter
--- OUTSIDE RECORDS SUMMARY | 2022-01-31 01:33 | XMS_ITS | Encounter Summary ---
:1965 Author Organization [facility] [place] [address] Care Team Providers Name Role Phone Holli Reyna MD Primary Care Provider Reason for Visit Reason Onset Date Comments Medication Refill 09/27/2012 Encounter Details Date Type Department Care Team Description 09/27/2012 Refill Internal Medicine at [facility] Kelly Luciano RN Fibromyalgia (Primary Dx) [place] [address] Social History Tobacco Use Types Packs/Day [...] unspecified documented in this encounter Care Teams Horticultural Agent Relationship Specialty Start Date End Date Holli Reyna MD PCP - General 03/05/11 03/01/15 documented as of this encounter
--- OUTSIDE RECORDS SUMMARY | 2022-01-31 01:33 | XMS_ITS | Encounter Summary ---
:1965 Author Organization [facility] [place] [address] Care Team Providers Name Role Phone Holli Reyna MD Primary Care Provider Reason for Visit Reason Onset Date Comments Other 07/23/2011 Encounter Details Date Type Department Care Team Description 07/23/2011 Telephone Internal Medicine at [facility] Patricia Stevenson, [place] [address] Social History Tobacco Use Types Packs/Day Years Used Date Former Smoker Cigarettes 0.5 10 Quit: 02/18/20 11 Smokeless Tobacco: Never Used Comments: 1 to 2 a day. Alcohol Use Standard Drinks/Week Comments No 0 (1 standard drink = 0.6 oz pure alcoho l) Sex Assigned at Date Recorded Not on file documented as of this encounter Miscellaneous Notes Telephone Encounter - Holli Reyna MD - 07/23/2011 4:24 PM EST Reviewed my notes. 10 mg zolpidem qhs, disp 90, 3 refills ok . thanks Telephone Encounter - Holli Reyna MD - 07/23/2011 4:20 PM EST Yes. Thanks. -holli Telephone Encounter - Patricia Stevenson RN - 07/23/2011 3:45 PM EST Patient left message on triage line requesting refill of ambien (this is no longer on active med list). I will forward to Dr. Reyna for review. documented in this encounter Plan of Treatment Scheduled Procedures Name Priority Associated Diagnoses Date/Time EGD, UPPER GI ENDOSCOPY Dysphagia, unspe cified type Gastroesophageal reflux disease, unspecified whether esophagitis present Functional dyspepsia Irritable bowel syndrome with casey th constipation and diarrhea documented as of this encounter Visit Diagnoses Not on filedocumented in this encounter Care Teams [address] Freight Relationship Specialty Start Date End Date Holli Reyna MD PCP - General 03/05/11 03/01/15 documented as of this encounter
--- OUTSIDE RECORDS SUMMARY | 2022-01-31 01:33 | XMS_ITS | Encounter Summary ---
:1965 Author Organization [facility] Address [place] [address] Care Team Providers Name Role Phone Holli Reyna MD Primary Care Provider Encounter Details Date Type Department Care Team Description 06/04/2011 Hospital Encounter XRay at [facility] [place] [address] [place] [address] [place] [address] Social History Tobacco Use Types Packs/Day Years Used Date Passive Smoke Exposure - Never Smoker Cigarettes Comments: 1 to 2 a day. Alcohol Use Standard Drinks/Week Comments Not Asked 0 (1 standard drink = 0.6 oz pure alcoho l) Sex Assigned at Date Recorded Not on file documented as of this encounter Medications at Time of Discharge Medication Sig Dispensed Refills Start Date End Date albuterol (PROVENTIL Inhale 2 puffs into 1 Inhaler 12 2010 HFA;VENTOLIN HFA) 90 the lungs every 4 mcg/Actuation hours as needed. inhalerIndications: Use with spacer Exercise induced bronchospasm DOXYLAMINE SUCCINATE Take by mouth 0 (UNISOM ORAL) nightly as needed. sleep ibuprofen (MOTRIN) 400 mg 0 07/10/2004 tablet acetaminophen (TYLENOL) 0 07/10/2004 325 mg tablet Biotin 5 mg Cap Take by mouth. 0 01/28 Artificial Tear, Place 1 drop into 0 0 01/29/2012 Hypromellose, 1 % Drop both eyes 3 times daily. LORazepam (ATIVAN) 0.5 mg Take by mouth daily 20 tablet 0 1 06/10/2011 tabletIndications: Anxiety as needed for Anxiety. 1-2 tabs qd as needed for anxiety levothyroxine (SYNTHROID) Take 100 mcg by 0 01/31/2012 100 mcg tablet mouth daily. sertraline (ZOLOFT) 50 mg Take 1 tablet by 30 tablet 6 03/2106/10/2011 tabletIndications: mouth daily. Depression zolpidem (AMBIEN) 10 mg Take 1 tablet by 30 tablet 1 201006/10/2011 tabletIndications: mouth nightly as Insomnia needed for Sleep. documented as of this encounter Plan of Treatment Scheduled Procedures Name Priority Associated Diagnoses Date/Time EGD, UPPER GI ENDOSCOPY Dysphagia, unspe cified type Gastroesophageal reflux disease, unspecified whether esophagitis present Functional dyspepsia Irritable bowel syndrome with casey th constipation and diarrhea documented as of this encounter Procedures Procedure Name Priority Date/Time Associated Diagnosis Comme nts XR PELVIS AP AND 2 Routine 06/04/2011 5:11 PM Hip pain Res ults for this VIEWS BOTH HIPS EST procedure ar e in the results section. documented in this encounter Results XR pelvis AP and 2 views both [...] is no evidence of fracture or dislocation. Holli Reyna MD IMG DX ORDERABLES documented in this encounter Visit Diagnoses Diagnosis Hip pain Pain in joint, pelvic region and thigh documented in this encounter Care Teams Side Piece Coverer Relationship Specialty Start Date End Date Holli Reyna MD PCP - General 03/05/11 03/01/15 documented as of this encounter
--- OUTSIDE RECORDS SUMMARY | 2022-01-31 01:33 | XMS_ITS | Encounter Summary ---
:1965 Author Organization [facility] [place] [address] Care Team Providers Name Role Phone Holli Reyna MD Primary Care Provider Reason for Visit Reason Onset Date Comments Medication Refill 02/02/2012 Encounter Details Date Type Department Care Team Description 02/02/2012 Refill Internal Medicine [place] [facility] [place], Ins[place] (Primary Dx) [facility] [place] [address] Social History Tobacco Use Types Packs/Day [...] unspecified documented in this encounter Care Teams Jewelry Sales Relationship Specialty Start Date End Date Holli Reyna MD PCP - General 03/05/11 03/01/15 documented as of this encounter
--- OUTSIDE RECORDS SUMMARY | 2022-01-31 01:33 | XMS_ITS | Encounter Summary ---
:1965 Author Organization [facility] [place] [address] Care Team Providers Name Role Phone Holli Reyna MD Primary Care Provider Encounter Details Date Type Department Care Team Description 12/19/2011 Hospital Encounter XRay at [facility], DR BEATTY Bursitis of [address] Shaunna Merritt MD [facility] [address] DAHL[address] [place] [address] [place] [address] Social History Tobacco Use Types Packs/Day Years [...] lungs every 4 mcg/Actuation hours as needed. Use inhalerIndications: with spacer Exercise induced bronchospasm DOXYLAMINE SUCCINATE Take by mouth 0 (UNISOM ORAL) nightly as needed. sleep ibuprofen (MOTRIN) 400 mg 0 07/10/2004 tablet acetaminophen (TYLENOL) 0 07/10/2004 325 mg tablet zolpidem (AMBIEN) 10 mg Take 1 tablet by mouth nightly as ne eded for Sleep. 30 tablet 1 11/25/2011 02/02/2012 tabletIndications: Do not dispense prior to 11/28/11 Insomnia Fax to [facility] Gonzales diclofenac (VOLTAREN) 1 % Apply 2 g topically 1 Tube 0 0 09/29/2011 01/29/2012 Gel topical gel 4 times daily. ERGOCALCIFEROL, VITAMIN Take by mouth. Only 0 06/18/2012 D2, (VITAMIN D ORAL) takes when she feels cold coming on ZINC ACETATE, ORAL, ORAL Take by mouth. Takes 0 06/18/2012 only when feeling cold coming on Biotin 5 mg Cap Take by mouth. 0 01/28 Artificial Tear, Place 1 drop into 0 0 01/29/2012 Hypromellose, 1 % Drop both eyes 3 times daily. levothyroxine (SYNTHROID) Take 100 mcg by 0 01/31/2012 100 mcg tablet mouth daily. documented as of this encounter Plan of Treatment Scheduled Procedures Name Priority Associated Diagnoses Date/Time EGD, UPPER GI ENDOSCOPY Dysphagia, unspe cified type Gastroesophageal reflux disease, unspecified whether esophagitis present Functional dyspepsia Irritable bowel syndrome with casey th constipation and diarrhea documented as of this encounter Procedures Procedure Name Priority Date/Time Associated Diagnosis Comme nts XR SHOULDER Routine 12/19/2011 12:02 PM Disorders of bursae R esults for this EDT and tendons in procedure are in shoulder region, the results unspecified section. documented in this encounter Results XR SHOULDER (12/19/2011 12:02 PM EDT) Anatomical Region Laterality Modality Shoulder N/A Radiographic Imaging Specimen (Source) Anatomical Collection Method Collection Time Re ceived Time Location / / Volume Laterality 12/19/2011 12:02 PM EDT Narrative 12/19/2011 1:32 PM EDT Examination SHOULDER COMPLETE/RIGHT Clinical History Reason for exam and clinical history: ri ght shoulder pain with over use; Comparison None. Technique Findings 4 views right shoulder reveal mild to mo derate arthropathy of the acromioclavicular joint, no periarticula r calcifications, and the glenoid humeral joint is within normal limits. ? ?No sign of subluxation or dislocation. ?? No fractures noted. Impression Mild to moderate AC arthropathy, otherwi se normal right shoulder. Procedure Note Pj Patel MD - 12/19/2011Formatt ing of this note might be different from the original. Examination SHOULDER COMPLETE/RIGHT Clinical History Reason for exam and clinical history: ri ght shoulder pain with over use; Comparison None. Technique Findings 4 views right shoulder reveal mild to mo derate arthropathy of the acromioclavicular joint, no periarticula r calcifications, and the glenoid humeral joint is within normal limits. N o sign of subluxation or dislocation. No fractures noted. Impression Mild to moderate AC arthropathy, otherwi se normal right shoulder. Shaunna Flores MD IMG DX ORDERABLES documented in this encounter Visit Diagnoses Diagnosis Bursitis of right shoulder Disorders of bursae and tendons in shoul chandu region, unspecified documented in this encounter Care Teams Laboratory Clerk Relationship Specialty Start Date End Date Holli Reyna MD PCP - General 03/05/11 03/01/15 documented as of this encounter
--- OUTSIDE RECORDS SUMMARY | 2022-01-31 01:33 | XMS_ITS | Encounter Summary ---
:1965 Author Organization [facility] [place] [address] Care Team Providers Name Role Phone Holli Reyna MD Primary Care Provider Reason for Visit Reason Onset Date Comments Medication Refill 03/27/2011 Encounter Details Date Type Department Care Team Description 03/27/2011 Refill Internal Medicine at [facility] Holli Reyna MD [address] [phone] PSYCHIATRY [phone] [place] [address] (Wo rk) Social History Tobacco Use Types [...] on filedocumented in this encounter Care Teams Antisubmarine Weapons Officer Relationship Specialty Start Date End Date Hloli Reyna MD PCP - General 03/05/11 03/01/15 documented as of this encounter
--- OUTSIDE RECORDS SUMMARY | 2022-01-31 01:34 | XMS_ITS | Encounter Summary ---
:1965 Author Organization [facility] Address [address] [address] Care Team Providers Name Role Phone Holli Reyna MD Primary Care Provider Reason for Visit Reason Comments Anxiety Follow up from ED. Encounter Details Date Type Department Care Team Description 03/05/2011 Office Visit Internal Medicine at Holli Reyna, Anx iety; [facility] Depression; [facility] [address] Insomnia; Drive PSYCHIATRY Hypothyroidism; [place] [address] Lupus; [id number] Interstitial cystitis; Preventative health care Social History Tobacco Use Types Packs/Day Years [...] Sign Reading Time Taken Comments Blood Pressure 139/78 03/05/2011 12:48 PM EDT right ar m Pulse 73 03/05/2011 12:48 PM EDT Temperature 36.9 ??C (98.5 ??F) 03/05/2011 12:48 PM EDT Respiratory Rate 14 03/05/2011 12:48 PM EDT Oxygen Saturation 100% 03/05/2011 12:48 PM EDT Inhaled Oxygen Concentration - - Weight 64.4 kg (142 lb) 03/05/2011 12:48 PM EDT Height 165.1 cm (5' 5) 03/05/2011 12:48 PM EDT Body Mass Index 23.63 03/05/2011 12:48 PM EDT documented in this encounter Patient Instructions Patient InstructionsHolli Reyna MD - 03/05/2011 12:52 PM EDT Welcome to [facility], your secure online access to your electronic medical record at [facility]. Using [employer] you will be able to send messages to your providers, view your test results, renew prescriptions, schedule appointments, and much more. Follow these instructions to enter your personal [employer]UPPTV account for the first time: 1. Start your internet browser. Go to [email or web address] and click on the YUPPTV link. 2. Click SIGN UP NOW to go to the NEW MEMBER SIGN UP page. 3. Enter your YUPPTV Access Code exactly as it appears below. (You will not need this access code after you have completed the sign-up process.) ?? Your YUPPTV Access Code: [email or web address] ?? Expires: 04/19/11 12:52 PM ?? IMPORTANT: This Access Code will on the above mentioned date. If you do not sign up beforethis date, you will need to request a new Access Code number. 4. Enter your Date of (mm/dd/yyyy) and zip code click SUBMIT to go to the next page. 5. Create a YUPPTV identification (ID). This will be your Y[employer]PPTV login ID and cannot be changed, so think of one that is secure and easy to remember. 6. Create a password which you can change at any time. Your password must contain six (6) letters and two (2) numbers. 7. Enter your Password Reset Question and Answer. This will be used if you forget your password. 8. Enter your e-mail address. This is used to let you know when new information is available in YUPPTV. 9. Click SIGN UP to complete the process. You can now view your electronic medical record. If you have any questions about [employer]TV or your Access Code, please call for [place], for [place] or for [place]. If you need technical support, please e-mail [email or web address]. Remember, myD-H is NOT for urgent needs! Always dial 911 for medical emergencies. Instructions: 1) Take ambien 10 mg at bedtime. 2) Avoid alcohol. 3) Referral to Psychiatry in [facility] 4) Get a light box for light therapy at home 5) Follow up with me in 2 weeks. Considering anti-depressants. 6) Take ativan as directed for relief of stress if needed. documented in this encounter Progress Notes Holli Reyna MD - 03/05/2011 3:15 PM EDT Isela is here for assistance with anxiety, insomnia and depression. She also needs to establish care with a new PCP, having recently moved to the area from [place], [place]. She wants to focus on her mood concerns today and will follow up for an annual exam in the winter. She went to the ED in [place] yesterday with suicidal thoughts, after drinking 2 tequila drinks the previous night. They treated her with an anti- emetic and discharged her with ativan for use prn anxiety. The anxiety is blunted by the ativan but she still feels very tearful and anxious. Isela describes a long history of painful experiences, but at the same time describes numerous things she has done to help herself get through them. The last 2 years have been particularly hard as she her second after his second suicide attempt. She soon met a boyfriend and they were doing well until he was diagnosed with ALS. She lived with him for a year and offered to stay on and help him, but he decided to relocate to [place] this spring. He invited her to join him but she decided that was his dream, not hers, and she has since found a new job and relocated to [facility]. She lives in a [facility] in [place] and says she gets home from work each day and immediately feels her mood drop. She has no pets (not allowed, one recently , bf took the others), her kids (ages 18 and 21) are out of the house, and it has been hard to make new friends despite joining a yarsanism, the homeowners association, etc. She has lost interest or satisfaction in things that used to interest her (spinning, writing). She cries easily. She is having trouble sleeping. She has thoughts of driving off the rode or jumping froma ledge but quickly dismisses these and does not develop a plan. She smokes a few cigarettes when stressed (has done this since high school in 6 week spurts) and thinks it is a form of self punishment.She drank alcohol more with the recent boyfriend, and cut back after the first year. She does not drink regularly and says drinking the tequilla on Thursday night She was self medicating for a deep sadness that came on suddenly after spending a fun weekend out of town with friends. Coming home to her home alone overwhelmed her. She desperately wants help but is hoping she will be able to do it without an antidepressant. Isela has numerous medical issues including Lupus flairs (ELBA neg), Interstitial cystitis, hypothyroidism, and a remote hx of presumed chronic pancreatitis and possibly IBS. She was seen at [facility] byEndocrine, Urology and I years ago but her last decade of records are primarily with Dr Miller Coppola, her urologist, and her former PCP Dr Jules Harden in [place], [place]. She will obtain records for lancedmitri. She used to take pancreatic enzymes but doesn't need them any more. She has taken amitriptyline fr the IC but is not on meds now. She prefers to avoid meds and live a healthy life, in order to garcia of flairs of lupus and/or IC. She only tolerates name brand synthroid. Her last TSH was fine around 3 months ago. She has иван using Unysom for sleep but she did have an Ambien 10 mg script in the spring that worked beautifully. Patient Active Problem List Diagnoses Code ??? Hypothyroidism 244.9AP ??? Interstitial cystitis 595.1T ??? Preventative health care V70.0C ??? Lupus 710.0AL ??? Depression 311L ??? Anxiety 300.00E ??? Insomnia 780.52A Meds: Synthroid 100 mcg daily Unysom 1 tab qhs for sleep Advil or tyl prn Allergies Allergen Reactions ??? [place] Nausea And Vomiting Puffy, swelling. ??? Cis Free Text Allergy relaxants. CIS - Reverse Effects ??? Hyoscyamine Fear And Anxiety ??? 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 Etoh: episodic. Has had long periods of abstenence, other periods of higher drinking. No other drugs Lives in a condo in [place], [place] Typically exercises, eats well, laughs ofte, enjoys friends, is social Family Hx: Not obtained Exam: Filed Vitals: 03/05/11 1248 BP: 139/78 Pulse: 73 Temp: 36.9 ??C (98.5 ??F) Resp: 14 General: Well appearing, well developed. Cries easily, very appropriate and articulate, mood sad, non agitated, good eye contact Exam otherwise deferred Assessment and Plan: Anxiety/Depression/ Insomnia: Isela was seen today for anxiety and depressed mood related to a number of life changes and circumstances. After a long conversation it was clear that sleep is a high priority. If she can resume a normal sleep cycle she might be able to recover without additional medication such as an SSRI. We diddiscuss options in the SSRI family, and potential side effects, and thought that Zoloft might be a good choice for her. We also discussed getting a light box to see if light therapy at home will help. zolpidem (AMBIEN) 10 mg tablet; Take 1 tablet by mouth nightly as needed for Sleep. Refer to Dr Margie BAZZI for a psych consult. No safety concerns today. She is aware that she should call and seek help if she does have persistent SI, especially if she is developing suicidal plans. Hypothyroidism - levothyroxine (SYNTHROID) 100 mcg tablet; Take 1 tablet by mouth daily for 30 days. Must be name brand synthroid Lupus - Not currently flairing. Obtain old records from her PCP for future reference. Interstitial cystitis - Also under control at this point. Obtain old records from her urologist in [place]. Preventative health care - Plans to travel to [place] this May and will follow up with me for necessary travel vaccines. - Follow up for physical exam and to discuss broad range of preventive health topics. Pt Instructions: 1) Take ambien 10 mg at bedtime. 2) Avoid alcohol. 3) Referral to Psychiatry in GI 4) Get a light box for light therapy at home 5) Follow up with me in 2 weeks. Considering anti-depressants. 6) Take ativan as directed for relief of stress if needed. > 50 % of this 60 minute visit was spent in discussion of medication management, counseling and additional therapies for treatment of anxiety, insomnia and depression. Subjective: Patient IDHPI Review of Systems Objective: Physical Exam Assessment and Plan: documented in this encounter Plan of Treatment Scheduled Procedures Name Priority Associated Diagnoses Date/Time EGD, UPPER GI ENDOSCOPY Dysphagia, unspe cified type Gastroesophageal reflux disease, unspecified whether esophagitis present Functional dyspepsia Irritable bowel syndrome with casey th constipation and diarrhea documented as of this encounter Visit Diagnoses Diagnosis Anxiety Anxiety state, unspecified Depression Depressive disorder, not elsewhere class ified Insomnia Insomnia, unspecified Hypothyroidism Unspecified hypothyroidism Lupus Systemic lupus erythematosus Interstitial cystitis Chronic interstitial cystitis Preventative health care Routine general medical examination at a health care facility documented in this encounter Care Teams Senior Electrical Estimator Relationship Specialty Start Date End Date Holli Reyna MD PCP - General 03/05/11 03/01/15 documented as of this encounter
--- OUTSIDE RECORDS SUMMARY | 2022-01-31 01:35 | XMS_ITS | Encounter Summary ---
:1965 Author Organization [facility] Address [address] [place] [address] Care Team Providers Name Role Phone Unavailable Primary Care Provider Unavailable Encounter Details Date Type Department Care Team Description 09/02/2021 Lab Requisition [facility] Evin Dias for Pathology & MD Luis screening for Laboratory Medicine [address] malignant neoplasm - [place], [place] of colon [address] [facility] [address] [place], [place] [id number] Social History Tobacco Use Types Packs/Day Years Used Date Former Smoker Quit: 02/06/20 10 Alcohol Use Standard Drinks/Week Comments Not Asked 0 (1 standard drink = 0.6 oz pure alcoho l) Sex Assigned at Date Recorded Not on file documented as of this encounter Plan of Treatment Not on filedocumented as of this encounter Procedures Procedure Name Priority Date/Time Associated Diagnosis Comme nts SURGICAL PATHOLOGY Today 09/02/2021 8:35 EST Encounter for R esults for this screening for procedure are in malignant neoplasm the resul ts of colon section. documented in this encounter Results SURGICAL PATHOLOGY (09/02/2021 8:35 EST) Note to Patient The following [facility] pathology results have CENTER been interpreted by LABORATORY your pathologist and SERVICES may be available to you before your health provider has had the opportunity to review them. Please allow time for your provider to receive these results and explore management options, if applicable. Final Diagnosis A. DUODENUM, BIOPSY: [facility] - Duodenal mucosa with no significant diagnostic abnor malities. CENTER LABORATORY B. STOMACH, ANTRUM, BIOPSY: SERVICES - Antral mucosa with reactive (chemical) gastropathy. - Negative for Helicobacter pylori on H&E stained sect ions. C. STOMACH, BODY, BIOPSY: - Gastric fundic mucosa with no significant diagnostic abnormalities. - Negative for Helicobacter pylori on H&E stained sect ions. D. GASTROESOPHAGEAL JUNCTION, BIOPSY: - Squamous mucosa with react kaitlin changes, lamina propria fibrosis and increased intraepithelial eosinophils (Up to 60 eos./HPF). - See comment. E. COLON, TRANSVERSE, POLYP, BIOPSY: - Sessile serrated adenoma. Diagnosis Comment D) The esophageal [facility] biopsy has met the CENTER histologic portion of LABORATORY the clinicopathologic SERVICES consensus criteria for eosinophilic esophagitis. Clinical correlation is essential. Attestation By the signature below, [facility] Elec tronically the attending physician CENTER sign ed by Krista Leggett, certifies that they LABORATORY Itzel Ceron MD on have 1) personally SERVICES 09/04/2021 at 1244 conducted a gross and/or microscopic examination of the described specimen(s), and/or personally interpreted the results of laboratory testing of the described specimen(s), and 2) personally rendered or confirmed the above diagnosis. Clinical History Abdominal pain, GERD, [facility] colorectal screening CENTER LABORATORY SERVICES Gross Description A. [facility] Received in formalin celia d with proper patient identification (initials J, A) and duodenal biopsy x1 are two pale soto-white tissues (0.4 x 0.3 x 0.2 cm and 0.3 x 0.2 by less than 0.1 cm). Entirely submitted in A1. CENTER LABORATORY B. SERVICES Received in formalin celia d with proper patient identification (initials J, A) and antrum x1 is a white-soto tissue (0.4 x 0.3 x 0.2 cm). Submitted intact in B1. C. Received in formalin celia d with proper patient identification (initials J, A) and body x1 is a pale soto tissue (0.5 x 0.3 x 0.2 cm). Submitted intact in C1. D. Received in formalin celia d with proper patient identification (initials J, A) and GE junction x1 is a white focally brown speckled tissue (0.5 x 0.4 x 0.3 cm). Submitted intact in D1. E. Received in formalin celia d with proper patient identification (initials J, A) and transverse colon polyp are two kvoo-boy-zdoyv tissues (0.3 x 0.3 x 0.2 cm and 0.3 x 0.3 x 0.1 cm). Entirely submitted in E1. Alcides Oliva 09/03/2021 9:55 Performing Lab [facility] LAB [facility] Scanned Images [facility] Specimen Tissue - Entire transverse colon (body s tructure) Tissue specimen (specimen) - Entire stom ach (body structure) Tissue specimen (specimen) - Entire stom ach (body structure) Tissue specimen (specimen) - Entire esop hago-gastric mucosal junction (body structure) Tissue specimen (specimen) - Entire mendoza sverse colon (body structure) Performing Organization Address City/State/ZIP Code Phon e Number [facility] [address] [place] [address] SERVICES documented in this encounter Visit Diagnoses Diagnosis Encounter for screening for malignant ne oplasm of colon Special screening for malignant neoplasm s, colon documented in this encounter
--- OUTSIDE RECORDS SUMMARY | 2022-01-31 01:35 | XMS_ITS | Encounter Summary ---
:1965 Author Organization [facility] Address [address] [place] [address] Care Team Providers Name Role Phone KaylanLisha MD Primary Care Provider Encounter Details Date Type Department Care Team Description 07/23/[address] [facility] Outr Resulting Lab, Pathology & Laboratory Provider [facility] [address] [id number] Social History Tobacco Use Types Packs/Day Years Used Date Former Smoker Quit: 02/06/20 10 Alcohol Use Standard Drinks/Week Comments Not Asked 0 (1 standard drink = 0.6 oz pure alcoho l) Sex Assigned at Date Recorded Not on file documented as of this encounter Plan of Treatment Not on filedocumented as of this encounter Procedures Procedure Name Priority Date/Time Associated Diagnosis Comme nts T3 FREE Routine 07/23/2021 9:54 EST Results for this procedure are i n the results section . documented in this encounter Results T3 FREE (07/23/2021 9:54 EST) Pathologist Sig nature T3, Free 3.3 2.8 - 5.3 pg/mL [facility] Specimen Blood - Venous blood (substance) Performing Organization Address City/State/ZIP Code Phon e Number [facility] [address] [place] [address] SERVICES documented in this encounter Visit Diagnoses Not on filedocumented in this encounter Care Teams Retail Sales Associate Seasonal Relationship Specialty Start Date End Date KaylanLisha MD PCP - General Family Medicine - Primary 01/23/21 Care documented as of this encounter
--- OUTSIDE RECORDS SUMMARY | 2022-01-31 01:35 | XMS_ITS | Encounter Summary ---
:1965 Author Organization [facility] Address [address] [place] [address] Care Team Providers Name Role Phone Unknown, Provider Primary Care Provider Encounter Details Date Type Department Care Team Description 06/18/2015 Hospital Encounter [facility] - S Client, Jv Barksdale MD [address] [place], [place] [id number] Social History Tobacco Use Types Packs/Day Years Used Date Former Smoker Quit: 02/06/20 10 Alcohol Use Standard Drinks/Week Comments Not Asked 0 (1 standard drink = 0.6 oz pure alcoho l) Sex Assigned at Date Recorded Not on file documented as of this encounter Medications at Time of Discharge Medication Sig Dispensed Refills Start Date End Date ACETAMINOPHEN (TYLENOL Take by mouth as needed. X 2 daily 0 ARTHRITIS ORAL) ALBUTEROL INHL Inhale as directed 0 as needed. buffered aspirin 325 mg Take 650 mg by 0 tablet mouth daily. DIPHENHYDRAMINE HCL Take by mouth at 0 (UNISOM SLEEPGELS ORAL) bedtime. ibuprofen (MOTRIN) 600 mg Take 600 mg by 0 tablet mouth as needed for Pain. levothyroxine (SYNTHROID) Take 100 mcg by 0 100 mcg tablet mouth daily. omeprazole (PRILOSEC) 40 Take 1 Cap by mouth 30 Cap 3 mg capsuleIndications: daily. 30 minutes Nausea alone, Dyspepsia before meals and other specified disorders of function of stomach PHENAZOPYRIDINE HCL (AZO Take 2 Tabs by 0 ORAL) mouth as needed. Methylcellulose, Laxative, Take by mouth. 0 07/10/2020 (CITRUCEL) 500 mg Tab pentosan polysulfate Take 100 mg by 0 07/10/2020 (ELMIRON) 100 mg capsule mouth 3 times daily before meals. zolpidem (AMBIEN) 10 mg Take 10 mg by mouth 0 07/10/2020 tablet at bedtime as needed for Sleep. documented as of this encounter Discharge Disposition Disposition Code Departure Means Destination Home or Self Correction documented in this encounter Plan of Treatment Not on filedocumented as of this encounter Visit Diagnoses Not on filedocumented in this encounter Care Teams Metal Container Maker Relationship Specialty Start Date End Date Unknown, Provider, PCP - General 05/17/15 07/08/20 documented as of this encounter
--- OUTSIDE RECORDS SUMMARY | 2022-01-31 01:35 | XMS_ITS | Encounter Summary ---
:1965 Author Organization [facility] Address [address] [place] [address] Care Team Providers Name Role Phone Unknown, Provider Primary Care Provider Encounter Details Date Type Department Care Team Description 07/04/2009 Orders Only [facility] Shakira White MD Laboratory Services - [address] [place] [address] [place] [address] [phone] Social History Tobacco Use Types Packs/Day Years Used Date Never Assessed Sex Assigned at Date Recorded Not on file documented as of this encounter Plan of Treatment Not on filedocumented as of this encounter Procedures Procedure Name Priority Date/Time Associated Comments Diagnosis HPV DETECTION, HIGH Routine 07/04/2009 19:41 Resu lts for this RISK TYPES EST procedure are i n the results section. CYTOPATHOLOGY Routine 07/04/2009 0:00 Results for this EST procedure are i n the results section. documented in this encounter Results HUMAN PAPILLOMA VIRUS DNA TEST (07/04/2009 19:41 EST) Specimen Description Cervix, ThinPrep [facility] vial Result Negative for HPV [facility] types 16, 18, 31, 33, 35, 39, 45, 51, 52, 56, 58, 59, and 68. Report Status Final [facility] 07/17/2009 Specimen Performing Organization Address City/State/ZIP Code Phon e Number [facility] [address] [place] [address] SERVICES [facility] [address] [place] [address] CYTOPATHOLOGY (07/04/2009 0:00 EST) Pathology Report: CYTOPATHOLOGY REPORT ? [facility] ? LAB Reports generated via [employer] interface contain original data; ? however they are lacking the format of the original report. ? Caution should be taken when reading/interpreting unformatted reports. ? Name: ? JUMP, JUAN MIGUEL ? Accession #: ? [id number] ? : ? 1965 (Age: 43) ??F ?Collect Date: ? 07/04/2009 ? Location: ? [facility] ? Receive Date: ? 07/06/2009 ? Provider: ?SHAKIRA MICHELLE LI MD ? Copy to: ? Specimen/Source: ? Pap Test, Cervix/Endocervix, ThinPrep Imaging System ? with manual evaluation ? Last Menstrual Period: ? 1995 or 1996 ? Previous Gynecologic Patholo gy: ? Yes: Abn pap 1995 or 1996 ? Other: ? HPVDX - HPV testing requeste d regardless of diagnosis on current ThinPrep Pap ?? test. ? SPECIMEN ADEQUACY ? Satisfactory for Eval uation ? - transformation zone compon ent absent ? GENERAL CATEGORIZATION ? Negative for Intraepi thelial Lesion or Malignancy ? Document reviewed and electr onically signed by: ? Juani Tebbetts, CT( CP) ? Report Date: ??12/ 2008 11:26 ? End of Report ? Specimen Performing Organization Address City/State/ZIP Code Phon e Number [facility] [address] [place] [address] SERVICES [facility] [address] [place] [address] documented in this encounter Visit Diagnoses Not on filedocumented in this encounter Care Teams Chef Passenger Vessel Relationship Specialty Start Date End Date Unknown, Provider, PCP - General 07/06/09 02/04/10 documented as of this encounter
--- OUTSIDE RECORDS SUMMARY | 2022-01-31 01:35 | XMS_ITS | Clinical Summary ---
:1965 Author Organization [facility] Address [address] [place] [address] Care Team Providers Name Role Phone Unavailable Primary Care Provider Unavailable Allergies Active Allergy Reactions Severity Noted Date Comments Bee Venom Protein (Honey Bee) 07/09/2020 Fentanyl 06/18/2020 Pregabalin 06/18/2020 Brush Unknown Reaction 01/31/2010 Sulfa (Sulfonamide Antibiotics) Unknown Reaction 01/31 Medications Medication Sig Dispensed Refills Start Date End Date Status levothyroxine Take 100 mcg by 0 Active (SYNTHROID) 100 mcg mouth daily. tablet DIPHENHYDRAMINE HCL Take by mouth at 0 Active (UNISOM SLEEPGELS ORAL) bedtime. ibuprofen (MOTRIN) 600 Take 600 mg by 0 Active mg tablet mouth as needed for Pain. ACETAMINOPHEN (TYLENOL Take by mouth as needed. X 2 daily 0 Active ARTHRITIS ORAL) PHENAZOPYRIDINE HCL Take 2 Tabs by 0 Active (AZO ORAL) mouth as needed. ALBUTEROL INHL Inhale as 0 Activ e directed as needed. omeprazole (PRILOSEC) Take 1 Cap by 30 Cap 3 07/10/2010 Active 40 mg mouth daily. 30 capsuleIndications: minutes before Nausea alone, Dyspepsia meals and other specified disorders of function of stomach buffered aspirin 325 mg Take 650 mg by 0 Active tablet mouth daily. sumatriptan (IMITREX) Take 50 mg by 0 Active 50 mg tablet mouth as needed for Migraine. fluticasone propionate Inhale 110 mcg as 0 Active (FLOVENT) 110 directed 2 times mcg/actuation inhaler daily. ondansetron Take 4 mg by 0 Activ e (ZOFRAN-ODT) 4 mg mouth every 8 disintegrating tablet hours as needed for Nausea. diazePAM (VALIUM) 5 mg Take 2 Tabs by 0 07/10/2020 Active tablet mouth at bedtime as needed for Anxiety (per vagina). Prn pelvic pain Daily Max: 10 mg clobetasoL (TEMOVATE) Apply topically 0 Active 0.05 % ointment daily as needed. For vaginal dryness per pt. cholecalciferol, Take 5,000 Units 0 Active Vitamin D3, 1,000 unit by mouth daily. tablet diphenhydramine HCl Take by mouth. 0 Active (UNISOM, DIPHENHYDRAMINE, ORAL) EPINEPHrine (EPIPEN) by other route. 0 Active 0.3 mg/0.3 mL injection MELATONIN ORAL Take by mouth. 0 Active atenoloL (TENORMIN) 50 Take 1 Tablet by 0 Active mg tablet mouth. pravastatin sodium Take by mouth. 0 Active (PRAVASTATIN ORAL) ASHOK'S WORT ORAL Take by mouth. 0 Active zolpidem (AMBIEN) 10 mg Take 1 Tablet by 0 Active tablet mouth. 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 Resolved Problems Problem Noted Date Resolved Date Lupus ([facility]) 11/02/2009 07/10/2020 Immunizations Name Administration Dates Next Due Influenza (split) 05/31/2009 Pneumococcal Polysaccharide (PPSV23) Vaccine 05/31/2009 (PNEUMOVAX-23) =>2YO SQ/IM Surgical History Surgery Date Site/Laterality Comments HYSTERECTOMY, VAGINAL 1997 BREAST BIOPSY 2000 Right axilla, ec topic breast tissue BLADDER SURGERY 2003, 2005 Hydrodistention Medical History Medical History Date Comments Interstitial cystitis 1993 Pain, upper back Neck pain Shoulder pain, bilateral With grooves Family History Medical History Relation Name Comments Coronary Artery Disease Father Diabetes Father Breast Cancer Maternal Aunt Breast Cancer Maternal Grandmother Breast Cancer Cousin Relation Name Status Comments Father Maternal Aunt Maternal Grandmother Cousin Social History Tobacco Use Types Packs/Day Years Used Date Former Smoker Quit: 02/06/20 10 Alcohol Use Standard Drinks/Week Comments Not Asked 0 (1 standard drink = 0.6 oz pure alcoho l) Sex Assigned at Date Recorded Not on file Last Filed Vital Signs Vital Sign Reading Time Taken Comments Blood Pressure 128/83 07/09/2020 1110 EST Pulse 78 07/09/2020 1110 EST Temperature - - Respiratory Rate - - Oxygen Saturation - - Inhaled Oxygen Concentration - - Weight 64.9 kg (143 lb) 08/15/2010 0915 EST Height 166.4 cm (5' 5.5) 08/15/2010 0915 EST Body Mass Index 23.43 08/15/2010 0915 EST Plan of Treatment Health Maintenance Due Date Last Done Comments Hepatitis C Screen 1965 COVID-19 Vaccine (1) 1969 Insurance Payer Benefit Plan Subscriber ID Effective Phone Address Typ e / Group Dates MEDICAID ACO MEDICAID ACO [id number] 2021-Pres [phone] [address] [place] [address], [place] [address] Kade,Isela Personal/Family Self 1965 [address] (Home) [place] [address] Advance Directives For more information, please contact: [phone] Documents on File Type Date Recorded Patient Tutoring Assistant Explanati on Advance Directives and Living Will
--- OUTSIDE RECORDS SUMMARY | 2022-01-31 01:35 | XMS_ITS | Encounter Summary ---
:1965 Author Organization [facility] Address [address] [place] [address] Care Team Providers Name Role Phone Unknown, Provider Primary Care Provider Encounter Details Date Type Department Care Team Description 01/31/2010 Abstract [facility] Plastic, Unkn own, Provider, Reconstructive & Cosmetic [phone] (Work) Surgery - [facility] [address] [place] [address] Social History Tobacco Use Types Packs/Day Years Used Date Never Assessed Sex Assigned at Date Recorded Not on file documented as of this encounter Plan of Treatment Not on filedocumented as of this encounter Visit Diagnoses Not on filedocumented in this encounter Care Teams Mud Jack Nozzleman Relationship Specialty Start Date End Date Unknown, Provider, PCP - General 07/06/09 02/04/10 documented as of this encounter
--- OUTSIDE RECORDS SUMMARY | 2022-01-31 01:35 | XMS_ITS | Encounter Summary ---
:1965 Author Organization [facility] Address [address] [place] [address] Care Team Providers Name Role Phone Unknown, Provider Primary Care Provider Reason for Visit Reason Comments New Patient Visit zoom video Encounter Details Date Type Department Care Team Description 06/18/2020 Telemedicine [facility] DIFFERENTIAL SPECIALIST Юлия Freeman Pel jason floor dysfunction (Primary Dx); Pelvic Medicine and MD Natalie Pelvic pain Reconstructive Surgery - [address] [place] [address] Medical [place] [address] Medical [address] [place] [address] [address] [place] [address] Social History Tobacco Use Types Packs/Day Years Used Date Former Smoker Quit: 02/06/20 10 Alcohol Use Standard Drinks/Week Comments Not Asked 0 (1 standard drink = 0.6 oz pure alcoho l) Sex Assigned at Date Recorded Not on file documented as of this encounter Progress Notes Юлия Freeman MD - 06/18/2020 0845 EST Today's visit was provided through telemedicine audio-visual conferencing: Consent: The concept of telemedicine?? has been described to the patient. Patient has been informed of the anticipated benefits and possible risks. Patient understands the information provided regarding telemedicine, has had the opportunity to ask questions about this information, and all questions have been answered to patient's satisfaction. Patient consents for the use of telemedicine in his/her medical care and authorizes the transmission of any relevant medical information to providers and their staffinvolved in patient's medical or mental health care. The location of the patient : Home The location of the provider: home office The following people (and their respective roles) participated in today's encounter: Isela Braun, patient Юлия Freeman MD, provider The audio-video application used to conduct the visit was zoom. I spent a total of 45 minutes with Isela Braun today and 45 minutes of that time was spent in counseling and coordination of care as described in the progress note. I met with Jim today for a new pt visit. She has a long hx which I will summarize now. She had her first baby at age 24. She was 9lbs 3oz and gave her a 4th degree tear. Her 2nd baby at 26 was the same wt. On bed rest with this preg because of a separation of the placenta with clot formation. Hip pain started after these pregnancies. Then began having pelvic pain, dyspareunia, and weight loss. She reports a prepreg wt of 115 lbs. These led to her having a laparoscopy with a BTL and TOP. One year later she was dx'd with cervical cancer and underwent a TVH. She was dx'd with IC at this time. She was also dx'd with fibromyalgia, atypical systemic lupus and hashimotos. She has been having a bladder hydrodistension about every 1.5 to 2 years to relieve her of the IC pain. They also had her do bladder instillations with DMSO and elmiron that made her sick. Shortly there after she began having mixed incontinence and then a prolapsed bladder. Her urologist dx'd a cystocele. She underwent a A+P repair. She reports previously having a TVT. After that her IC sx mostly resolved. She still tries to follow the IC diet and has uristat to take prn. She was dx'd with pelvic myofascial pain rather than fibromyalgia and has been doing PFPT and getting pelvic floor injections. She is also currently on vaginal valium 10 mg daily. She is hoping to weanherself off of this. She has been getting the injections about q 3 months. The last one was in February and didn't help much which she attributes to moving right after the shots so being more physical than usual. She reports getting trigger point muscle spasms other places on her body as well. She wants her teamof medical providers to work together. She trying to set up her team of providers in in [place]. Social hx: She is a alcoholic, sober for 9 yrs. She lives with her partner. She went back to school when her children went to college, in [place]. Got her Masters of Divinity. 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 They live in [place], having recently moved back to [place]. I have notes from her Dr. Burak Sandy, in [place], from her last visit there in February. She reportedly had short tight pelvic floor muscles L>R. She had pudendal nv injections and trigger point injections of greater than 3 muscles. Each side pudendal nv was injected with 10 cc (1 cc bicarb, 4 cc 2% lidocaine, 5 cc 0.5% marcaine). Trigger point injection solution is not documented. A: pt with muscle pain including pelvic floor pain and dysfunction. She is interested in resuming PFPT and getting another round of pelvic floor injections. Hx of IC- currently stable. P: rec an exam to assess her pelvic floor muscles at this time and possibly proceed with pudendal nvblock and trigger point injections. She prefers to have this done in the office. She will have someone drive her. So she will schedule when ready to proceed. documented in this encounter Plan of Treatment Not on filedocumented as of this encounter Visit Diagnoses Diagnosis Pelvic floor dysfunction - Primary Pelvic muscle wasting Pelvic pain documented in this encounter Care Teams Refrigeration Plant Operator Relationship Specialty Start Date End Date Unknown, Provider, PCP - General 05/17/15 07/08/20 documented as of this encounter
--- OUTSIDE RECORDS SUMMARY | 2022-01-31 01:35 | XMS_ITS | Encounter Summary ---
:1965 Author Organization [facility] Address [address] [place] [address] Care Team Providers Name Role Phone KaylanLisha MD Primary Care Provider Encounter Details Date Type Department Care Team Description 04/17/2021 Results Only [facility] KaylanLisha MD [phone] [address] [facility] [address] [place], [place] [address] (Wo rk) Social History Tobacco Use Types [...] Procedure Name Priority Date/Time Associated Comments Diagnosis FREE T3 POC - CV Routine 04/17/2021 13:34 Resul ts for this EDT procedure are i n the results section. COMPREHENSIVE Routine 04/17/2021 13:34 Results fo r this METABOLIC POC - [facility] [place] procedu re are in the results section. FREE T4 POC - CV Routine 04/17/2021 13:34 Resul ts for this EDT procedure are i n the results section. THYROID STIM HORMONE Routine 04/17/2021 13:34 Res ults for this POC - [facility] [place] procedure are i n the results section. documented in this encounter Results THYROID STIM HORMONE POC - [facility] (04/17/2021 13:34 EDT) Pathologist Sig nature THYROID STIM HORMONE 0.72 0.45 - 5.33 [facility] Specimen Narrative [facility] - 13:35 EDT CHRONIC RENAL IMPAIRMENT IS DEFINED GFR <60 MULTIPLY RESULT BY 1.210 FOR KJ RICAN PATIENTS EGFR CALCULATED USING THE IDMS-TRACEABLE MDRD STUDY Performing Organization Address City/[facility]/ZIP Code Phon e Number [facility] [address] [place] [address] FREE T4 POC - CV (04/17/2021 13:34 EDT) Pathologist [facility] FREE T4 - [facility] 1.09Comment: THE 0.58 - 1.64 [facility] RESULTS OF THIS NG/DL [facility] ASSAY CAN BE FALSELY ELEVATED DUE TO THE CONSUMPTION OF BIOTIN Specimen Narrative [facility] - 13:35 EDT CHRONIC RENAL IMPAIRMENT IS DEFINED GFR <60 MULTIPLY RESULT BY 1.210 FOR KJ RICAN PATIENTS EGFR CALCULATED USING THE IDMS-TRACEABLE MDRD STUDY Performing Organization Address [facility] Phon e Number [facility] [address] [place] [address] FREE T3 POC - [facility] (04/17/2021 13:34 EDT) Pathologist [facility] T3,[facility] 3.07Comment: THE 2.40 - 4.00 [facility] RESULTS OF THIS PG/ML [facility] ASSAY CAN BE FALSELY ELEVATED DUE TO THE CONSUMPTION OF BIOTIN Specimen Narrative [facility] - 13:35 EDT CHRONIC RENAL IMPAIRMENT IS DEFINED GFR <60 MULTIPLY RESULT BY 1.210 FOR KJ RICAN PATIENTS EGFR CALCULATED USING THE IDMS-TRACEABLE MDRD STUDY Performing Organization Address City/[facility]/ZIP [facility] Phon e Number [facility] [address] [place] [address] (ABNORMAL) COMPREHENSIVE METABOLIC POC - [facility] (04/17/2021 13:34 EDT) Pathologist [facility] [place] ALBUMIN - [facility] 4.6 3.50 - 5.00 [facility] G/DL CENTER LAB ALKALINE PHOSPHATASE - 133 (H) 38.00 - 126.00 [facility] U/L CENTER LAB BILIRUBIN TOTAL 0.4 0.20 - 1.30 [facility] MG/DL [facility]ENTER LAB BUN - [facility] 15 7.00 - 20.00 [facility] MG/DL [place] CALCIUM - [facility] 10.0 8.50 - 10.50 [facility] MG/DL [facility] Chloride 105 98.00 - 107.00 [facility] MMOL/L [facility] CO2 Total 28 22.00 - 30.00 [facility] MMOL/L [facility] CREATININE 0.9 0.70 - 1.50 [facility] MG/DL [facility] Anion Gap 7 7 - 17 [facility] GLUCOSE - [facility] 94 70.00 - 100.00 [facility] MG/DL [place] Potassium 3.9 3.50 - 5.10 [facility] MMOL/L [facility] Sodium 140 137.00 - 145.00 [facility] MMOL/L [facility] TOTAL PROTEIN - [facility] 7.4 6.30 - 8.20 [facility] G/DL [place] SGOT/AST - [facility] 31 15.00 - 46.00 [facility] U/L [place] SGPT/ALT - [facility] 28 0.00 - 35.00 [facility] U/L [place] Specimen Narrative [facility] - 021 13:35 EDT CHRONIC RENAL IMPAIRMENT IS DEFINED GFR <60 MULTIPLY RESULT BY 1.210 FOR KJ RICAN PATIENTS EGFR CALCULATED USING THE IDMS-TRACEABLE MDRD STUDY Performing Organization Address City/State/ZIP Code Phon e Number [facility] [address] [place] [address] documented in this encounter Visit Diagnoses Not on filedocumented in this encounter Care Teams Senior Net Architect Relationship Specialty Start Date End Date Lisha Kimbrough MD PCP - General Family Medicine - Primary 01/23/21 Care documented as of this encounter
--- OUTSIDE RECORDS SUMMARY | 2022-01-31 01:35 | XMS_ITS | Encounter Summary ---
:1965 Author Organization [facility] Address [address] [place] [address] Care Team Providers Name Role Phone Unknown, Provider Primary Care Provider Paloma Hyman DO Primary Care Provider [phone] KaylanLisha MD Primary Care Provider Encounter Details Date Type Department Care Team Description 04/30/2020 Lab Requisition [facility] Outr Resulting Lab, Pathology & Laboratory Provider [facility] [address], [place] [id number] Social History Tobacco Use Types Packs/Day Years Used Date Never Assessed Sex Assigned at Date Recorded Not on file documented as of this encounter Plan of Treatment Not on filedocumented as of this encounter Procedures Procedure Name Priority Date/Time Associated Comments Diagnosis DO NOT ORDER Today 04/30/2020 9:02 EDT Results for this STANDALONE - [facility] procedure are in COVID TEST the results section. COVID-19 TESTING Routine 04/30/2020 9:02 EDT Resu lts for this procedure are i n the results section. documented in this encounter Results DO NOT ORDER STANDALONE - [facility] COVID TEST (04/30/2020 9:02 EDT) COVID-19 rt-PCR NEGATIVE Negative [facility] Result Comment: LABORATORY 2019-novel Coronavirus (2019 -nCoV) not detected by the qRT-PCR assay. Consider testing for other respiratory viruses or re-collecting for 2019-nCoV testing. Note: Optimum timing for peak viral levels du ring infections caused by 20 -nCoV have not been determined. Collection of multiple specimens from the same patient may be necessary to detect the virus. Limitations Positive results are indicat kaitlin of active infection with SARS-CoV-2 but do not rule out bacterial infection or co-infection with other viruses. The agent detected may not be the definite cause of diseas e. In addition, detection of viral RNA may not indicate the presence of infectious virus or that SARS-CoV-2 is the causative agent for clinical symptoms. Negative results do not prec lude SARS-CoV-2 infection and should not be used as the sole basis for patient management decisions. Negative results must be combined with clinical observations, patient his tory, and epidemiological in formation. False negative results may also occur if amplification inhibitors are present in the specimen or if inadequate numbers of organisms are present in the specimen. Op timum specimen types and yannick ing for peak viral levels during infections caused by SARS-CoV-2 have not been fully determined. Collection of multiple specimens (types and time points) from the same patient may be necessary to detect the virus. The test was validated for u se with upper respiratory specimens obtained via nasopharyngeal or oropharyngeal swabs in VTM, UTM, M4, M5, M6, saline, and MTM media. The performance of this test has not be en established for other spe cimens. Specimens collected using other FDA recommended Specimen Collection Materials listed in the FDA COVID-19 [employer] communication (October 13, 2019) are pr ocessed with the caveat that they were not all validated for use with this test and the result must be interpreted in this context. Furthermore, a false negative results may occur if a specimen is improperly collected, transported or handled. If the virus mutates in the RT-PCR target region, SARS-CoV-2 may not be detected or may be detected less predictably. Inhibitors or other types of interference may produce a false negative result. An interference study evaluating the effect of common cold medications was not performed. This test is not FDA-cleared but its performance characteristics were established by our CLIA-certified, CAP-accredited, high complexity laboratory in accordance with CLIA regulations, [employer] (CAP) guidel marquita (Oct 06, 2019), and FDA guidance (Sep 17, 2019). This test is only for use un chandu the Food and Drug Administration's Emergency Use Authorization. Specimen Swab - Entire nasopharynx (body structur e) Performing Organization Address City/State/ZIP Code Phon e Number [facility] [place] [place], [place] COVID-19 TESTING (04/30/2020 9:02 EDT) COVID-19 rt-PCR NEGATIVE Negative [facility] Result Comment: LABORATORY 2019-novel Coronavirus (2019 -nCoV) not detected by the qRT-PCR assay. Consider testing for other respiratory viruses or re-collecting for 2019-nCoV testing. Note: Optimum timing for peak viral levels du ring infections caused by 20 -nCoV have not been determined. Collection of multiple specimens from the same patient may be necessary to detect the virus. Limitations Positive results are indicat kaitlni of active infection with SARS-CoV-2 but do not rule out bacterial infection or co-infection with other viruses. The agent detected may not be the definite cause of diseas e. In addition, detection of viral RNA may not indicate the presence of infectious virus or that SARS-CoV-2 is the causative agent for clinical symptoms. Negative results do not prec lude SARS-CoV-2 infection and should not be used as the sole basis for patient management decisions. Negative results must be combined with clinical observations, patient his tory, and epidemiological in formation. False negative results may also occur if amplification inhibitors are present in the specimen or if inadequate numbers of organisms are present in the specimen. Op timum specimen types and yannick ing for peak viral levels during infections caused by SARS-CoV-2 have not been fully determined. Collection of multiple specimens (types and time points) from the same patient may be necessary to detect the virus. The test was validated for u with upper respiratory specimens obtained via nasopharyngeal or oropharyngeal swabs in VTM, UTM, M4, M5, M6, saline, and MTM media. The performance of this test has not be en established for other spe cimens. Specimens collected using other FDA recommended Specimen Collection Materials listed in the FDA COVID-19 [employer] communication (October 13, 2019) are pr ocessed with the caveat that they were not all validated for use with this test and the result must be interpreted in this context. Furthermore, a false negative results may occur if a specimen is improperly collected, transported or handled. If the virus mutates in the RT-PCR target region, SARS-CoV-2 may not be detected or may be detected less predictably. Inhibitors or other types of interference may produce a false negative result. An interference study evaluating the effect of common cold medications was not performed. This test is not FDA-cleared but its performance characteristics were established by our CLIA-certified, CAP-accredited, high complexity laboratory in accordance with CLIA regulations, [employer] Pathologists (CAP) guidel marquita (Oct 06, 2019), and FDA guidance (Sep 17, 2019). This test is only for use un chandu the Food and Drug Administration's Emergency Use Authorization. Performing Lab [facility] LABORATORY SERVICES Specimen Swab Performing Organization Address City/State/[facility] Code Phon e Number [facility] [address] [place] [address] SERVICES [facility] [place], [place] documented in this encounter Visit Diagnoses Not on filedocumented in this encounter Care Teams Wafer Mounter Relationship Specialty Start Date End Date Unknown, MD Starr PCP - General 05/17/15 07/08/20 Paloma Hyman PCP - General 07/09/20 01/22/21 DO Vanesa [address] [place] [id number] KaylanLisha MD PCP - General Family Medicine - Primary 01/23/21 Care documented as of this encounter
--- OUTSIDE RECORDS SUMMARY | 2022-01-31 01:35 | XMS_ITS | Encounter Summary ---
:1965 Author Organization [facility] Address [address] [place] [address] Care Team Providers Name Role Phone Jules Harden MD Primary Care Provider Reason for Visit Reason Comments Thyroid Problem NPV Encounter Details Date Type Department Care Team Description 08/15/[address] [facility] Jackie Lopez Chronic lymphocytic thyroiditis; Endocrinology - Haroon Gill MD PhD Hypokalemia; [address] [facility] [place], [place] [address] [address] [place] [address] Social History Tobacco Use Types Packs/Day Years Used Date Former Smoker Quit: 02/06/20 10 Alcohol Use Standard Drinks/Week Comments Not Asked 0 (1 standard drink = 0.6 oz pure alcoho l) Sex Assigned at Date Recorded Not on file documented as of this encounter Last Filed Vital Signs Vital Sign Reading Time Taken Comments Blood Pressure 112/72 08/15/2010 0915 EST Pulse 64 08/15/2010 0915 EST Temperature - - Respiratory Rate - - Oxygen Saturation - - Inhaled Oxygen Concentration - - Weight 64.9 kg (143 lb) 08/15/2010 0915 EST Height 166.4 cm (5' 5.5) 08/15/2010 0915 EST Body Mass Index 23.43 08/15/2010 0915 EST documented in this encounter Progress Notes Jackie Lopez MD - 08/15/2010 1002 EST This 44 year old woman with a hx of chronic thyroiditis diagnosed in 1995 or 1996 comes to the Endocrine clinic for thyroid hormone replacement and evaluation as she had trouble with replacement. She recently felt unwell and changed from generic to brand only Synthroid and is feeling better. Symptoms:In Mar had odd dizziness (not spinning, feels odd and panicky)--almost syncopal--almost dissociative state, nausea looking at the food or preparing the food, severe pelvic pain occurred (diagnosed with intususseption), headaches and chest pain--which resolved with Pepcid. Headaches can be bilat, sides of head, no visual complaints, hoarseness at times. No diarrhea or constip. No vaginal bleeding, had hysterectomy with ovaries left intact, joint pain--hips and knees, has Reynaud's. Had a hx of pancreatic insufficiency for which she took enzymes, but stopped in 1999. Tests done elsewhere showed a TSH of 1.74 in June. Had a hx of wt loss (1998- lbs), past 4 yrs about 135-145. GM-Hyperthyroidism, Father with DM, at 32-EtOH and DM, Paternal side--many DM2,Mother's family thyroid disease. 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 Quit cigs. ETOH-1-2/wk. Hx bronchitisin youth, but not as an adult except for 2007. Significant other has ALS. BP 112/72 Pulse 64 Ht 166.4 cm (65.5) Wt 64.864 kg (143 lb) BP 140/80 standing. Eyes: PERRL, no retinop. Neck: No thyromegaly or nodules. Lungs are clear. Heartis regular without murmur. No striae. Abd is soft, no HSM. No edema, str +5/+5, no pigment changes. A: This pt had chronic lymphocytic thyroiditis and as of Jun, her replacement looks OK. No sign of under-replacement. Cristo's disease is not likely as her standing BP is > 120 systolic, and she has no pigment changes. She did have a higher than normal A!c at 6%--but has a strong family hx of DM--this was in 2007 and repeat was normal at 5.4%. She has had low K at times, which makes we wonder if she has an aldosterone problem. Nonetheless, she is faced with a very stressful couple of years as her partner has been diagnosed with ALS. P:1) Recheck TSH in 3-4 months to ensure stability after change from generic to brand 2) Doubt Cristo's--pt had a test before she believes that was negative--but further no sign of pigment changes and BP > 120 standing 3) TTG for sprue GI symptoms and thyroid autoimmune disease 4) Episodes of weakness-blood tests show spontaneous low K without use of diuretic, will check troy--might have Sumaya's or other defect affecting muscle rather than hyperaldosteronism per se. Office Visit on 08/15/2010 Component Date Value Range Status ??? Sodium (mEq/L) 08/15/2010 140 136-145 Final ??? Potassium (mEq/L) 08/15/2010 4.3 3.5-5.0 Final ??? Chloride (mEq/L) 08/15/2010 101 96-110 Final ??? CO2 (mEq/L) 08/15/2010 29 24-32 Final ??? BUN (mg/dl) 08/15/2010 17 10-26 Final ??? Creatinine (mg/dl) 08/15/2010 0.91 0.7-1.5 Final ? ? GFR, Calculated (ml/min/1.73m2) 08/15/2010 >60 Final ??? Calcium (mg/dl) 08/15/2010 9.8 8.5-10.5 Final ??? Calculated Calcium (mg/dl) 08/15/2010 9.8 8.5-10.5 Final ??? Glucose, Serum (mg/dl) 08/15/2010 83 70-100 Final ??? Fasting? 08/15/2010 No Final ??? Renin Activity, Plasma 08/15/2010 Final Value:2.5Unit: ng/mL/h -- REFERENCE VALUE -- (Peripheral vein specimen) Na-deplete, upright: Mean: 5.9 Range: 2.9-10.8 Na-replete, upright: Mean: 1.0 Range: <= 0.6-3.0 Performed or Referred by: [facility] Dpt of Lab Med and Path, [address] [place] [address], Lab Dir: Hugo Cyr III, MD ??? Aldosterone, Serum 08/15/2010 Final Value:5.0Reference range: <=21 Unit: ng/dL Reference range based on upright A.M. collection from subjects on ad madhu sodium uptake. Performed or Referred by: [facility] Dpt of Lab Med and Path, [address] [place] [address], Lab Dir: Hugo Cyr III, MD ??? Endomysial Antibodies 08/15/2010 Final Value:Negative Reference range: Negative Analyte Specific Reagent This test was developed and its performance characteristics determined by Laboratory Medicine and Pathology, [facility]. This test has not been cleared or approved by the U.S. Food and Drug Administration. Performed or Referred by: [facility] Dpt of Lab Med and Path, [address] [place] [address], Lab Dir: Hugo Cyr III, MD ? ? Tissue Transglutaminase Ab (U/ml) 08/15/2010 3.06 <15.01 Final No sign of sprue or hyperaldosteronism. Recommend that in diet, balance proteins with carbs, eat mostly complex carbs to avoid feelings of postprandial glucose and electrolyte changes. documented in this encounter Miscellaneous Notes Scanned Note-Null - Inpatient, MD Diego - 08/22/2010 1516 ESTAssociated Order(s): RADIOLOGY - SCANNED documented in this encounter Plan of Treatment Not on filedocumented as of this encounter Procedures Procedure Name Priority Date/Time Associated Comments Diagnosis RADIOLOGY - SCANNED 08/22/2010 15:16 Resu lts for this EST procedure are i n the results section. ENDOMYSIAL ANTIBODY, Routine 08/15/2010 10:27 Chronic lymphocy tic Results for this SERUM EST thyroiditis procedure are in Fatigue the results section. TISSUE TRANSGLUTAMINASE Routine 08/15/2010 10:27 Fatigue Results for this ANTIBODY EST Chronic lymphocytic procedur e are in thyroiditis the results section. ALDOSTERONE, SERUM Routine 08/15/2010 10:27 Hypokalemia Results for this EST Fatigue procedure are i n the results section. RENIN ACTIVITY, PLASMA Routine 08/15/2010 10:27 Hypokale belén Results for this EST Fatigue procedure are i n the results section. BASIC METABOLIC PANEL Routine 08/15/2010 10:27 Hypokalem ia Results for this (BMP) EST Fatigue procedure are i n the results section. ENDOCRINE CLINIC US Routine 08/15/2010 Chronic lymphocytic R esults for this THYROID thyroiditis procedure are in Fatigue the results section. documented in this encounter Results RADIOLOGY - SCANNED (08/22/2010 15:16 EST) Specimen Narrative This result has an attachment that is no t available. Procedure Note Inpatient, Physician, - 08/22/2010 15 :16 EST TISSUE TRANSGLUTAMINASE ANTIBODY (08/15/2010 10:27 EST) Pathologist Sig nature Tissue Transglutaminase Ab 3.06 <15.01 U/ml [facility] Specimen Blood specimen (specimen) Performing Organization Address City/State/ZIP Code Phon e Number [facility] [address] [place] [address] SERVICES [facility] [address] [place] [address] ENDOMYSIAL ANTIBODY, SERUM (08/15/2010 10:27 EST) Endomysial Negative [facility] Antibodies Reference range: Negative LAB Analyte Specific Reagent ? This test was developed and its performance characteristics ? determined by Laboratory Med [facility] Pathology, [place] [facility]. This test has not be en cleared or ? approved by the U.S. Food an d Drug Administration. ? Performed or Referred by: [facility] Dpt of Lab Med and Path, [address] ? [facility], [place] [address], Lab Dir: Hugo Cyr III, ? MD ? Specimen Blood specimen (specimen) Performing Organization Address [facility] Phon e Number [facility] [address] [place] [address] SERVICES [facility] [address] [place] [address] ALDOSTERONE, SERUM (08/15/2010 10:27 EST) Pathologist [facility] [place] Aldosterone, Serum 5.0Reference range: <=21 [facility] Unit: ng/dL Reference range based on upr ight A.M. collection from subjects ? on ad madhu sodium uptake. ? Performed or Referred by: [facility] Dpt of Lab Med and Path, [address] ? [place] [address], Lab Dir: Hugo Cyr III, ? MD ? Specimen Blood specimen (specimen) Performing Organization Address [facility] Phon e Number [facility] [address] [place] [address] SERVICES [facility] [address] [place] [address] RENIN ACTIVITY, PLASMA (08/15/2010 10:27 EST) Pathologist [facility] [place] Renin Activity, 2.5Unit: ng/mL/h [facility] Plasma -- REFERENCE VALUE -- ? (Peripheral vein specimen) ? Na-deplete, upright: ?Mean: 5.9 ?Range: 2.9-10.8 ? Na-replete, upright: ?Mean: 1.0 ?Range: <= 0.6-3.0 ? Performed or Referred by: [facility] Dpt of Lab Med and Path, [address] ? [facility], [place] [address], Lab Dir: Hugo Cyr III, ? MD ? Specimen Blood specimen (specimen) Performing Organization Address City/[facility]/ZIP [facility] Phon e Number [facility] [address] [place] [address] SERVICES [facility] [address] [place] [address] BASIC METABOLIC PANEL (08/15/2010 10:27 EST) Pathologist Sig nature Sodium 140 136 - 145 mEq/L [facility] Potassium 4.3 3.5 - 5.0 mEq/L [facility] Chloride 101 96 - 110 mEq/L [facility] CO2 29 24 - 32 mEq/L [facility] BUN 17 10 - 26 mg/dl [facility] Creatinine 0.91 0.7 - 1.5 mg/dl [facility] GFR, Calculated >60 ml/min/1.73m2 [facility] Calcium 9.8 8.5 - 10.5 mg/dl [facility] Calculated Calcium 9.8 8.5 - 10.5 mg/dl [facility] Glucose, Serum 83 70 - 100 mg/dl [facility] Fasting? No [facility] Specimen Blood specimen (specimen) Performing Organization Address City/[facility]/ZIP Code Phon e Number [facility] [address] [place] [address] SERVICES [facility] [address] [place] [address] ENDOCRINE CLINIC US THYROID (08/15/2010) Anatomical Region Laterality Modality Other Narrative POINT OF CARE - 08/15/2010 Utilizing a Sonosite System, a biplanar B-mode ultrasound was performed of the thyroid and neck struct ures. ??The right lobe of the thyroid measures 0.69x1.3x3.06 centi meters. ??The left lobe of the thyroid measures 1.11x0.87x2.94 cent imeters. ??The isthmus of the gland measures 0.31 centimeters. ??T he echotexture of the gland is heterogeous. ??There are no nod ules in the gland. ??There is no lymphadenopathy identified. Impression: ??Gland atrophy likely from use of LT4 or atrophic form of thyroiditis. Performing Organization Address City/State/ZIP Code Phon e Number [facility] POINT OF CARE POINT OF CARE documented in this encounter Visit Diagnoses Diagnosis Chronic lymphocytic thyroiditis Hypokalemia Hypopotassemia Fatigue Other malaise and fatigue documented in this encounter Historical Medications This list may reflect changes made after this encounter. Medication Sig Dispensed Refills Start Date End Date buffered aspirin 325 mg Take 650 mg by mouth 0 tablet daily. Methylcellulose, Take by mouth. 0 06/20 Laxative, (CITRUCEL) 500 mg Tab added in this encounter Care Teams Roof Bolter Operator Relationship Specialty Start Date End Date Jules Harden MD PCP - General 02/05/10 05/16/[address] [place] [id number] documented as of this encounter
--- OUTSIDE RECORDS SUMMARY | 2022-01-31 01:35 | XMS_ITS | Encounter Summary ---
:1965 Author Organization [facility] Address [address] [place] [address] Care Team Providers Name Role Phone Unknown, Provider Primary Care Provider Encounter Details Date Type Department Care Team Description 05/17/2015 Phlebotomy Only [facility] [address] [facility] [place] tuberculosis [address] (Primary Dx) [phone] Social History Tobacco Use Types Packs/Day Years Used Date Former Smoker Quit: 02/06/20 10 Alcohol Use Standard Drinks/Week Comments Not Asked 0 (1 standard drink = 0.6 oz pure alcoho l) Sex Assigned at Date Recorded Not on file documented as of this encounter Plan of Treatment Not on filedocumented as of this encounter Procedures Procedure Name Priority Date/Time Associated Diagnosis Comme nts QUANTIFERON TB GOLD Routine 05/17/2015 10:13 Screening examina tion Results for this PLUS EDT for pulmonary procedure are in tuberculosis the results section. documented in this encounter Results TB BY QUANTIFERON, B (05/17/2015 10:13 EDT) TB Interpretation NegativeComment: [facility] Reference Range: LABORATORY Negative SERVICES TB Antigen Value 0.00 IU/mL [facility] Comment: LABORATORY This is a qualitative test. ??The TB antigen IU/ mL value is required for SERVICES documentation on certain government reporting forms (e .g., Form I-693), but the magnitude of this value cannot be correlated to st age or degree of infection, level of immune responsiveness, or likeliho od for progression to active disease. ?? Diagnosing or excluding tuberculosis dis ease, and assessing the probability of LTBI, requires a combination of epidemiological, hist orical, medical, and diagnostic findings that should be taken into account when interpreting QuantiFERON-TB results. Specimen Blood specimen (specimen) - Blood Performing Organization Address City/State/ZIP Code Phon e Number [facility] [address] [place] [address] SERVICES documented in this encounter Visit Diagnoses Diagnosis Screening examination for pulmonary tube rculosis - Primary documented in this encounter Care Teams Senior Tech Manufacturing Engineering Relationship Specialty Start Date End Date Unknown, Provider, PCP - General 05/17/15 07/08/20 documented as of this encounter
--- OUTSIDE RECORDS SUMMARY | 2022-01-31 01:35 | XMS_ITS | Encounter Summary ---
:1965 Author Organization [facility] Address [address] [place] [address] Care Team Providers Name Role Phone Kaylan, Lisha Persaud MD Primary Care Provider Encounter Details Date Type Department Care Team Description 01/23/2021 Results Only Imaging [facility] - Unknown, [facility] Cardiology Clin ic Provider, MD [address] [phone] [place] [address] (Work) [phone] Social History Tobacco Use Types Packs/Day Years Used Date Former Smoker Quit: 02/06/20 10 Alcohol Use Standard Drinks/Week Comments Not Asked 0 (1 standard drink = 0.6 oz pure alcoho l) Sex Assigned at Date Recorded Not on file documented as of this encounter Plan of Treatment Not on filedocumented as of this encounter Procedures Procedure Name Priority Date/Time Associated Diagnosis Comme nts EKG 12-LEAD 01/23/2021 9:28 EDT Results for this procedure are i n the results section . documented in this encounter Results EKG 12-LEAD (01/23/2021 9:28 EDT) Specimen Narrative [facility] - 9:28 EDT ? [facility] [place] ? Test Date: ?2021-01-23 09:28:04 Pat Name: ? JUAN MIGUEL JUMP ? Department: ?Room: ? Gender: ? F ?Tube Inspector: ?? TIB : ?1965 ? Requested By: Order Number: ?Reading MD: ?? Sergio Villasenor, MD ? Measurements Intervals ?Scott ? Rate: ? 59 ? P: ?80 RI: ? 174 ?QRS: ?68 QRSD: ? 78 ? T: ?59 QT: ? 396 ? QTc: ?392 ? Interpretive Statements Sinus bradycardia Otherwise normal ECG No previous ECG available for comparison Electronically Signed On 01-23-2021 21:53: 04 EDT by Sergio Villasenor MD [email or web address] [place] [email or web address] Procedure Note Sergio Villasenor MD - 01/23/2021 [facility] [place] Test Date: 2021-01-23 09:28:04 Pat Name: JUAN MIGUEL MCKEON Department: Room: Gender: F Tube Inspector: RAND : 1965 Requested By: Order Number: Reading MD: Sergio jay MD Measurements Intervals Scott Rate: 59 P: 80 RI: 174 QRS: 68 QRSD: 78 T: 59 QT: 396 QTc: 392 Interpretive Statements Sinus bradycardia Otherwise normal ECG No previous ECG available for comparison Electronically Signed On 01-23-2021 21:53: 04 EDT by Sergio Villasenor MD [email or web address] [place] [email or web address] Performing Organization Address City/State/ZIP Code Phon e Number [facility] [address] [place] [address] documented in this encounter Visit Diagnoses Not on filedocumented in this encounter Care Teams Manager System Relationship Specialty Start Date End Date Lisha Kimbrough MD PCP - General Family Medicine - Primary 01/23/21 Care documented as of this encounter
--- OUTSIDE RECORDS SUMMARY | 2022-01-31 01:35 | XMS_ITS | Encounter Summary ---
:1965 Author Organization [facility] Address [address] [place] [address] Care Team Providers Name Role Phone Jules Harden MD Primary Care Provider Encounter Details Date Type Department Care Team Description 12/13/2013 Orders Only [facility] Karishma Juarez ibody response Employee Health - D, RN examination (Primary Main [place] [facility] Dx) 1 [facility] [address] [place] [address] [place], [place] [phone] Social History Tobacco Use Types Packs/Day Years Used Date Former Smoker Quit: 02/06/20 10 Alcohol Use Standard Drinks/Week Comments Not Asked 0 (1 standard drink = 0.6 oz pure alcoho l) Sex Assigned at Date Recorded Not on file documented as of this encounter Plan of Treatment Not on filedocumented as of this encounter Visit Diagnoses Diagnosis Antibody response examination - Primary documented in this encounter Care Teams Statistical Consultant Relationship Specialty Start Date End Date Jules Harden MD PCP - General 02/05/10 05/16/15 [address] [place] [phone] documented as of this encounter
--- OUTSIDE RECORDS SUMMARY | 2022-01-31 01:35 | XMS_ITS | Encounter Summary ---
:1965 Author Organization [facility] Address [address] [place] [address] Care Team Providers Name Role Phone Jules Harden MD Primary Care Provider Encounter Details Date Type Department Care Team Description 03/01/2010 Abstract [facility] Plastic, Jules Kiser MD Reconstructive & Cosmetic [address] Surgery [place] [facility] [place] [id number] [place] [address] [address] [place] [address] Social History Tobacco Use Types Packs/Day Years [...] on filedocumented in this encounter Care Teams Manual Lathe Machinist Relationship Specialty Start Date End Date Jules Harden MD PCP - General 02/05/10 05/16/15 [address] [place] [phone] documented as of this encounter
--- OUTSIDE RECORDS SUMMARY | 2022-01-31 01:35 | XMS_ITS | Encounter Summary ---
:1965 Author Organization [facility] Address [address] [place] [address] Care Team Providers Name Role Phone Jules Harden MD Primary Care Provider Encounter Details Date Type Department Care Team Description 05/11/2015 Orders Only [facility] Leonila Jung Scree ning examination Employee Health - Main RN for [facility] tuberculosis (Primary 1 [facility] Dx) [place] [address] Social History Tobacco Use Types Packs/Day Years Used Date Former Smoker Quit: 02/06/20 10 Alcohol Use Standard Drinks/Week Comments Not Asked 0 (1 standard drink = 0.6 oz pure alcoho l) Sex Assigned at Date Recorded Not on file documented as of this encounter Plan of Treatment Not on filedocumented as of this encounter Results TB BY QUANTIFERON, B (05/17/2015 10:13 EDT) TB Interpretation NegativeComment: [facility] Reference Range: LABORATORY Negative SERVICES TB Antigen Value 0.00 IU/mL [facility] Comment: LABORATORY This is a qualitative test. [...] Organization Address City/State/ZIP Code Phon e Number [facility] [address] [place] [address] SERVICES documented in this encounter Visit Diagnoses Diagnosis Screening examination for pulmonary tube rculosis - Primary documented in this encounter Care Teams Cash Applications Analyst Relationship Specialty Start Date End Date Jules Harden MD PCP - General 02/05/10 05/16/[address] [place] [phone] documented as of this encounter
--- OUTSIDE RECORDS SUMMARY | 2022-01-31 01:35 | XMS_ITS | Encounter Summary ---
:1965 Author Organization [facility] Address [address] [place] [address] Care Team Providers Name Role Phone Boogie Paloma Vanesa Primary Care Provider [phone] Reason for Visit Reason Onset Date Comments Update 07/10/2020 Encounter Details Date Type Department Care Team Description 07/10/2020 Telephone [facility] Pelvic Britni Hinds , WILLIAM Update Medicine and Reconstructive Surgery - Medical Office [place] [address] [address] [place] [address] Social History Tobacco Use Types Packs/Day Years Used Date Former Smoker Quit: 02/06/20 10 Alcohol Use Standard Drinks/Week Comments Not Asked 0 (1 standard drink = 0.6 oz pure alcoho l) Sex Assigned at Date Recorded Not on file documented as of this encounter Miscellaneous Notes Telephone Encounter - Юлия Freeman MD - 07/10/2020 1347 EST I just updated the chart as able today. She should find it better now and let me know if anything else specific she sees that is wrong. thx elephone Encounter - Britni Hinds, WILLIAM - 07/10/2020 1325 EST Pt calling to request that Dr. Freeman review the records that have been sent from [place]. She is stating that her problem list is not accurate. Pt was in yesterday and discussed with Dr. Freeman at thattime. Advised that Triage cannot remove Dx from Problem List. Pt reporting that her current medical record in [facility] is out dated. Advised that she further discuss with MD at next OV. documented in this encounter Plan of Treatment Not on filedocumented as of this encounter Visit Diagnoses Not on filedocumented in this encounter Care Teams Structural Steel Worker Apprentice Relationship Specialty Start Date End Date Paloma Hyman DO PCP - General 07/09/20 01/22/[address] [place] [address] documented as of this encounter
--- OUTSIDE RECORDS SUMMARY | 2022-01-31 01:35 | XMS_ITS | Encounter Summary ---
:1965 Author Organization [facility] Address [address] [place] [address] Care Team Providers Name Role Phone KaylanLisha MD Primary Care Provider Encounter Details Date Type Department Care Team Description 02/19/2021 Results Only [facility] [place] [facility] KaylanLisha MD [phone] [address] [facility] [address] [place], [place] [address] (Wo rk) Social History [...] Name Priority Date/Time Associated Diagnosis Comme nts INFLUENZA, RSV, Routine 02/19/2021 14:08 Results for this COVID PCR [facility] EDT procedur e are in the results section. documented in this encounter Results INFLUENZA, RSV, COVID PCR [facility] (02/19/2021 14:08 EDT) SARS-CoV-2 RT-PCR Not NEGATIVE [facility] DetectedComment: [facility] THIS TEST HAS BEEN AUTHORIZED BY FDA UNDER AN EUA FOR USE BY AUTHORIZED LABORATORIES. INFLUENZA A PCR - Negative NEGATIVE [facility] INFLUENZA B PCR - Negative NEGATIVE [facility] RSV PCR - [facility] Negative NEGATIVE [facility] Specimen Narrative [facility] - 08/03/2 021 14:09 EDT NEGATIVE RESULTS DO NOT PRECLUDE SARS-COV-2 INFECTION AND SHOULD NOT BE USED THE SOLE BASIS FOR TREATMENT OR OTHER PATIENT MAN AGEMENT DECISION. NEGATIVE RESULTS MUST BE COMBINED WITH CLINICAL OBSERVATIONS, PATIENT HIST ORY AND EPIDEMIOLOGICAL INFORMATION. Performing Organization Address City/State/ZIP Code Phon e Number [facility] [address] [place] [address] documented in this encounter Visit Diagnoses Not on filedocumented in this encounter Care Teams Cisco Certified Network Associate Relationship Specialty Start Date End Date Lisha Kimbrough MD PCP - General Family Medicine - Primary 01/23/21 Care documented as of this encounter
--- OUTSIDE RECORDS SUMMARY | 2022-01-31 01:35 | XMS_ITS | Encounter Summary ---
:1965 Author Organization [facility] Address [address] [place] [address] Care Team Providers Name Role Phone Kaylan, Lisha Persaud MD Primary Care Provider Encounter Details Date Type Department Care Team Description 04/06/2021 Results Only Imaging [facility] Finn PA-C [facility] Radiology Resul [address] [facility] [address] [place] [phone] (Wo rk) Social History Tobacco Use Types [...] Name Priority Date/Time Associated Diagnosis Comme nts MR HEAD W WO 04/06/2021 13:14 Results for this CONTRAST EDT procedure are i n the results section. documented in this encounter Results MR HEAD W WO CONTRAST (04/06/2021 13:14 EDT) Specimen Narrative [facility] - 04/06/2021 13:14 EDT ? EXAM: MAGNETIC RESONANCE IMAGING/BRAIN W/ EX. D/ (1150) ? CLINICAL INFORMATION: ? recurrent transient episodes of d ebilitating vertigo x 1 week ? PROCEDURE INFORMATION: ? Exam: MR Head Without and With Co ntrast ? Exam date and time: 04/06/2021 10: 03 AM ? Age: 55 years old ? Clinical indication: Dizziness; A dditional info: Recurrent ? transient episodes of debilitatin g vertigo x 1 week, rule out ? mass vs CVA ? TECHNIQUE: ? Imaging protocol: MR of the head without and with intravenous ? contrast. ? Contrast material: GADAVIST; Cont rast volume: 6 ml; Contrast ? route: INTRAVENOUS (IV); ? COMPARISON: ? No relevant prior studies availab le. ? FINDINGS: ? Brain: There are 3 total there is white matter disease in ? frontal subcortical region consis tent mild microvascular change. ? Diffusion images are normal. No e vidence of acute infarction. No ? evidence of acute intracranial he morrhage. No extra-axial fluid ? collections. Ventricles and cereb rospinal fluid spaces are ? normal in size and configuration for the patient's age. There is ? no evidence of mass-effect or mid line shift. Flow voids of the ? southern ute [place] and major cerebr al vascular structures appear ? intact. Craniocervical junction a ppears unremarkable, with ? normal position of cerebellar ton sils and no evidence of Chiari ? I malformation. There is no abnor mal leptomeningeal or ? parenchymal contrast enhancement. ? Cerebral ventricles: Normal. No v entriculomegaly. ? Bones/joints: Unremarkable as vis ualized. ? Paranasal sinuses: Normal as visu alized. No acute sinusitis. ? Mastoid air cells: No significant mastoid effusion. ? Orbital cavity: Unremarkable. ? Soft tissues: Unremarkable as vis ualized. ? IMPRESSION: ? Minimal white matter changes like ly microvascular disease. No ? evidence of intracranial mass, ac isrrael infarct, or hemorrhage. ? REPORT SIGNED IN OTHER VENDOR SYSTEM 04/06/2021 ?Reported B y: Leonila Lozada MD ? CC: ? Transcribed Date/Time: 04/06/2021 (1314) ? Machine Finisher: [email or web address] ? Printed Date/Time: 04/06/2021 (13 14) ? PAGE 1 ? Nica d Report ? Procedure Note Leonila Lozada MD - 04/06/2021 EXAM: MAGNETIC RESONANCE IMAGING/BRAIN W/ EX. D/ (1150) CLINICAL INFORMATION: recurrent transient episodes of debilit ating vertigo x 1 week PROCEDURE INFORMATION: Exam: MR Head Without and With Contrast Exam date and time: 04/06/2021 10:03 AM Age: 55 years old Clinical indication: Dizziness; Additio nal info: Recurrent transient episodes of debilitating vert igo x 1 week, rule out mass vs CVA TECHNIQUE: Imaging protocol: MR of the head withou t and with intravenous contrast. Contrast material: GADAVIST; Contrast v olume: 6 ml; Contrast route: INTRAVENOUS (IV); COMPARISON: No relevant prior studies available. FINDINGS: Brain: There are 3 total there is white matter disease in frontal subcortical region consistent m ild microvascular change. Diffusion images are normal. No evidenc e of acute infarction. No evidence of acute intracranial hemorrha ge. No extra-axial fluid collections. Ventricles and cerebrospin al fluid spaces are normal in size and configuration for th e patient's age. There is no evidence of mass-effect or midline s hift. Flow voids of the southern ute [place] and major cerebral vas cular structures appear intact. Craniocervical junction appears unremarkable, with normal position of cerebellar tonsils a nd no evidence of Chiari I malformation. There is no abnormal le ptomeningeal or parenchymal contrast enhancement. Cerebral ventricles: Normal. No ventric ulomegaly. Bones/joints: Unremarkable as visualize d. Paranasal sinuses: Normal as visualized . No acute sinusitis. Mastoid air cells: No significant masto id effusion. Orbital cavity: Unremarkable. Soft tissues: Unremarkable as visualize d. IMPRESSION: Minimal white matter changes likely stew rovascular disease. No evidence of intracranial mass, acute in farct, or hemorrhage. REPORT SIGNED IN OTHER VENDOR SYSTEM 04/06/2021 Reported By: Leonila Lozada MD CC: Transcribed Date/Time: 04/06/2021 (3877 ) Machine Finisher: Printed Date/Time: 04/06/2021 (0609) PAGE 1 Signed Report Performing Organization Address City/State/ZIP Code Phon e Number [facility] documented in this encounter Visit Diagnoses Not on filedocumented in this encounter Care Teams Carton Catcher Relationship Specialty Start Date End Date KaylanLisha MD PCP - General Family Medicine - Primary 01/23/21 Care documented as of this encounter
--- OUTSIDE RECORDS SUMMARY | 2022-01-31 01:35 | XMS_ITS | Encounter Summary ---
:1965 Author Organization [facility] Address [address] [place] [address] Care Team Providers Name Role Phone Unknown, Provider Primary Care Provider Reason for Visit Reason Onset Date Comments Appointment Related 06/18/2020 Encounter Details Date Type Department Care Team Description 06/18/2020 Telephone [facility] Pelvic Юлия Freeman Appointment Related Medicine and MD Natalie Reconstructive Surgery - [address] [place] [address] Medical [place] [address] Medical [address] [place] [address] [address] [place] [address] Social History Tobacco Use Types Packs/Day Years Used Date Former Smoker Quit: 02/06/20 10 Alcohol Use Standard Drinks/Week Comments Not Asked 0 (1 standard drink = 0.6 oz pure alcoho l) Sex Assigned at Date Recorded Not on file documented as of this encounter Miscellaneous Notes Telephone Encounter - Miller Trejo - 06/18/[address] Sandy's office called. Stated if Dr. Freeman, had any questions to please call Dr. Burak Sandy, at [phone] signed by Miller Trejo at 06/18/2020 12:22 ESTdocumented in this encounter Plan of Treatment Not on filedocumented as of this encounter Visit Diagnoses Not on filedocumented in this encounter Care Teams Manager Protein Relationship Specialty Start Date End Date Unknown, Provider, PCP - General 05/17/15 07/08/20 documented as of this encounter
--- OUTSIDE RECORDS SUMMARY | 2022-01-31 01:35 | XMS_ITS | Encounter Summary ---
:1965 Author Organization [facility] Address [address] [place] [address] Care Team Providers Name Role Phone Unknown, Provider Primary Care Provider Encounter Details Date Type Department Care Team Description 06/18/2015 Phlebotomy Only [facility] Milk TreaterGarret response - [facility] Outpatient examination (Primary [address] [facility] Dx) [place], [place] [phone] Social History Tobacco Use Types Packs/Day Years Used Date Former Smoker Quit: 02/06/20 10 Alcohol Use Standard Drinks/Week Comments Not Asked 0 (1 standard drink = 0.6 oz pure alcoho l) Sex Assigned at Date Recorded Not on file documented as of this encounter Plan of Treatment Not on filedocumented as of this encounter Procedures Procedure Name Priority Date/Time Associated Diagnosis Comme nts HEPATITIS B SURFACE Routine 06/18/2015 9:25 EST Antibody respo nse Results for this ANTIBODY examination procedure are i n the results section. documented in this encounter Results HEPATITIS B SURFACE ANTIBODY (06/18/2015 9:25 EST) Hepatitis B Positive [facility] Surface Ab Comment: LABORATORY SERVICES Reference Range: Unvaccinated: ??Negative Vaccinated: ??Positive HBs Antibody, >1000.0 mIU/mL [facility] Quant Comment: LABORATORY SERVICES Patient is presumed to be immune to infection with HBV. Reference Range: Positive: >=12.0 mIU/mL Indeterminate: >=5.0 to <12.0 mIU/mL Negative: <5.0 mIU/mL Specimen Blood specimen (specimen) - Blood Performing Organization Address City/State/ZIP Code Phon e Number [facility] [address] [place] [address] SERVICES documented in this encounter Visit Diagnoses Diagnosis Antibody response examination - Primary documented in this encounter Care Teams Fur Sewer Relationship Specialty Start Date End Date Unknown, Provider, PCP - General 05/17/15 07/08/20 documented as of this encounter
--- OUTSIDE RECORDS SUMMARY | 2022-01-31 01:35 | XMS_ITS | Encounter Summary ---
:1965 Author Organization [facility] Address [address] [place] [address] Care Team Providers Name Role Phone Unknown, Provider Primary Care Provider Encounter Details Date Type Department Care Team Description 05/17/2015 Orders Only [facility] [place], Antibody response Employee [facility] WILLIAM Krueger exam ination (Primary [place] Dx) [address] [place] [address] Social History Tobacco Use Types Packs/Day Years Used Date Former Smoker Quit: 02/06/20 10 Alcohol Use Standard Drinks/Week Comments Not Asked 0 (1 standard drink = 0.6 oz pure alcoho l) Sex Assigned at Date Recorded Not on file documented as of this encounter Plan of Treatment Not on filedocumented as of this encounter Results HEPATITIS B SURFACE ANTIBODY (06/18/2015 9:25 EST) Hepatitis B Positive [facility] Surface Ab Comment: LABORATORY SERVICES Reference Range: Unvaccinated: ??Negative Vaccinated: ??Positive HBs Antibody, >1000.0 mIU/mL [facility] Quant Comment: LABORATORY SERVICES Patient is presumed to be immune to infection with HBV. Reference Range: Positive: >=12.0 mIU/mL Indeterminate: >=5.0 to <12.0 mIU/mL Negative: <5.0 mIU/mL Specimen Blood specimen (specimen) - Blood Performing Organization Address City/State/ZIP Code Phon e Number [facility] [address] [place] [address] SERVICES documented in this encounter Visit Diagnoses Diagnosis Antibody response examination - Primary documented in this encounter Care Teams Tobacco Farmworker Relationship Specialty Start Date End Date Unknown, Provider, PCP - General 05/17/15 07/08/20 documented as of this encounter
--- OUTSIDE RECORDS SUMMARY | 2022-01-31 01:35 | XMS_ITS | Encounter Summary ---
:1965 Author Organization [facility] Address [address] [place] [address] Care Team Providers Name Role Phone Jules Harden MD Primary Care Provider Encounter Details Date Type Department Care Team Description 12/09/2013 Orders Only [facility] Sariah Galvez Antib wolf response Employee Health - Main RN examination (Primary [place] [address] Dx) [address] [place] [address] [phone] Social History Tobacco Use Types Packs/Day Years [...] Primary documented in this encounter Care Teams Fish Cake Maker Relationship Specialty Start Date End Date Jules Harden MD PCP - General 02/05/10 05/16/15 [address] [place] [address] documented as of this encounter
[2022-01-31 15:53] LABS: TSH (W/Ref FT4) 0.31 uIU/mL (0.36-3.74)
[2022-01-31 16:13] LABS: FREE T4 1.19 ng/dL (0.76-1.46)
[2022-02-03 13:42] LABS: IgA 192 mg/dL (85-499); Interpretation (See Note); Tissue Transglutaminase IgA <1.2 U/mL (<4.0)
== END 2022-01-31 01:32 | disposition home or self-care (01) ==
LOC: LBO 01:31
PROVIDERS: PCP Student in an Organized Health Care Education/Training Program; Referring Provider Student in an Organized Health Care Education/Training Program; Visit Provider Student in an Organized Health Care Education/Training Program
DX: E06.3 Autoimmune thyroiditis (principal); R10.9 Unspecified abdominal pain; R14.0 Abdominal distension (gaseous)
CPT/HCPCS: 36415; 82784; 83516; 84439; 84443

== ENCOUNTER 2022-02-11 11:29 | Outpatient (REF) | payer OTHER, MEDICAID, SELFPAY ==
[2022-02-11 12:16] LABS: Abs Immature Grans 0.02 10^3/uL (0.0-0.06); Absolute Basophil Count 0.09 10^3/uL (0.0-0.2); Absolute Eosinophil Count 0.45 10^3/uL (0.0-0.7); Absolute Lymphocyte Count 2.68 10^3/uL (1.2-3.4); Absolute Monocyte Count 0.59 10^3/uL (0.1-0.8); Absolute Neutrophil Count 5.87 10^3/uL (1.2-6.7); Basophils % 0.9; Eosinophils % 4.6; HCT 42.4 % (36.0-46.0); HGB 13.6 g/dL (11.2-15.7); Immature Grans % 0.2; Lymphocytes % 27.6; MCH 29.8 pg (27.0-33.0); MCHC 32.1 % (32.0-36.0); MCV 93 fL (80-95); MPV 9.9 fL (8.0-11.0); Monocytes % 6.1; Neutrophils % 60.6; Platelet Count 287 10^3/uL (130-400); RBC 4.56 10^6/uL (3.93-5.22); RDW 12.4 % (11.7-14.6); RDW-SD 42.9 fL
[2022-02-11 12:27] LABS: ALT 49 U/L (14-59); AST 30 U/L (15-37); Alkaline Phosphatase 141 U/L (46-116); Anion Gap 10.5 mmol/L (3-11); BUN 12 mg/dL (7-18); Bilirubin, Total 0.2 mg/dL (0.2-1.0); CO2 27.5 mmol/L (21.0-32.0); CREATININE 1.1 mg/dL (0.55-1.02); Calcium 9.7 mg/dL (8.5-10.1); Chloride 103 mmol/L (98-107); Glucose 98 mg/dL (74-106); Lipase 106 U/L (73-393); Potassium 3.9 mmol/L (3.5-5.1); Sodium 141 mmol/L (136-145); Total Protein 7.7 g/dL (6.4-8.2)
[2022-02-12 09:01] LABS: IgE 10 IU/mL (<158)
[2022-02-12 09:08] LABS: IgA 177 mg/dL (85-499); IgG 1193 mg/dL (610-1,616); IgM 130 mg/dL (35-242)
== END 2022-02-11 11:30 | disposition home or self-care (01) ==
LOC: LBN 11:29
PROVIDERS: PCP Student in an Organized Health Care Education/Training Program; Visit Provider Student in an Organized Health Care Education/Training Program
DX: U09.9 Post COVID-19 condition, unspecified (principal); J45.909 Unspecified asthma, uncomplicated; R10.9 Unspecified abdominal pain; R79.89 Other specified abnormal findings of blood chemistry
CPT/HCPCS: 80053; 82784; 83690; 82785; 82787; 85025

== ENCOUNTER 2022-04-11 00:58 | Outpatient (CLI) | payer OTHER, MEDICAID, SELFPAY ==
--- OUTSIDE RECORDS SUMMARY | 2022-04-11 01:32 | XMS_ITS | Encounter Summary ---
:1965 Author Organization [facility] [place] [address] Care Team Providers Name Role Phone Paloma Hyman DO Primary Care Provider Encounter Details Date Type Department Care Team Description 01/30/2022 Telephone Gastroenterology at [facility] [place] [phone] Social History Tobacco Use Types Packs/Day [...] on filedocumented in this encounter Care Teams Fishing Vessel Mate Relationship Specialty Start Date End Date Paloma Hyman DO PCP - General Family Medicine 12/09/[address] [place] [address] documented as of this encounter
--- OUTSIDE RECORDS SUMMARY | 2022-04-11 01:32 | XMS_ITS | Encounter Summary ---
:1965 Author Organization [place] [address] Care Team Providers Name Role Phone Holli Reyna MD Primary Care Provider Reason for Visit Reason Onset Date Comments Medication Refill 09/23/2012 Encounter Details Date Type Department Care Team Description 09/23/2012 Refill Internal Medicine at [facility] Holli Reyna MD [address] [phone] PSYCHIATRY [phone] [place] [address] (Wo rk) Social History Tobacco Use Types [...] she is going well in school in [place]. After speaking toDawHolli smallwood relayed to me [...] on filedocumented in this encounter Care Teams Ship Construction Teacher Relationship Specialty Start Date End Date Holli Reyna MD PCP - General 03/05/11 03/01/15 documented as of this encounter
--- OUTSIDE RECORDS SUMMARY | 2022-04-11 01:32 | XMS_ITS | Encounter Summary ---
:1965 Author Organization [facility] [place] [address] Care Team Providers Name Role Phone Holli Reyna MD Primary Care Provider Reason for Visit Reason Onset Date Comments Medication Refill 08/24/2012 Encounter Details Date Type Department Care Team Description 08/24/2012 [place] Fib[place]algia (Primary [facility] Dx) [place] [address] Social History Tobacco Use Types Packs/Day [...] unspecified documented in this encounter Care Teams Grounds/Maintenance Specialist Relationship Specialty Start Date End Date Holli Reyna MD PCP - General 03/05/11 03/01/15 documented as of this encounter
--- OUTSIDE RECORDS SUMMARY | 2022-04-11 01:32 | XMS_ITS | Encounter Summary ---
:1965 Author Organization [facility] Address [address] [place] [address] Care Team Providers Name Role Phone Holli Reyna MD Primary Care Provider Reason for Visit Reason Onset Date Comments Other 10/02/2012 Suicidal thoughts Encounter Details Date Type Department Care Team Description 10/02/2012 Telephone Internal Medicine at Aristides Reyna MD Other ( Suicidal [facility] [address] thoughts) [facility] [place] [address] [place] [address] [phone] Social History Tobacco Use Types Packs/Day Years [...] 10/02/2012 11:46 AM EDT Pt currently in [place] and feeling down and Suicidal thoughts on [...] on filedocumented in this encounter Care Teams Lockstitch Shoulder Joiner Relationship Specialty Start Date End Date Holli Reyna MD PCP - General 03/05/11 03/01/15 documented as of this encounter
--- OUTSIDE RECORDS SUMMARY | 2022-04-11 01:32 | XMS_ITS | Encounter Summary ---
:1965 Author Organization [facility] [place] [address] Care Team Providers Name Role Phone Holli Reyna MD Primary Care Provider Reason for Visit Reason Onset Date Comments Other 07/09/2012 Encounter Details Date Type Department Care Team Description 07/09/2012 Telephone Internal Medicine at [facility] [place] [address] Social History Tobacco Use Types Packs/Day Years Used Date Former Smoker Cigarettes 0.5 10 Quit: 02/18/20 11 Smokeless Tobacco: Never Used Comments: 1 to 2 a day. Alcohol Use Standard Drinks/Week Comments No 0 (1 standard drink = 0.6 oz pure alcoho l) Sex Assigned at Date Recorded Not on file documented as of this encounter Miscellaneous Notes Telephone Encounter - [place] Concepcion RN - 07/09/2012 2:45 PM EST Pt calling to report that taking Lyrica 150 mg BID is just to much. She feels drunk when she wakes in the morning. She would like a Rx for 25 mg tabs and 75 mg so she can take a small dose in the morning and a larger dose at nite but not to large. Will a new Rx for 25 mg and 75 mg tabs sent to [facility] documented in this encounter Plan of Treatment Scheduled Procedures Name Priority Associated Diagnoses Date/Time EGD, UPPER GI ENDOSCOPY Dysphagia, unspe cified type Gastroesophageal reflux disease, unspecified whether esophagitis present Functional dyspepsia Irritable bowel syndrome with casey constipation and diarrhea documented as of this encounter Visit Diagnoses Not on filedocumented in this encounter Care Teams Manager Payment Relationship Specialty Start Date End Date Holli Reyna MD PCP - General 03/05/11 03/01/15 documented as of this encounter
--- OUTSIDE RECORDS SUMMARY | 2022-04-11 01:32 | XMS_ITS | Encounter Summary ---
:1965 Author Organization [facility] [place] [address] Care Team Providers Name Role Phone Holli Reyna MD Primary Care Provider Reason for Visit Reason Comments Medication Refill Encounter Details Date Type Department Care Team Description 12/27/2012 Refill Internal Medicine at [facility] Holli Reyna MD [address] [address] PSYCHIATRY [phone] [place] [address] (Wo rk) Social History Tobacco Use Types [...] on filedocumented in this encounter Care Teams Beef Ribber Relationship Specialty Start Date End Date Holli Reyna MD PCP - General 03/05/11 03/01/15 documented as of this encounter
--- OUTSIDE RECORDS SUMMARY | 2022-04-11 01:32 | XMS_ITS | Encounter Summary ---
:1965 Author Organization [place] [address] Care Team Providers Name Role Phone [place] Hyman DO Primary Care Provider Reason for Referral Consultation (Routine) - Authorized Specialty Diagnoses / Procedures Referred By Contact Refer red To Contact Gastroenterology Diagnoses Eosinophilic esophagitis Eosinophilic esophagitis [place] Hyman, [facility] 4[facility] DO [address] [phone] Fax: Referral ID Status Reason Start Expiration Visits Visits Date Date Requested Authorized [id number] Authorized Consult, 12/09/2021 12/09/2022 6 6 Test & Treat PCP Updated and/or Approved Encounter Details Date Type Department Care Team Description 12/09/2021 Transcribe Orders eDH Incoming Rhoda Hyman ic Referrals [place] Chau DO esophagitis [phone] [place] [phone] Social History Tobacco Use Types Packs/Day Years [...] Name Type Priority Associated Order Schedule Diagnoses Referral to Outpatient Routine Eosinophilic Ordered: Gastroenterology Referral esophagitis 12/09/2021 documented as of this encounter Visit Diagnoses Diagnosis Eosinophilic esophagitis documented in this encounter Care Teams Core Fitter Relationship Specialty Start Date End Date [place] Hyman DO PCP - General Family Medicine 12/09/[address] [place] [address] documented as of this encounter
--- OUTSIDE RECORDS SUMMARY | 2022-04-11 01:32 | XMS_ITS | Encounter Summary ---
:1965 Author Organization [facility] [address] Care Team Providers Name Role Phone Holli Reyna MD Primary Care Provider Reason for Visit Reason Onset Date Comments Other 07/05/2012 Encounter Details Date Type Department Care Team Description 07/05/2012 Telephone Internal Medicine at [facility] [place] [address] Social History Tobacco Use Types Packs/Day [...] Telephone Encounter - Argentina Concepcion RN - 07/05/2012 2:54 PM EST Pt calling to report that she is now taking Lyrica 150 mg AM and PM. After we spoke she is going to decrease the morning dose to 75 mg and keep the amarilis dose at 150 mg. documented in this encounter Plan of Treatment Scheduled Procedures Name Priority Associated Diagnoses Date/Time EGD, UPPER GI ENDOSCOPY Dysphagia, unspe cified type Gastroesophageal reflux disease, unspecified whether esophagitis present Functional dyspepsia Irritable bowel syndrome with casey th constipation and diarrhea documented as of this encounter Visit Diagnoses Not on filedocumented in this encounter Care Teams Art Display Maker Relationship Specialty Start Date End Date Holli Reyna MD PCP - General 03/05/11 03/01/15 documented as of this encounter
--- OUTSIDE RECORDS SUMMARY | 2022-04-11 01:32 | XMS_ITS | Encounter Summary ---
:1965 Author Organization [facility] [place] [address] Care Team Providers Name Role Phone [place] Hyman DO Primary Care Provider Reason for Visit Consultation (Routine) - Authorized Specialty Diagnoses / Procedures Referred By Contact Refer red To Contact Gastroenterology Diagnoses Eosinophilic esophagitis Eosinophilic esophagitis [place] Hyman, [facility] G[facility] 4l DO [address] [phone] Fax: Referral ID Status Reason Start Expiration Visits Visits Date Date Requested Authorized [id number] Authorized Consult, 12/09/2021 12/09/2022 6 6 Test & Treat PCP Updated and/or Approved Encounter Details Date Type Department Care Team Description 12/31/2021 TH Visit Gastroenterology at [facility] Fred, Dysphagia, unspecified type; (TeleHealth) [facility] Mariel Zhang MD Gastroesophageal reflux disease, unspeci fied whether esophagitis present; [place] [address] [facility] Functional dyspepsia; [phone] Center Irritable bowel syndrome with both [place] [address] Social History Tobacco Use Types Packs/Day Years [...] + Terrell Haas MD, CALIN Jordin Monreal, WILDLIFE VETERINARIAN + Cecilia Molina APRN + Brina Rodriguez APRN + TOD Jones RN + WILLIAM Church, PhD [facility] Gastrointestinal Motility [facility] What are functional bowel disorders? These are the most common type of gastrointestinal disorders in the [facility] The most common functional bowel disorder in the [facility] is irritable bowel syndrome (IBS) Irritable bowel [...] what is the impact? 15-20% of general [place] population has IBS or FD or both IBS is the 2nd most common cause for lost work days (after common cold) in [place] IBS is estimated to cost the [place] economy 30 billion dollars per year These [...] with immediate onset of symptoms after infection); snf symptoms are expected in most patients however [...] together - this approach benefits mostpatients OTC (hlop-zar-mkcilvi) medications can be used for ongoing bothersome symptoms as listed below Your doctor (PCP or [place] [facility] Gastroenterology provider or Gastroenterology provider) may decide [...] include All-Bran psyllium buds, Metamucil, bulk psyllium (WhereInFair andGraphSQL) Specifically we recommend starting Metamucil at a [...] but convincing medical evidence is still lacking Cndq-wwa-mriglwr supplements are not typically evaluated by FDA [...] on IBS Headspace (anxiety/stress/mindfulness) Calm (anxiety/stress/mindfulness) CBT-I recovery coach (insomnia/sleep problems) Curable (chronic pain) There [...] the likelihood that stressors will cause flares psychologytoday.Sweetspot Intelligence ABCT.org ContextualScience.org Gut-directed hypnotherapy for IBS is also supported by research - you may find a provider at [employer] OT Medications for Functional Gut Disorders Diarrhea [...] a stool softener that is safe for snf usage (no risk of dependency) and the [...] under the supervision of a Gastroenterology provider ([place] [facility] or ) [facility] Provider Authors are not liable for misuse/misinterpretation of this information Patient Resources [place] [employer] Association https://www.gastro.org/practice-guidance/an-xtdapzy-hupcki/t opic/caunvfcve-ktzln-ggchgzbv-ibs Badgut.org https://badgut.org/information-centre/y-z-mkzvbfqbn-topics/ibs/ AboutIBS.org https://www.aboutibs.org/ Uptodate.com https://www.uptodate.com/contents/fkgsonryy-yevoq-puhgzpze-ohxclm-wsx-uxyhvi documented in this encounter Progress Notes Miller Ibarra MD - 12/31/2021 4:00 PM EDT GI MOTILITY CENTER TELEMEDICINE PROGRAM Chief Complaint: Isela Braun is a 56 y.o. patient referred for consultation by Dr. Hyman forpossible eosinophilic esophagitis (EoE). Referred for second opinion followed at [facility]. History of Present Illness: 56 y.o. [...] not use drugs. 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 Physical exam: Constitutional: well appearing, no apparent [...] appropriately Questionnaire: Q-GI MOTILITY CLINIC BATTERY 12/31/2021 [facility] Healthy Day Score 30 Work Absenteeism Error [...] An additional follow-up appointment with a motility COMMUNITY HEALTH NURSE SUPERVISOR will be scheduled after this appointment to discuss specific recommendations for management. Patients should continue to work on general measures provided in our handout while awaiting this appointment. We also discussed the consultative nature of the [facility] GI motility program. The patient should [...] testing completed The patient was located in [place] at the time of their visit. Miller Ibarra MD [facility] [place] [phone] documented in this encounter Plan of Treatment [...] diarrhea documented in this encounter Care Teams Telephone Plant Power Operator Relationship Specialty Start Date End Date [place] Hyman DO PCP - General Family Medicine 12/09/[address] [place] [address] documented as of this encounter
--- OUTSIDE RECORDS SUMMARY | 2022-04-11 01:32 | XMS_ITS | Encounter Summary ---
:1965 Author Organization [facility] [place] [address] Care Team Providers Name Role Phone Holli Reyna MD Primary Care Provider Reason for Visit Reason Onset Date Comments Medication Refill 07/09/2012 Encounter Details Date Type Department Care Team Description 07/09/2012 Refill Internal Medicine at Aristides Reyna MD Fibromyalgia (Primary [facility] [address] Dx) [facility] [place] [address] [place] [address] [phone] Social History Tobacco Use Types Packs/Day Years [...] unspecified documented in this encounter Care Teams Outdoor Pursuits Instructor Relationship Specialty Start Date End Date Holli Reyna MD PCP - General 03/05/11 03/01/15 documented as of this encounter
--- OUTSIDE RECORDS SUMMARY | 2022-04-11 01:32 | XMS_ITS | Encounter Summary ---
:1965 [place] [address] Care Team Providers Name Role Phone DanitaPaloma jiménez Primary Care Provider Encounter Details Date Type Department Care Team Description 01/31/2022 Ancillary [facility] [place] [address] [place] [address] [phone] (Wo rk) Social History Tobacco Use Types [...] Procedure Name Priority Date/Time Associated Comments Diagnosis FILM LIBRARY STORAGE Routine 01/31/2022 12:00 AM Results for this ONLY ULTRASOUND EDT procedure presley stevens in STUDY the results section. documented in this encounter Results Film Library- Storage Only Ultrasound Study (01/31/2022 12:00 AM EDT) Specimen (Source) Anatomical Location Collection Method / Collectio n Time Received Time / Laterality Volume Narrative RAD - 02/03/2022 9:29 PM EDT This exam is auto-finalizing. It's purpo se is for storage only. Miller Ibarra MD IMG FILM LIBRARY ORDERABLES Performing Organization Address City/State/ZIP Code Phon e Number RAD [place], [place] documented in this encounter Visit Diagnoses Not on filedocumented in this encounter Care Teams Lens Matcher Relationship Specialty Start Date End Date Paloma Hyman DO PCP - General Family Medicine 12/09/[address] [place] [address] documented as of this encounter
--- OUTSIDE RECORDS SUMMARY | 2022-04-11 01:32 | XMS_ITS | Encounter Summary ---
:1965 Author Organization [facility] [place] [address] Care Team Providers Name Role Phone Paloma Hyman Primary Care Provider Reason for Visit Reason Onset Date Comments Reminder Appointment 12/31/2021 Encounter Details Date Type Department Care Team Description 12/31/2021 Telephone Gastroenterology at [facility] Kyle Calderon Appointment [facility] [place] [address] Social History Tobacco Use Types Packs/Day [...] on filedocumented in this encounter Care Teams Web Marketing Assistant Relationship Specialty Start Date End Date Paloma Hyman DO PCP - General Family Medicine 12/09/[address] [place] [address] documented as of this encounter
--- OUTSIDE RECORDS SUMMARY | 2022-04-11 01:32 | XMS_ITS | Encounter Summary ---
:1965 Author Organization [facility] [place] [address] Care Team Providers Name Role Phone Holli Reyna MD Primary Care Provider Reason for Visit Reason Onset Date Comments Medication Refill 09/27/2012 Encounter Details Date Type Department Care Team Description 09/27/2012 Refill Internal Medicine at [facility] Kelly Luciano RN Fibromyalgia (Primary Dx) [place] [address] Social History Tobacco Use Types Packs/Day [...] unspecified documented in this encounter Care Teams Corduroy Cutter Operator Relationship Specialty Start Date End Date Holli Reyna MD PCP - General 03/05/11 03/01/15 documented as of this encounter
--- OUTSIDE RECORDS SUMMARY | 2022-04-11 01:32 | XMS_ITS | Clinical Summary ---
:1965 Author Organization [facility] [place] [address] Care Team Providers Name Role Phone Paloma [...] Encounters Date Type Specialty Care Team Description 02/13/2022 Telephone Gastroenterology Josette Howell 01/31/2022 Ancillary Procedure Radiology Miller Ibarra MD 01/30/2022 Telephone Gastroenterology Edna Lee from Last 3 Months Immunizations Name Administration [...] Tetanus vaccine 05/08/2021 05/08/2011 Influenza (Flu) vaccine (1 of 1 - Influenza standard 03/20/2022 05/08/2011 series) Tdap adult Completed 05/08/2011 Procedures Procedure Name Priority Date/Time Associated Comments Diagnosis FILM LIBRARY STORAGE Routine 01/31/2022 12:00 AM Results for this ONLY ULTRASOUND EDT procedure ar e in STUDY the results section. ULTRASOUND SCAN 01/31/2022 12:00 AM Resul ts for this (SCAN) EDT procedure are i n the results section. ULTRASOUND SCAN 01/31/2022 12:00 AM Resul ts for this (SCAN) EDT procedure are i n the results section. from Last 3 Months Results SCAN DOC: ULTRASOUND (01/31/2022 12:00 AM EDT)Only the most recent of2 results within the time period is included. Narrative This result has an attachment that is no t available. Unknown MEDIA MGR SCAN EXT ORDR/RSLT Film Library- Storage Only Ultrasound Study (01/31/2022 12:00 AM EDT) Specimen (Source) Anatomical Location Collection Method / Collectio n Time Received Time / Laterality Volume Narrative RAD - 02/03/2022 9:29 PM EDT This exam is auto-finalizing. It's purpo se is for storage only. Miller Ibarra MD IMG FILM LIBRARY ORDERABLES Performing Organization Address City/State/ZIP Code Phon e Number [place], [place] from Last 3 Months Insurance Payer Benefit Plan / Subscriber ID Effective Dates Phone Addre ss Type Group [employer] [place] [id number] 2020-Presen [phone] [place] [address] [place] [id number] 2021-Presen [phone] [address] [facility] [address] [facility] [address] Care Teams Sole Filler Relationship Specialty Start Date End Date Paloma Hyman DO PCP - General Family Medicine 12/09/[address] [place] [address]
--- OUTSIDE RECORDS SUMMARY | 2022-04-11 01:32 | XMS_ITS | Encounter Summary ---
:1965 Author Organization [facility] [place] [address] Care Team Providers Name Role Phone Holli Reyna MD Primary Care Provider Encounter Details Date Type Department Care Team Description 07/10/2012 Orders Only Internal Medicine at Aristides Reyna MD Fibromyalgia (Primary [facility] [address] Dx) [facility] [place] [address] [place], [place] [phone] (Wo rk) [phone] Social History Tobacco Use Types Packs/Day Years [...] unspecified documented in this encounter Care Teams Attendant [facility] Relationship Specialty Start Date End Date Holli Reyna MD PCP - General 03/05/11 03/01/15 documented as of this encounter
--- OUTSIDE RECORDS SUMMARY | 2022-04-11 01:33 | XMS_ITS | Encounter Summary ---
:1965 [place] [address] Care Team Providers Name Role Phone Holli Reyna MD Primary Care Provider Reason for Visit Reason Onset Date Comments Medication Refill 02/02/2012 Encounter Details Date Type Department Care Team Description 02/02/2012 Refill Internal Medicine at [facility] Holli Reyna MD [address] [address] PSYCHIATRY [phone] [place] [address] (Wo rk) Social History Tobacco Use Types [...] unspecified documented in this encounter Care Teams Nuclear Engineer Relationship Specialty Start Date End Date Holli Reyna MD PCP - General 03/05/11 03/01/15 documented as of this encounter
--- OUTSIDE RECORDS SUMMARY | 2022-04-11 01:33 | XMS_ITS | Encounter Summary ---
:1965 [place] [address] Care Team Providers Name Role Phone Holli Reyna MD Primary Care Provider Reason for Visit Reason Onset Date Comments Medication Refill 11/25/2011 Encounter Details Date Type Department Care Team Description 11/25/2011 Refill Internal Medicine at Aristides Reyna MD Insomnia (Primary Dx) [address] [place] [address] [place] [address] [phone] (Wo rk) Social History Tobacco Use Types [...] unspecified documented in this encounter Care Teams Pot Reliner Relationship Specialty Start Date End Date Holli Reyna MD PCP - General 03/05/11 03/01/15 documented as of this encounter
--- OUTSIDE RECORDS SUMMARY | 2022-04-11 01:33 | XMS_ITS | Encounter Summary ---
:1965 Author Organization [facility] Address [facility] [place] [address] Care Team Providers Name Role Phone Holli Reyna MD Primary Care Provider Reason for Visit Reason Comments Anxiety Follow up from ED. Encounter Details Date Type Department Care Team Description 03/05/2011 Office Visit Internal Medicine at Holli Reyna, Anx iety; [facility] Depression; [facility] [address] Insomnia; Drive PSYCHIATRY Hypothyroidism; [place] [address] Lupus; [id number] Interstitial cystitis; Preventative health care [...] - 03/05/2011 12:52 PM EDT Welcome to [employer], your secure online access to your electronic medical record at [facility]. Using Legal[employer]cil you will be able to send messages to your providers, view your test results, renew prescriptions, schedule appointments, and much more. Follow these instructions to enter your personal LegalF[employer]cil account for the first time: 1. Start your internet browser. Go to [email or web address] and click on the Legal[employer] link. 2. Click SIGN UP NOW to go to the NEW MEMBER SIGN UP page. 3. Enter your Legal[employer]cil Access Code exactly as it appears below. (You will not need this access code after you have completed the sign-up process.) ?? Your LegalF[employer]cil Access Code: [email or web address] ?? Expires: 04/19/11 12:52 PM ?? IMPORTANT: This Access Code will on the above mentioned date. If you do not sign up beforethis date, you will need to request a new Access Code number. 4. Enter your Date of (mm/dd/yyyy) and zip code click SUBMIT to go to the next page. 5. Create a LegalF[employer]cil identification (ID). This will be your LegalF[employer]cil login ID and cannot be changed, so [...] know when new information is available in LegalF[employer]cil. 9. Click SIGN UP to complete the process. You can now view your electronic medical record. If you have any questions about [employer] or your Access Code, please call for [place], for [place] or for [place]. If you need technical support, please e-mail [email or web address]. Remember, myD-H is NOT for urgent needs! Always dial 911 for medical emergencies. Instructions: 1) Take ambien 10 mg at bedtime. 2) Avoid alcohol. 3) Referral to Psychiatry in [facility] 4) Get a light box for light [...] having recently moved to the area from [place], [place]. She wants to focus on her mood concerns today and will follow up for an annual exam in the winter. She went to the ED in [place] yesterday with suicidal thoughts, after drinking 2 [...] him, but he decided to relocate to [place] this spring. He invited her to join him but she decided that was his dream, not hers, and she has since found a new job and relocated to the [facility]. She lives in a [facility] in [place] and says she gets home from work each day and immediately feels her mood drop. She has no pets (not allowed, one recently , bf took the others), her kids (ages 18 and 21) are out of the house, and it has been hard to make new friends despite joining a pentecostal, the homeowners association, etc. She has lost [...] and possibly IBS. She was seen at [facility] byEndocrine, Urology and I years ago but her last decade of records are primarily with Dr Miller Coppola, her urologist, and her former PCP Dr Jules Harden in [place], [place]. She will obtain records for lancedmitri. [...] or tyl prn Allergies Allergen Reactions ??? [place] Nausea And Vomiting Puffy, swelling. ??? Cis Free Text Allergy relaxants. CIS - Reverse Effects ??? Hyoscyamine Fear And Anxiety ??? 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 Etoh: episodic. Has had long periods of abstenence, other periods of higher drinking. No other drugs Lives in a condo in [place], [place] Typically exercises, eats well, laughs ofte, [...] Obtain old records from her urologist in [place]. Preventative health care - Plans to travel to [facility] this May and will follow up with [...] facility documented in this encounter Care Teams Special Agent Secret Service Relationship Specialty Start Date End Date Holli Reyna MD PCP - General 03/05/11 03/01/15 documented as of this encounter
--- OUTSIDE RECORDS SUMMARY | 2022-04-11 01:33 | XMS_ITS | Encounter Summary ---
:1965 Author Organization [facility] [place] [address] Care Team Providers Name Role Phone Holli Reyna MD Primary Care Provider Reason for Visit Reason Onset Date Comments Medication Refill 04/25/2011 Encounter Details Date Type Department Care Team Description 04/25/2011 Refill Internal Medicine at Aristides Reyna MD Anxiety (Primary Dx); [address] [place] [address] [place] [address] [phone] Social History Tobacco Use Types Packs/Day Years [...] ified documented in this encounter Care Teams Pipe Fittings Molder Relationship Specialty Start Date End Date Holli Reyna MD PCP - General 03/05/11 03/01/15 documented as of this encounter
--- OUTSIDE RECORDS SUMMARY | 2022-04-11 01:33 | XMS_ITS | Encounter Summary ---
:1965 [place] [address] Care Team Providers Name Role Phone Babak Loza MD Primary Care Provider Reason for Referral Surgical (Routine) - Closed Specialty Diagnoses / Referred By Contact Referred To Contact Procedures Orthopaedic Surgery / Diagnoses Hip pain Babak Loza MD [facility] [address] Orthopaedics [address] [place] [address] [address] Fax: Referral ID Status Reason Start Date Expiration Date Visits V isits Requested Authorized [id number] Closed Consult Only 06/04/2011 12/01/2011 1 1 onsultation (Routine) - Closed Specialty Diagnoses / Procedures Referred By Contact Refer red To Contact Rheumatology Diagnoses Arthralgia Babak Loza MD Burns, Christopher M, MD Procedures consult [address] [place] [address] DR PSYCHIATRY [place]AT[place] [address] Fax: Referral ID Status Reason Start Date Expiration Date Visits V isits Requested Authorized [id number] Closed Consult Only 06/04/2011 12/01/2011 1 1 Reason for Visit Reason Comments Lupus red eyes, Left hip pain, marbella nt pain Chest Pain upon taking a deep breath Encounter Details Date Type Department Care Team Description 06/04/2011 Office Visit Internal Medicine at [facility], Aristides Morton MD Arthralgia; [facility] [address] Exercise induced bronchospasm; [facility] PSYCHIATRY [place] [address] [place], [place] [phone] (Wo rk) [id number] [phone] Social History Tobacco Use Types Packs/Day Years [...] 325 mg tablet Allergies Allergen Reactions ??? Telephone Nausea And Vomiting Puffy, swelling. ??? Hyoscyamine [...] - High Sensitivity CRP; Future - SS-A/Ro Antibody-[place]; Future - SS-B/La Antibody-[place]; Future - REFERRAL TO RHEUMATOLOGY - Exercise [...] (ABNORMAL) DIFFERENTIAL, AUTOMATED (06/04/2011 5:24 PM EST) [facility] Method Time Signature Neutrophils % 65.6 34.0 [...] Organization Address City/State/ZIP Code Phon e Number [place] [id number] CERNER MILLENNIUM SS-B/La Antibody-[place] (06/04/2011 5:24 PM EST) athologist Signature SS-B/La Ab <0.2 <1.0 CERNER (Negative) MILLENNIUM U Comment: Test Performed by: [employer] [address] [address] Glass Unloading Equipment Tender: Janay Mercedes, Ph. D. Specimen Anatomical Collection Method Collection Time Receive d Time (Source) Location / / Volume Laterality Blood specimen 06/04/2011 5:24 PM 011 8:37 (specimen) EST AM EST Babak Loza MD IMMUNOLOGY ORDERABLES Performing Organization Address City/[facility]/ZIP Code Phon e Number [address] [facility] SS-A/Ro Antibody-[place] (06/04/2011 5:24 PM EST) athologist Signature SS-A/Ro Ab <0.2 <1.0 [facility] (Negative) [facility] U Comment: Test Performed by: [place] [address] Glass Unloading Equipment Tender: Janay Mercedes, Ph. D. Specimen Anatomical Collection Method Collection Time Receive d Time (Source) Location / / Volume Laterality Blood specimen 06/04/2011 5:24 PM 011 8:37 (specimen) EST AM EST Babak Loza MD IMMUNOLOGY ORDERABLES Performing Organization Address City/[facility] Phon e Number [address] [facility] High Sensitivity CRP (06/04/2011 5:24 PM EST) athologist Signature CRP High Sens 0.6 mg/L [facility] Comment: Interpretations: 1) For cardiac risk assessment, [...] Loza MD CHEMISTRY ORDERABLES Performing Organization Address City/[facility]/[place] [address] CERNER MILLENNIUM (ABNORMAL) TSH (06/04/2011 5:24 PM EST) P athologist Signature TSH 0.26 (L) 0.27 - 4.20 CERNER mcIU/mL MILLENNIUM Specimen Anatomical Collection Method Collection Time Receive d Time (Source) Location / / Volume Laterality Blood specimen 06/04/2011 5:24 PM 011 5:31 (specimen) EST PM EST Babak Loza MD CHEMISTRY ORDERABLES Performing Organization Address City/[facility]/[place] [address] CERNER MILLENNIUM Rheumatoid factor, quant (06/04/2011 5:24 PM EST) P athologist Signature RF 10 <=14 IU/mL CERNER MILLENNIUM Specimen Anatomical Collection Method Collection Time Receive d Time (Source) Location / / Volume Laterality Blood specimen 06/04/2011 5:24 PM 011 6:04 (specimen) EST PM EST Babak Loza MD IMMUNOLOGY ORDERABLES Performing Organization Address City/[facility]/ZIP Code Phon e Number [place] [phone] CERNER MILLENNIUM Cyclic Citrullinated Peptide (06/04/2011 5:24 PM EST) athologist Signature Anti-Cyc Cit <2.0 <=5.0 u/ml CERNER Peptide MILLENNIUM Specimen Anatomical Collection Method Collection Time Receive d Time (Source) Location / / Volume Laterality Blood specimen 06/04/2011 5:24 PM 011 8:07 (specimen) EST AM EST Babak Loza MD CHEMISTRY ORDERABLES Performing Organization Address City/[facility]/ZIP [facility] Phon e Number [address] CERNER MILLENNIUM [place] (06/04/2011 5:24 PM EST) athologist Signature [place] Neg Neg [facility] Specimen Anatomical Collection Method Collection Time Receive d Time (Source) Location / / Volume Laterality Blood specimen 06/04/2011 5:24 PM 011 8:13 (specimen) EST AM EST Babak Loza MD IMMUNOLOGY ORDERABLES Performing Organization Address City/[facility] Phon e Number [address] CERNER MILLENNIUM (ABNORMAL) CBC (with Diff) (06/04/2011 5:24 PM EST) athologist [facility] WBC 10.2 (H) 4.0 - 10.0 CERNER [...] Organization Address City/State/[place] [address] CERNER MILLENNIUM (ABNORMAL) Comprehensive [...] Total Bilirubin 0.2 0.2 - 1.3 mg/dL [facility] M ILLENNIUM Bili, Direct <0.1 0.0 - [...] Organization Address City/State/[place] [address] CERSHAHID RIVERSENNIUM (ABNORMAL) HDL/Cholesterol Profile (06/04/2011 5:24 PM EST) P athologist Signature Chol, Total 250 (H) <=199 CERNER mg/dL [facility] Comment: Recommendations of the NCEP Adult Treatm ent Panel for the following risk cutoff thresholds for the [place] popul[place] n: Desirable: <200 mg/dL Borderline High: 200-239 mg/dL High: > or = 240 mg/dL HDL 61 >=40 mg/dL [facility] Comment: Reference range: ??Low HDL: ?? < 40 mg/dL ??Normal: ?40-60 mg/dL ??Desirable: > 60 mg/dL JW 2001; 285(19):1796-3245 Chol/HDL Ratio 4.1 ratio VIRINER SELENEI UM Comment: A Cholesterol to HDL ratio below 4:1 is desirable. ??Studies suggest that increased CAD risk occurs at ratios abov e 5 for females and above 6 for men. ? [place] Heart Association ??(htt p://www.americanheart.org) ? Susan Int Med, 1994; 121:641 ? AM J Med, 1998; 105(1A):48S Specimen Anatomical Collection Method Collection Time Receive d Time (Source) Location / / Volume Laterality Blood specimen 06/04/2011 5:24 PM 011 5:31 (specimen) EST PM EST Babak Loza MD CHEMISTRY ORDERABLES Performing Organization Address City/State/[place] [address] [facility] pelvis AP and 2 views both [...] thigh documented in this encounter Care Teams Nuclear Worker Technician Relationship Specialty Start Date End Date Babak Loza MD PCP - General 03/05/11 03/01/15 documented as of this encounter
--- OUTSIDE RECORDS SUMMARY | 2022-04-11 01:33 | XMS_ITS | Encounter Summary ---
:1965 Author Organization [facility] Address [facility] [place] [address] Care Team Providers Name Role Phone Holli Reyna MD Primary Care Provider Encounter Details Date Type Department Care Team Description 06/18/2012 Orders Only Internal Medicine at Aristides Reyna MD Hot flashes (Primary [facility] [address] Dx) [facility] [place] [address] [place], [place] [phone] (Wo rk) [phone] Social History Tobacco Use Types Packs/Day Years [...] and diarrhea documented as of this encounter Results Luteinizing Hormone (06/18/2012 10:55 AM EST) P athologist Signature LH 36.9 mlU/ML CERNER MILLENNIUM Comment: Reference ranges: ?? Females ?? Follicular: ? 2.4-12.6 mIU /mL ?? Ovulation: ?14.0-95.6 m IU/mL ?? Luteal: ? 1.0-11.4 m IU/mL ?? Postmenopausal: ? 7.7-58.5 mIU/m L Specimen Anatomical Collection Method Collection Time Receive d Time (Source) Location / / Volume Laterality Blood specimen 06/18/2012 10:55 2 (specimen) AM EST 11:04 AM EST Resulting Agency Comment Spec In Lab Holli Reyna MD CHEMISTRY ORDERABLES Performing Organization Address City/[facility] Phon e Number [address] CERNER MILLENNIUM Follicle Stimulating Hormone (06/18/2012 10:55 AM EST) P athologist Signature FSH 53.6 mlU/ML CERNER MILLENNIUM Comment: Reference Ranges: Females: Follicular: ? 3.5-12.5 mIU/mL Ovulation: ?4.7-21.5 mIU/mL Luteal: ? 1.7-7.7 mIU/mL Postmenopausal: 25.8-134.8 mIU/mL Specimen Anatomical Collection Method Collection Time Receive d Time (Source) Location / / Volume Laterality Blood specimen 06/18/2012 10:55 2 (specimen) AM EST 11:04 AM EST Resulting Agency Comment Spec In Lab Holli Reyna MD CHEMISTRY ORDERABLES Performing Organization Address City/[facility] Phon e Number [address] CERNER MILLENNIUM documented in this encounter Visit Diagnoses Diagnosis Hot flashes - Primary Symptomatic menopausal or female climact alissa states documented in this encounter Care Teams Group Billing Coordinator Relationship Specialty Start Date End Date Holli Reyna MD PCP - General 03/05/11 03/01/15 documented as of this encounter
--- OUTSIDE RECORDS SUMMARY | 2022-04-11 01:33 | XMS_ITS | Encounter Summary ---
:1965 Author Organization [facility] [place] [address] Care Team Providers Name Role Phone Holli Reyna MD Primary Care Provider Reason for Visit Reason Comments Fatigue Confusion, body aches,pain i s worse in the morning, Encounter Details Date Type Department Care Team Description 11/07/2011 Follow-Up Internal Medicine at Taina Okeefe MD Work-related stress [facility] (Primary Dx) [facility] [place] [address] MEDICINE [phone] [place] [id number] (Wo rk) Social History Tobacco Use Types [...] friend. 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 Has good friend [place]. Toxic work environment. Body reacting. Started cancelling PT appointments for hip and dental appointments, agency going through transition. Expectation to increase the amount of inspections and paper work reporting within a week. Total meltdown yesterday. Started work in December of last year, recruited to company, worked at [employer], current supervisorwanted him to work with [employer]. 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 Disparaged by name calling by them, things calmed down for few months, feels the open pit quarry supervisor would bully wax and wan, isolation [...] environment documented in this encounter Care Teams Telephone Directory Distributor Driver Relationship Specialty Start Date End Date Holli Reyna MD PCP - General 03/05/11 03/01/15 documented as of this encounter
--- OUTSIDE RECORDS SUMMARY | 2022-04-11 01:33 | XMS_ITS | Encounter Summary ---
:1965 Author Organization [facility] Address [address] [place] [address] Care Team Providers Name Role Phone Babak Loza MD Primary Care Provider Reason for Visit Reason Comments Annual Exam Encounter Details Date Type Department Care Team Description 06/18/2012 Office Visit Internal Medicine at Babak Loza, [facility] (Primary Dx); [facility] Fibromyalgia; [facility] [address] Depression; [facility] PSYCHIATRY Insomnia; [place] [address] Hypothyroidism; [id number] Hyperlipidemia; Hot flashes Social History Tobacco Use Types Packs/Day Years [...] 18 06/18/2012 2:21 PM EST Oxygen Saturation - - Inhaled Oxygen Concentration - - Weight 65.3 kg (144 lb) 06/18/2012 2:21 PM EST Height 166.4 cm (5' 5.5) 06/18/2012 2:21 PM EST Body Mass Index 23.6 06/18/2012 2:21 PM EST documented in this encounter Progress Notes Babak Loza MD - 06/18/2012 2:53 PM EST Subjective: Patient ID: Isela Braun is a 46 y.o. female. 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 Emotionally depleted. Fatigued and phenomenal headaches. Trigger point pains are 7-8/10, sharp, achy. Has had burning electrical sensation down both legs. Has not taken Cymbalta. Oxycodone has helped pelvic ice pain in the past. Depression: Has had suicidal ideation but no plan. She tends to have the thought, then analyzes it and discards it. She said her fibro has been flairing and her brain has been too foggy to attend class. Had hearing test, tried hearing aids without relief. Tinnitus has worsened. Taking daily tylenol formula migraine medication with relief (OTC) S/p hyst. Has hot flashes and wonders if post menopausal yet. Labs today - Reviewed. Lipids within reason, normal TSH and CMP, FSH and LH indicate post menopausal. (s/p hyst) HM: S/p vag hysterectomy- cervical ca Tdap: 05/08/11 Pneumovax: 05/31/09 Mammograms: due Lipids: 05/31 Tsh : on synthroid HA1C: nl Review of Systems Review of Systems -Female 50 to 75 06/15/2012 Constitutional Weight gain... Ear / nose / throat / mouth Hearing difficulty... Eyes None of the above Respiratory None of the above Cardiovascular None of the above Gastrointestinal Nausea, vomiting... Skin, hair Dry skin... Musculoskeletal Joint stiffness... Neurological Balance difficulty, dizziness... Hematologic / Lymphatic Don't know Psychiatric Memory loss, forgetfulness, confusion... Other Health Symptoms a couple of IC flare ups but not too back Outpatient prescriptions marked as taking for the 06/18/12 encounter (Office Visit) with BABAK LOZA Medication Sig Dispense Refill ??? levothyroxine (SYNTHROID) 100 mcg tablet Take 1 tablet by mouth daily. 90 tablet 3 ??? zolpidem (AMBIEN) 10 mg tablet Take 1 tablet by mouth nightly as needed for Sleep. 90 tablet 5 ??? albuterol (PROVENTIL HFA;VENTOLIN HFA) 90 mcg/Actuation inhaler Inhale 2 puffs into the lungs every 4 hours as needed. Use with spacer 1 Inhaler 12 ??? DOXYLAMINE SUCCINATE (UNISOM ORAL) Take by mouth nightly as needed. sleep ??? ibuprofen (MOTRIN) 400 mg tablet ??? acetaminophen (TYLENOL) 325 mg tablet Allergies Allergen Reactions ??? [place] Nausea And Vomiting Puffy, swelling. ??? Hornet Sting (Hymenoptera Allergenic Extract) Breathing trouble ??? Hyoscyamine Fear And Anxiety ??? Sulfa (Sulfonamide Antibiotics) Hives ??? Unknown (Unclassified Drug) Other (See Comments) Relaxants-reverse affects Family, Soc Hx reviewed. Objective: Physical Exam BP 116/64 Pulse 70 Temp(Src) 36.3 ??C (97.3 ??F) (Oral) Resp 18 Ht 166.4 cm (5' 5.5) Wt 65.318 kg (144 lb) BMI 23.60 kg/m2 Gen: Well appearing, well developed, no distress Eyes: anicteric, normal conjunctiva and sclera Neck: Supple, no lymphadenopathy or masses, trigger point pains with pressure in back of neck, ant chest, upper back, lat epicondyles, hips, and medial knees. CV: RRR, no murmurs or extra sounds Lungs: CTA, no wheezes or rales Ext: no ankle edema Neuro: Normal facial expressions and normal gait MS: engaging, positive mood and normal affect, appropriate Recent Results (from the past 72 hour(s)) LIPID PANEL (FASTING) Component Value Range ? ? Chol, Total 227 (*) <=199 (mg/dL) ? ? Triglycerides 81 <=149 (mg/dL) ? ? HDL 69 >=40 (mg/dL) ? ? LDL Cholesterol 142 (*) <=99 (mg/dL) ??? Chol/HDL Ratio 3.3 (ratio) TSH Component Value Range ??? TSH 1.48 0.27 - 4.20 (mcIU/mL) CMP W/FASTING GLUCOSE Component Value Range ??? Glucose Fasting 93 65 - 99 (mg/dL) ??? BUN 18 8 - 18 (mg/dL) ??? Creatinine 0.89 0.70 - 1.20 (mg/dL) ??? Sodium 139 135 - 145 (mmol/L) ??? Potassium 3.8 3.5 - 5.0 (mmol/L) ??? Chloride 103 98 - 107 (mmol/L) ??? CO2 25 22 - 31 (mmol/L) ??? Anion Gap 11 5 - 15 (mmol/L) ??? Calcium 9.6 8.5 - 10.5 (mg/dL) ??? Total Protein 7.9 6.4 - 8.3 (gm/dL) ??? Albumin 4.6 3.2 - 5.2 (gm/dL) ??? AST 28 0 - 30 (unit/L) ??? ALT 20 0 - 30 (unit/L) ??? Alk Phos 78 40 - 104 (unit/L) ??? Total Bilirubin 0.4 0.2 - 1.3 (mg/dL) ??? Bili, Direct 0.1 0.0 - 0.3 (mg/dL) ? ? Estimated GFR >60 >=60 FOLLICLE STIMULATING HORMONE Component Value Range ??? FSH 53.6 (mlU/ML) LUTEINIZING HORMONE Component Value Range ??? LH 36.9 (mlU/ML) Assessment and Plan: Isela was seen today for annual exam. Diagnoses and associated orders for this visit: Hyperlipidemia - Lipid panel (fasting) - fairly acceptable based on low cardiac risks (as a non smoker, no HTN, no DM, no hx of CAD, age under 55, no fam Hx. ) LDL of 130 preferable. Mentioned this. - CMP w/fasting Glucose - normal labs. (Renal function improved). Hypothyroidism - TSH - normal on synthroid 100 - levothyroxine (SYNTHROID) 100 mcg tablet; Take 1 tablet by mouth daily.-continue Hot flashes - Follicle Stimulating Hormone and leuteinizing Hormone indicate post menopausal state. Discussed estrogen and declined. Tolerates hot flashes. Her brain clears up in between fibromyalgia flairs so doubts it is due to menopause. Fibromyalgia - Start pregabalin (LYRICA) 75 mg capsule; Take 1 capsule by mouth 2 times daily. Reviewed potentialse's - Prescribed OXYcodone (ROXICODONE) 5 mg immediate release tablet; Take 1 tablet by mouth every 4 hours as needed for Pain. #30, no RF She will use these only when fibro pain is severe, during flairs. Aware to not use them for headaches or other pains. Discussed Cymblalta. Will wait to see if it is needed. Depression: Discussed possibly starting Cymbalta, or an SSRI. Will hold for now and aim Rx toward pain, since pain seems to be the trigger for drop in mood. She has had SI but no plan or intent to ct. She is aware to seek help prn. Insomnia - zolpidem (AMBIEN) 10 mg tablet; Take 1 tablet by mouth nightly as needed for Sleep. - continue Continue Unisom. Prev Care: Recommended mammogram Immunizations up to date S/p hyst- might need vag pap at some point- states her Urologist has done this in past. Follow up as needed. She lives in [place] now and will wait to schedule. documented in this encounter Plan of Treatment Scheduled Procedures Name Priority Associated Diagnoses Date/Time EGD, UPPER GI ENDOSCOPY Dysphagia, unspe cified type Gastroesophageal reflux disease, unspecified whether esophagitis present Functional dyspepsia Irritable bowel syndrome with casey th constipation and diarrhea documented as of this encounter Procedures Procedure Name Priority Date/Time Associated Diagnosis Comme nts CMP W/FASTING Routine 06/18/2012 10:55 Hyperlipidemia Results for this GLUCOSE AM EST procedure are i n the results section. TSH Routine 06/18/2012 10:55 Hypothyroidism Results f or this AM EST procedure are i n the results section. LUTEINIZING HORMONE Routine 06/18/2012 10:55 Hot flashes Resu lts for this AM EST procedure are i n the results section. FOLLICLE STIMULATING Routine 06/18/2012 10:55 Hot flashes Res ults for this HORMONE AM EST procedure are i n the results section. LIPID PANEL (REFLEX Routine 06/18/2012 10:55 Hyperlipidemia Re sults for this DIRECT LDL) AM EST procedure are i n the results section. documented in this encounter Results Luteinizing Hormone (06/18/2012 10:55 AM EST) P athologist Signature LH 36.9 mlU/ML [facility] Comment: Reference ranges: ?? Females ?? Follicular: ? 2.4-12.6 mIU /mL ?? Ovulation: ?14.0-95.6 m IU/mL ?? Luteal: ? 1.0-11.4 m IU/mL ?? Postmenopausal: ? 7.7-58.5 mIU/m L Specimen Anatomical Collection Method Collection Time Receive d Time (Source) Location / / Volume Laterality Blood specimen 06/18/2012 10:55 2 (specimen) AM EST 11:04 AM EST Resulting Agency Comment Spec In Lab Babak Loza MD CHEMISTRY ORDERABLES Performing Organization Address City/[facility]/ZIP Code Phon e Number [address] [facility] Follicle Stimulating Hormone (06/18/2012 10:55 AM EST) athologist Signature FSH 53.6 mlU/ML CERNER [facility] Comment: Reference Ranges: Females: Follicular: ? 3.5-12.5 mIU/mL Ovulation: ?4.7-21.5 mIU/mL Luteal: ? 1.7-7.7 mIU/mL Postmenopausal: 25.8-134.8 mIU/mL Specimen Anatomical Collection Method Collection Time Receive d Time (Source) Location / / Volume Laterality Blood specimen 06/18/2012 10:55 2 (specimen) AM EST 11:04 AM EST Resulting Agency Comment Spec In Lab Babak Loza MD CHEMISTRY ORDERABLES Performing Organization Address City/[facility]/ZIP Code Phon e Number [address] [facility] CMP w/fasting Glucose (06/18/2012 10:55 AM EST) athologist Signature Glucose 93 65 - 99 CERNER Fasting mg/dL [facility] Comment: ?Fasting* Glucose Interpretive C riteria Normal ?65-99 mg/dL Impaired Fasting glucose ?100-125 mg/dL Consistent with Diabetes Mellitus ? >or= 126 mg/dL *Fasting is defined as no caloric intake for at least 8 hours In the absence of unequivocal hypergly cemia a plasma glucose value of >or= 126 mg/dL should be repeated on a subseq uent day. Diagnosis and Classification of Diabetes Mellitus, Position Statement from the [place] Diabetes Association. ??Diabete s Care, Volume 33, Supplement 1, Jul 2009 BUN 18 8 - 18 mg/dL CERNER MILLENNIUM Creatinine 0.89 0.70 - 1.20 mg/dL CERNER MILL ENNIUM Comment: Please note that the pediatric reference intervals supplied above were not validated at [facility]. Results from pediatri c patients should be interpreted in conjunction to the patient's age, height and muscle mass. Sodium 139 135 - 145 mmol/L CERNER LUCERO NIUM Potassium 3.8 3.5 - 5.0 mmol/L CERNER LUCERO NIUM Comment: Please note: ??Patients with WBC >100,00 0 may have falsely elevated Potassium levels. ??For accurate Potassium quantif ication in these patients send serum separator tube (gold top) for subsequent determinations. ??Contact the Clinical Chemistry Laboratory if there are any qu estions. Chloride 103 98 - 107 mmol/L CERNER MILLENN IUM CO2 25 22 - 31 mmol/L CERNER MILLENNI UM Anion Gap 11 5 - 15 mmol/L CERNER MILLENNIU M Calcium 9.6 8.5 - 10.5 mg/dL CERNER LUCERO NIUM Total Protein 7.9 6.4 - 8.3 gm/dL CERNER MIL LENNIUM Albumin 4.6 3.2 - 5.2 gm/dL CERNER MILLENN IUM AST 28 0 - 30 unit/L CERNER MILLENNIU M ALT 20 0 - 30 unit/L CERNER MILLENNIU M Alk Phos 78 40 - 104 unit/L CERNER MILLENN IUM Total Bilirubin 0.4 0.2 - 1.3 mg/dL CERNER M ILLENNIUM Bili, Direct 0.1 0.0 - 0.3 mg/dL PAWEL RIVERS ENNIUM Estimated GFR >60 >=60 PAWEL Persaud Comment: The National Kidney Disease Education Pr ogram (NKDEP) has recommended all laboratories report estimated GFR (eGFR) along with plasma creatinine measurements to assist you with recognit ion of early kidney disease. Caveats: ??Plasma creatinine should be a t steady-state (unchanged within the past week). For patient s multiply eGFR by 1.2. The MDRD equation was developed using patients be tween the ages of 18 and 70 years. ?? The MDRD equation has not been validated for patients < 18 years of age and should not be used to assess renal function in the pediatric population. ??The MDRD eGFR equation will also overestimate the true GFR of patients above the age of 70. ??This overestimation is variable bu t increases with age. At present, NKDEP does NOT recommend usi [...] kidney disease. References: http://nkdep.nih.gov/resources/NKDEP_Sug gestn4Labs_0606_508.pdf http://www.kidney.org/professionals/kls/ pdf/faq_gfr.pdf Mohsen K, Lauren NA, Hailey AK, Dennys TS, Srinivasa AD, Dillon PARKER. Relative performance of the MDRD and CKD-EPI equa tions for estimating glomerular filtration rate among patients with vari ed clinical presentations. Clin J Am Soc Nephrol;6:1963-72. Specimen Anatomical Collection Method Collection Time Receive d Time (Source) Location / / Volume Laterality Blood specimen 06/18/2012 10:55 2 (specimen) AM EST 11:04 AM EST Resulting Agency Comment Spec In Lab Babak Loza MD CHEMISTRY ORDERABLES Performing Organization Address City/State/ZIP Code Phon e Dhruv [address] CERNER MILLENNIUM TSH (06/18/2012 10:55 AM EST) athologist Signature TSH 1.48 0.27 - 4.20 CERNER mcIU/mL MILLENNIUM Specimen Anatomical Collection Method Collection Time Receive d Time (Source) Location / / Volume Laterality Blood specimen 06/18/2012 10:55 2 (specimen) AM EST 11:04 AM EST Resulting Agency Comment Spec In Lab Babak Loza MD CHEMISTRY ORDERABLES Performing Organization Address City/[facility]/ZIP Code Phon e Number [address] CERNER MILLENNIUM (ABNORMAL) Lipid panel (fasting) (06/18/2012 10:55 AM EST) athologist Signature Chol, Total 227 (H) <=199 CERNER mg/dL MILLENNIUM Comment: Recommendations of the NCEP Adult Treatm ent Panel for the following risk cutoff thresholds for the [place] populatio n: Desirable: <200 mg/dL Borderline High: 200-239 mg/dL High: > or = 240 mg/dL Triglycerides 81 <=149 mg/dL CERNER MILLENN IUM Comment: Reference Range: Normal triglycerides: ??<150 mg/dL Borderline high: ??150-199 mg/dL High: ??200-499 mg/dL Very high: ??>ra=219 mg/dL JW 2001; 285(19):7413-4936 HDL 69 >=40 mg/dL CERNER MILLENNIUM Comment: Reference range: ??Low HDL: ?? < 40 mg/dL ??Normal: ?40-60 mg/dL ??Desirable: > 60 mg/dL JW 2001; 285(19):4071-7284 LDL Cholesterol 142 (H) <=99 mg/dL CERNER LUCERO NIUM Comment: Reference range: ?? Optimal: ?<100 mg/dL ?? Near Optimal/Above Optimal: ?? 100-1 29 mg/dL ?? Borderline high: ?130-159 mg/dL ?? High: ? 160-189 mg/dL ?? Very high: ?>jy=404 mg/dL JW 2001: 285(19):8065-9128 Chol/HDL Ratio 3.3 ratio CERNER MILLENNI UM Comment: A Cholesterol to HDL ratio below 4:1 is desirable. ??Studies suggest that increased CAD risk occurs at ratios abov e 5 for females and above 6 for men. ? [place] Heart Association ??(htt p://www.americanheart.org) ? Susan Int Med, 1994; 121:641 ? AM J Med, 1998; 105(1A):48S Specimen Anatomical Collection Method Collection Time Receive d Time (Source) Location / / Volume Laterality Blood specimen 06/18/2012 10:55 2 (specimen) AM EST 11:04 AM EST Resulting Agency Comment Spec In Lab Babak Loza MD CHEMISTRY ORDERABLES Performing Organization Address City/State/ZIP Code Phon e Number [place] [id number] PAWEL ENCISO documented in this encounter Visit Diagnoses Diagnosis Preventative health care - Primary Routine general medical examination at a health care facility Fibromyalgia Mylagia and myositis, unspecified Depression Depressive disorder, not elsewhere class ified Insomnia Insomnia, unspecified Hypothyroidism Unspecified hypothyroidism Hyperlipidemia Other and unspecified hyperlipidemia Hot flashes Symptomatic menopausal or female climact alissa states documented in this encounter Care Teams Occupational Rehabilitation Aide Relationship Specialty Start Date End Date Babak Loza MD PCP - General 03/05/11 03/01/15 documented as of this encounter
--- OUTSIDE RECORDS SUMMARY | 2022-04-11 01:33 | XMS_ITS | Encounter Summary ---
:1965 Author Organization [facility] [place] [address] Care Team Providers Name Role Phone Holli Reyna MD Primary Care Provider Encounter Details Date Type Department Care Team Description 05/10/2012 Orders Only Internal Medicine at Aristides Reyna MD Preventative health care; [address] Hypothyroidism; [facility] PSYCHIATRY Hyperlipidemia; [place] [address] Renal insufficiency, mild [place], [place] [phone] (Wo rk) [phone] Social History Tobacco Use Types Packs/Day Years [...] diarrhea documented as of this encounter Results CMP w/fasting Glucose (06/18/2012 10:55 AM EST) P athologist Signature Glucose 93 65 - 99 CERNER Fasting mg/dL MILLENNIUM Comment: ?Fasting* Glucose Interpretive C riteria Normal [...] of Diabetes Mellitus, Position Statement from the [place] Diabetes Association. ??Diabete s Care, Volume 33, Supplement 1, Jul 2009 BUN 18 8 - 18 mg/dL CERNER MILLENNIUM Creatinine 0.89 0.70 - 1.20 mg/dL CERNER MILL ENNIUM Comment: Please note that the pediatric reference intervals supplied above were not validated at [facility]. Results from pediatri c patients should be [...] Bili, Direct 0.1 0.0 - 0.3 mg/dL CERNER MILL ENNIUM Estimated GFR >60 >=60 PAWEL SILVESTREYANELISYANA Persaud Comment: The National Kidney Disease Education [...] Reyna MD CHEMISTRY ORDERABLES Performing Organization Address City/State/ZIP Code Phon e Number [address] CERNER MILLENNIUM TSH (06/18/2012 10:55 AM EST) athologist Signature TSH 1.48 0.27 - 4.20 CERNER mcIU/mL [facility] Specimen Anatomical Collection Method Collection Time Receive d Time (Source) Location / / Volume Laterality Blood specimen 06/18/2012 10:55 2 (specimen) AM EST 11:04 AM EST Resulting Agency Comment Spec In Lab Holli Reyna MD CHEMISTRY ORDERABLES Performing Organization Address City/[facility]/ZIP Code Phon e Number [address] CERNER MILLENNIUM (ABNORMAL) Lipid panel (fasting) (06/18/2012 10:55 AM EST) athologist Signature Chol, Total 227 (H) <=199 CERNER mg/dL [facility] Comment: Recommendations of the NCEP Adult Treatm ent Panel for the following risk cutoff thresholds for the [place] popul[place] n: Desirable: <200 mg/dL Borderline High: 200-239 mg/dL High: > or = 240 mg/dL Triglycerides 81 <=149 mg/dL [facility] Comment: Reference Range: Normal triglycerides: ??<150 mg/dL Borderline high: ??150-199 mg/dL High: ??200-499 mg/dL Very high: ??>eh=154 mg/dL JW 2001; 285(19):3319-4212 HDL 69 >=40 mg/dL CERNER MILLENNIUM Comment: Reference range: ??Low HDL: ?? < 40 mg/dL ??Normal: ?40-60 mg/dL ??Desirable: > 60 mg/dL JW 2001; 285(19):0510-8261 LDL Cholesterol 142 (H) <=99 mg/dL [facility] LUCERO NIUM Comment: Reference range: ?? Optimal: ?<100 mg/dL ?? Near Optimal/Above Optimal: ?? 100-1 29 mg/dL ?? Borderline high: ?130-159 mg/dL ?? High: ? 160-189 mg/dL ?? Very high: ?>pq=856 mg/dL JW 2001: 285(19):7230-5674 Chol/HDL Ratio 3.3 ratio CERNER MILLENNI UM Comment: A Cholesterol to HDL ratio below 4:1 is desirable. ??Studies suggest that increased CAD risk occurs at ratios abov e 5 for females and above 6 for men. ? [place] Heart Association ??(htt p://www.americanheart.org) ? Susan Int Med, 1994; 121:641 ? AM J Med, 1998; 105(1A):48S Specimen Anatomical Collection Method Collection Time Receive d Time (Source) Location / / Volume Laterality Blood specimen 06/18/2012 10:55 2 (specimen) AM EST 11:04 AM EST Resulting Agency Comment Spec In Lab Holli Reyna MD CHEMISTRY ORDERABLES Performing Organization Address City/State/[place] [address] [facility] SILVESTREKAIS[facility] documented in this encounter Visit Diagnoses Diagnosis Preventative health care Routine general medical examination at a health care facility Hypothyroidism Unspecified hypothyroidism Hyperlipidemia Other and unspecified hyperlipidemia Renal insufficiency, mild Unspecified disorder of kidney and urete r documented in this encounter Care Teams Health Insurance Assessor Relationship Specialty Start Date End Date Holli Reyna MD PCP - General 03/05/11 03/01/15 documented as of this encounter
--- OUTSIDE RECORDS SUMMARY | 2022-04-11 01:33 | XMS_ITS | Encounter Summary ---
:1965 Author Organization [facility] [place] [address] Care Team Providers Name Role Phone Holli Loza MD Primary Care Provider Reason for Visit Reason Comments Follow-up Encounter Details Date Type Department Care Team Description 03/17/2011 Follow-Up [place] Medicine [place] [facility] [place] Loza MD Depression; [address] [address] PSYCHIATRY Lupus [phone] [place] [phone] (Wo rk) Social History Tobacco Use Types [...] Sign Reading Time Taken Comments Blood Pressure 128/74 03/17/2011 9:56 AM EDT Pulse 63 03/17/2011 9:56 AM EDT Temperature - - Respiratory Rate - - Oxygen Saturation - - Inhaled Oxygen Concentration - - Weight 64.4 kg (142 lb) 03/17/2011 9:56 AM EDT Height 165.1 cm (5' 5) 03/17/2011 9:56 AM EDT reported Body Mass Index 23.63 03/17/2011 9:56 AM EDT documented in this encounter Patient Instructions Patient InstructionsHolli Loza MD - 03/17/2011 10:36 AM EDT Continue sertraline at 25 mg daily. Increase to 50 mg if and when a higher dose feels necessary. Ambien at bedtime if needed Avoid alcohol Lorazepam 0.5-1 mg if needed for acute anxiety documented in this encounter Progress Notes Holli Loza MD - 03/17/2011 12:54 PM EDT Subjective: Patient ID: Isela Braun is a 45 y.o. female. LION Fernandez is here to follow up on treatment for anxiety and depression. She has Lupus and experienced a flare recently while in the midst of a relationship change and relocation to this area. She saw me forher initial visit on 03/05/11, a day after going to [place] [facility] for help with nausea and vomiting due to alcohol intoxication. She typically has healthy methods for self care and is back to managing her health in a healthy manner. She contacted me a week ago to request starting zoloft. We had discussed this at the first visit but she was not ready at that point. Since starting it at 25 mg daily she has felt optimistic about things. She also takes 0.5 mg of lorazepam on occasion, primarily for anxiety and fear. She takes ambien 10 mg qhs and Unysom and finds it works beautifully. She is smoking anddrinking less and is involved with meditation and exercise. She is aware to not combine lorazepam with ambien as this was too sedating when she did so recently. She denies any side effects but is concerned about potential weight gain. She has regained interest in grocery shopping and picking out nice produce and meats. She is considering moving to a smaller apartment to save money, and hopes the movewill help her mood. She dislikes her condo now due to it's dark interior, but even more so because it is stretching her financially. She mentions her 21 yr old daughter is dealing with depression afterrape. This is a huge stress for Jim as she tries to help but is not always welcome. Review of Systems Denies headaches, foggy thinking, nausea, vomiting, diarrhea, constipation Admits to hip pains recently, improving with time Patient Active Problem List Diagnoses ??? Lupus Non specific, ELBA negative, has flairs that involve pain, weakness and foggy thinking ??? Depression ??? Anxiety ??? Insomnia ??? Hypothyroidism ??? Interstitial cystitis ??? Preventative health care Allergies Allergen Reactions ??? [place] Nausea And Vomiting Puffy, swelling. ??? Cis Free Text Allergy relaxants. CIS - Reverse Effects ??? Hyoscyamine Fear And Anxiety ??? Sulfa (Sulfonamide Antibiotics) Hives Outpatient prescriptions marked as taking for the 03/17/11 encounter (Follow-Up) with HOLLI LOZA Medication Sig Dispense Refill ??? sertraline (ZOLOFT) 50 mg tablet Take 1 tablet by mouth. Daily X 1 week, then 2 tabs po daily 50tablet 0 ??? zolpidem (AMBIEN) 10 mg tablet Take 1 tablet by mouth nightly as needed for Sleep. 21 tablet 0 ??? levothyroxine (SYNTHROID) 100 mcg tablet Take 1 tablet by mouth daily for 30 days. Must be name brand synthroid 30 tablet 0 ??? ibuprofen (MOTRIN) 400 mg tablet ??? acetaminophen (TYLENOL) 325 mg tablet Objective: Physical Exam Filed Vitals: 03/17/11 0956 BP: 128/74 Pulse: 63 General: Well appearing, no distress Articulate, mood stable, no tearfulness, engaging Thoughts and judgement are appropriate Assessment and Plan: Isela was seen today for follow-up . Depression/ Anxiety Continue Sertraline 25 mg daily , then increase to 50 mg daily if desired this week. - LORazepam (ATIVAN) 0.5 mg tablet; Take by mouth daily as needed for Anxiety. 1-2 tabs qd as neededfor anxiety. Do not take with ambien and unysom. Refill Ambien and do pre-authorization so that her insurance will allow a 30 day supply. Recommended not drinking alcohol at all. Also not smoking. Meditation and mindfulness therapies as planned Cancel Psych appointment. I think she can be managed in [place] at this point. She will be referred to Psych if she has any concerning symptoms. More than 15 minutes of this 20 minute visit was spent in counseling Follow up with me in 1 month documented in this encounter Plan of Treatment Scheduled Procedures Name Priority Associated Diagnoses Date/Time EGD, UPPER GI ENDOSCOPY Dysphagia, unspe cified type Gastroesophageal reflux disease, unspecified whether esophagitis present Functional dyspepsia Irritable bowel syndrome with casey th constipation and diarrhea documented as of this encounter Visit Diagnoses Diagnosis Depression Depressive disorder, not elsewhere class ified Anxiety Anxiety state, unspecified Lupus Systemic lupus erythematosus documented in this encounter Care Teams Analyst Relationship Specialty Start Date End Date Holli Loza MD PCP - General 03/05/11 03/01/15 documented as of this encounter
--- OUTSIDE RECORDS SUMMARY | 2022-04-11 01:33 | XMS_ITS | Encounter Summary ---
:1965 [place] [address] Care Team Providers Name Role Phone Holli Reyna MD Primary Care Provider Reason for Visit Reason Onset Date Comments Medication Refill 09/29/2011 Encounter Details Date Type Department Care Team Description 09/29/2011 Refill Internal Medicine at [facility] Reyna MD Insomnia (Primary Dx) [address] [place] [address] [place] [address] [phone] (Wo rk) Social History Tobacco Use Types [...] unspecified documented in this encounter Care Teams Golf Caddy Relationship Specialty Start Date End Date Holli Reyna MD PCP - General 03/05/11 03/01/15 documented as of this encounter
--- OUTSIDE RECORDS SUMMARY | 2022-04-11 01:33 | XMS_ITS | Encounter Summary ---
:1965 [place] [address] Care Team Providers Name Role Phone Holli Reyna MD Primary Care Provider Reason for Visit Reason Onset Date Comments Medication Refill 06/18/2012 Encounter Details Date Type Department Care Team Description 06/18/2012 Refill Internal Medicine at [facility] Shaunna Jennings MD [facility] [address] [facility] [place] [address] [place], [place] [id number] [phone] (Wo rk) Social History Tobacco Use Types [...] on filedocumented in this encounter Care Teams Paradichlorobenzene Machine Operator Relationship Specialty Start Date End Date Holli Reyna MD PCP - General 03/05/11 03/01/15 documented as of this encounter
--- OUTSIDE RECORDS SUMMARY | 2022-04-11 01:33 | XMS_ITS | Encounter Summary ---
:1965 Author Organization [facility] [address] Care Team Providers Name Role Phone Holli Reyna MD Primary Care Provider Encounter Details Date Type Department Care Team Description 10/17/2011 Follow-Up Physical Therapy at Alex Fitzgerald, Bi lateral hip pain [facility] (Primary [place]x) [place] [address] Social History Tobacco Use Types Packs/Day [...] to begin self management of symptoms. Therapy Lpn Goals ( 6 wk) Patient will... 1. [...] thigh documented in this encounter Care Teams Construction Trench Digger Relationship Specialty Start Date End Date Holli Reyna MD PCP - General 03/05/11 03/01/15 documented as of this encounter
--- OUTSIDE RECORDS SUMMARY | 2022-04-11 01:33 | XMS_ITS | Encounter Summary ---
:1965 Author Organization [facility] [place] [address] Care Team Providers Name Role Phone Holli Reyna MD Primary Care Provider Encounter Details Date Type Department Care Team Description 12/19/2011 Hospital Encounter XRay at [facility], DR BEATTY Bursitis of [address] Shaunna Merritt MD [facility] DR [address] [facility] [address] [place] [address] Social History Tobacco Use Types [...] documented in this encounter Care Teams Senior Structural Engineer Relationship Specialty Start Date End Date Holli Reyna MD PCP - General 03/05/11 03/01/15 documented as of this encounter
--- OUTSIDE RECORDS SUMMARY | 2022-04-11 01:33 | XMS_ITS | Encounter Summary ---
:1965 Author Organization [facility] [place] [address] Care Team Providers Name Role Phone Holli Reyna MD Primary Care Provider Encounter Details Date Type Department Care Team Description 06/16/2012 Orders Only Internal Medicine at [facility] Holli Reyna MD [address] [address] PSYCHIATRY [phone] [place] [address] (Wo rk) Social History Tobacco Use Types [...] on filedocumented in this encounter Care Teams Director Internal Control Relationship Specialty Start Date End Date Holli Reyna MD PCP - General 03/05/11 03/01/15 documented as of this encounter
--- OUTSIDE RECORDS SUMMARY | 2022-04-11 01:33 | XMS_ITS | Encounter Summary ---
:1965 Author Organization [facility] [place] [address] Care Team Providers Name Role Phone Holli Loza MD Primary Care Provider Reason for Visit Reason Comments Follow-up 1 month follow up Encounter Details Date Type Department Care Team Description 04/17/2011 Follow-Up Internal Medicine at [facility] Loza MD Insomnia (Primary Dx); [address] PSYCHIATRY [place] [id number] [place] [address] [phone] Social History Tobacco Use Types Packs/Day Years [...] summer she sent me a note through [facility], explaining that her condo was contaminated due [...] 4 pm. Improved stress levels. [place] at [facility] show sleep disturbance as an issue as far back as 1998. Stress is down to a level of 6 now and she rates her mental health as excellent. No longer lonely. Has not smoked or consumed etoh in over a month and has no urges. Possibly plans to go to [facility] next Spring. Plans to see me in [...] 325 mg tablet Allergies Allergen Reactions ??? [place] Nausea And Vomiting Puffy, swelling. ??? Cis [...] ified documented in this encounter Care Teams Manager Combination Relationship Specialty Start Date End Date Holli Loza MD PCP - General 03/05/11 03/01/15 documented as of this encounter
--- OUTSIDE RECORDS SUMMARY | 2022-04-11 01:33 | XMS_ITS | Encounter Summary ---
:1965 Author Organization [facility] [place] [address] Care Team Providers Name Role Phone Holli Reyna MD Primary Care Provider Reason for Visit Reason Onset Date Comments Medication Refill 09/29/2011 Encounter Details Date Type Department Care Team Description 09/29/2011 Refill Rheumatology at [facility] Pollo Waller MD [facility] [place] [address] RHEUMATOLOGY DEPT. [phone] [place], [place] [address] (Wo rk) Social History Tobacco [...] on filedocumented in this encounter Care Teams Detonator Maker Relationship Specialty Start Date End Date Holli Reyna MD PCP - General 03/05/11 03/01/15 documented as of this encounter
--- OUTSIDE RECORDS SUMMARY | 2022-04-11 01:33 | XMS_ITS | Encounter Summary ---
:1965 Author Organization [facility] [place] [place] [address] Care Team Providers Name Role Phone Holli Reyna MD Primary Care Provider Reason for Visit Reason Onset Date Comments Medication Refill 04/03/2011 Encounter Details Date Type Department Care Team Description 04/03/2011 Refill Internal Medicine at [facility] Holli Reyna MD [address] [address] PSYCHIATRY [phone] [place] [address] (Wo rk) Social History Tobacco Use Types [...] on filedocumented in this encounter Care Teams Dice Maker Relationship Specialty Start Date End Date Holli Reyna MD PCP - General 03/05/11 03/01/15 documented as of this encounter
--- OUTSIDE RECORDS SUMMARY | 2022-04-11 01:33 | XMS_ITS | Encounter Summary ---
:1965 [place] [address] Care Team Providers Name Role Phone Holli Reyna MD Primary Care Provider Encounter Details Date Type Department Care Team Description 03/28/2011 Orders Only Internal Medicine at [facility] Reyna MD Insomnia (Primary Dx) [address] [place] [address] [place], [place] [phone] (Wo rk) [address] [phone] Social History Tobacco Use Types Packs/Day Years Used Date Passive Smoke Exposure - Never Smoker Cigarettes Comments: 1 to 2 a day. Alcohol Use Standard Drinks/Week Comments Not Asked 0 (1 standard drink = 0.6 oz pure alcoho l) Sex Assigned at Date Recorded Not on file documented as of this encounter Progress Notes Holli Renya MD - 03/28/2011 3:06 PM EDT Needs small hold over script while waiting for insurance pre-auth on zolpidem. documented in this encounter Plan of Treatment Scheduled Procedures Name Priority Associated Diagnoses Date/Time EGD, UPPER GI ENDOSCOPY Dysphagia, unspe cified type Gastroesophageal reflux disease, unspecified whether esophagitis present Functional dyspepsia Irritable bowel syndrome with casey constipation and diarrhea documented as of this encounter Visit Diagnoses Diagnosis Insomnia - Primary Insomnia, unspecified documented in this encounter Care Teams Lunchroom Mother Relationship Specialty Start Date End Date Holli Reyna MD PCP - General 03/05/11 03/01/15 documented as of this encounter
--- OUTSIDE RECORDS SUMMARY | 2022-04-11 01:33 | XMS_ITS | Encounter Summary ---
:1965 [place] [address] Care Team Providers Name Role Phone Holli Reyna MD Primary Care Provider Reason for Visit Reason Onset Date Comments Medication Refill 07/30/2011 Encounter Details Date Type Department Care Team Description 07/30/2011 Refill Internal Medicine at [facility] Reyna MD Insomnia (Primary Dx) [address] [place] [address] [place] [address] [phone] (Wo rk) Social History Tobacco Use Types [...] unspecified documented in this encounter Care Teams Neon Sign Installer Relationship Specialty Start Date End Date Holli Reyna MD PCP - General 03/05/11 03/01/15 documented as of this encounter
--- OUTSIDE RECORDS SUMMARY | 2022-04-11 01:33 | XMS_ITS | Encounter Summary ---
:1965 Author Organization [facility] Address [facility] [address] [address] Care Team Providers Name Role Phone Holli Reyna MD Primary Care Provider Reason for Visit Reason Comments Depression Encounter Details Date Type Department Care Team Description 04/28/2011 Office Visit Internal Medicine at [facility] Reyna MD Anxiety (Primary Dx); [facility]; [facility] [place] [address] [place], [place] [phone] (Wo rk) [address] [phone] Social History Tobacco Use Types Packs/Day Years [...] consult to prepare for her trip to [facility]. Anxiety - LORazepam (ATIVAN) 0.5 mg [...] unspecified documented in this encounter Care Teams Transcription Coordinator Relationship Specialty Start Date End Date Holli Reyna MD PCP - General 03/05/11 03/01/15 documented as of this encounter
--- OUTSIDE RECORDS SUMMARY | 2022-04-11 01:33 | XMS_ITS | Encounter Summary ---
:1965 Author Organization [facility] [place] [address] Care Team Providers Name Role Phone Holli Reyna MD Primary Care Provider Reason for Visit Reason Comments Follow-up Encounter Details Date Type Department Care Team Description 01/29/2012 Follow-Up Internal Medicine at [facility] Reyna MD Fibromyalgia (Primary Dx); [address]; [facility] PSYCHIATRY Insomnia; [place] [address] [place], [place] [phone] (Wo rk) [phone] Social History Tobacco Use Types Packs/Day Years [...] to provide medical documentation to her program ([employer]) to have special accommodations due to her interstitial cystitis and Fibromyalgia IC affects her abilty to sit for prolonged periods. She has not seen her Urologist in [place] for at least a year. Not on [...] Hep A #2 and B. Going to [facility] in winter. Review of Systems As above [...] will write a letter to her program's learning center coordinator (at [facility])to document her need for accommodations. 2) Needs [...] hypothyroidism documented in this encounter Care Teams Reed Fixer Relationship Specialty Start Date End Date Holli Reyna MD PCP - General 03/05/11 03/01/15 documented as of this encounter
--- OUTSIDE RECORDS SUMMARY | 2022-04-11 01:33 | XMS_ITS | Encounter Summary ---
:1965 Author Organization [facility] [place] [address] Care Team Providers Name Role Phone Holli Reyna MD Primary Care Provider Reason for Referral Physical Therapy (Routine) - Complete - Patient Will Schedule External Appt Specialty Diagnoses / Procedures Referred By Contact Refer red To Contact Physical Therapy Diagnoses Bursitis of right shoulder Leonila Redd APRN [facility] Mariel R GENERAL [place] [address] Referral ID Status Reason Start Expiration Visits Visits Date Date Requested Authorized [id number] Complete - Evaluate and 12/19/2011 06/16/2012 1 1 Patient Will Treat Schedule External Appt Reason for Visit Reason Comments Shoulder Pain Encounter Details Date Type Department Care Team Description 12/19/2011 Office Visit Internal Medicine at [facility]IN[facility], DR JACI Portillo itis of right shoulder (Primary Dx); [facility] Leonila Redd APRN [facility] GENERAL [place] [address] Healthcare maintenance; [place] [address] Social History Tobacco Use Types Packs/Day Years [...] castro APRN - 12/19/2011 11:08 AM EDT [facility] Shoulder Bursitis: After Your Visit Your [...] As the pain gets better, keep doing [id number] exercises. Ask your doctor for exercises that [...] more? Visit our health information library at [email or web address]. You can also view health information on [employer], your personal patient account. Log in or sign up today. Enter M955 in the search box to learn more about Shoulder Bursitis: After Your Visit. ?? [id number] [employer]. Care instructions adapted under license by [employer]. This care instruction is for use with your licensed healthcare professional. If you have questionsabout a medical condition or this instruction, always ask your healthcare professional. [employer] disclaims any warranty or liability for your use of this information. Content Version: 9.1.688109; Last Revised: August 21, 2010 documented in this encounter Progress Notes Leonila Redd APRN - 12/19/2011 11:17 AM EDT Subjective: Patient ID: Isela Braun is a 46 y.o. female. HPI Isela is here with right shoulder pain for [...] facility documented in this encounter Care Teams Health Services Director Relationship Specialty Start Date End Date Holli Reyna MD PCP - General 03/05/11 03/01/15 documented as of this encounter
--- OUTSIDE RECORDS SUMMARY | 2022-04-11 01:33 | XMS_ITS | Encounter Summary ---
:1965 Author Organization [place] [address] Care Team Providers Name Role Phone Holli Reyna MD Primary Care Provider Reason for Visit Reason Onset Date Comments Medication Refill 03/26/2011 Encounter Details Date Type Department Care Team Description 03/26/2011 Refill Internal Medicine [place] [facility] Holli Reyna MD [address] [address] PSYCHIATRY [phone] [place] [address] (Wo rk) Social History Tobacco Use Types [...] on filedocumented in this encounter Care Teams Stock Selector Relationship Specialty Start Date End Date Holli Reyna MD PCP - General 03/05/11 03/01/15 documented as of this encounter
--- OUTSIDE RECORDS SUMMARY | 2022-04-11 01:33 | XMS_ITS | Encounter Summary ---
:1965 Author Organization [facility] [place] [address] Care Team Providers Name Role Phone Holli Reyna MD Primary Care Provider Reason for Referral Physical Therapy (Routine) - Complete - Patient Will Schedule External Appt Specialty Diagnoses / Procedures Referred By Contact Refer red To Contact Physical Therapy Diagnoses Hip pain Pollo Purvis PA [facility] D R [place] [address] Referral ID Status Reason Start Expiration Visits Visits Date Date Requested Authorized [id number] Complete - Evaluate and 12/07/2011 1 1 Patient Will Treat 1 Schedule External Appt Reason for Visit Reason Comments Bilateral Hip Pain L>R Encounter Details Date Type Department Care Team Description 06/10/2011 Office Visit Orthopaedics at [facility] Pollo Purvis Hip pain (Primary [facility] [place] Dx) [place] [address] ORTHOPAEDIC SURGERY [phone] [place], [place] [address] (Wo rk) Social History Tobacco [...] thigh documented in this encounter Care Teams Acid Remover Relationship Specialty Start Date End Date Holli Reyna MD PCP - General 03/05/11 03/01/15 documented as of this encounter
--- OUTSIDE RECORDS SUMMARY | 2022-04-11 01:33 | XMS_ITS | Encounter Summary ---
:1965 [place] [address] Care Team Providers Name Role Phone Holli Reyna MD Primary Care Provider Encounter Details Date Type Department Care Team Description 03/28/2011 Orders Only Internal Medicine at [facility] Reyna MD Insomnia (Primary Dx) [address] [place] [address] [place], [place] [phone] (Wo rk) [phone] Social History Tobacco Use Types Packs/Day Years [...] unspecified documented in this encounter Care Teams Gift Officer Relationship Specialty Start Date End Date Holli Reyna MD PCP - General 03/05/11 03/01/15 documented as of this encounter
--- OUTSIDE RECORDS SUMMARY | 2022-04-11 01:33 | XMS_ITS | Encounter Summary ---
:1965 Author Organization [place] [address] Care Team Providers Name Role Phone Holli Reyna MD Primary Care Provider Reason for Visit Reason Onset Date Comments Other 07/23/2011 Encounter Details Date Type Department Care Team Description 07/23/2011 Telephone Internal Medicine at [facility] Patricia [place], [place] [address] Social History Tobacco Use Types Packs/Day [...] med list). I will forward to Dr. Ryena for review. documented in this encounter Plan of Treatment Scheduled Procedures Name Priority Associated Diagnoses Date/Time EGD, UPPER GI ENDOSCOPY Dysphagia, unspe cified type Gastroesophageal reflux disease, unspecified whether esophagitis present Functional dyspepsia Irritable bowel syndrome with casey th constipation and diarrhea documented as of this encounter Visit Diagnoses Not on filedocumented in this encounter Care Teams Core Oven Tender Relationship Specialty Start Date End Date Holli Reyna MD PCP - General 03/05/11 03/01/15 documented as of this encounter
--- OUTSIDE RECORDS SUMMARY | 2022-04-11 01:33 | XMS_ITS | Encounter Summary ---
:1965 Author Organization [place] [address] Care Team Providers Name Role Phone Babak Loza MD Primary Care Provider Reason for Referral Physical Therapy (Routine) - Closed Specialty Diagnoses / Procedures Referred By Contact Refer red To Contact Physical Therapy Diagnoses Ischial bursitis Trochanteric bursitis Pollo Waller MD [facility] Pt Rehab [facility] [place] [address] [place] [address] Phone: Fax: Referral ID Status Reason Start Date Expiration Date Visits V isits Requested Authorized [id number] Closed Evaluate and 09/24/2011 03/22/2012 1 1 Treat Reason for Visit Reason Comments Advice Only Encounter Details Date Type Department Care Team Description 09/24/2011 Office Visit Rheumatology at [facility] Pollo Waller Interstitial cystitis; [facility] MD Cori Ischial bursitis; [facility] Trochanteric bursitis; [place], [place] Connective tissue disease, undifferentia kurt; [phone] RHEUM[address] DEPT. Fibromyalgia; [phone] [place], [place] [address] Fatigue; [phone] (Wo rk) Joint pain; Pancreati tis Social [...] PM EST Rheumatology Clinic: Dr. Waller 09/24/2011 [id number] Juan Miguel Mckeon is a 46 y.o. female patient whom we see in consultation for BABAK LOZA MD in evaluation of the possibility of a connective tissue disease such as lupus. She moved to this area from [facility] in 12/[address]. [address] Dr. Loza heard [...] was diagnosed with interstitial cystitis at the [facility]. There she also underwent a hysterectomy and she was found to have an early stage of cervical cancer. She was also diagnosed with Hakeem's thyroiditis in 1997. She was also diagnosed with fibromyalgia and chronic fatigue in this time frame. She went on disability in around . Due to ongoing problems with abdominal pain, diarrhea, and weight loss, [id number] her primary at the time put her [...] suicide attempt. 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 This involves [...] Complement Latest Range: 10-40 mg/dL 31 Complement Total-Shacklefords Latest Range: 30 - 75 unit/mL 42 LEYDA Ab-Shacklefords No range found Negative PTH Latest Range: [...] Organization Address City/State/[place] [address] CERNER MILLENNIUM High Sensitivity [...] Organization Address City/State/[place] [address] CERNER MILLENNIUM Amylase (09/24/2011 [...] Organization Address City/State/[place] [address] CERNER MILLENNIUM Iron and [...] Waller MD CHEMISTRY ORDERABLES Performing Organization Address City/[facility]/ZIP [place] [address] CERNER MILLENNIUM C4 Complement (09/24/2011 12:21 PM EST) athologist Signature C4 Complement 31 10 - 40 CERNER mg/dL MILLENNIUM Specimen Anatomical Collection Method Collection Time Receive d Time (Source) Location / / Volume Laterality Blood specimen 09/24/2011 12:21 2 (specimen) PM EST 12:27 PM EST Resulting Agency Comment Spec In Lab Pollo Waller MD CHEMISTRY ORDERABLES Performing Organization Address City/[facility]/ZIP [place] [address] CERNER MILLENNIUM Vitamin B12 (09/24/2011 12:21 PM EST) athologist Signature Vitamin B-12 533 207 - 974 CERNER pg/mL MILLENNIUM Specimen Anatomical Collection Method Collection Time Receive d Time (Source) Location / / Volume Laterality Blood specimen 09/24/2011 12:21 2 (specimen) PM EST 12:27 PM EST Resulting Agency Comment Spec In Lab Pollo Waller MD CHEMISTRY ORDERABLES Performing Organization Address City/[facility]/ZIP [place] [address] CERNER MILLENNIUM PTH (09/24/2011 12:21 PM EST) athologist Signature PTH 59 15 - 65 CERNER pg/mL [facility]IUM Specimen Anatomical Collection Method Collection Time Receive d Time (Source) Location / / Volume Laterality Blood specimen 09/24/2011 12:21 2 (specimen) PM EST 12:27 PM EST Resulting Agency Comment Spec In Lab Pollo Waller MD CHEMISTRY ORDERABLES Performing Organization Address City/[facility]/[place] [address] CERNER MILLENNIUM (ABNORMAL) VIT D Total 25 Hydroxy (09/24/2011 12:21 PM EST) athologist Signature 25-OH Vit D 19 (L) 30 - 100 CERNER Total ng/mL [facility] Comment: Deficient <10 ng/mL Insufficient 10 to [...] of 08/26/2011 the Vitamin D Total, 25 [place] xy assays are being analyzed by the [facility] Chemistry Laboratory. ??There is NO CHANGE in units. ??Please contact the chemistry laboratory at [phone] with saleem reinoso. Specimen Anatomical Collection Method Collection Time Receive d Time (Source) Location / / Volume Laterality Blood specimen 09/24/2011 12:21 2 (specimen) PM EST 12:27 PM EST Resulting Agency Comment Spec In Lab Pollo Waller MD CHEMISTRY ORDERABLES Performing Organization Address City/[facility]/ZIP Code Phon e Number DM [id number] [facility] Cardiolipin Antibody Screen (09/24/2011 12:21 PM EST) athologist Signature Cardiolipin IgG <23 <=22 GPL CERNER unit(s) MILLENNIUM Comment: Ranges ? GPL ------- ? ------ Normal ?<23 Low Positive ? 23-35 Moderate Positive ?36 -50 High Positive ? >5 0 Cardiolipin IgM <11 <=10 MPL unit(s) CERNER [facility] Comment: Ranges ?MPL ----- ?----- Normal ?<11 [...] Address City/State/ZIP Code Phon e Number DM [address] [facility] Complement, Total (09/24/2011 12:21 PM EST) P athologist Signature Complement 42 30 - 75 CERNER Total unit/mL MILLENNIUM Comment: Test Performed by: [facility] [place] [address] Manager Port: Janay Mercedes, Ph. D. Specimen Anatomical Collection Method Collection Time Receive d Time (Source) Location / / Volume Laterality Blood specimen 09/24/2011 12:21 2 2:05 (specimen) PM EST PM EST Resulting Agency Comment Spec In Lab Pollo Waller MD CHEMISTRY ORDERABLES Performing Organization Address [facility]/ZIP [facility] Phon e Number [address] CERNER MILLENNIUM C3 Complement (09/24/2011 12:21 PM EST) P athologist Signature C3 Complement 128 90 - 180 CERNER mg/dL MILLENNIUM Specimen Anatomical Collection Method Collection Time Receive d Time (Source) Location / / Volume Laterality Blood specimen 09/24/2011 12:21 2 (specimen) PM EST 12:27 PM EST Resulting Agency Comment Spec In Lab Pollo Waller MD CHEMISTRY ORDERABLES Performing Organization Address City/[facility] Code Phon e Number [address] CERNER MILLENNIUM Extractable Nuclear Antigen (LEYDA) Ab (09/24/2011 12:21 PM EST) [facility] gist Method Time Signature LEYDA Ab CERNER ? HI ? Expected MILLENNIUM Test ? Result ?LO ??Units ??Values Ab to Extractable Nuclear Ag Eval,S ??SS-A/Ro Ab, IgG, S ? <0.2 ?U -- EXPECTED VALUES -- <1.0 (Negative) ??SS-B/La Ab, IgG, S ? <0.2 ?U -- EXPECTED VALUES -- <1.0 (Negative) ??Sm Ab, IgG, S ?<0.2 ?U -- EXPECTED VALUES -- <1.0 (Negative) ??ASTROPHYSICS PROFESSOR Ab, IgG, S ? <0.2 ?U -- EXPECTED VALUES -- <1.0 (Negative) ??Scl 70 Ab, IgG, S ?<0.2 ?U -- EXPECTED VALUES -- <1.0 (Negative) ??[place]atha 1 Ab, IgG, S ?<0.2 ?U -- EXPECTED VALUES -- <1.0 (Negative) Test Performed by: [place] [address] Manager Port: Janay Mercedes, Ph.D. Specimen Anatomical Collection Method Collection Time Receive d Time (Source) Location / / Volume Laterality Blood specimen 09/24/2011 12:21 2 1:47 (specimen) PM EST PM EST Resulting Agency Comment Spec In Lab Pollo Waller MD IMMUNOLOGY ORDERABLES Performing Organization Address City/State/ZIP [place] [address] [facility] documented in this encounter Visit Diagnoses Diagnosis Interstitial cystitis Chronic interstitial cystitis Ischial bursitis Enthesopathy of hip region Trochanteric bursitis Enthesopathy of hip region Connective tissue disease, undifferentia kurt Unspecified diffuse connective tissue di sease Fibromyalgia Mylagia and myositis, unspecified Fatigue Other malaise and fatigue Joint pain Pain in joint, site unspecified Pancreatitis Acute pancreatitis documented in this encounter Care Teams Diesel Roller Operator Relationship Specialty Start Date End Date Babak Loza MD PCP - General 03/05/11 03/01/15 documented as of this encounter
--- OUTSIDE RECORDS SUMMARY | 2022-04-11 01:33 | XMS_ITS | Encounter Summary ---
:1965 Author Organization [facility] [place] [address] Care Team Providers Name Role Phone Holli Reyna MD Primary Care Provider Encounter Details Date Type Department Care Team Description 09/24/2011 Office Visit Physical Therapy at [facility], PT Bilateral hip pain [facility] Pollo Waller MD [facility] 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 Therapy Skilled Nursing Goals ( 6 wk) Patient will... 1. [...] this encounter Miscellaneous Notes Miscellaneous - Richard, City Collector - 09/30/2011 10:31 AM EDT documented in [...] thigh documented in this encounter Care Teams Youth Care Specialist Relationship Specialty Start Date End Date Holli Reyna MD PCP - General 03/05/11 03/01/15 documented as of this encounter
--- OUTSIDE RECORDS SUMMARY | 2022-04-11 01:33 | XMS_ITS | Encounter Summary ---
:1965 Author Organization [facility] Address [facility] [place] [address] Care Team Providers Name Role Phone Holli Reyna MD Primary Care Provider Reason for Visit Reason Onset Date Comments No Show 11/11/2011 I spoke with Anna juarez on the phone. She apologized for missing her appointment. She stated that things are really complicated right now. She will call to schedule a follow up when she is able. Encounter Details Date Type Department Care Team Description 11/11/2011 Telephone Physical Therapy at [facility], No Show (I spoke with [facility] PT Isela on the phone. [facility] She lulú gized [place] [address] appointment. She stated [phone] that things ar e really complicated rig ht now. She will call t o schedule a foll ow up when she is abl e.) Social History Tobacco Use Types Packs/Day Years [...] on filedocumented in this encounter Care Teams Registered Dental Assistant Relationship Specialty Start Date End Date Holli Reyna MD PCP - General 03/05/11 03/01/15 documented as of this encounter
--- OUTSIDE RECORDS SUMMARY | 2022-04-11 01:33 | XMS_ITS | Encounter Summary ---
:1965 Author Organization [facility] [place] [address] Care Team Providers Name Role Phone Holli Reyna MD Primary Care Provider Encounter Details Date Type Department Care Team Description 10/10/2011 Follow-Up Physical Therapy at [facility], Bi lateral hip pain [facility] PT (Primary Dx) [place] [address] Social History Tobacco Use Types Packs/Day [...] to begin self management of symptoms. Therapy Ecology Professor Goals ( 6 wk) Patient will... 1. [...] thigh documented in this encounter Care Teams Apartment Hotel Manager Relationship Specialty Start Date End Date Holli Reyna MD PCP - General 03/05/11 03/01/15 documented as of this encounter
--- OUTSIDE RECORDS SUMMARY | 2022-04-11 01:33 | XMS_ITS | Encounter Summary ---
:1965 Author Organization [facility] [place] [address] Care Team Providers Name Role Phone Holli Reyna MD Primary Care Provider Reason for Visit Reason Onset Date Comments Results 09/29/2011 lab results and med request clarification Encounter Details Date Type Department Care Team Description 09/29/2011 Telephone Rheumatology at [facility] Lauren Munoz Results (lab results [facility] Mariel Haywood [place] [address] clarification) [phone] Social History Tobacco Use Types Packs/Day Years [...] Isela called back with her work # ([phone]) and reqeusted call back. Called Jim back, [...] She should go on a 2000 IU gpim-met-cutudof supplement once a day. The other lupus [...] on filedocumented in this encounter Care Teams Commercial Representative Relationship Specialty Start Date End Date Holli Renya MD PCP - General 03/05/11 03/01/15 documented as of this encounter
--- OUTSIDE RECORDS SUMMARY | 2022-04-11 01:33 | XMS_ITS | Encounter Summary ---
:1965 Author Organization [facility] Address [facility] [place] [address] Care Team Providers Name Role Phone Holli Reyna MD Primary Care Provider Encounter Details Date Type Department Care Team Description 06/04/2011 Hospital Encounter XRay at [facility] Hip pain [address] [place] [address] [place] [address] Social History Tobacco Use Types Packs/Day [...] thigh documented in this encounter Care Teams Urban Planning Teacher Relationship Specialty Start Date End Date Holli Reyna MD PCP - General 03/05/11 03/01/15 documented as of this encounter
--- OUTSIDE RECORDS SUMMARY | 2022-04-11 01:33 | XMS_ITS | Encounter Summary ---
:1965 Author Organization [facility] [place] [address] Care Team Providers Name Role Phone Holli Reyna MD Primary Care Provider Reason for Visit Reason Onset Date Comments Medication Refill 06/22/2012 Encounter Details Date Type Department Care Team Description 06/22/2012 Refill Internal Medicine at [facility] Flor othyroidism (Primary [facility], SUPERVISOR WET POUR Dx) [place] [address] Social History Tobacco Use Types Packs/Day Years [...] hypothyroidism documented in this encounter Care Teams Software Deployment Engineer Relationship Specialty Start Date End Date Holli Reyna MD PCP - General 03/05/11 03/01/15 documented as of this encounter
--- OUTSIDE RECORDS SUMMARY | 2022-04-11 01:33 | XMS_ITS | Encounter Summary ---
:1965 Author Organization [facility] Address [facility] [place] [address] Care Team Providers Name Role Phone Holli Reyna MD Primary Care Provider Reason for Visit Reason Comments Follow-up 3 wk follow up for travel Encounter Details Date Type Department Care Team Description 05/08/2011 Follow-Up Internal Medicine at Aristides Reyna MD Preventative health care (Primary Dx); [address]; [facility] PSYCHIATRY Depression [place] [id number] [place] [address] [phone] Social History Tobacco Use Types Packs/Day Years [...] vaccine requirements for an upcoming trip to [place]. LION Fernandez plans to travel to [place] in the spring to stay with friends. She has numerous medical conditions and it is imperative that she have certain vaccinations and medications, such as an antimalarial medication and an antibiotic for traveler's diarrhea, in order to ensure that she does not become severely ill. We reviewed the recommended vaccines on the [employer] website. It would be romero for her [...] is staying with the ambassador at the [facility]. Other travel related topics will be discussed [...] ified documented in this encounter Care Teams Chief Clinical Officer Relationship Specialty Start Date End Date Holli Reyna MD PCP - General 03/05/11 03/01/15 documented as of this encounter
--- OUTSIDE RECORDS SUMMARY | 2022-04-11 01:33 | XMS_ITS | Encounter Summary ---
:1965 Author Organization [facility] [place] [address] Care Team Providers Name Role Phone Holli Reyna MD Primary Care Provider Reason for Visit Reason Onset Date Comments Medication Refill 06/18/2012 Encounter Details Date Type Department Care Team Description 06/18/2012 Refill Internal Medicine at [facility] Holli Reyna MD [address] [address] PSYCHIATRY [phone] [place] [address] (Wo rk) Social History Tobacco Use Types [...] on filedocumented in this encounter Care Teams Jewel Blocker And Sawyer Relationship Specialty Start Date End Date Holli Reyna MD PCP - General 03/05/11 03/01/15 documented as of this encounter
--- OUTSIDE RECORDS SUMMARY | 2022-04-11 01:33 | XMS_ITS | Encounter Summary ---
:1965 Author Organization [facility] [place] [address] Care Team Providers Name Role Phone Holli Reyna MD Primary Care Provider Encounter Details Date Type Department Care Team Description 09/29/2011 Orders Only Rheumatology at [facility] [place] Lauren Munoz, [facility] [place] [address] Social History Tobacco Use Types Packs/Day [...] on filedocumented in this encounter Care Teams Cylinder Batcher Relationship Specialty Start Date End Date Holli Reyna MD PCP - General 03/05/11 03/01/15 documented as of this encounter
--- OUTSIDE RECORDS SUMMARY | 2022-04-11 01:33 | XMS_ITS | Encounter Summary ---
:1965 Author Organization [facility] [place] [address] Care Team Providers Name Role Phone Paloma Hyman DO Primary Care Provider Reason for Visit Reason Onset Date Comments Medication Refill 09/28/2011 Encounter Details Date Type Department Care Team Description 09/28/2011 Refill Internal Medicine at [facility] Holli Loza MD [address] [address] PSYCHIATRY [phone] [place] [address] (Wo rk) Social History Tobacco Use Types [...] Original authorizing provider: MD Juan Miguel STREET Mike would like a refill of the following medications: zolpidem (AMBIEN) 10 mg tablet [HOLLI LOZA MD] Preferred pharmacy: [id number] - [place], [place] - [address] Comment: Hey there, [...] unspecified documented in this encounter Care Teams Magnetic Prospecting Supervisor Relationship Specialty Start Date End Date Paloma Hyman DO PCP - General Family Medicine 12/09/[address] [place], [place] [address] [address] documented as of this encounter
--- OUTSIDE RECORDS SUMMARY | 2022-04-11 01:33 | XMS_ITS | Encounter Summary ---
:1965 Author Organization [facility] [place] [address] Care Team Providers Name Role Phone Holli Reyna MD Primary Care Provider Reason for Visit Reason Comments Lupus Encounter Details Date Type Department Care Team Description 01/29/2012 Follow-Up Rheumatology at [facility] Pollo Waller, Ischial bursitis; [facility] Trochanteric bursitis; [facility] [place] [address] RHEUMATOLOGY DEPT. [phone] [place] [id number] (Wo rk) Social History Tobacco Use Types [...] AM EDT Rheumatology Clinic: Dr. 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 She is very excited about this.She has [...] these problems and their treatment options in [id number] counseling. Visit Diagnoses: 1. Ischial bursitis (726.5X) [...] unspecified documented in this encounter Care Teams Multimedia Production Assistant Relationship Specialty Start Date End Date Holli Reyna MD PCP - General 03/05/11 03/01/15 documented as of this encounter
--- OUTSIDE RECORDS SUMMARY | 2022-04-11 01:33 | XMS_ITS | Encounter Summary ---
:1965 Author Organization [facility] [place] [address] Care Team Providers Name Role Phone Holli Reyna MD Primary Care Provider Reason for Visit Reason Onset Date Comments Medication Refill 02/02/2012 Encounter Details Date Type Department Care Team Description 02/02/2012 Refill Internal Medicine at [facility] [place], Insomnia (Primary Dx) [facility] [place] [address] Social History Tobacco Use Types Packs/Day [...] unspecified documented in this encounter Care Teams Patient Access Associate Relationship Specialty Start Date End Date Holli Reyna MD PCP - General 03/05/11 03/01/15 documented as of this encounter
--- OUTSIDE RECORDS SUMMARY | 2022-04-11 01:33 | XMS_ITS | Encounter Summary ---
:1965 Author Organization [place] [address] Care Team Providers Name Role Phone Holli Reyna MD Primary Care Provider Reason for Visit Reason Onset Date Comments Medication Refill 03/27/2011 Encounter Details Date Type Department Care Team Description 03/27/2011 Refill Internal Medicine at [facility] Holli Reyna MD [address] [address] PSYCHIATRY [phone] [place] [address] (Wo rk) Social History Tobacco Use Types [...] filedocumented in this encounter Care Teams Supervisor Policy Change Clerks Relationship Specialty Start Date End Date Holli Reyna MD PCP - General 03/05/11 03/01/15 documented as of this encounter
--- OUTSIDE RECORDS SUMMARY | 2022-04-11 01:35 | XMS_ITS | Encounter Summary ---
:1965 Author Organization [facility] Address [address] [place] [address] Care Team Providers Name Role Phone Jules Harden MD Primary Care Provider Reason for Visit Reason Comments Thyroid Problem NPV Encounter Details Date Type Department Care Team Description 08/15/2010 Office Visit [facility] Jackie Lopez Chronic lymphocytic thyroiditis; Endocrinology - Haroon Gill MD PhD Hypokalemia; [address] [facility] Fatigue [place], [place] [address] [address] [place] [address] Social History Tobacco Use Types [...] thyroid disease. 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 Quit cigs. ETOH-1-2/wk. Hx bronchitisin youth, but [...] Range: <= 0.6-3.0 Performed or Referred by: [facility] Dpt of Lab Med and Path, [address] [place] [address], Lab Dir: Hugo Cyr III, MD ??? Aldosterone, Serum 08/15/2010 Final Value:5.0Reference range: <=21 Unit: ng/dL Reference range based on upright A.M. collection from subjects on ad madhu sodium uptake. Performed or Referred by: [facility] Dpt of Lab Med and Path, [address] [place] [address], Lab Dir: Hugo Cyr III, MD ??? Endomysial Antibodies 08/15/2010 Final Value:Negative Reference range: Negative Analyte Specific Reagent This test was developed and its performance characteristics determined by Laboratory Medicine and Pathology, [facility]. This test has not been cleared or approved by the U.S. Food and Drug Administration. Performed or Referred by: [facility] Dpt of Lab Med and Path, [address] [place] [address], Lab Dir: Hugo Cyr III, MD ? [...] Organization Address City/State/ZIP Code Phon e Number [facility] [address] [place] [address] SERVICES [facility] [address] [place] [address] ENDOMYSIAL ANTIBODY, SERUM (08/15/2010 10:27 EST) Endomysial Negative [facility] Antibodies Reference range: Negative LAB Analyte Specific Reagent ? This test was developed and its performance characteristics ? determined by Laboratory Med [facility] and Pathology, [facility]. This test has not be en cleared or ? approved by the U.S. Food an d Drug Administration. ? Performed or Referred by: [facility] Dpt of Lab Med and Path, [address] ? [facility], [place] [address], Lab Dir: Hugo Cyr III, ? MD ? Specimen Blood specimen (specimen) Performing Organization Address [facility] Phon e Number [facility] [address] [place] [address] SERVICES [facility] [address] [place] [address] ALDOSTERONE, SERUM (08/15/2010 10:27 EST) Pathologist [facility] Aldosterone, Serum 5.0Reference range: <=21 JU[facility] MANUEL BORJ[facility] Unit: ng/dL Reference range based on upr ight A.M. collection from subjects ? on ad mdahu sodium uptake. ? Performed or Referred by: [facility] Dpt of Lab Med and Path, [address] ? [place] [address], Lab Dir: Hugo Cyr III, ? MD ? Specimen Blood specimen (specimen) Performing Organization Address [facility] Phon e Number [facility] [address] [place] [address] SERVICES [facility] [address] [place] [address] RENIN ACTIVITY, PLASMA (08/15/2010 10:27 EST) Pathologist [facility] Renin Activity, 2.5Unit: ng/mL/h [facility] MAN[facility] BOR[facility] Plasma -- REFERENCE VALUE -- ? (Peripheral vein specimen) ? Na-deplete, upright: ?Mean: 5.9 ?Range: 2.9-10.8 ? Na-replete, upright: ?Mean: 1.0 ?Range: <= 0.6-3.0 ? Performed or Referred by: [facility] Dpt of Lab Med and Path, [address] ? [facility], [place] [address], Lab Dir: Hugo Cyr III, ? MD ? Specimen Blood specimen (specimen) Performing Organization Address City/[facility]/ZIP [facility] Phon e Number [facility] [address] [place] [address] SERVICES [facility] [address] [place] [address] BASIC METABOLIC PANEL (08/15/2010 10:27 EST) Pathologist Sig nature Sodium 140 136 - 145 mEq/L [facility] Potassium 4.3 3.5 - 5.0 mEq/L [...] Specimen Blood specimen (specimen) Performing Organization Address City/[facility]/ZIP Code Phon e Number [facility] [address] [place] [address] SERVICES [facility] [address] [place] [address] ENDOCRINE CLINIC US THYROID (08/15/2010) Anatomical Region [...] Tab added in this encounter Care Teams Enforcement Officer Relationship Specialty Start Date End Date Jules Harden MD PCP - General 02/05/10 05/16/15 [address] [place] [address] documented as of this encounter
--- OUTSIDE RECORDS SUMMARY | 2022-04-11 01:35 | XMS_ITS | Encounter Summary ---
:1965 Author Organization [facility] Address [address] [place] [address] Care Team Providers Name Role Phone Jules Harden MD Primary Care Provider Reason for Referral Consult (Routine) - Closed Specialty Diagnoses / Procedures Referred By Contact Refer red To Contact Diagnoses Hypertrophy of breast Rolando Dunn Jr., MD [address] [place] [address] Dr [address] [place] [address] Referral ID Status Reason Start Date Expiration Date Visits V isits Requested Authorized [id number] Closed Specialty 02/05/2010 1 1 Services Required Question Answer Reason for Request: prior auth for breast reduct ion Comments Needs conservative treatment Reason for Visit Reason Comments Breast Problem hypertrophy Encounter Details Date Type Department Care Team Description 02/05/[address] [facility] Rolando Dunn Hypertr ophy of Plastic, Reconstructive MD Edson breast (Primary Dx) & Cosmetic Surgery - [address] [facility] [facility] [address] [facility], [address] [place], [place] [phone] Social History Tobacco Use Types Packs/Day Years Used Date Never Assessed Sex Assigned at Date Recorded Not on file documented as of this encounter Last Filed Vital Signs Vital Sign Reading Time Taken Comments Blood Pressure - - Pulse - - Temperature - - Respiratory Rate - - Oxygen Saturation - - Inhaled Oxygen Concentration - - Weight 63.4 kg (139 lb 12 oz) 02/05/2010 0952 EDT Height 167 cm (5' 5.75) 02/05/2010 0952 EDT Body Mass Index 22.73 02/05/2010 0952 EDT documented in this encounter Progress Notes Rolando Dunn MD - 02/05/2010 1141 EDT Please see the documentation dictated for the date: 02/05/2010 ROLANDO DUNN MD t Ramya Hull RN - 02/05/2010 0903 EDT Breast Reduction Intake Form There were no vitals taken for this visit. Bra Size: 36dd Last Mammo Date and Place: 11/13/09 [facility] Mammo w/in normal limits: Yes Family Hx of Brst Ca?: Yes Smoking: ended year 2008 Prev Breast Surgery?: No Symptoms: Mid back pain (724.5), Shoulder grooves (695.89), Intertrigo (695.89) and Shoulder pain (719.41) Other: Physical Therapy? No Results: Chiropractic? No Results: Other? Results: Left Right SN - Nipple (cm) 27 27 IMF - Areola (cm) 21 21 Base Diameter (cm) 12 12 Skin: Density: Mass: Yes Right axilla Skin dimpling No Edward Pattern: Yes Vertical: No Breast Reduction Risks Discussed: A/P Breast Reduction CPT Code 95181-13 Resect: g Left g Right Pre-Surgical Requirements: conservative therapy ie: physical therapy Ramya Leonard RN 02/05/2010 9:02 AM documented in this encounter Consult Notes Rolando Dunn MD - 02/08/2010 1019 EDT DIVISION OF PLASTIC AND RECONSTRUCTIVE SURGERY CONSULTATION - 02/05/2010 Jules Harden MD [address] [facility], [address] [place] [address] Harden: Thank you very much for sending Isela Braun to me in consultation. As you know, she is a 44-year-old woman who presents with a erci-fkom-pshaicg of upper back, neck and shoulder pain due to the sizeof her breasts. The patient reports that she has had trouble with large breasts throughout her entire adult life. She has difficulty performing athletic activities. She has to wear several bras and theshoulder straps of these cause grooving in the shoulders. She also has seasonal inframammary intertrigo. She has not had any conservative treatment of her back pain at this point. She does have a past medical history remarkable for lupus, Hakeem's thyroiditis, interstitial cystitis and chronic joint pain and fatigue. 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 Past surgical history is also remarkable for bladder hydrodistention in 2003 and 2005. She had a hysterectomy in 1997. Her only current medication is Elmiron. She is a former smoker having quit a year ago. She has a family history remarkable for breast cancer in a maternal grandmother, maternal aunt and acousin. Family history of diabetes and coronary disease in her father. Review of systems is positive for asthma, lupus, pancreatic insufficiency syndrome, urinary tract infections and basal cell carcinoma. Other systems reviewed are negative. On examination, she is a well-appearing, pleasant, cooperative 44-year-old woman who is in no acute distress. Her height is 5 feet 3/4 inches and her weight is 139-3/4 pounds for a body mass index of 29. Her breasts are symmetric and show grade 3 ptosis. They do have some irregular densities with a ropiness, but no dominant masses. Suprasternal notch to nipple distance is 27 cm bilaterally. Suprasternal notch to inframammary fold distance is 21 cm bilaterally and the inframammary fold to nipple distance is 12 cm bilaterally. There is no axillary lymphadenopathy; however, in her right axilla there is a 3 cm mass, which is somewhat soft that she points to as the site of ectopic breast tissue. She does have shoulder grooving on her bilaterally in her supraclavicular area. IMPRESSION: A 44-year-old woman with a history of lupus who presents now with musculoskeletal back, neck and shoulder pain as well as skin rashes due to the size of her breasts. I think she is a good candidate for breast reduction surgery; however, it would be reasonable to try conservative physical therapy to see if she has any improvement in her back pain prior to proceeding with surgery. I wrote her a referral to physical therapy. Where we to proceed with surgery, I think I would remove in the neighborhood of 450 grams of tissue per side with a standard Edward pattern reduction. I did show her before and after photographs of breast reduction surgery. All questions were answered to her satisfaction. I spent 30 minutes with this patient, the majority of which time was spent in counseling and coordination of care. I want to thank you for sending me this patient in consultation. If there are any further questions,please do not hesitate to contact me. Sincerely, Electronically Signed by Rolando Dunn MD, FACS 02/08/2010 10:19 Rolando Dunn MD, FACS - Rolando Dunn MD, FACS - DM[facility] Job ID: SM Doc ID: [id number] Ext Doc ID: [id number] cc: Jules Harden MD documented in this encounter Plan of Treatment Scheduled Referrals Name Type Priority Associated Order Schedule Diagnoses AMB CONSULT PROCEDURE Outpatient Referral Routine Hypertrophy of Ordered: PRIOR AUTHORIZATION breast 02/06/20 10 REQUEST documented as of this encounter Visit Diagnoses Diagnosis Hypertrophy of breast - Primary documented in this encounter Historical Medications This list may reflect changes made after this encounter. Medication Sig Dispensed Refills Start Date End Date ALBUTEROL INHL Inhale as directed 0 as needed. PHENAZOPYRIDINE HCL (AZO Take 2 Tabs by 0 ORAL) mouth as needed. ACETAMINOPHEN (TYLENOL Take by mouth as needed. X 2 daily 0 ARTHRITIS ORAL) ibuprofen (MOTRIN) 600 mg Take 600 mg by 0 tablet mouth as needed for Pain. DIPHENHYDRAMINE HCL Take by mouth at 0 (UNISOM SLEEPGELS ORAL) bedtime. levothyroxine (SYNTHROID) Take 100 mcg by 0 100 mcg tablet mouth daily. pentosan polysulfate Take 100 mg by 0 07/10/2020 (ELMIRON) 100 mg capsule mouth 3 times daily before meals. zolpidem (AMBIEN) 10 mg Take 10 mg by mouth 0 07/10/2020 tablet at bedtime as needed for Sleep. added in this encounter Care Teams Field Professional Relationship Specialty Start Date End Date Jules Harden MD PCP - General 02/05/10 05/16/15 [address] [place] [phone] documented as of this encounter
--- OUTSIDE RECORDS SUMMARY | 2022-04-11 01:35 | XMS_ITS | Encounter Summary ---
:1965 Author Organization [facility] Address [address] [place] [address] Care Team Providers Name Role Phone Jules Harden MD Primary Care Provider Encounter Details Date Type Department Care Team Description 05/11/2015 Orders Only [facility] Leonila Jung Scree ning examination Employee Health - Main RN for [facility] tuberculosis (Primary [facility] Dx) [place] [address] Social History Tobacco Use Types [...] B (05/17/2015 10:13 EDT) TB Interpretation NegativeComment: [facility] Reference Range: LABORATORY Negative SERVICES TB Antigen Value 0.00 IU/mL [facility] Comment: LABORATORY This is a qualitative test. [...] Organization Address City/State/ZIP Code Phon e Number [facility] [address] [place] [address] SERVICES documented in this encounter Visit Diagnoses Diagnosis Screening examination for pulmonary tube rculosis - Primary documented in this encounter Care Teams Manager Golf Relationship Specialty Start Date End Date Jules Harden MD PCP - General 02/05/10 05/16/15 [address] [place] [id number] documented as of this encounter
--- OUTSIDE RECORDS SUMMARY | 2022-04-11 01:35 | XMS_ITS | Encounter Summary ---
:1965 Author Organization [facility] Address [address] [place] [address] Care Team Providers Name Role Phone KaylanLisha MD Primary Care Provider Encounter Details Date Type Department Care Team Description 04/17/2021 Results Only [facility] KaylanLisha MD [phone] [address] [place] [address] (Wo rk) Social History Tobacco Use Types [...] Results fo r this METABOLIC POC - [facility] [place] procedu re are in the results section. FREE T4 POC - CV Routine 04/17/2021 13:34 Resul ts for this EDT procedure are i n the results section. THYROID STIM HORMONE Routine 04/17/2021 13:34 Res ults for this POC - [facility] [place] procedure are i n the results section. documented in this encounter Results THYROID STIM HORMONE POC - [facility] (04/17/2021 13:34 EDT) Pathologist Sig nature THYROID STIM HORMONE 0.72 0.45 - 5.33 [facility] UIU/ML CENTER LAB Specimen Narrative [facility] - 13:35 EDT CHRONIC RENAL IMPAIRMENT IS DEFINED GFR <60 MULTIPLY RESULT BY 1.210 FOR KJ RICAN PATIENTS EGFR CALCULATED USING THE IDMS-TRACEABLE MDRD STUDY Performing Organization Address City/[facility]/ZIP Code Phon e Number [facility] [address] [place] [address] FREE T4 POC - CV (04/17/2021 13:34 EDT) Pathologist [facility] FREE T4 - [facility] 1.09Comment: THE 0.58 - 1.64 [facility] RESULTS OF THIS NG/DL [facility] ASSAY CAN BE FALSELY ELEVATED DUE TO THE CONSUMPTION OF BIOTIN Specimen Narrative [facility] - 13:35 EDT CHRONIC RENAL IMPAIRMENT IS DEFINED GFR <60 MULTIPLY RESULT BY 1.210 FOR KJ RICAN PATIENTS EGFR CALCULATED USING THE IDMS-TRACEABLE MDRD STUDY Performing Organization Address [facility] Phon e Number [facility] [address] [place] [address] FREE T3 POC - [facility] (04/17/2021 13:34 EDT) Pathologist [facility] T3,[facility] 3.07Comment: THE 2.40 - 4.00 [facility] RESULTS OF THIS PG/ML [facility] LAB ASSAY CAN BE FALSELY ELEVATED DUE TO THE CONSUMPTION OF BIOTIN Specimen Narrative [facility] - 13:35 EDT CHRONIC RENAL IMPAIRMENT IS DEFINED GFR <60 MULTIPLY RESULT BY 1.210 FOR KJ RICAN PATIENTS EGFR CALCULATED USING THE IDMS-TRACEABLE MDRD STUDY Performing Organization Address City/[facility]/ZIP [facility] Phon e Number [facility] [address] [place] [address] (ABNORMAL) COMPREHENSIVE METABOLIC POC - [facility] (04/17/2021 13:34 EDT) Pathologist [facility] nature ALBUMIN - [facility] 4.6 3.50 - 5.00 [facility] G/DL CENTER LAB ALKALINE PHOSPHATASE - 133 (H) 38.00 - 126.00 [facility] U/L CENTER LAB BILIRUBIN TOTAL 0.4 0.20 - [address].30 [facility] MG/DL CENTER LAB BUN - [facility] 15 7.00 - 20.00 [facility] MG/DL ACTON LAB CALCIUM - [facility] 10.0 8.50 - 10.50 [facility] MG/DL ACTON LAB Chloride 105 98.00 - 107.00 [facility] MMOL/L ACTON LAB CO2 Total 28 22.00 - 30.00 [facility] MMOL/L ACTON LAB CREATININE 0.9 0.70 - 1.50 [facility] MG/DL ACTON LAB Anion Gap 7 7 - 17 [facility] GLUCOSE - [facility] 94 70.00 - 100.00 [facility] MG/DL ACTON LAB Potassium 3.9 3.50 - 5.10 [facility] MMOL/L ACTON LAB Sodium 140 137.00 - 145.00 [facility] MMOL/L ACTON LAB TOTAL PROTEIN - [facility] 7.4 6.30 - 8.20 [facility] G/DL ACTON LAB SGOT/AST - [facility] 31 15.00 - 46.00 [facility] U/L ACTON LAB SGPT/ALT - [facility] 28 0.00 - 35.00 [facility] U/L ACTON LAB Specimen Narrative [facility] - 021 13:35 EDT CHRONIC RENAL IMPAIRMENT IS DEFINED GFR <60 MULTIPLY RESULT BY 1.210 FOR KJ RICAN PATIENTS EGFR CALCULATED USING THE IDMS-TRACEABLE MDRD STUDY Performing Organization Address City/State/ZIP Code Phon e Number [facility] [address] [place] [address] documented in this encounter Visit Diagnoses Not on filedocumented in this encounter Care Teams Chemical Laboratory Chief Relationship Specialty Start Date End Date Lisha Kimbrough MD PCP - General Family Medicine - Primary 01/23/21 Care documented as of this encounter
--- OUTSIDE RECORDS SUMMARY | 2022-04-11 01:35 | XMS_ITS | Encounter Summary ---
:[address] [facility] Address [address] [place] [address] Care Team Providers Name Role Phone Unknown, Provider Primary Care Provider Encounter Details Date Type Department Care Team Description 05/17/2015 Phlebotomy Only [facility] for [address] [facility] pulmonary [place] tuberculosis [id number] (Primary Dx) [phone] Social History Tobacco Use Types Packs/Day Years [...] B (05/17/2015 10:13 EDT) TB Interpretation NegativeComment: [facility] Reference Range: LABORATORY Negative SERVICES TB Antigen Value 0.00 IU/mL [facility] Comment: LABORATORY This is a [...] Organization Address City/State/ZIP Code Phon e Number [facility] [address] [place] [address] SERVICES documented in this encounter Visit Diagnoses Diagnosis Screening examination for pulmonary tube rculosis - Primary documented in this encounter Care Teams Fibre Composite Technician Relationship Specialty Start Date End Date Unknown, Provider, PCP - General 05/17/15 07/08/20 documented as of this encounter
--- OUTSIDE RECORDS SUMMARY | 2022-04-11 01:35 | XMS_ITS | Clinical Summary ---
:1965 Author Organization [facility] Address [address] [place] [address] Care Team Providers Name Role Phone Unavailable Primary Care Provider Unavailable Allergies Active Allergy Reactions Severity Noted Date Comments Bee Venom Protein (Honey Bee) 07/09/2020 Fentanyl 06/18/2020 Pregabalin 06/18/2020 [place] Unknown Reaction 01/31/2010 Sulfa (Sulfonamide Antibiotics) Unknown [...] Problems Problem Noted Date Resolved Date Lupus ([facility]) 11/02/2009 07/10/2020 Encounters Date Type Specialty Care Team Description 02/11/2022 Lab Requisition Clinical Laboratory Outr Resulting Lab , Provider 01/31/2022 Lab Requisition Clinical Laboratory Outr Resulting Lab , Provider from Last 3 Months Immunizations Name Administration Dates Next Due Influenza (split) 05/31/2009 Pneumococcal Polysaccharide (PPSV23) Vaccine 05/31/2009 (PNEUMOVAX-23) =>2YO SQ/IM Surgical History Surgery Date Site/Laterality Comments HYSTERECTOMY, VAGINAL 1997 BREAST BIOPSY 2000 Right axilla, ec topic breast tissue BLADDER SURGERY 2003, 2005 Hydrodistention Medical History Medical History Date Comments Interstitial cystitis 1992 Pain, upper back Neck pain Shoulder pain, [...] Comments Hepatitis C Screen 1965 COVID-19 Vaccine (#1) 03/21/1965 Procedures Procedure Name Priority Date/Time Associated Comments Diagnosis IGE Routine 02/11/2022 10:45 Results for this EDT procedure are i n the results section. IMMUNOGLOBULINS Routine 02/11/2022 10:45 Results for this EDT procedure are i n the results section. CELIAC DISEASE PANEL Routine 01/31/2022 15:19 Res ults for this EDT procedure are i n the results section. from Last 3 Months Results IMMUNOGLOBULINS (02/11/2022 10:45 EDT) Pathologist Sig nature IgG 1,193 610-1,616 mg/dL [facility] TORY SERVICES IgA 177 85 - 499 mg/dL [facility] ORY SERVICES IgM 130 35 - 242 mg/dL [facility] ORY SERVICES Specimen Blood - Venous blood (substance) Performing Organization Address [facility]/ZIP Code Phon e Number [facility] [address] [place] [address] SERVICES IGE (02/11/2022 10:45 EDT) Pathologist Sig nature IgE 10 <158 IU/mL [facility]ATOR Y SERVICES Specimen Blood - Venous blood (substance) Performing Organization Address City/[facility]/ZIP Code Phon e Number [facility] [address] [place] [address] SERVICES CELIAC DISEASE PANEL (01/31/2022 15:19 EDT) Tissue <1.2 <4.0 U/mL [facility] Transglutaminase Comment: CENTER Antibody IGA A negative result may be due to IgA deficiency and does not rule out celiac disease. LABORATORY SERVICES ? Negative: ??<4.0 U/mL ? Weak Positive: ??4.0 - 10.0 U/mL ? Positive: ??>10.0 U/mL Results were obtained with matilde LARSEN [employer] Lite R h-tTG IgA HOLLIS assay on the [employer]wik[employer] DSX. IgA 192 85 - 499 [facility] mg/dL [facility]ENTER LABORATORY SERVICES Celiac Disease Negative Serology. [facility] MEDICAL Interpretation Celiac disease CENTER unlikely. LABORATORY Approximately 10% of SERVICES patients with celiac disease are seronegative. Patients who are already adhering to a gluten-free diet may also be seronegative. If celiac disease is highly clinically suspected, referral to gastroenterology for additional evaluation is recommended. Specimen Blood - Venous blood (substance) Performing Organization Address City/State/ZIP Code Phon e Number [facility] [address] [place] [address] SERVICES from Last 3 Months Insurance Payer Benefit Plan Subscriber ID Effective Phone Address Typ e / Group Dates MEDICAID ACO MEDICAID ACO [id number] 2021-Pres [phone] [address] Medicaid [place] ent [address] [facility] [id number] Kade,Isela Personal/Family Self 1965 [address]Home) [place] [address] Kade,Isela Personal/Family Self 1965 [address]) [place] [address] Kade,Isela Personal/Family Self 1965 [address]) [place] [address] Kade,Isela Personal/Family Self 1965 [address]) [place] [address] Kade,Isela Personal/Family Self 1965 [address]) [place] [address] Kade,Isela Personal/Family Self 1965 [address]Home) [place] [address] Isela Braun Personal/Family Self 1965 [address] (Home) [place] [address] Advance Directives For more information, please contact: [phone] Documents on File Type Date Recorded Patient Pallet Assembler Explanati on Advance Directives and Living Will
--- OUTSIDE RECORDS SUMMARY | 2022-04-11 01:35 | XMS_ITS | Encounter Summary ---
:1965 Author Organization [facility] Address [address] [place] [address] Care Team Providers Name Role Phone KaylanLisha MD Primary Care Provider Encounter Details Date Type Department Care Team Description 07/23/2021 Lab Requisition [facility] Outr Resulting Lab, Pathology & Laboratory Provider [facility] [address] [place], [place] [address] Social History Tobacco Use Types Packs/Day Years [...] T3, Free 3.3 2.8 - 5.3 pg/mL [facility] LABORA TORY SERVICES Specimen Blood - Venous blood (substance) Performing Organization Address City/State/ZIP Code Phon e Number [facility] [address] [place] [address] SERVICES documented in this encounter Visit Diagnoses Not on filedocumented in this encounter Care Teams Enrollment Consultant Relationship Specialty Start Date End Date KaylanLisha MD PCP - General Family Medicine - Primary 01/23/21 Care documented as of this encounter
--- OUTSIDE RECORDS SUMMARY | 2022-04-11 01:35 | XMS_ITS | Encounter Summary ---
:1965 Author Organization [facility] Address [address] [place] [address] Care Team Providers Name Role Phone Unknown, Provider Primary Care Provider Reason for Visit Reason Comments New Patient Visit zoom video Encounter Details Date Type Department Care Team Description 06/18/2020 Telemedicine [facility] KEYBOARDING CLERK Юлия Freeman Pel jason floor dysfunction (Primary Dx); Pelvic Medicine and MD Natalie Pelvic pain Reconstructive Surgery - [address] [place] [address] Medical [place] [address] Medical [address] [place] [address] [address] [place] [address] Social History Tobacco Use Types [...] up her team of providers in in [place]. Social hx: She is a alcoholic, sober for 9 yrs. She lives with her partner. She went back to school when her children went to college, in [place]. Got her Masters of Divinity. 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 They live in [place], having recently moved back to [place]. I have notes from her Dr. Burak Sandy, in [place], from her last visit there in February. [...] pain documented in this encounter Care Teams Bell Neck Hammerer Relationship Specialty Start Date End Date Unknown, Provider, PCP - General 05/17/15 07/08/20 documented as of this encounter
--- OUTSIDE RECORDS SUMMARY | 2022-04-11 01:35 | XMS_ITS | Encounter Summary ---
:1965 Author Organization [facility] Address [address] [place] [address] Care Team Providers Name Role Phone Unknown, Provider Primary Care Provider Encounter Details Date Type Department Care Team Description 05/17/2015 Hospital Encounter [facility] - S Client, Jv Barksdale MD [address] [place], [place] [address] Social History Tobacco Use Types Packs/Day Years [...] Code Departure Means Destination Home or Self Assisted documented in this encounter Plan of Treatment Not on filedocumented as of this encounter Visit Diagnoses Not on filedocumented in this encounter Care Teams Electronics Computer Mechanic Relationship Specialty Start Date End Date Unknown, Provider, PCP - General 05/17/15 07/08/20 documented as of this encounter
--- OUTSIDE RECORDS SUMMARY | 2022-04-11 01:35 | XMS_ITS | Encounter Summary ---
:1965 Author Organization [facility] Address [address] [place] [address] Care Team Providers Name Role Phone Jules Harden MD Primary Care Provider Reason for Visit Reason Comments Follow-up symptoms are different Headache Nausea Encounter Details Date Type Department Care Team Description 07/10/2010 Office Visit [facility] Unknown, Prov MD franco Nausea alone; Gastroenterology - [facility] DavidTerrell MD [address] [facility], [address] [place] [address] Dyspepsia and other specified disorders of function of stomach [facility]pie [address] [place], [place] [id number] Social History Tobacco Use Types Packs/Day Years Used Date Former Smoker Quit: 02/06/20 10 Alcohol Use Standard Drinks/Week Comments Not Asked 0 (1 standard drink = 0.6 oz pure alcoho l) Sex Assigned at Date Recorded Not on file documented as of this encounter Last Filed Vital Signs Vital Sign Reading Time Taken Comments Blood Pressure 136/84 07/10/2010 0938 EST Pulse 89 07/10/2010 0938 EST Temperature - - Respiratory Rate - - Oxygen Saturation - - Inhaled Oxygen Concentration - - Weight 65.8 kg (145 lb) 07/10/2010 0938 EST Height 165.1 cm (5' 5) 07/10/2010 0938 EST Body Mass Index 24.13 07/10/2010 0938 EST documented in this encounter Ordered Prescriptions Prescription Sig Dispensed Refills Start Date End Date omeprazole (PRILOSEC) 40 Take 1 Cap by mouth 30 Cap 3 mg capsuleIndications: daily. 30 minutes Nausea alone, Dyspepsia before meals and other specified disorders of function of stomach documented in this encounter Progress Notes Terrell Hernandez MD - 07/10/2010 0954 EST Subjective: Patient ID: Isela Braun is an 44 y.o. female. Chief Complaint Patient presents with ??? Follow-up symptoms are different ??? Headache ??? Nausea HPI Comments: Isela returns to the GI clinic. She was initially seen for an intuscessption seen on CT scan after having some abdominal discomfort. She is having nausea and headaches. Seems to get better with PPI. No weight loss, fevers or sweats. Bowels are better than in past. Some concern about thyroid which is being looked at. Lots of stress at home: Partner has ALS and she is having stress atwork. Recently . [place] [facility] [place] -- nothing really seen. Nausea Associated symptoms include headaches. Review of Systems Gastrointestinal: Positive for nausea. Neurological: Positive for headaches. - See HPI Objective: BP 136/84 Pulse 89 Ht 165.1 cm (65) Wt 65.772 kg (145 lb) Physical Exam Alert and oriented, no distress Sclera anicteric, mucous membranes moist Heart regular rate and rhythm Lungs clear to auscultation bilaterally Abdomen soft and non-tender, no masses, hepatomegally Extremities without rash or edema Assessment: Nausea -- perhaps related to gastritis, dyspepsia or stress. Would like to see how she does on a PPIfor 2-3 months Plan: Trial of PPI for 2-3 months. Continue to follow-up with Endocrine. If headaches continue, consider neurology referral for this problem. documented in this encounter Plan of Treatment Not on filedocumented as of this encounter Visit Diagnoses Diagnosis Nausea alone Dyspepsia and other specified disorders of function of stomach documented in this encounter Discontinued Medications Medication Sig Discontinue Reason Start Date End Date ranitidine (ZANTAC) 75 mg Take 75 mg by mouth 07/10/2010 tabletIndications: Nausea 2 times daily. alone, Dyspepsia and other specified disorders of function of stomach documented as of this encounter Historical Medications This list may reflect changes made after this encounter. Medication Sig Dispensed Refills Start Date End Date ranitidine (ZANTAC) 75 mg Take 75 mg by mouth 0 07/10/2010 tabletIndications: Nausea 2 times daily. alone, Dyspepsia and other specified disorders of function of stomach added in this encounter Care Teams Shoe Treer Relationship Specialty Start Date End Date Jules Harden MD PCP - General 02/05/10 05/16/15 [address] [place] [id number] documented as of this encounter
--- OUTSIDE RECORDS SUMMARY | 2022-04-11 01:35 | XMS_ITS | Encounter Summary ---
:1965 Author Organization [facility] Address [address] [place] [address] Care Team Providers Name Role Phone Unknown, Provider Primary Care Provider Encounter Details Date Type Department Care Team Description 06/18/2015 Hospital Encounter [facility] - S Client, Jv Barksdale MD [address] [place], [place] [id number] Social History Tobacco Use Types Packs/Day Years [...] on filedocumented in this encounter Care Teams Financial Services Agent Relationship Specialty Start Date End Date Unknown, Provider, PCP - General 05/17/15 07/08/20 documented as of this encounter
--- OUTSIDE RECORDS SUMMARY | 2022-04-11 01:35 | XMS_ITS | Encounter Summary ---
:1965 Author Organization [facility] Address [address] [place] [address] Care Team Providers Name Role Phone Unknown, Provider Primary Care Provider Paloma Hyman DO Primary Care Provider [phone] KaylanLisha MD Primary Care Provider Encounter Details Date Type Department Care Team Description 04/30/2020 Lab Requisition [facility] Outr Resulting Lab, Pathology & Laboratory Provider [facility] [address] [place], [place] [id number] Social History Tobacco Use Types Packs/Day Years [...] Organization Address City/State/ZIP Code Phon e Number [facility] [place], [place] COVID-19 TESTING (04/30/2020 9:02 EDT) COVID-19 rt-PCR NEGATIVE Negative [facility] Result Comment: LABORATORY 2019-novel Coronavirus (2019 -nCoV) [...] Administration's Emergency Use Authorization. Performing Lab [facility] LABORATORY SERVICES Specimen Swab Performing Organization Address City/State/[facility] Code Phon e Number [facility] [address] [place] [address] SERVICES [facility] [place], [place] documented in this encounter Visit Diagnoses Not on filedocumented in this encounter Care Teams Vegetable Harvest Worker Relationship Specialty Start Date End Date Unknown, MD Starr PCP - General 05/17/15 07/08/20 Paloma Hyman PCP - General 07/09/20 01/22/21 DO Vanesa [address] [place] [address] KaylanLisha MD PCP - General Family Medicine - Primary 01/23/21 Care documented as of this encounter
--- OUTSIDE RECORDS SUMMARY | 2022-04-11 01:35 | XMS_ITS | Encounter Summary ---
:1965 Author Organization [facility] Address [address] [place] [address] Care Team Providers Name Role Phone Unknown, Provider Primary Care Provider Reason for Visit Reason Onset Date Comments Appointment Related 06/18/2020 Encounter Details Date Type Department Care Team Description 06/18/2020 Telephone [facility] Pelvic Юлия Freeman Appointment Related Medicine and MD Natalie Reconstructive Surgery - [address] [place] [address] Medical [place] [address] Medical Office [address] [place] [address] [address] [place] [address] Social History Tobacco Use Types [...] to please call Dr. Burak Sandy, at [phone] signed by Miller Trejo at 06/18/2020 12:22 ESTdocumented in this encounter Plan of Treatment Not on filedocumented as of this encounter Visit Diagnoses Not on filedocumented in this encounter Care Teams Tools Developer Relationship Specialty Start Date End Date Unknown, Provider, PCP - General 05/17/15 07/08/20 documented as of this encounter
--- OUTSIDE RECORDS SUMMARY | 2022-04-11 01:35 | XMS_ITS | Encounter Summary ---
:1965 Author Organization [facility] Address [address] [place] [address] Care Team Providers Name Role Phone Unavailable Primary Care Provider Unavailable Encounter Details Date Type Department Care Team Description 09/02/[address] [facility] Evin Dias for Pathology & MD Luis screening for Laboratory Medicine [address] malignant neoplasm - [place], [place] of colon [address] [facility] [address] [place], [place] [address] Social History Tobacco Use Types Packs/Day Years [...] 8:35 EST) Note to Patient The following [facility] pathology results have CENTER been interpreted by LABORATORY your pathologist and SERVICES may be available to you before your health provider has had the opportunity to review them. Please allow time for your provider to receive these results and explore management options, if applicable. Final Diagnosis A. DUODENUM, BIOPSY: [facility] - Duodenal mucosa with no significant [...] serrated adenoma. Diagnosis Comment D) The esophageal [facility] biopsy has met the CENTER histologic portion of LABORATORY the clinicopathologic SERVICES consensus criteria for eosinophilic esophagitis. Clinical correlation is essential. Attestation By the signature below, [facility] Elec tronically the attending physician CENTER sign ed by Krista Leggett, certifies that they LABORATORY Itzel Ceron MD on have 1) personally SERVICES 09/04/2021 at 1244 conducted a gross and/or microscopic examination of the described specimen(s), and/or personally interpreted the results of laboratory testing of the described specimen(s), and 2) personally rendered or confirmed the above diagnosis. Clinical History Abdominal pain, GERD, [facility] colorectal screening [facility]ENTER LABORATORY SERVICES Gross Description A. [facility] Received in formalin celia d with [...] A) and transverse colon polyp are two [id number] tissues (0.3 x 0.3 x 0.2 cm and 0.3 x 0.3 x 0.1 cm). Entirely submitted in E1. Alcides Oliva 09/03/2021 9:55 Performing Lab [facility] Scanned Images [facility] SERVICES Specimen Tissue - Entire transverse colon (body s tructure) Tissue specimen (specimen) - Entire stom ach (body structure) Tissue specimen (specimen) - Entire stom ach (body structure) Tissue specimen (specimen) - Entire esop hago-gastric mucosal junction (body structure) Tissue specimen (specimen) - Entire mendoza sverse colon (body structure) Performing Organization Address City/State/ZIP Code Phon e Number [facility] [address] [place] [address] SERVICES documented in this encounter Visit Diagnoses Diagnosis Encounter for screening for malignant ne oplasm of colon Special screening for malignant neoplasm s, colon documented in this encounter
--- OUTSIDE RECORDS SUMMARY | 2022-04-11 01:35 | XMS_ITS | Encounter Summary ---
:1965 Author Organization [facility] Address [address] [place] [address] Care Team Providers Name Role Phone KaylanLisha MD Primary Care Provider Encounter Details Date Type Department Care Team Description 02/19/2021 Results Only [facility] KaylanLisha MD [phone] [address] [place] [address] (Wo rk) Social History Tobacco [...] 02/19/2021 14:08 Results for this COVID PCR [facility] EDT procedur e are in the results section. documented in this encounter Results INFLUENZA, RSV, COVID PCR [facility] (02/19/2021 14:08 EDT) SARS-CoV-2 RT-PCR Not NEGATIVE [facility] DetectedComment: [facility] THIS TEST HAS BEEN AUTHORIZED BY FDA UNDER AN EUA FOR USE BY AUTHORIZED LABORATORIES. INFLUENZA A PCR - Negative NEGATIVE [facility] INFLUENZA B PCR - Negative NEGATIVE [facility] RSV PCR - [facility] Negative NEGATIVE [facility] Specimen Narrative [facility] - 08/03/2 021 14:09 EDT NEGATIVE RESULTS DO NOT PRECLUDE SARS-COV-2 INFECTION AND SHOULD NOT BE USED THE SOLE BASIS FOR TREATMENT OR OTHER PATIENT MAN AGEMENT DECISION. NEGATIVE RESULTS MUST BE COMBINED WITH CLINICAL OBSERVATIONS, PATIENT HIST ORY AND EPIDEMIOLOGICAL INFORMATION. Performing Organization Address City/State/ZIP Code Phon e Number [facility] [address] [place] [address] documented in this encounter Visit Diagnoses Not on filedocumented in this encounter Care Teams Corporate Legal Assistant Relationship Specialty Start Date End Date Lisha Kimbrough MD PCP - General Family Medicine - Primary 01/23/21 Care documented as of this encounter
--- OUTSIDE RECORDS SUMMARY | 2022-04-11 01:35 | XMS_ITS | Encounter Summary ---
:1965 Author Organization [facility] Address [address] [place] [address] Care Team Providers Name Role Phone Kaylan, Lsiha Persaud MD Primary Care Provider Encounter Details Date Type Department Care Team Description 01/23/2021 Results Only Imaging [facility] - Unknown, [facility] Cardiology Clin ic Provider, MD [address] [phone] [place] [address] (Work) [phone] Social History Tobacco Use Types Packs/Day Years [...] MEDICAL CENTER LAB - 9:28 EDT ? [facility] ? Test Date: ?2021-01-23 09:28:04 Pat Name: ? JUAN MIGUEL JUMP ? Department: ?Room: ? Gender: ? F ?Environmental Services Supervisor: ?? TIB : ?1965 ? Requested By: Order Number: ?Reading MD: ?? Sergio Villasenor, MD ? Measurements Intervals ?[place] ? Rate: ? 59 ? P: ?80 DE: ? 174 ?QRS: ?68 QRSD: ? 78 ? T: ?59 QT: ? 396 ? QTc: ?392 ? Interpretive Statements Sinus bradycardia Otherwise normal ECG No previous ECG available for comparison Electronically Signed On 01-23-2021 21:53: 04 EDT by Sergio Villasenor MD [email or web address] [email or web address] Procedure Note Sergio Villasenor MD - 01/23/2021 [facility] Test Date: 2021-01-23 09:28:04 Pat Name: JUAN MIGUEL MCKEON Department: Room: Gender: F Environmental Services Supervisor: RAND : 1965 Requested By: Order Number: Reading MD: Sergio jay MD Measurements Intervals Bieber Rate: 59 P: 80 DE: 174 QRS: 68 QRSD: 78 T: 59 QT: 396 QTc: 392 Interpretive Statements Sinus bradycardia Otherwise normal ECG No previous ECG available for comparison Electronically Signed On 01-23-2021 21:53: 04 EDT by Sergio Villasenor MD [email or web address] [email or web address] Performing Organization Address City/State/ZIP Code Phon e Number [facility] [address] [place] [address] documented in this encounter Visit Diagnoses Not on filedocumented in this encounter Care Teams Elastic Cutter Relationship Specialty Start Date End Date Lisha Kimbrough MD PCP - General Family Medicine - Primary 01/23/21 Care documented as of this encounter
--- OUTSIDE RECORDS SUMMARY | 2022-04-11 01:35 | XMS_ITS | Encounter Summary ---
:1965 Author Organization [facility] Address [address] [place] [address] Care Team Providers Name Role Phone Paloma Hyman Primary Care Provider [phone] Reason for Visit Reason Comments Other Pelvic Floor pain Encounter Details Date Type Department Care Team Description 07/09/2020 Office Visit [facility] PANEL SEWER Юлия Freeman Pel jason floor dysfunction (Primary Dx); Pelvic Medicine and MD Natalie Bladder pain Reconstructive Surgery - [address] [place] [address] Medical [place] [address] Medical Office [address] [place] [address] [facility] [phone] [place] [phone] Social History Tobacco Use Types Packs/Day Years [...] - Inhaled Oxygen Concentration - - Weight - - Height - - Body Mass Index - - documented in this encounter Progress Notes Юлия Freeman MD - 07/09/2020 1100 EST Pt presents for an in person visit after meeting on televideo. Please see the televideo note for thedetails. Since that visit, she got a special bed topper that has helped with her hip pain at night. Now is sleeping better. She got off her ambien. She has pelvic floor dysfunction and was getting pelvic floor injections from her sharepoint manager in [place]- anesthetic only from the notes. So in for an evaluation and possible injections today. She continues to have buttock, hip, and the pelvic pain particularly at 12 o'clock in the vagina. She does get some burning at the clitoral bobo and just below that for which she has clob. That helps take the pain away. Never dx'd with LS but told she has white patches. She continues on vaginal valium 10 mg per day. Hx of IC- currently asymptomatic. Pt brought summary of medical hx- reviewed, scanned and chart updated as able. PE: well appearing female BP 128/83 Pulse 78 External genitalia: Clitoral bobo: nl Clitoris: nl Labia majora: nl Labia minora: anterior fourchette is pale Vestibule: nl Perineum: nl Urethral meatus: nl Speculum: Vagina: nl Cervix: absent Wet smear: Not indicated Bimanual: Urethra: nl Bladder: nl Uterus: absent Adnexa: no masses Pelvic floor: tender over the levators bilaterally and the obturator on the left. So discussed whether to proceed with pelvic floor injections today. It is bothering her and it has been greater than 3 months since her last injections. She reports getting high after one set of injections and getting a very low mood after another set. But decided to proceed today. Procedure: consent obtained. Betadine prep of the vagina. Pudendal nv kit used to injected bupivicaine 0.5% 20 cc and kenolg 40 mg total. 2-2.5 cc injected at the pudendal nv bilaterally and then into 3 trigger points on the right and 4 on the left. Left including the obturator. Pt tolerated the procedure well. No complications. Noted a little whoozy feeling afterward. Partner is here to bring her home. A: pt with pelvic pain- pelvic floor dysfunction P: pudendal nv and trigger point injections completed. RV 3 months or prn. I spent a total of 60 minutes in face to face time with this patient today and 45 minutes of that time was spent in counseling and coordination of care as described in the progress note. documented in this encounter Plan of Treatment Not on filedocumented as of this encounter Visit Diagnoses Diagnosis Pelvic floor dysfunction - Primary Pelvic muscle wasting Bladder pain Other symptoms involving urinary system documented in this encounter Administered Medications Inactive Administered Medications - up to 3 most recent administrations Medication Order MAR Action Action Date Dose Rate Site bupivacaine (PF) (MARCAINE) 0.5% Given by Other 07/09/2020 12:52 EST 20 mL injection 20 mL 20 mL, injection, NOW X1, 1 dose, On 07/09/20 at 1230, Routine triamcinolone acetonide (KENALOG-40) Given by Other 07/09/2020 12:53 EST 40 mg injection 40 mg 40 mg, intramuscular, NOW X1, 1 dose, On Thu07/09/20 at 1230, Routine documented in this encounter Discontinued Medications Medication Sig Discontinue Reason Start Date End Date zolpidem (AMBIEN) 10 mg Take 10 mg by mouth 07/10/2020 tablet at bedtime as needed for Sleep. pentosan polysulfate Take 100 mg by mouth 07/10/2020 (ELMIRON) 100 mg capsule 3 times daily before meals. Methylcellulose, Take by mouth. 0 Laxative, (CITRUCEL) 500 mg Tab diazePAM (VALIUM) 5 mg Take 10 mg by mouth Order modification 07/10/2020 tablet at bedtime as needed for Anxiety (per vagina). documented as of this encounter Historical Medications This list may reflect changes made after this encounter. Medication Sig Dispensed Refills Start Date End Date cholecalciferol, Vitamin Take 5,000 Units by 0 D3, 1,000 unit tablet mouth daily. clobetasoL (TEMOVATE) Apply topically 0 0.05 % ointment daily as needed. For vaginal dryness per pt. diazePAM (VALIUM) 5 mg Take 2 Tabs by mouth 0 tablet at bedtime as needed for Anxiety (per vagina). Prn pelvic pain Daily Max: 10 mg ondansetron (ZOFRAN-ODT) Take 4 mg by mouth 0 4 mg disintegrating every 8 hours as tablet needed for Nausea. fluticasone propionate Inhale 110 mcg as 0 (FLOVENT) 110 directed 2 times mcg/actuation inhaler daily. sumatriptan (IMITREX) 50 Take 50 mg by mouth 0 mg tablet as needed for Migraine. diazePAM (VALIUM) 5 mg Take 10 mg by mouth 0 07/10/2020 tablet at bedtime as needed for Anxiety (per vagina). added in this encounter Care Teams Retail Manager In Training Relationship Specialty Start Date End Date Paloma Hyman DO PCP - General 07/09/20 01/22/[address] [place] [address] documented as of this encounter
--- OUTSIDE RECORDS SUMMARY | 2022-04-11 01:35 | XMS_ITS | Encounter Summary ---
:1965 Author Organization [facility] Address [address] [place] [address] Care Team Providers Name Role Phone Boogie Paloma Vanesa Primary Care Provider [phone] Reason for Visit Reason Onset Date Comments Update 07/10/2020 Encounter Details Date Type Department Care Team Description 07/10/2020 Telephone [facility] Pelvic Britni Hinds , WILLIAM Update Medicine and Reconstructive Surgery - Medical Office [place] [address] [address] [place] [address] Social History Tobacco Use Types [...] the records that have been sent from [place]. She is stating that her problem list [...] filedocumented in this encounter Care Teams Supervisor Grower Relationship Specialty Start Date End Date Paloma Hyman DO PCP - General 07/09/20 01/22/[address] [place] [address] documented as of this encounter
--- OUTSIDE RECORDS SUMMARY | 2022-04-11 01:35 | XMS_ITS | Encounter Summary ---
:1965 Author Organization [facility] Address [address] [place] [address] Care Team Providers Name Role Phone Unavailable Primary Care Provider Unavailable Encounter Details Date Type Department Care Team Description 02/11/2022 Lab Requisition [facility] Outr Resulting Lab, Pathology & Laboratory Provider [facility] [address] [place] [id number] Social History Tobacco Use Types Packs/Day Years Used Date Former Smoker Quit: 02/06/20 10 Alcohol Use Standard Drinks/Week Comments Not Asked 0 (1 standard drink = 0.6 oz pure alcoho l) Sex Assigned at Date Recorded Not on file documented as of this encounter Plan of Treatment Not on filedocumented as of this encounter Procedures Procedure Name Priority Date/Time Associated Diagnosis Comme nts IMMUNOGLOBULINS Routine 02/11/2022 10:45 EDT Resu lts for this procedure are i n the results section. IGE Routine 02/11/2022 10:45 EDT Results for this procedure are i n the results section. documented in this encounter Results IGE (02/11/2022 10:45 EDT) Pathologist Sig nature IgE 10 <158 IU/mL [facility] SERVICES Specimen Blood - Venous blood (substance) Performing Organization Address City/State/ZIP Code Phon e Number [facility] [address] [place] [address] SERVICES IMMUNOGLOBULINS (02/11/2022 10:45 EDT) Pathologist Sig nature IgG 1,193 610-1,616 mg/dL [facility] T[facility] SERVICES IgA 177 85 - 499 mg/dL [facility] ORY SERVICES IgM 130 35 - 242 mg/dL [facility] SERVICES Specimen Blood - Venous blood (substance) Performing Organization Address City/State/ZIP Code Phon e Number [facility] [address] [place] [address] SERVICES documented in this encounter Visit Diagnoses Not on filedocumented in this encounter
--- OUTSIDE RECORDS SUMMARY | 2022-04-11 01:35 | XMS_ITS | Encounter Summary ---
:1965 Author Organization [facility] Address [address] [place] [address] Care Team Providers Name Role Phone Unavailable Primary Care Provider Unavailable Encounter Details Date Type Department Care Team Description 01/31/2022 Lab Requisition [facility] Outr Resulting Lab, Pathology & Laboratory Provider [facility] [address] [place], [place] [id number] Social History Tobacco Use Types Packs/Day Years Used Date Former Smoker Quit: 02/06/20 10 Alcohol Use Standard Drinks/Week Comments Not Asked 0 (1 standard drink = 0.6 oz pure alcoho l) Sex Assigned at Date Recorded Not on file documented as of this encounter Plan of Treatment Not on filedocumented as of this encounter Procedures Procedure Name Priority Date/Time Associated Diagnosis Comme nts CELIAC DISEASE Routine 01/31/2022 15:19 Results f or this PANEL EDT procedure are i n the results section. documented in this encounter Results CELIAC DISEASE PANEL (01/31/2022 15:19 EDT) Tissue <1.2 <4.0 U/mL [facility] Transglutaminase Comment: CENTER Antibody IGA A negative result may be due to IgA deficiency and does not rule out celiac disease. LABORATORY SERVICES ? Negative: ??<4.0 U/mL ? Weak Positive: ??4.0 - 10.0 U/mL ? Positive: ??>10.0 U/mL Results were obtained with matilde orantes [employer] Commerce[employer] Lite R h-tTG IgA HOLLIS assay on the Dynex DSX. IgA 192 85 - 499 [facility] mg/dL CENTER LABORATORY SERVICES Celiac Disease Negative Serology. [facility] Interpretation Celiac disease CENTER unlikely. LABORATORY Approximately 10% of SERVICES patients with celiac disease are seronegative. Patients who are already adhering to a gluten-free diet may also be seronegative. If celiac disease is highly clinically suspected, referral to gastroenterology for additional evaluation is recommended. Specimen Blood - Venous blood (substance) Performing Organization Address City/State/ZIP Code Phon e Number [facility] [address] [place] [address] SERVICES documented in this encounter Visit Diagnoses Not on filedocumented in this encounter
--- OUTSIDE RECORDS SUMMARY | 2022-04-11 01:35 | XMS_ITS | Encounter Summary ---
:1965 Author Organization [facility] Address [address] [place] [address] Care Team Providers Name Role Phone Unknown, Provider Primary Care Provider Encounter Details Date Type Department Care Team Description 05/17/2015 Orders Only [facility] [place], Antibody response Employee [facility] - Main WILLIAM Krueger exam ination (Primary [place] Dx) [address] [place] [address] Social History Tobacco Use Types [...] ANTIBODY (06/18/2015 9:25 EST) Hepatitis B Positive [facility] Surface Ab Comment: LABORATORY SERVICES Reference Range: Unvaccinated: ??Negative Vaccinated: ??Positive HBs Antibody, >1000.0 mIU/mL [facility] Quant Comment: LABORATORY SERVICES Patient is presumed to be immune to infection with HBV. Reference Range: Positive: >=12.0 mIU/mL Indeterminate: >=5.0 to <12.0 mIU/mL Negative: <5.0 mIU/mL Specimen Blood specimen (specimen) - Blood Performing Organization Address City/State/ZIP Code Phon e Number [facility] [address] [place] [address] SERVICES documented in this encounter Visit Diagnoses Diagnosis Antibody response examination - Primary documented in this encounter Care Teams Semiautomatic Taper Operator Relationship Specialty Start Date End Date Unknown, Provider, PCP - General 05/17/15 07/08/20 documented as of this encounter
--- OUTSIDE RECORDS SUMMARY | 2022-04-11 01:35 | XMS_ITS | Encounter Summary ---
:1965 Author Organization [facility] Address [address] [place] [address] Care Team Providers Name Role Phone Jules Harden MD Primary Care Provider Encounter Details Date Type Department Care Team Description 12/09/2013 Orders Only [facility] Sariah Galvez Antib wolf response Employee Health - Main RN examination (Primary [place] [address] Dx) [address] [place] [address] [phone] Social History Tobacco Use Types Packs/Day Years [...] Primary documented in this encounter Care Teams Floorperson Relationship Specialty Start Date End Date Jules Harden MD PCP - General 02/05/10 05/16/15 [address] [place] [address] documented as of this encounter
--- OUTSIDE RECORDS SUMMARY | 2022-04-11 01:35 | XMS_ITS | Encounter Summary ---
:1965 Author Organization [facility] Address [address] [place] [address] Care Team Providers Name Role Phone KaylanLisha MD Primary Care Provider Encounter Details Date Type Department Care Team Description 03/13/2021 Results Only [facility] KaylanLisha MD [phone] [address] [place] [address] (Wo rk) Social History Tobacco [...] Procedure Name Priority Date/Time Associated Comments Diagnosis VITAMIN D 25 POC - Routine 03/13/2021 14:05 Resul ts for this [facility] EDT procedure are i n the results section. FREE T3 POC - CV Routine 03/13/2021 14:05 Resul ts for this EDT procedure are i n the results section. LIPID PANEL POC - CV Routine 03/13/2021 14:05 R esults for this EDT procedure are i n the results section. COMPREHENSIVE Routine 03/13/2021 14:05 Results fo r this METABOLIC POC - [facility] EDT procedu re are in the results section. FREE T4 POC - [facility] Routine 03/13/2021 14:05 Resul ts for this EDT procedure are i n the results section. THYROID STIM HORMONE Routine 03/13/2021 14:05 Res ults for this POC - [facility] EDT procedure are i n the results section. POCT CHOLESTEROL LDL Routine 03/13/2021 14:05 Res ults for this ([facility]) EDT procedure are i n the results section. VITAMIN B12 Routine 03/13/2021 8:20 Results for this EDT procedure are i n the results section. documented in this encounter Results VITAMIN D 25 POC - [facility] (03/13/2021 14:05 EDT) Pathologist Sig nature VIT D, 25 HYDROXY - 67 30 - 100 NG/ML [facility] CENTER LAB Specimen Narrative [facility] - 14:06 EDT CHRONIC RENAL IMPAIRMENT IS DEFINED GFR <60 MULTIPLY RESULT BY 1.210 FOR KJ RICAN PATIENTS EGFR CALCULATED USING THE IDMS-TRACEABLE MDRD STUDY Performing Organization Address City/[facility] Code Phon e Number [facility] [address] [place] [address] (ABNORMAL) THYROID STIM HORMONE POC - [facility] (03/13/2021 14:05 EDT) Pathologist Sig nature THYROID STIM HORMONE 0.10 (L) 0.45 - 5.33 [facility] UIU/ML CENTER LAB Specimen Narrative [facility] - 14:06 EDT CHRONIC RENAL IMPAIRMENT IS DEFINED GFR <60 MULTIPLY RESULT BY 1.210 FOR KJ RICAN PATIENTS EGFR CALCULATED USING THE IDMS-TRACEABLE MDRD STUDY Performing Organization Address [facility] Phon e Number [facility] [address] [place] [address] (ABNORMAL) LIPID PANEL POC - [facility] (03/13/2021 14:05 EDT) Pathologist Sig nature Triglyceride 221 (H) 0.00 - 150.00 MG/DL [facility] Cholesterol 252 (H) 0.00 - 200.00 MG/DL [facility] HDL 54 40.00 - 60.00 MG/DL [facility] Specimen Narrative [facility] - 14:06 EDT CHRONIC RENAL IMPAIRMENT IS DEFINED GFR <60 MULTIPLY RESULT BY 1.210 FOR KJ RICAN PATIENTS EGFR CALCULATED USING THE IDMS-TRACEABLE MDRD STUDY Performing Organization Address City/[facility]/ZIP Code Phon e Number [facility] [address] [place] [address] (ABNORMAL) POCT CHOLESTEROL LDL (CV) (03/13/2021 14:05 EDT) Pathologist Sig [facility] LDL CHOLESTEROL - CV 154 (H) 60 - 100 mg/dl [facility] Specimen Narrative [facility] - 14:06 EDT CHRONIC RENAL IMPAIRMENT IS DEFINED GFR <60 MULTIPLY RESULT BY 1.210 FOR KJ RICAN PATIENTS EGFR CALCULATED USING THE IDMS-TRACEABLE MDRD STUDY Performing Organization Address City/[facility] Code Phon e Number [facility] [address] [place] [address] FREE T4 POC - [facility] (03/13/2021 14:05 EDT) Pathologist [facility] FREE T4 - CV 1.34Comment: THE 0.58 - 1.64 [facility] RESULTS OF THIS NG/DL [facility] CENTER LAB ASSAY CAN BE FALSELY ELEVATED DUE TO THE CONSUMPTION OF BIOTIN Specimen Narrative [facility] - 14:06 EDT CHRONIC RENAL IMPAIRMENT IS DEFINED GFR <60 MULTIPLY RESULT BY 1.210 FOR KJ RICAN PATIENTS EGFR CALCULATED USING THE IDMS-TRACEABLE MDRD STUDY Performing Organization Address [facility] Code Phon e Number [facility] [address] [place] [address] FREE T3 POC - [facility] (03/13/2021 14:05 EDT) Pathologist [facility] T3,FREE - CV 3.39Comment: THE 2.40 - 4.00 [facility] RESULTS OF THIS PG/ML [facility] CENTER LAB ASSAY CAN BE FALSELY ELEVATED DUE TO THE CONSUMPTION OF BIOTIN Specimen Narrative [facility] - 14:06 EDT CHRONIC RENAL IMPAIRMENT IS DEFINED GFR <60 MULTIPLY RESULT BY 1.210 FOR KJ RICAN PATIENTS EGFR CALCULATED USING THE IDMS-TRACEABLE MDRD STUDY Performing Organization Address City/[facility] Code Phon e Number [facility] [address] [place] [address] (ABNORMAL) COMPREHENSIVE METABOLIC POC - [facility] (03/13/2021 14:05 EDT) Pathologist [facility] nature ALBUMIN - CV 4.5 3.50 - 5.00 [facility] MED G/DL CENTER LAB ALKALINE PHOSPHATASE - 141 (H) 38.00 - 126.00 [facility] U/L [facility] BILIRUBIN TOTAL 0.4 0.20 - 1.30 [facility] MG/DL [facility] BUN - [facility] 16 7.00 - 20.00 [facility] MG/DL [facility] CALCIUM - [facility] 10.4 8.50 - 10.50 [facility] MG/DL [facility] Chloride 108 (H) 98.00 - 107.00 [facility] MMOL/L [facility] CO2 Total 23 22.00 - 30.00 [facility] MMOL/L [facility] CREATININE 0.9 0.70 - 1.50 [facility] MG/DL [facility] Anion Gap 10 7 - 17 [facility] GLUCOSE - [facility] 69 (L) 70.00 - 100.00 [facility] MG/DL [facility] Potassium 4.1 3.50 - 5.10 [facility] MMOL/L [facility] Sodium 141 137.00 - 145.00 [facility] MMOL/L [facility] TOTAL PROTEIN - [facility] 7.9 6.30 - 8.20 [facility] G/DL [facility] SGOT/AST - [facility] 30 15.00 - 46.00 [facility] U/L [facility] SGPT/ALT - [facility] 25 0.00 - 35.00 [facility] U/L [facility] Specimen Narrative [facility] - 021 14:06 EDT CHRONIC RENAL IMPAIRMENT IS DEFINED GFR <60 MULTIPLY RESULT BY 1.210 FOR KJ RICAN PATIENTS EGFR CALCULATED USING THE IDMS-TRACEABLE MDRD STUDY Performing Organization Address City/[facility] Phon e Number [facility] [address] [place] [address] VITAMIN B12 (03/13/2021 8:20 EDT) VITAMIN B12 - 584 149 - 932 [facility] Comment: pg/mL [facility] The results of this assay can be falsely elevated due to the consumption of Biotin. Specimen Narrative [facility] - 021 15:09 EDT Does PT Have a Latex Allergy? NO Performing Organization Address City/State/[facility] Code Phon e Number [facility] [address] [place] [address] documented in this encounter Visit Diagnoses Not on filedocumented in this encounter Care Teams Senior Cyber Security Analyst Relationship Specialty Start Date End Date Lisha Kimbrough MD PCP - General Family Medicine - Primary 01/23/21 Care documented as of this encounter
--- OUTSIDE RECORDS SUMMARY | 2022-04-11 01:35 | XMS_ITS | Encounter Summary ---
:1965 Author Organization [facility] Address [address] [place] [address] Care Team Providers Name Role Phone Jules Harden MD Primary Care Provider Encounter Details Date Type Department Care Team Description 03/01/2010 Abstract [facility] Plastic, Jules Kiser MD Reconstructive & Cosmetic [address] Surgery - [facility] [place] [place] [address] [place] [address] [address] [place] [address] Social History Tobacco Use Types Packs/Day Years [...] on filedocumented in this encounter Care Teams Sterile Proc Tech Relationship Specialty Start Date End Date Jules Harden MD PCP - General 02/05/10 05/16/15 [address] [place] [address] documented as of this encounter
--- OUTSIDE RECORDS SUMMARY | 2022-04-11 01:35 | XMS_ITS | Encounter Summary ---
:1965 Author Organization [facility] Address [address] [place] [address] Care Team Providers Name Role Phone Unknown, Provider Primary Care Provider Encounter Details Date Type Department Care Team Description 07/04/2009 Orders Only [facility] Shakira White MD Laboratory Services - [address] [place] [address] [place] [address] [phone] Social History Tobacco Use Types Packs/Day Years [...] L AB vial Result Negative for HPV [facility] types 16, 18, 31, 33, 35, 39, 45, 51, 52, 56, 58, 59, and 68. Report Status Final [facility] 07/17/2009 Specimen Performing Organization Address City/State/ZIP Code Phon e Number [facility] [address] [place] [address] SERVICES [facility] [address] [place] [address] CYTOPATHOLOGY (07/04/2009 0:00 EST) Pathology Report: CYTOPATHOLOGY REPORT ? [facility] ? LAB Reports generated via electr Parabel interface contain original data; ? however they are lacking the format of the original report. ? Caution should be taken when reading/interpreting unformatted reports. ? Name: ? JUMP, JUAN MIGUEL ? Accession #: ? [id number] ? : ? 1965 (Age: 43) ??F [...] and electr onically signed by: ? Juani [place], [place]( CP) ? Report Date: ??12/ 2008 11:26 ? End of Report ? Specimen Performing Organization Address City/State/ZIP Code Phon e Number [facility] [address] [place] [address] SERVICES [facility] [address] [place] [address] documented in this encounter Visit Diagnoses Not on filedocumented in this encounter Care Teams Sales Ambassador Relationship Specialty Start Date End Date Unknown, Provider, PCP - General 07/06/09 02/04/10 documented as of this encounter
--- OUTSIDE RECORDS SUMMARY | 2022-04-11 01:35 | XMS_ITS | Encounter Summary ---
:1965 Author Organization [facility] Address [address] [place] [address] Care Team Providers Name Role Phone Kaylan, Lisha Persaud MD Primary Care Provider Encounter Details Date Type Department Care Team Description 04/06/2021 Results Only Imaging [facility] - [facility] Finn PA-C [facility] [address] [facility] [address] [place] [phone] (Wo rk) Social History Tobacco Use [...] CONTRAST (04/06/2021 13:14 EDT) Specimen Narrative [facility] - 04/06/2021 13:14 EDT ? EXAM: [...] line shift. Flow voids of the ? [place] and major cerebr al vascular [...] CC: ? Transcribed Date/Time: 04/06/2021 (1314) ? Billboard Erector: HIS.VRAD ? Printed Date/Time: 04/06/2021 (13 14) [...] midline s hift. Flow voids of the [place] and major cerebral vas cular [...] Leonila Lozada MD CC: Transcribed Date/Time: 04/06/2021 (2430 ) Billboard Erector: Printed Date/Time: 04/06/2021 (8568) PAGE 1 Signed Report Performing Organization Address City/State/ZIP Code Phon e Number RADIOLOGY documented in this encounter Visit Diagnoses Not on filedocumented in this encounter Care Teams Lightout Examiner Relationship Specialty Start Date End Date KaylanLisha MD PCP - General Family Medicine - Primary 01/23/21 Care documented as of this encounter
--- OUTSIDE RECORDS SUMMARY | 2022-04-11 01:35 | XMS_ITS | Encounter Summary ---
:1965 Author Organization [facility] Address [address] [place] [address] Care Team Providers Name Role Phone Unknown, Provider Primary Care Provider Encounter Details Date Type Department Care Team Description 01/31/2010 Abstract [facility] Plastic, Unkn own, Provider, Reconstructive & Cosmetic [phone] (Work) Surgery - [facility] [address] [place] [id number] Social History Tobacco Use Types Packs/Day Years Used Date Never Assessed Sex Assigned at Date Recorded Not on file documented as of this encounter Plan of Treatment Not on filedocumented as of this encounter Visit Diagnoses Not on filedocumented in this encounter Care Teams Mosaicist Relationship Specialty Start Date End Date Unknown, Provider, PCP - General 07/06/09 02/04/10 documented as of this encounter
--- OUTSIDE RECORDS SUMMARY | 2022-04-11 01:35 | XMS_ITS | Encounter Summary ---
:1965 Author Organization [facility] Address [address] [place] [address] Care Team Providers Name Role Phone Unknown, Provider Primary Care Provider Encounter Details Date Type Department Care Team Description 06/18/2015 Phlebotomy Only [facility] Industrial RadiographerGarret response - [facility] Outpatient examination (Primary [address] [facility] Dx) [place], [place] [id number] Social History Tobacco Use Types Packs/Day Years [...] ANTIBODY (06/18/2015 9:25 EST) Hepatitis B Positive [facility] Surface Ab Comment: LABORATORY SERVICES Reference Range: Unvaccinated: ??Negative Vaccinated: ??Positive HBs Antibody, >1000.0 mIU/mL [facility] Quant Comment: LABORATORY SERVICES Patient is presumed to be immune to infection with HBV. Reference Range: Positive: >=12.0 mIU/mL Indeterminate: >=5.0 to <12.0 mIU/mL Negative: <5.0 mIU/mL Specimen Blood specimen (specimen) - Blood Performing Organization Address City/State/ZIP Code Phon e Number [facility] LABORATORY [address] [place] [address] SERVICES documented in this encounter Visit Diagnoses Diagnosis Antibody response examination - Primary documented in this encounter Care Teams Horseshoer Relationship Specialty Start Date End Date Unknown, Provider, PCP - General 05/17/15 07/08/20 documented as of this encounter
[2022-04-11 09:40] LABS: Anion Gap 6.9 mmol/L (3-11); BUN 14 mg/dL (7-18); CO2 29.1 mmol/L (21.0-32.0); Calcium 9.9 mg/dL (8.5-10.1); Chloride 103 mmol/L (98-107); Estimated GFR 65.71 (mL/min/1.73m2); Glucose 88 mg/dL (74-106); Potassium 3.9 mmol/L (3.5-5.1); Sodium 139 mmol/L (136-145)
[2022-04-11 12:15] LABS: Lab Add On Test DONE
[2022-04-17 14:15] LABS: Misc Referral (MAYO) See Comments
== END 2022-04-11 00:59 | disposition home or self-care (01) ==
LOC: LBO 00:58
PROVIDERS: PCP Student in an Organized Health Care Education/Training Program; Visit Provider Student in an Organized Health Care Education/Training Program
DX: D47.09 Other mast cell neoplasms of uncertain behavior (principal); R79.89 Other specified abnormal findings of blood chemistry
CPT/HCPCS: 36415; 80048; 83520

== ENCOUNTER 2022-04-18 20:10 | Outpatient (REF) | payer OTHER, MEDICAID, SELFPAY ==
[2022-04-30 09:01] LABS: Prostaglandin D2, Random Ur 88 ng/L
== END 2022-04-18 20:11 | disposition home or self-care (01) ==
LOC: LBN 20:10
PROVIDERS: PCP Student in an Organized Health Care Education/Training Program; Visit Provider Student in an Organized Health Care Education/Training Program
DX: D47.09 Other mast cell neoplasms of uncertain behavior (principal)
CPT/HCPCS: 82542; 84150

== ENCOUNTER 2022-04-20 13:38 | Outpatient (REF) | payer OTHER, MEDICAID, SELFPAY ==
[2022-04-24 16:38] LABS: Creatinine Concentration,24hrU 32 mg/dL; Creatinine, 24hr U 1088 mg/24 h (603 - 1783); N-Methylhistamine, 24hr 118 mcg/g Cr (30-200); Urine Volume 3400 mL
== END 2022-04-20 13:39 | disposition home or self-care (01) ==
LOC: LBN 13:38
PROVIDERS: PCP Student in an Organized Health Care Education/Training Program; Visit Provider Student in an Organized Health Care Education/Training Program
DX: D47.09 Other mast cell neoplasms of uncertain behavior (principal)
CPT/HCPCS: 82542; 81050

== ENCOUNTER 2022-05-14 15:29 | Outpatient (REF) | payer OTHER, MEDICAID, SELFPAY ==
[2022-05-16 10:52] LABS: COVID-19 RT-PCR UVMMC Result Negative (Negative)
== END 2022-05-14 15:30 | disposition home or self-care (01) ==
LOC: LBN 15:29
PROVIDERS: PCP Student in an Organized Health Care Education/Training Program; Visit Provider Nurse Practitioner Family
DX: Z20.822 Contact with and (suspected) exposure to COVID-19 (principal)
CPT/HCPCS: U0003

== ENCOUNTER 2022-10-01 02:57 | Outpatient (CLI) | payer OTHER, SELFPAY ==
[2022-10-01 09:42] LABS: Abs Immature Grans 0.03 10^3/uL (0.0-0.06); Absolute Basophil Count 0.11 10^3/uL (0.0-0.2); Absolute Eosinophil Count 0.16 10^3/uL (0.0-0.7); Absolute Lymphocyte Count 2.57 10^3/uL (1.2-3.4); Absolute Monocyte Count 0.64 10^3/uL (0.1-0.8); Absolute Neutrophil Count 5.16 10^3/uL (1.2-6.7); Basophils % 1.3; Eosinophils % 1.8; HGB 14.3 g/dL (11.2-15.7); Immature Grans % 0.3; Lymphocytes % 29.6; MCH 29.8 pg (27.0-33.0); MCHC 31.8 % (32.0-36.0); MCV 94 fL (80-95); MPV 9.7 fL (8.0-11.0); Monocytes % 7.4; Neutrophils % 59.6; Platelet Count 305 10^3/uL (130-400); RDW-SD 45.1 fL; WBC 8.67 10^3/uL (4.4-10.8)
[2022-10-01 10:05] LABS: Anion Gap 7.2 mmol/L (3-11); BUN 16 mg/dL (7-18); CO2 27.8 mmol/L (21.0-32.0); CREATININE 1.1 mg/dL (0.55-1.02); Chloride 103 mmol/L (98-107); Estimated GFR 58.24 (mL/min/1.73m2); Glucose 94 mg/dL (74-106); Potassium 3.5 mmol/L (3.5-5.1); Sodium 138 mmol/L (136-145); TSH (W/Ref FT4) 1.12 uIU/mL (0.36-3.74)
[2022-10-02 09:26] LABS: IgA 185 mg/dL (85-499); IgG 1219 mg/dL (610-1616); IgM 140 mg/dL (35-242)
== END 2022-10-01 02:58 | disposition home or self-care (01) ==
LOC: LBO 02:57
PROVIDERS: PCP Student in an Organized Health Care Education/Training Program; Visit Provider Student in an Organized Health Care Education/Training Program
DX: D89.89 Other specified disorders involving the immune mechanism, not elsewhere classified (principal); D47.09 Other mast cell neoplasms of uncertain behavior; R79.89 Other specified abnormal findings of blood chemistry; K20.0 Eosinophilic esophagitis; K21.9 Gastro-esophageal reflux disease without esophagitis; R65.10 Systemic inflammatory response syndrome (SIRS) of non-infectious origin without acute organ dysfunction
CPT/HCPCS: 36415; 80048; 82784; 84443; 85025

== ENCOUNTER 2023-02-06 18:31 | Outpatient (REF) | payer OTHER, SELFPAY ==
[2023-02-06 20:58] LABS: Source Nasal/Nares
[2023-02-06 22:45] LABS: COVID-19 PCR Negative (Negative)
== END 2023-02-06 18:32 | disposition home or self-care (01) ==
LOC: LBN 18:31
PROVIDERS: PCP Student in an Organized Health Care Education/Training Program; Visit Provider Physician Assistant Medical
DX: J02.9 Acute pharyngitis, unspecified (principal); Z20.822 Contact with and (suspected) exposure to COVID-19
CPT/HCPCS: 87635; 87070

== ENCOUNTER → 2023-05-13 03:08 | Outpatient (CLI) | payer OTHER, SELFPAY ==
--- NOTE | 2023-05-13 07:45 | DI.MAMMO_ITS ---
Exam(s) MAMMO SCREENING EXAM: MAMMO SCREENING CLINICAL HISTORY: screening,z12.39,lymphadenopathy. TECHNIQUE: Bilateral full field digital CC and MLO mammographic images were obtained with 3D tomosyn thesis and utilizing computer aided detection (CAD). COMPARISON: None. There are no prior mammograms for review. This patient has had prior remote bila teral breast reduction surgery. FINDINGS: The appearance of the fibroglandular tissue pattern reflects the prior bilateral reduction surgery. There are no CAD designations. There are no spiculated masses nor malignant appearing microcalcification groups. Some asymmetric fibroglandular tissue is noted in the right axilla-axillary tail region. There is no discernible mass at this level. There is no significant architectural distortion nor skin thickening-retraction. IMPRESSION: No radiographic evidence of malignancy. See separate ultrasound report BI-RADS Category 2 - Benign Findings Breast Density - Category B - Scattered areas of fibroglandular density Breast density Category C or D implies that the patient has dense breast tissue. Dense breast tissue can make it harder to find cancer on a mammogram. Dense breast tissue is also associated with an incr eased risk of breast cancer. This information about the result of the mammogram report was provided to the patient to raise their awareness. Use this report when you speak with the patient about their risks for breast cancer, which includes their family history. At that time, you may recommend additional screening tests (Ultrasoun d or MRI) as these tests may add significant information. A negative radiographic report should not delay biopsy if a dominant or clinically suspicious mass is present. Up to ten percent of cancers are not identified on mammography. A negative report may reinforce clinical impression. Adenosis and dense breasts may obscure an underlying neoplasm. False positive reports average 6 to 10%. Patient will receive a letter notifying them of these results.
--- NOTE | 2023-05-13 07:49 | DI.US_ITS ---
Exam(s) US BREAST RT COMPLETE EXAM: US BREAST RT COMPLETE CLINICAL HISTORY: evaluate lymph vs breast tissue,R59.1,LYMPHADENOPATHY. TECHNIQUE: Complete ultrasound of the right breast was performed including all 4 quadrants, the retr oareolar region, and the ipsilateral axilla. COMPARISON: Today's mammogram was reviewed. This patient has had prior bilateral reduction surgery. FINDINGS: There are no focal ultrasound findings in all 4 quadrants of the right breast nor in the retroareolar region. Scanning of the right axilla is negative for significant adenopathy. IMPRESSION: Negative complete right breast ultrasound Also no adenopathy nor other significant findings in the right axilla. BI-RADS Category 2 - Benign Findings Breast Density - Category B - Scattered areas of fibroglandular density Breast density Category C or D implies that the patient has dense breast tissue. Dense breast tissue can make it harder to find cancer on a mammogram. Dense breast tissue is also associated with an incr eased risk of breast cancer. This information about the result of the mammogram report was provided to the patient to raise their awareness. Use this report when you speak with the patient about their risks for breast cancer, which includes their family history. At that time, you may recommend additional screening tests (Ultrasoun d or MRI) as these tests may add significant information. A negative radiographic report should not delay biopsy if a dominant or clinically suspicious mass is present. Up to ten percent of cancers are not identified on mammography. A negative report may reinforce clinical impression. Adenosis and dense breasts may obscure an underlying neoplasm. False positive reports average 6 to 10%. Patient will receive a letter notifying them of these results.
== END ==
PROVIDERS: PCP Student in an Organized Health Care Education/Training Program; Visit Provider Student in an Organized Health Care Education/Training Program
DX: R59.1 Generalized enlarged lymph nodes (principal); Z12.31 Encounter for screening mammogram for malignant neoplasm of breast
CPT/HCPCS: 76642; 77063; 77067

== ENCOUNTER 2023-05-15 01:55 | Outpatient (CLI) | payer OTHER, SELFPAY ==
[2023-05-15 14:36] LABS: Lipase 37 U/L (16-77)
[2023-05-15 14:46] LABS: Anion Gap 6.7 mmol/L (3-11); BUN 14 mg/dL (7-18); CO2 30.3 mmol/L (21.0-32.0); Chloride 104 mmol/L (98-107); Glucose 104 mg/dL (74-106); Magnesium 2.3 mg/dL (1.8-2.4); Potassium 3.7 mmol/L (3.5-5.1); Sodium 141 mmol/L (136-145); TSH (W/Ref FT4) 0.38 uIU/mL (0.36-3.74)
[2023-05-15 15:39] LABS: Vitamin D 25 Total 65.8 ng/mL (30-100)
[2023-05-22 11:25] LABS: Test Name T3 Uptake
== END 2023-05-15 01:56 | disposition home or self-care (01) ==
LOC: LBO 01:56
PROVIDERS: Absent Provider Student in an Organized Health Care Education/Training Program; PCP Student in an Organized Health Care Education/Training Program; Referring Provider Student in an Organized Health Care Education/Training Program; Visit Provider Student in an Organized Health Care Education/Training Program
DX: Z79.899 Other long term (current) drug therapy (principal); Z91.89 Other specified personal risk factors, not elsewhere classified; K86.89 Other specified diseases of pancreas; K90.9 Intestinal malabsorption, unspecified; E06.3 Autoimmune thyroiditis; Q89.2 Congenital malformations of other endocrine glands
CPT/HCPCS: 36415; 80048; 82306; 83690; 84479; 83735; 84439; 84443

== ENCOUNTER 2023-07-24 11:48 | Outpatient (REF) | payer OTHER, SELFPAY | END 2023-07-24 11:49 | disposition home or self-care (01) | LOC: LBN 11:48 | PROVIDERS: PCP Student in an Organized Health Care Education/Training Program; Visit Provider Student in an Organized Health Care Education/Training Program | DX: R35.0 Frequency of micturition (principal); R82.998 Other abnormal findings in urine | CPT/HCPCS: 87077; 87086; 87186 ==

== ENCOUNTER 2023-09-01 16:25 | Outpatient (CLI) | payer OTHER, SELFPAY ==
--- NOTE | 2023-09-01 16:15 | RT.EKG_ITS ---
APPROVED REPORT Exam: Resting ECG Reason for Exam: Chest pain Patient Location: O HR:68 bpm ECG Measurements Heart Rate 68 AXIS UT 168 P 59 QRSd 113 QRS 34 QT 398 T 27 QTc 424 Conclusion Sinus rhythm...normal P axis, V-rate 50- 99
== END 2023-09-01 16:26 | disposition home or self-care (01) ==
PROVIDERS: PCP Student in an Organized Health Care Education/Training Program; Visit Provider Student in an Organized Health Care Education/Training Program
DX: R07.9 Chest pain, unspecified (principal)
CPT/HCPCS: 93010

== ENCOUNTER 2023-09-02 10:44 | Outpatient (CLI) | payer OTHER, SELFPAY ==
[2023-09-02 10:33] LABS: Abs Immature Grans 0.03 10^3/uL (0.0-0.06); Absolute Basophil Count 0.08 10^3/uL (0.0-0.2); Absolute Eosinophil Count 0.21 10^3/uL (0.0-0.7); Absolute Lymphocyte Count 2.52 10^3/uL (1.2-3.4); Absolute Monocyte Count 0.58 10^3/uL (0.1-0.8); Absolute Neutrophil Count 5.08 10^3/uL (1.2-6.7); Basophils % 0.9; Eosinophils % 2.5; HCT 44.9 % (36.0-46.0); HGB 14.7 g/dL (11.2-15.7); Immature Grans % 0.4; Lymphocytes % 29.6; MCH 29.1 pg (27.0-33.0); MCHC 32.7 % (32.0-36.0); MCV 89 fL (80-95); MPV 9.7 fL (8.0-11.0); Monocytes % 6.8; Neutrophils % 59.8; Platelet Count 313 10^3/uL (130-400); RBC 5.05 10^6/uL (3.93-5.22); RDW 13.1 % (11.7-14.6); RDW-SD 42.5 fL
[2023-09-02 11:31] LABS: Folate 16.3 ng/mL (8.6-20.0)
[2023-09-02 11:37] LABS: Vitamin D 25 Total 83.3 ng/mL (30-100)
[2023-09-02 11:42] LABS: ALT 38 U/L (14-59); AST 22 U/L (15-37); Alkaline Phosphatase 138 U/L (46-116); Anion Gap 12.7 mmol/L (3-11); BUN 13 mg/dL (7-18); Bilirubin, Total 0.3 mg/dL (0.2-1.0); CO2 25.3 mmol/L (21.0-32.0); Calcium 10.3 mg/dL (8.5-10.1); Calculated LDL 133 mg/dL (<100); Chloride 106 mmol/L (98-107); Cholesterol 258 mg/dL (<200); Glucose 101 mg/dL (74-106); HDL Cholesterol 50 mg/dL (40-60); Potassium 3.7 mmol/L (3.5-5.1); Sodium 144 mmol/L (136-145); Total Protein 8.5 g/dL (6.4-8.2); Triglyceride 379 mg/dL (<150); Vitamin B12 531 pg/mL (193-986)
[2023-09-02 11:53] LABS: FREE T4 1.43 ng/dL (0.76-1.46)
[2023-09-02 19:17] LABS: Thyroglobulin Antibody <15 U/mL (<=60); Thyroperoxidase Antibody 248 U/mL (<=60)
[2023-09-07 00:46] LABS: Lab Add On Test DONE
[2023-09-07 17:45] LABS: T3,Free 3.8 pg/mL (2.8-5.3)
== END 2023-09-02 10:45 | disposition home or self-care (01) ==
LOC: LBO 10:45
PROVIDERS: PCP Student in an Organized Health Care Education/Training Program; Visit Provider Student in an Organized Health Care Education/Training Program
DX: K21.9 Gastro-esophageal reflux disease without esophagitis; R79.89 Other specified abnormal findings of blood chemistry; R65.10 Systemic inflammatory response syndrome (SIRS) of non-infectious origin without acute organ dysfunction; Z13.220 Encounter for screening for lipoid disorders
CPT/HCPCS: 36415; 80053; 80061; 82306; 86376; 82607; 82746; 84439; 84443; 84481; 85025

== ENCOUNTER 2023-09-17 10:51 | Outpatient (CLI) | payer OTHER, SELFPAY | END 2023-09-17 10:52 | disposition home or self-care (01) | PROVIDERS: PCP Student in an Organized Health Care Education/Training Program; Visit Provider Student in an Organized Health Care Education/Training Program | DX: R00.2 Palpitations | CPT/HCPCS: 93246 ==

== ENCOUNTER → 2023-10-06 02:57 | Outpatient (CLI) | payer MEDICAID, SELFPAY ==
--- NOTE | 2023-10-06 07:15 | DI.US_ITS ---
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 TECHNIQUE: Ultrasound thyroid performed using standard protocol. COMPARISON: None FINDINGS: The thyroid gland is small and does not contain nodules. It is not hyperemic RIGHT THYROID LOBE: Measures 0.5 cm AP x 0.9 cm wide x 1.9 cm craniocaudal ISTHMUS: Thin. Measures 1 mm thick LEFT THYROID LOBE: Measures 0.5 cm AP x 1.3 wide x 1.7 cm craniocaudal LYMPH NODES: There few benign-appearing lymph nodes in the right-side of the neck. The largest measu res 2.0 by 0.4 cm and exhibits normal fatty hilum.. IMPRESSION: 1. The entire thyroid gland is small, with measurements as above 2. There are no nodules in the thyroid gland 3. There is no significant lymphadenopathy. DATA REPOSITORY:
--- NOTE | 2023-10-06 07:15 | DI.US_ITS ---
APPROVED REPORT EXAM: Comprehensive 2D, Doppler, and color-flow Echocardiogram Patient Location: Out-Patient Systems Qa Analyst: Mariama Enrique RDCS (AE) Indications: Evaluate cardiac function, Chest pain at rest, palpitations, breathlessness Other Information Study Quality: Adequate Conclusion Normal left ventricular wall thickness size and systolic function. EF is 60%. Normal wall motion Normal right ventricular size and function Both atria are normal in size There is no structural or hemodynamically significant valvular disease Wall motion Left Ventricle The left ventricle is normal size. The left ventricular systolic function is normal. The left ventric ular ejection fraction is within the normal range. There is normal left ventricular wall thickness. T here is normal LV segmental wall motion. There is no ventricular septal defect visualized. LVEF is 60 %. Right Ventricle The right ventricle is normal size. The right ventricular systolic function is normal. Atria The left atrium size is normal. The right atrium size is normal. The interatrial septum is intact wit h no evidence for an atrial septal defect. Aortic Valve The aortic valve is normal in structure. There is no aortic valvular stenosis. No aortic regurgitatio n is present. Mitral Valve The mitral valve is normal in structure. No evidence of mitral valve stenosis. Trace mitral regurgita tion. Tricuspid Valve The tricuspid valve is normal in structure. There is no tricuspid valve stenosis. Trace tricuspid reg urgitation. The RVSP is 26.2 mmHg. Pulmonic Valve The pulmonary valve is normal in structure. There is no pulmonic valvular stenosis. There is no pulmo karolyn valvular regurgitation. Great Vessels The aortic root is normal in size. The ascending aorta is normal in size. Aortic arch is not well vis ualized. IVC is normal in size and collapses >50% with inspiration. Pericardium There is no pericardial effusion. 2D Dimensions IVSD d PLAX 0.87 cm F: 0.6-1.0 Ao Root d 2.84 cm F: 2.7 - 3.3 LVPW d PLAX 0.91 cm F: 0.6 - 1.0 Ao Asc Diam d 2.92 cm F: 2.3 - 3.1 LVID d PLAX 3.98 cm F: 3.8 - 5.2 LVDs 2.67 cm F: 2.2 - 3.5 LV EF Teichholz 62.2 % FS 33.09 % LV EDV (Teich) 69.3 mL LV ESV (Teich) 26.2 mL M-Mode TAPSE 2.00 cm (M/F) >1.7 Auto EF LV EDV A4C 77.4 mL LV EDV A2C 79.4 mL LV EDV BP 78.4 mL LV ESV A4C 30.5 mL LV ESV A2C 30.9 mL LV ESV BP 31.1 mL LVEF(%) A4C 60.6 % LVEF(%) A2C 61.1 % LVEF(%) BP 60.4 % LV SV A4C 46.9 ml LV SV A2C 48.5 ml LV SV BP 47.4 ml LV CO A4C 3.3 L/min LV CO A2C 3.5 L/min LV CO BP 3.4 L/min HR A4C 69.63 BPM HR A2C 71.58 BPM LV EDV Index (BP) LA Volume LA Length A4C 4.1 cm LA Length A2C 4.5 cm LA Area A4C s 10.93 cm2 LA Area A2C s 11.40 cm2 LA Vol A4C A-L 24.57 mL LA Vol A2C A-L 24.61 mL LA Vol Biplane A-L 25.6 mL LA Vol/BSA A4C A-L LA Vol/BSA A2C A-L LA Vol/BSA BP A-L 14.4 mL/m2 LA Vol A4C MOD 23.7 mL LA Vol A2C MOD 23.0 mL LA Vol BP MOD 24.2 mL RA Volume RA Area A4C 7.4 cm2 RA ESV A4C (A-L) 12.2mL RA Vol/BSA A4C A-L RA Length A4C 3.8 cm RA ESV A4C (MOD) 11.6mL LV Diastology MV E' medial 0.087 (>0.07 m/s) MV E Vmax 0.80 (0.4-1.3 m/s) MV E/E' MED 9.17 (<14) MV A Vmax 0.60 (0.4-1.3 m/s) MV E' lateral 0.118 (>0.1 m/s) E/A Ratio 1.3 MV E/E' LAT 6.81 (<14) MV E' Average 0.103 m/s MV E/E'(average) 7.81 Aortic Valve AoV Vmax 1.09 m/s LVOT Vmax 0.92 m/s AoV Peak Grad 4.8 mmHg LVOT Peak Grad 3.4 mmHg AoV Area (Vmax) 2.23 cm2 LVOT VTI 0.200 m AoV VTI 0.263 m LVOT Mean Grad 1.8 mmHg AoV Mean Guevara. 0.78 m/s LVOT SV 52.85 mL AoV Mean Grad 2.7 mmHg LVOT Diam s 1.80 cm AoV Area (VTI) 2.01 cm2 Velocity Ratio 0.84 Mitral Valve MV DT 234 (160-240 msec) MV Vmax TIPS 0.81 m/s MV Mean Grad 1.1 (<2mmHg) MV VTI 0.245 m Pulmonary Valve PV Vmax 0.76 (0.5-1.5 m/s) RVOT Vmax 0.54 m/s PV Peak Grad 2.3 mmHg RVOT Peak Gr. 1.2 mmHg PV Mean Guevara 0.57 m/s RVOT VTI 0.131 m PV Mean Grad 1.5 mmHg RVOT Mean Gr. 0.7 mmHg Tricuspid Valve RA Pressure 3.00 mmHg TR Vmax 2.41 m/s TV S' 0.12 m/s TR Peak Grad 23.1 mmHg RVSP (TR) 26.2 mmHg
== END ==
PROVIDERS: PCP Student in an Organized Health Care Education/Training Program; Visit Provider Student in an Organized Health Care Education/Training Program
DX: R00.2 Palpitations; R06.01 Orthopnea; R07.89 Other chest pain; E05.90 Thyrotoxicosis, unspecified without thyrotoxic crisis or storm; E06.3 Autoimmune thyroiditis; E83.52 Hypercalcemia
CPT/HCPCS: 76536; 93306

== ENCOUNTER 2023-10-06 07:09 | Outpatient (CLI) | payer MEDICAID, SELFPAY ==
--- NOTE | 2023-10-06 12:11 | W.CARDEVENT ---
Date of service: 10/06/23 Time of Service: 12:11 Cardiac Event Recorder Referring Provider:: Paloma Hyman Indications:: Palpitations Cardiac Event Note: This is a cardiac event monitor. Patient was monitored for 12 days and 6 hours Rhythm throughout was sinus with an average heart rate of 71. Minimum was 46, maximum 155 There were very rare isolated ventricular ectopic beats There were rare atrial premature beats There were 2 episodes of supraventricular tachycardia. 1 of these lasted 12 seconds. The second lasted 3-4 beats Patient symptoms were reported which did not correlate to any dysrhythmia
== END 2023-10-06 07:10 | disposition home or self-care (01) ==
LOC: CARDOPNVT 07:09
PROVIDERS: PCP Student in an Organized Health Care Education/Training Program; Visit Provider Internal Medicine Cardiovascular Disease
DX: R00.2 Palpitations (principal); I47.10 Supraventricular tachycardia, unspecified

== ENCOUNTER 2023-10-14 16:16 | Outpatient (CLI) | payer MEDICAID, SELFPAY ==
[2023-10-14 11:42] LABS: Alkaline Phosphatase 133 U/L (46-116); Anion Gap 9.2 mmol/L (3-11); BUN 20 mg/dL (7-18); CO2 28.8 mmol/L (21.0-32.0); CREATININE 1.1 mg/dL (0.55-1.02); Calcium 10.5 mg/dL (8.5-10.1); Chloride 101 mmol/L (98-107); Estimated GFR 57.88 (mL/min/1.73m2); Glucose 103 mg/dL (74-106); Magnesium 2.1 mg/dL (1.8-2.4); Potassium 3.5 mmol/L (3.5-5.1); Sodium 139 mmol/L (136-145); TSH (W/Ref FT4) 0.77 uIU/mL (0.36-3.74)
[2023-10-14 17:09] LABS: Parathyroid Hormone,Intact 21 pg/mL (19-88)
[2023-10-18 23:35] LABS: Lab Add On Test DONE
[2023-10-19 00:12] LABS: Vitamin D 25 Total 79.9 ng/mL (30-100)
== END 2023-10-14 16:17 | disposition home or self-care (01) ==
LOC: LBO 16:24
PROVIDERS: PCP Student in an Organized Health Care Education/Training Program; Visit Provider Student in an Organized Health Care Education/Training Program
DX: E05.90 Thyrotoxicosis, unspecified without thyrotoxic crisis or storm (principal); E06.3 Autoimmune thyroiditis; E83.52 Hypercalcemia; I49.9 Cardiac arrhythmia, unspecified; R00.2 Palpitations; R65.10 Systemic inflammatory response syndrome (SIRS) of non-infectious origin without acute organ dysfunction; R79.89 Other specified abnormal findings of blood chemistry; R74.8 Abnormal levels of other serum enzymes; Z91.89 Other specified personal risk factors, not elsewhere classified; E67.3 Hypervitaminosis D
CPT/HCPCS: 36415; 80048; 82306; 83735; 83970; 84075; 84443

== ENCOUNTER 2023-11-11 05:20 | Outpatient (CLI) | payer MEDICAID, SELFPAY ==
[2023-11-11 15:45] LABS: Abs Immature Grans 0.03 10^3/uL (0.0-0.06); Absolute Basophil Count 0.12 10^3/uL (0.0-0.2); Absolute Eosinophil Count 0.16 10^3/uL (0.0-0.7); Absolute Monocyte Count 0.56 10^3/uL (0.1-0.8); Eosinophils % 1.4; HCT 43.8 % (36.0-46.0); HGB 14.7 g/dL (11.2-15.7); Immature Grans % 0.3; Lymphocytes % 30.2; MCH 30.2 pg (27.0-33.0); MCHC 33.6 % (32.0-36.0); MCV 90 fL (80-95); MPV 9.9 fL (8.0-11.0); Monocytes % 4.8; Neutrophils % 62.3; Platelet Count 331 10^3/uL (130-400); RBC 4.87 10^6/uL (3.93-5.22); RDW 13.2 % (11.7-14.6); RDW-SD 43.4 fL; WBC 11.77 10^3/uL (4.4-10.8)
[2023-11-11 15:57] LABS: Absolute Lymphocyte Count 3.55 10^3/uL (1.2-3.4); Absolute Neutrophil Count 7.33 10^3/uL (1.2-6.7)
[2023-11-11 16:50] LABS: ALT 46 U/L (14-59); AST 23 U/L (15-37); Albumin 4.2 g/dL (3.4-5.0); Alkaline Phosphatase 146 U/L (46-116); Anion Gap 11.9 mmol/L (3-11); BUN 15 mg/dL (7-18); Bilirubin, Total 0.4 mg/dL (0.2-1.0); CO2 29.1 mmol/L (21.0-32.0); CREATININE 1.1 mg/dL (0.55-1.02); Calcium 9.7 mg/dL (8.5-10.1); Chloride 104 mmol/L (98-107); Estimated GFR 57.88 (mL/min/1.73m2); Glucose 117 mg/dL (74-106); Magnesium 2.3 mg/dL (1.8-2.4); Potassium 3.3 mmol/L (3.5-5.1); Sodium 145 mmol/L (136-145); TSH (W/Ref FT4) 0.73 uIU/mL (0.36-3.74); Total Protein 8.1 g/dL (6.4-8.2)
[2023-11-11 23:23] LABS: Parathyroid Hormone,Intact 40 pg/mL (19-88)
[2023-11-12 19:11] LABS: Vitamin D 25 Total 65.3 ng/mL (30-100)
== END 2023-11-11 05:21 | disposition home or self-care (01) ==
LOC: LBO 05:20
PROVIDERS: PCP Student in an Organized Health Care Education/Training Program; Visit Provider Student in an Organized Health Care Education/Training Program
DX: E83.52 Hypercalcemia (principal); B99.9 Unspecified infectious disease; M35.89 Other specified systemic involvement of connective tissue; K90.9 Intestinal malabsorption, unspecified; Z91.89 Other specified personal risk factors, not elsewhere classified; E21.5 Disorder of parathyroid gland, unspecified
CPT/HCPCS: 36415; 80053; 82306; 83735; 83970; 84443; 85025

== ENCOUNTER 2023-11-24 13:14 | Outpatient (CLI) | payer MEDICAID, SELFPAY ==
[2023-11-24 13:24] LABS: Bilirubin Negative (Negative); Blood Trace-intact (Negative); Clarity Clear (Clear); Glucose Negative (Negative); Ketones 15 mg/dL (Negative); Leukocyte Esterase Negative (Negative); Nitrite Negative (Negative); Urobilinogen 0.2 mg/dL (Up to 0.2); pH 5.5 (5-8)
[2023-11-24 13:44] LABS: Bacteria Moderate HPF (Negative); C & S Indicated? No/Sq. Contamination; Casts Negative LPF (Negative); Crystals Negative HPF (Negative); Epithelial Cells Many HPF (Negative); Mucus Trace (Negative); WBC 0-2 HPF (0-5)
== END 2023-11-24 13:15 | disposition home or self-care (01) ==
LOC: LBO 13:14
PROVIDERS: PCP Student in an Organized Health Care Education/Training Program; Visit Provider Nurse Practitioner Gerontology
DX: N30.10 Interstitial cystitis (chronic) without hematuria (principal)
CPT/HCPCS: 81003; 81015

== ENCOUNTER 2023-12-28 07:05 | Day surgery (SDC) | payer MEDICAID, SELFPAY ==
[2023-12-28] VITALS (24 sets, daily range): BP systolic 79–132; BP diastolic 56–96; PULSE 59–106; RESP 12–20; TEMP 36.1–36.5; O2SAT 96–100; BMI 24.5
--- NOTE | 2023-12-28 08:06 | HPE_ITS ---
Date of service: 12/28/23 Time of Service: 08:06 Assessment and Plan Assessment and plan (1) Pelvic and perineal pain: Status: Acute (2) Interstitial cystitis: Assessment and plan: We will perform cystoscopy with hydrodistension of the bladder under anesthesia. We will plan to cauterize any Hunner's ulcers that are visible and bleeding. History of Present Illness History of Present Illness Chief Complaint: Interstitial cystitis Narrative: Ms. Braun is a 58-year-old female with interstitial cystitis diagnosed at the age of 32. She has had multiple treatments over the years, but her symptoms have stabilized with her current regimen orchistrated by an IC specialist in [place]. As part of her regimen, she has csytoscopy with hydrodistension and fulguration of Hunner's ulcers (when they are identified) every 2 years. She presents for such a procedure here at our facility to avoid a trip back down to [place]. She would prefer not to have a cauterization if possible. She would prefer intravesical treatments to cauterization. She has had some difficulty coming out from anesthesia in the past. Review of Systems Narrative: No fevers or chills Tinnitus. Dysphonia. No vision change or dysphasia Hakeem's thyroiditis. No diabetes Asthma. No hemoptysis No chest pain or palpitations GERD. No hepatitis, ulcers, jaundice No seizures, strokes or peripheral neuropathy No bleeding disorders or anemia No gout PFSH All Active Problems Hypothyroidism, unspecified (Chronic ~11/2023) 12/01/23 Endocrinology Hyperthyroidism (Chronic) Serum calcium elevated (Acute) jusy a little elevated, but has tended up [ ] PTH? Atypical chest pain (Acute) Breathlessness lying flat (Acute) Chest pain due to psychological stress (Acute) Chest pain at rest (Acute) Reactive gastropathy (Acute) per EGD (08/2021) vs GERD GERD (gastroesophageal reflux disease) (Chronic) 40-->20mg dose per 07/24/23 ov. PPI re-started (GERD+EOE), 04/24/23, ik..Stomach antrum biopsy 09/02/21 (reactive gastropathy with NEG H.Pylori). Lichen sclerosus (Acute) Vulvar, vaginal .. Hx with security technician in [facility] (Dr. Sandy provides trigger injections) Muscle tension dysphonia (Acute) Tinnitus, bilateral (Acute) Skin lesion of face (Acute) Rt oriental orthodox, nose.. [ ] Bx @ Surg planned Pelvic and perineal pain (Acute) Sees Dr. Elian Sandy ([place]) for trigger point injections ..vaginal diazepam. Insomnia (Acute) Severe, long Hx using Ambien. Trying to wean off. Falls asleep with medi t/rest.. but staying asleep is difficult. Mast cell disorder (Acute) Elevated serum creatinine (Acute) 1.1 in Jul 2021 (vs 0.94 in January 2020) Asthma (Chronic) Abdominal bloating (Acute) Episodic upper abd bloating, poss due to mast cell disorder .. Systemic inflammatory response syndrome (Acute) Trial Hist-BioGest (histamine neutralizing enzyme), per [facility] Autoimmune disorder (Acute) Acute on chronic .. Hx EBV, Hakeem, ICysitis, LichScl.. Hakeem's thyroiditis (Acute) Medical History Hx of diverticulitis of colon RUQ abdominal tenderness Pancreatic insufficiency Pancr Insuff Syndrome per [facility] (2000), Hx Pancr MT16 (liptase, triptase). Dysphagia per [facility], Dr. Ibarra . 12/31/21 LUQ abdominal tenderness Lymphadenopathy rt axila Anticipatory anxiety Lorzpm, short-term. Managing well, with good pre-planning for upcoming trip to [place] for wedding + (dtr getting ) Sensorineural hearing loss, bilateral Lichen sclerosus of female genitalia per manager china Dx, with lidocaine, steroid, claritin [& diazepam prn]. Plaques (+) with flare, 05/2022. 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 w/ constptn/diarrhea, per [facility] GID[facility]. Ibarra . 12/31/[address]pe[address]ia per [facility], Dr. Ibarra . 12/31/21 COVID-19 (~09/2021) resolving, no fever x 4 days .. monitoring for long covid.. 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 Poor tolerance Lunesta (metallic taste). Hx of smoking Quit over 10 years ago (2019) Vaginismus Valium (vag); Establising w/ [facility] (Dr. Mizti Mcknight) & [facility]. Advance directive in chart Atypical and under discussion .. ik History of trauma Multiple surgeries, childhood trauma .. important to discuss/review Tx plans and any/all plans for invasive procedures Migraine Improved s/p breast reduction Female genital prolapse s/p repair .. needs local FU, [facility] (?) Rectocele Cystocele, midline Stress incontinence Postmenopausal atrophic vaginitis Hx lichen sclerosis .. (s/p tear repair, Dr. Sandy ([place])) Interstitial cystitis Terrible IC flare, 12/2020. Surgical History History of colonoscopy (~08/2021) History of surgery Peer patient hx multiple cystoscopys, total pelvic rebuild, anterior/ posterior repair, surgery for endometriosis, surgical repair for vaginal tears r/t lichen sclerosus. Patient reports a total of 30 past surgical procedures. H/O cystoscopy Vaginal biopsy and Repair of vaginal tears. Dr. Noelle Sandy History of hysterectomy History of bilateral breast reduction surgery Family History Father Alcohol abuse Daughter Bulimia Maternal Grandfather Colon cancer Heart disease Maternal Aunt Colon cancer Paternal Grandmother Depression Mother Depression Paternal Grandmother Diabetes Social History Smoking/Tobacco Use Status: Former Tobacco Use Quit Date: 07/20/89 Tobacco: How many years used: 10 Quit status: quit date established Smoking risk assessment performed?: Yes Alcohol Intake: former Year quit: 2011 Drug use: Never Substance use type: does not use Adopted: No Caregiver/Support person: No Foster care: No Household members: significant other Housing: house Number of Children: 2 number of grandchildren: 4 Communication Needs: Hard of Hearing Education Level: master's degree Do you need help understanding health information?: Never 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 Pets and animals: Yes Pets and animals: cat(s) Sexually active: Yes Do you think of yourself as: straight/heterosexual Current gender identity: female What is your relationship status?: living with partner How often do you talk on the phone with friends or family?: three or more times per week Do you belong to any clubs or organized social groups?: yes Panel score (0-1 are the most socially isolated patients): 3 Duration: 15-30 minutes/day Frequency: 3-4 times per week Rupal/Confucianist: Shinto Special rupal needs: Yes (Be Nice) Seatbelt use: always Helmet use: Yes Drive intox or ride w/intox armored truck driver: No Do you feel safe at home: Yes Do you feel safe in your relationship?: Yes Meds Allergies and Home Medications Allergies Allergy/AdvReac Type Severity Reaction Status Date / Time venom-honey bee Allergy Severe anaphylaxis Verified 12/28/23 07:27 alcohol Allergy Esophilia Verified 12/28/23 07:27 irritant/blows up garlic Allergy Esophilia Verified 12/28/23 07:27 irritant/blows up mint Allergy Esophilia Verified 12/28/23 07:27 irritant/blows up onion Allergy Esophilia Verified 12/28/23 07:27 irritant/blows up Sulfa (Sulfonamide Allergy Unknown Verified 12/28/23 07:27 Antibiotics) vaccine adjuvant system, AdvReac Mild localized Verified 12/28/23 07:27 AS01B liposomal rash [From Shingrix (PF)] varicella-zoster virus AdvReac Mild localized Verified 12/28/23 07:27 glycoprotein E, recombinant rash [From Shingrix (PF)] gabapentin AdvReac SI thoughts Verified 12/28/23 07:27 pregabalin [From Lyrica] AdvReac Suicidal Verified 12/28/23 07:27 Ideation fried foods Allergy Esophilia Uncoded 12/28/23 07:27 irritant/blows up vaccines AdvReac Mild reacts to Uncoded 12/28/23 07:27 vaccines-fever,aches/pains,malaise,fatigue Home Medications Medication Instructions Recorded Confirmed Type clobetasol 0.05 % topical ointment 1 applic topical .weekly PRN 08/05/22 12/25/23 Rx vaginal dryness #45 grams conjugated estrogens 0.625 mg/gram 0.625 mg vaginal DAILY #30 grams 08/05/22 12/25/23 Rx vaginal cream (Premarin) lidocaine HCl 2 % mucosal jelly in 1 applic topical BID-QID PRN 08/05/22 12/25/23 Rx applicator (Glydo) urethral pain #500 mL phenazopyridine 200 mg tablet 200 mg PO TID PRN chronic lichen 08/05/22 12/25/23 Rx (Pyridium) sclerosis pain 6 doses #90 tabs epinephrine 0.3 mg/0.3 mL 0.3 mg (0.3 mL) IM ONCE white 12/18/22 12/25/23 Rx injection, auto-injector (EpiPen) faced hornets #2 ea nystatin 100,000 unit/gram topical 1 applic topical QID #30 grams 12/18/22 12/25/23 Rx ointment loratadine 10 mg tablet (Claritin) 10 mg PO DAILY PRN 04/24/23 12/25/23 History sucralfate 1 gram tablet 1 g PO BID PRN gastritis #20 tabs 04/24/23 12/25/23 Rx ibuprofen 600 mg tablet 600 mg PO Q6H PRN inflammation, 07/10/23 12/25/23 Rx headache #100 tabs diazepam 10 mg tablet 10 mg PO QHS PRN vaginismus #28 11/20/23 12/28/23 Rx tabs ondansetron HCl 4 mg tablet 4 mg PO Q8H PRN nausea and 11/20/23 12/28/23 Rx vomiting #60 tabs zolpidem 10 mg tablet (Ambien) 10 mg PO QHS PRN sleep (when not 11/20/23 12/28/23 Rx contracts representative) #30 tabs naloxone 4 mg/actuation nasal 4 mg intranasal Q2M PRN opioid 12/22/23 12/25/23 Rx spray (Narcan) overdose #2 ea oxycodone-acetaminophen 5 mg-325 1 tab PO TID PRN pain #3 tabs 12/22/23 12/25/23 Rx mg tablet (Percocet) levothyroxine 75 mcg tablet 100 mcg PO DAILY 12/25/23 12/28/23 History Exam Const General: cooperative and anxious Neck Neck: supple Resp Effort & Inspection: normal respiratory effort Auscultation: clear to auscultation bilaterally Cardio Rate: regular rate Rhythm: regular rhythm GI Inspection: normal to inspection Palpation: soft Neuro General: patient alert, patient awake and patient oriented x3 Results Last Vital Signs Temp 36.3 C L 12/28/23 07:31 Pulse 74 12/28/23 07:31 Resp 18 12/28/23 07:31 BP 128/70 12/28/23 07:31 Pulse Ox 100 12/28/23 07:31 Time Spent Time spent with Patient: <40 minutes Time was spent: other
[2023-12-28] MEDS: Lactated Ringers 1,000 ML 80 ML IV (08:28)
--- NOTE | 2023-12-28 08:41 | ANES.PREOP_ITS ---
General Info Date of Service Date Performed: 12/28/23 Height: 5 ft 5 in Weight: 67 kg Body Mass Index (BMI): 24.5 Surgical Procedure: Operation Date: 12/28/23 08:40 Proposed Procedure Side Surgeon p Cystoscopy/Cauterization of Ulcer?/? Hydrodistension Ajay Christian MD Meds Allergies and Home Medications Allergies Allergy/AdvReac Type Severity Reaction Status Date / Time venom-honey bee Allergy Severe anaphylaxis Verified 12/28/23 07:27 alcohol Allergy Esophilia Verified 12/28/23 07:27 irritant/blows up garlic Allergy Esophilia Verified 12/28/23 07:27 irritant/blows up mint Allergy Esophilia Verified 12/28/23 07:27 irritant/blows up onion Allergy Esophilia Verified 12/28/23 07:27 irritant/blows up Sulfa (Sulfonamide Allergy Unknown Verified 12/28/23 07:27 Antibiotics) vaccine adjuvant system, AdvReac Mild localized Verified 12/28/23 07:27 AS01B liposomal rash [From Shingrix (PF)] varicella-zoster virus AdvReac Mild localized Verified 12/28/23 07:27 glycoprotein E, recombinant rash [From Shingrix (PF)] gabapentin AdvReac SI thoughts Verified 12/28/23 07:27 pregabalin [From Lyrica] AdvReac Suicidal Verified 12/28/23 07:27 Ideation fried foods Allergy Esophilia Uncoded 12/28/23 07:27 irritant/blows up vaccines AdvReac Mild reacts to Uncoded 12/28/23 07:27 vaccines-fever,aches/pains,malaise,fatigue Home Medication Medication Instructions Recorded clobetasol 0.05 % topical ointment 1 applic topical .weekly PRN 08/05/22 vaginal dryness #45 grams conjugated estrogens 0.625 mg/gram 0.625 mg vaginal DAILY #30 grams 08/05/22 vaginal cream (Premarin) lidocaine HCl 2 % mucosal jelly in 1 applic topical BID-QID PRN 08/05/22 applicator (Glydo) urethral pain #500 mL phenazopyridine 200 mg tablet 200 mg PO TID PRN chronic lichen 08/05/22 (Pyridium) sclerosis pain 6 doses #90 tabs epinephrine 0.3 mg/0.3 mL 0.3 mg (0.3 mL) IM ONCE white 12/18/22 injection, auto-injector (EpiPen) faced hornets #2 ea nystatin 100,000 unit/gram topical 1 applic topical QID #30 grams 12/18/22 ointment loratadine 10 mg tablet (Claritin) 10 mg PO DAILY PRN 04/24/23 sucralfate 1 gram tablet 1 g PO BID PRN gastritis #20 tabs 04/24/23 ibuprofen 600 mg tablet 600 mg PO Q6H PRN inflammation, 07/10/23 headache #100 tabs diazepam 10 mg tablet 10 mg PO QHS PRN vaginismus #28 11/20/23 tabs ondansetron HCl 4 mg tablet 4 mg PO Q8H PRN nausea and 11/20/23 vomiting #60 tabs zolpidem 10 mg tablet (Ambien) 10 mg PO QHS PRN sleep (when not 11/20/23 director of health education) #30 tabs naloxone 4 mg/actuation nasal 4 mg intranasal Q2M PRN opioid 12/22/23 spray (Narcan) overdose #2 ea oxycodone-acetaminophen 5 mg-325 1 tab PO TID PRN pain #3 tabs 12/22/23 mg tablet (Percocet) levothyroxine 75 mcg tablet 100 mcg PO DAILY 12/25/23 Current Visit Medications: Current Medications Generic Name Dose Route Start Last Admin Trade Name Freq PRN Reason Stop Dose Admin Ringer's Solution 1,000 mls @ 80 mls/hr 12/28/23 06:00 12/28/23 08:28 IV 12/28/23 23:59 80 mls/hr INFUSION GAYLE Administration Cefazolin Sodium/Dextrose 2 gm in 50 mls @ 100 mls/hr 12/28/23 06:00 Ancef Duplex IVPB 12/28/23 23:59 PREOP GAYLE IV Miscellaneous Supplies 1 each 12/28/23 06:00 Iv Access IV 12/28/23 23:59 DIRECTED GAYLE Sodium Chloride 0 ml 12/28/23 06:00 Normal Saline Flush 10 Ml Syr IV 12/28/23 23:59 PRN PRN Sodium Chloride 0 ml 12/28/23 06:00 Normal Saline 10 Ml Vial IJ 12/28/23 23:59 DIRECTED PRN Sterile Water 0 ml 06/10/24 06:00 Water,Injection,Sterile 10 Ml Vial IJ 12/28/23 23:59 DIRECTED PRN [facility] Active Problems Active Problems: Problem Status Onset Code Hypothyroidism, unspecified ~11/2023 E03.9 Hyperthyroidism E05.90 Serum calcium elevated E83.52 Atypical chest pain R07.89 Breathlessness lying flat R06.01 Chest pain due to psychological stress F43.9, R07.9 Chest pain at rest R07.9 Reactive gastropathy K31.89 GERD (gastroesophageal reflux disease) K21.9 Lichen sclerosus L90.0 Muscle tension dysphonia R49.0 Tinnitus, bilateral H93.13 Skin lesion of face L98.9 Pelvic and perineal pain R10.2 Insomnia G47.00 Mast cell disorder D47.09 Elevated serum creatinine R79.89 Asthma J45.909 Abdominal bloating R14.0 Systemic inflammatory response syndrome R65.10 Autoimmune disorder D89.89 Hakeem's thyroiditis E06.3 Medical History Medical History Hx of diverticulitis of colon RUQ abdominal tenderness Pancreatic insufficiency Pancr Insuff Syndrome per [facility] (2000), Hx Pancr MT16 (liptase, triptase). Dysphagia per [facility] GID[facility]. Ibarra . 12/31/21 LUQ abdominal tenderness Lymphadenopathy rt axila Anticipatory anxiety Lorzpm, short-term. 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 Plaques (+) with flare, 05/2022. 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 w/ constptn/diarrhea, per [facility] GID[facility]. Ibarra . 12/31/21 Functional dyspepsia per [facility] GI, Dr. Ibarra . 12/31/21 COVID-19 (~09/2021) resolving, no fever x 4 days .. monitoring for long covid.. 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 Poor tolerance Lunesta (metallic taste). Hx of smoking Quit over 10 years ago (2019) Vaginismus Valium (vag); Establising w/ [facility] (Dr. Mitzi Mcknight) & [facility]. Advance directive in chart Atypical and under discussion .. ik History of trauma Multiple surgeries, childhood trauma .. important to discuss/review Tx plans and any/all plans for invasive procedures Migraine Improved s/p breast reduction Female genital prolapse s/p repair .. needs local FU, [facility] (?) Rectocele Cystocele, midline Stress incontinence Postmenopausal atrophic vaginitis Hx lichen sclerosis .. (s/p tear repair, Dr. Sandy ([place])) Interstitial cystitis Terrible IC flare, 12/2020. Medical History Comments:: freaked out' in the past with anesthesia. History of deep depression immediately after surgery in recovery. Per patient, Can not leave post op until happy and telling a joke. Pt. reports after anesthesia she didn't have a desire to live after coming anesthesia, if she looks like she doesn't care and really low it took at least 4 hours for her to come around. Pt. states she was told to tell anesthesia that she gets mad as a hatter red as a bee. Pt. has A LOT of anxiety with waking up during anesthesia Pt. states she gets dysphonia,-aphasia when she is a lot of pain as well as dysphagia Pt. also states she bloats with in 1.5 minutes and will look 9 months . Surgical History Surgical History History of colonoscopy (~08/2021) History of surgery Peer patient hx multiple cystoscopys, total pelvic rebuild, anterior/ posterior repair, surgery for endometriosis, surgical repair for vaginal tears r/t lichen sclerosus. Patient reports a total of 30 past surgical procedures. H/O cystoscopy Vaginal biopsy and Repair of vaginal tears. Dr. Noelle Sandy History of hysterectomy History of bilateral breast reduction surgery Tobacco Smoking/Tobacco Use Status: Former Tobacco Use Passive smoking exposure: No Alcohol Alcohol Intake: former Year quit: 2011 Substance Use Substance use: Never Substance use type: does not use Vital Signs and Lab Results Vital Signs Most Recent Vital Signs in EMR: Most Recent Vital Signs Temp Pulse Resp BP Pulse Ox 36.3 C L 74 18 128/70 100 12/28/23 07:31 12/28/23 07:31 12/28/23 07:31 12/28/23 07:31 12/28/23 07:31 Lab Results Blood Type / Crossmatch: No Data to Display Complete Blood Count: No Data to Display Complete Metabolic Panel: No Data to Display Liver Function Panel: No Data to Display Coagulation Panel: No Data to Display Cardiac Panel: No Data to Display Arterial Blood Gas: No Data to Display Venous Blood Gas: No Data to Display Pancreas Panel: No Data to Display Thyroid Panel: No Data to Display Infectious Disease: No Data to Display Blood Cultures: No Data to Display Toxicology Panel: No Data to Display Anesthesia Assessment and Plan Anesthesia History Personal History: PONV, Awareness Under Anesthesia and Other Family History: No Family History of Anesthesia Complications Exercise Tolerance Exercise Tolerance: Metabolic Equivalents>4 Pertinent Negatives Pertinent Negatives: Other (+ reflux) Cardiac & Pulmonary Exam Cardiac Exam: Normal S1/S2 Heart Sounds Pulmonary Exam: Clear Bilateral Breath Sounds Implantable Cardiac Device Does patient have a Pacemaker or an ICD?: No Airway Exam Known Difficult Airway: No Mallampati Class: 2 Mouth Opening: Normal (> 3cm) Thyromental Distance: Greater than 3 cm Neck Range of Motion: Full ROM Neck Circumference: Normal Teeth Condition: Normal Dentition ASA Classification ASA Score: ASA 3 Emergency Case?: No NPO Status NPO Status: NPO Clears >2 hours, Solids >8 hours Anesthesia Plan Resuscitation Status: Full Code Anesthesia Technique: General Anesthesia Airway Planned: Endotracheal Tube Monitors Used: Standard Monitors Preoperative Comments:: (+) Reflux to include last night. Reactive to multiple environmental substances. History of awareness during surgery. Michelle Lambert CRNA
[2023-12-28] MEDS: ceFAZolin 2 GM/50 ML BAG IVPB (09:35)
[2023-12-28] MEDS: Lidocaine 1% Pres-Free 30 ML VIAL (09:51)
[2023-12-28] MEDS: Lidocaine 2% Jelly 11 ML SYR (09:51)
--- NOTE | 2023-12-28 09:56 | PDOC.DSDIS_ITS ---
Date of service: 12/28/23 Time of Service: 09:56 Discharge Plan Disposition Patient Disposition: Home Discharge Details Reason For Visit: cystoscopy Attending Provider: Ajay Christian Primary Care Provider: Paloma Hyman [place] Meds and New Rx's Prescriptions: No Action Premarin 0.625 mg/gram cream 0.625 mg vaginal DAILY Qty: 30 1RF Rx Instructions: 2 FTU 2/week; off 5 days; repeat cycle clobetasol 0.05 % ointment 1 applic topical .weekly PRN (Reason: vaginal dryness) Qty: 45 1RF Rx Instructions: vaginal dryness lidocaine HCl [Glydo] 2 % jelly in applicator 1 applic topical BID-QID PRN (Reason: urethral pain) Qty: 500 1RF phenazopyridine [Pyridium] 200 mg tablet 200 mg PO TID PRN (Reason: chronic lichen sclerosis pain) Qty: 90 3RF Rx Instructions: Take for lichen s. flare.. Monitor closely for urin symp. epinephrine [EpiPen] 0.3 mg/0.3 mL auto-injector 0.3 mg IM ONCE Qty: 2 1RF Rx Instructions: as a single dose nystatin 100,000 unit/gram ointment 1 applic topical QID Qty: 30 1RF Rx Instructions: Trial 4FTU (2g) for breast b/l, x 1 week min loratadine [Claritin] 10 mg tablet 10 mg PO DAILY PRN sucralfate 1 gram tablet 1 g PO BID PRN (Reason: gastritis) Qty: 20 1RF Rx Instructions: Continue for gastritis symptoms zolpidem [Ambien] 10 mg tablet 10 mg PO QHS PRN (Reason: sleep (when not asset protection detective)) Qty: 30 2RF Rx Instructions: Re-starting (no call) ondansetron HCl 4 mg tablet 4 mg PO Q8H PRN (Reason: nausea and vomiting) Qty: 60 1RF diazepam 10 mg tablet 10 mg PO QHS PRN (Reason: vaginismus) Qty: 28 2RF Rx Instructions: Not PO (vaginal at HS prn for pelvic pain). ibuprofen 600 mg tablet 600 mg PO Q6H PRN (Reason: inflammation, headache) Qty: 100 1RF naloxone [Narcan] 4 mg/actuation spray,non-aerosol 4 mg intranasal Q2M PRN (Reason: opioid overdose) Qty: 2 0RF Rx Instructions: spray 1 dose into ONE nostril; alternate nostrils w each dose until help arrives oxycodone-acetaminophen [Percocet] 5-325 mg tablet 1 tab PO TID MDD 3/day PRN (Reason: pain) Qty: 3 0RF Rx Instructions: Take if needed for pain after procedure levothyroxine 75 mcg tablet 100 mcg PO DAILY Patient Comments: *SYNTHROID BRAND ONLY Rx Instructions: Decreased dose based on lab-results/symptoms. (Brand-name needed) Discharge Instructions Additional Instructions: followup visit 1 to 2 weeks so that we can review the bladder photos which will be down loaded in EMR Discharge Orders Discharge Orders: Discharge Order (Routine); Ordered 12/28/23 Ordered By: Ajay Christian DS: Diagnosis Discharge Diagnosis (1) Pelvic and perineal pain: Status: Acute (2) Interstitial cystitis:
--- NOTE | 2023-12-28 09:59 | ROE_ITS ---
Date of service: 12/28/23 Time of Service: 09:59 Operative Note Operative Note DATE OF PROCEDURE: 12/28/23 PRE-OP DIAGNOSIS: Interstitial cystitis POST-OP DIAGNOSIS: same PROCEDURE: cystoscopy with bladder distension SURGEON: Ajay Christian ANESTHESIA TYPE: Local By Surgeon and General LMA/ETT Refer to Anesthesia Record ESTIMATED BLOOD LOSS: 5 PATHOLOGY: none sent COMPLICATIONS: None Patient was transported to: PACU Patient's condition: stable Indications: This is a 58-year-old woman who has a history of interstitial cystitis. She has had cystoscopies, hydrodistention's and fulguration of Hunner's ulcers in the past. She presents for repeat procedure. Findings: Bladder capacity 1150 cc under general anesthesia no ulcers/tumors visible Procedure Description: The patient was given a dose of IV antibiotics and brought to the operating room on 12/28/2023. After successful induction of general anesthesia, she was placed in the dorsal lithotomy position. Her genitalia was prepped with Betadine and draped. 2% Xylocaine jelly was instilled into the urethra to act as a local anesthetic. A 22 Uzbek cystoscope was passed through the urethra into the bladder. The bladder was drained and clear urine was obtained. The bladder was then gradually filled with saline. The bladder was inspected using both a 30 and a 70 degree lens. Both ureteral orifices appeared normal with no blood coming from either side. No ulcers were identified. No papillary or nodular lesions were seen. Under gravity filling, the bladder capacity was measured at 1150 cc. The bladder was then drained and the urine was slight pink-tinged. The patient tolerated this procedure well with no complications. She was taken to the recovery room in stable condition.
[2023-12-28] MEDS: fentaNYL 100 MCG/2 ML VIAL IVP ×2 (10:38→10:43)
[2023-12-28] MEDS: Phenazopyridine 200 MG TAB PO (11:19)
--- NOTE | 2023-12-28 12:08 | W.ANESPOSTOP ---
Postoperative Evaluation Date, Time and Location Date Performed: 12/28/23 Time Performed: 12:08 Patient Location: Day Surgery Unit Vital Signs Most Recent Imported Vital Signs: Most Recent Vital Signs Temp Pulse Resp BP Pulse Ox 36.1 C L 61 18 110/86 100 12/28/23 11:35 12/28/23 11:35 12/28/23 11:35 12/28/23 11:35 12/28/23 11:35 Pain Score Most Recent Pain Score: Most Recent Pain Score Pain Level 1 12/28/23 11:35 Assessment Mental Status: Awake (Alert & Oriented to Patient Baseline) Airway and Respiratory Function: Patent airway with normal (patient baseline) respiratory exam Cardiovascular Function: Hemodynamically Stable Hydration Status: Adequately Hydrated Nausea & Vomiting: No Nausea or Vomiting Pain: Pt. Denies Any Pain Peripheral Nerve Block: Patient did not receive a nerve block
== END 2023-12-28 12:28 | disposition home or self-care (01) ==
PROVIDERS: PCP Student in an Organized Health Care Education/Training Program; Visit Provider Urology
PROC: 0TJB8ZZ Inspection of Bladder, Via Natural or Artificial Opening Endoscopic (ICD-10-PCS; CPT 52000; principal; 2023-12-28 08:30)
DX: N30.10 Interstitial cystitis (chronic) without hematuria; K21.9 Gastro-esophageal reflux disease without esophagitis; E06.3 Autoimmune thyroiditis
CPT/HCPCS: 52260; J0690; J1100; J2001; J2250; J2405; J2704; J3010

== ENCOUNTER 2024-01-14 10:51 | Outpatient (REF) | payer MEDICAID, SELFPAY | END 2024-01-14 10:52 | disposition home or self-care (01) | LOC: LBN 10:51 | PROVIDERS: PCP Student in an Organized Health Care Education/Training Program; Visit Provider Student in an Organized Health Care Education/Training Program | DX: R19.7 Diarrhea, unspecified (principal); R10.84 Generalized abdominal pain; R11.10 Vomiting, unspecified | CPT/HCPCS: 87046; 87425; 82272; 82710; 83993; 87177 ==

== ENCOUNTER 2024-01-15 10:40 | Outpatient (REF) | payer MEDICAID, SELFPAY ==
[2024-01-18 14:33] LABS: Rotavirus Antigen, Feces Negative (Negative)
[2024-01-18 15:48] LABS: Norovirus G1 PCR Negative (Negative); Norovirus G2 PCR Negative (Negative)
[2024-01-19 16:12] LABS: Calprotectin <50.0 mcg/g
== END 2024-01-15 10:41 | disposition home or self-care (01) ==
LOC: LBN 10:40
PROVIDERS: PCP Student in an Organized Health Care Education/Training Program; Visit Provider Student in an Organized Health Care Education/Training Program
DX: R19.7 Diarrhea, unspecified (principal); R10.9 Unspecified abdominal pain; R11.10 Vomiting, unspecified; K90.89 Other intestinal malabsorption
CPT/HCPCS: 87425; 87798; 82710; 83993

== ENCOUNTER 2025-05-18 08:24 | Outpatient (CLI) | payer OTHER, SELFPAY ==
--- NOTE | 2025-05-18 08:15 | RT.EKG_ITS ---
APPROVED REPORT Exam: Resting ECG Reason for Exam: Pre-op exam Patient Location: O HR:67 bpm ECG Measurements Heart Rate 67 AXIS LA 162 P 77 QRSd 106 QRS 46 QT 394 T 46 QTc 416 Conclusion Sinus rhythm...normal P axis, V-rate 50- 99 Normal Electrocardiogram
== END 2025-05-18 08:25 | disposition home or self-care (01) ==
LOC: DI.KIM 08:24
PROVIDERS: PCP Family Medicine; Visit Provider Family Medicine
DX: Z01.818 Encounter for other preprocedural examination (principal)
CPT/HCPCS: 93010